=== PATIENT | female | born 1960 | race Caucasian/White ===

== ENCOUNTER 2019-01-23 07:21 | Emergency (ER) | payer OTHER, SELFPAY ==
[2019-01-23 07:45] VITALS: BP 199/89; PULSE 117; RESP 20; TEMP 36.8; O2SAT 98; BMI 33.3
--- NOTE | 2019-01-23 07:51 | ED.GENADULT ---
HPI - General Adult General Chief complaint: Extremity Injury, Lower Stated complaint: R leg pain Time Seen by Provider: 01/23/19 07:34 Source: patient Mode of arrival: ambulatory Limitations: no limitations History of Present Illness HPI narrative: Patient is a 58-year-old female here for evaluation pain in her right leg. She states that has been going on for the past month. She has been doing occasional Tylenol and Motrin which seems to not be improving any of her symptoms. She states that she felt like it started in her knee and then very shortly afterwards started in her right buttock. No specific lower back pain. No trauma. She states she has occasional pain that radiates down to her foot. No urinary incontinence. No fevers. Other than the Tylenol and Motrin has not tried anything for this prior to arrival. Related Data Previous Rx's Medication Instructions Recorded cyclobenzaprine 10 mg PO TID PRN #15 tab 01/23/19 meloxicam [Mobic] 15 mg PO DAILY #30 tab 01/23/19 Allergies Allergy/AdvReac Type Severity Reaction Status Date / Time No Known Drug Allergies Allergy Verified 01/23/19 07:53 Review of Systems Constitutional Denies fever(s) and Denies headache(s) ENT Ears, Nose, Mouth, and Throat: Denies headache(s) Cardiovascular Denies chest pain and Denies dyspnea Respiratory Denies dyspnea Gastrointestinal Gastrointestinal: Denies abdominal pain Genitourinary Denies urinary incontinence and Denies urinary hesitancy Musculoskeletal Comments: Right leg pain Integumentary/Breasts Denies rash Neurologic Denies headache(s) Comments: Tingling down the right leg PFSH Medical History Healthy adult (Acute) Social History lives independently: Yes Social History lives independently: Yes Exam Initial Vital Signs Initial Vital Signs: Vital Signs Temperature 98.2 F 01/23/19 07:45 Pulse Rate 117 H 01/23/19 07:45 Respiratory Rate 20 01/23/19 07:45 Blood Pressure 199/89 H 01/23/19 07:45 Pulse Oximetry 98 01/23/19 07:45 Const General: cooperative, comfortable, well developed, well groomed and No acute distress Orientation: alert, awake and oriented x3 HENMT Head: normal to inspection and normocephalic Resp Effort & Inspection: normal respiratory effort Cardio Rate: tachycardic Rhythm: regular rhythm Pulses: radial pulses present GI Inspection: non-distended Back/Spine/Pelvis Cervical Spine: No cervical spinal tenderness Thoracic/Lumbar Spine: No thoraco-lumbar spasm, No thoracic spinal tenderness, No lumbar spinal tenderness and straight leg raise positive Skin Lesions: no lesions Rashes: no rashes Neuro General: alert, awake and oriented x3 Cognition: normal cognition Speech: speech normal Motor: muscle tone normal throughout Sensory Exam: no sensory deficits noted Extrem General: normal to inspection and capillary refill normal Psych Appearance: grossly normal and well kempt Course Vital Signs - 8 hr 01/23/19 07:45 Temperature 98.2 F Pulse Rate 117 H Respiratory Rate 20 Blood Pressure 199/89 H Pulse Oximetry 98 Medical Decision Making Lab Data Point of Care Testing Glucose POC 108 Point of care testing: Point of Care Testing Glucose POC 108 MDM Narrative Medical decision making narrative: Patient with a history of physical exam that is concerning for sciatica with radiculopathy in the right lower extremity. Her symptoms been going on for a month. She did have a positive straight leg raise on the right. Patient is tachycardic however feels that is secondary to pain. Patient is very concerned because her sister just recently secondary to metastatic cancer. The patient does not know what type of cancer. Patient does not have a primary care doctor in the area. Will switch to Mobic and also Flexeril. The patient was given a card with the phone number to call to help with the stab showing primary care in the area. She was given return precautions. She expressed understanding and agreement with plan. Discharge Plan Departure Patient Disposition: Home Clinical Impression: Radiculopathy of leg Hypertension Qualifiers: Hypertension type: unspecified Qualified Code(s): I10 - Essential (primary) hypertension Instructions: Back Pain (Alternative Therapy), Essential Hypertension, DI for Back Pain With Sciatica, Activity May Be Better then Rest for Low Back Pain Recovery, DI for Lumbar Radiculopathy Activity Restrictions/Additional Instructions: I recommend you start taking the Mobic instead of other anti-inflammatories such as Motrin/ibuprofen/Naprosyn. Call the number on the card you were given to establish primary care doctor in the area. If the muscle relaxer does not help stop taking it. Return to the emergency department for any new or worsening symptoms. Your blood pressure was elevated today as well. I recommend you talk with your primary doctor. I also recommend you take your blood pressure at home and record the values so that when you go into see your primary doctor you can discuss potential medications. Prescriptions: New cyclobenzaprine 10 mg tablet 10 mg PO TID PRN (Reason: muscle spasm) Qty: 15 RF: 0 meloxicam [Mobic] 15 mg tablet 15 mg PO DAILY Qty: 30 RF: 0
[2019-01-23 08:48] VITALS: BP 187/76; PULSE 95; RESP 18; O2SAT 99
== END 2019-01-23 08:49 | disposition home or self-care (01) ==
PROVIDERS: Emergency Provider Emergency Medicine
DX: M54.10 Radiculopathy, site unspecified (principal)
CPT/HCPCS: 82962; 99282; 99283

== ENCOUNTER 2021-08-11 03:35 | Inpatient (IN) | payer OTHER, MEDICAID, SELFPAY ==
[2021-08-11] VITALS (17 sets, daily range): BP systolic 142–240; BP diastolic 76–115; PULSE 88–117; RESP 20–42; TEMP 36.2–37.3; O2SAT 91–98; BMI 32.9; BMI 32.1
--- NOTE | 2021-08-11 03:27 | DI.CT.S_ITS ---
PROCEDURE: CT STROKE INDICATIONS: acute Left side weakness TECHNIQUE: Noncontrast 4.5 mm thick angled axial sections acquired from the foramen magnum to the vertex, with coronal reformats. For radiation dose reduction, the following was used: automated exposure control, adjustment of mA and/or kV according to patient size. COMPARISON: [facility], CT, CT ANGIO HEAD AND NECK, 08/11/2021, 3:37. FINDINGS: Image quality: Excellent. CSF spaces: Basal cisterns are patent. No extra-axial fluid collections. The ventricles are symmetric in size and shape. Brain: No intracranial bleeds or masses. There is cerebral volume loss for age, with resultant ventricular and sulcal prominence. There are periventricular and deep white matter chronic small vessel ischemic changes. There is intracranial internal carotid artery atherosclerosis. Skull and face: Calvarium and visualized facial bones appear intact, without suspicious lesions. Partially calcified soft tissue density within the left frontal scalp soft tissues measuring approximately 7 mm. No priors are available for comparison. Sinuses: Visualized sinuses and mastoids are clear. IMPRESSION: 1. No acute intracranial process. 2. Mild to moderate atrophy and chronic microvascular ischemic changes. 3. Partially calcified left frontal scalp soft tissue density. This could represent a partially calcified sebaceous cyst. However, it is indeterminate on the basis of this exam. The above findings are concordant with preliminary report. This study fulfills neurological imaging criteria for inclusion or exclusion of acute stroke therapies based on available published neurological guidelines. Dictated by: Zulema Sabillon M.D. on 08/11/2021 at 9:21 Approved by: Zulema Sabillon M.D. on 08/11/2021 at 9:27
--- NOTE | 2021-08-11 03:28 | DI.CT.S_ITS ---
PROCEDURE: CT ANGIO HEAD AND NECK INDICATIONS: acute Left side weakness TECHNIQUE: After the administration of intravenous contrast, 1 mm thick sections acquired from the aortic arch through the [place] of [place]. Post-contrast 4.5 mm thick sections then re-acquired from the foramen magnum to the vertex. 3-dimensional mwszkld-shkpsrzan-futhbuzuvr (MIP) and/or volume rendering reformats were acquired of the central intracranial vasculature and neck separately. COMPARISON: [facility], CT, CT STROKE, 08/11/2021, 3:37. FINDINGS: Image quality: Excellent. BRAIN: The ventricular system and cortical sulci demonstrate atrophy, consistent for the patient's stated age. There are areas of hypodensity within the periventricular and subcortical white matter. There is no acute intra-or extra axial fluid collection. No acute hemorrhage, mass lesion or midline shift. Brainstem is unremarkable. Globes are symmetrical. Sinuses are aerated. Osseous structures are intact. HEAD CT ANGIOGRAPHY: Anterior circulation: Intracranial internal carotid arteries are normal in size and flow. The flow within the paired anterior cerebral arteries is normal and symmetric. The flow within the middle cerebral arteries is normal and symmetric. The anterior communicating artery is seen. No aneurysms are seen. Posterior circulation: Visualized portions of the vertebral arteries demonstrate normal caliber, and join to form a normal appearing basilar artery. Flow within the posterior cerebral arteries is normal and symmetric. No aneurysms are seen. Vertebral arteries are codominant. NECK CT ANGIOGRAPHY: The origins of the left and right common, internal and external carotid arteries demonstrate no areas of hemodynamically significant stenosis, vascular occlusion or aneurysmal dilation. Origins of the left and right vertebral arteries demonstrate no areas of hemodynamically significant stenosis, vascular occlusion or aneurysmal dilation. Aortic arch demonstrates conventional anatomy. Limited, visualized portions of the subclavian vasculature are unremarkable. 3 mm nodule is noted in the posterior right upper lobe series 8, image 174. No priors are available for comparison. Thyroid demonstrates low-attenuation foci within the left lobe. IMPRESSION: 1. No acute intracranial process. 2. Moderate atrophy and chronic microvascular ischemic changes. 3. No areas of hemodynamically significant stenosis, vascular occlusion or aneurysmal dilation within the anterior or posterior circulation. 4. No areas of hemodynamically significant stenosis, vascular occlusion or aneurysmal dilation within the neck vasculature. 5. 3 mm right upper lobe nodule. It is nonspecific and no priors are available for comparison. Recommend interval follow-up as below. 6. Heterogeneous appearance to the left thyroid lobe. These could represent cysts or adenomas. No priors are available for comparison. Thyroid ultrasound is recommended for further evaluation. The above findings are concordant with preliminary report. Any quantitative measurements of stenosis were performed using NASCET criteria. Fleischner Society criteria for SOLID lung nodule followup. Nodule size (mm)Low-risk patientHigh-risk patient<6 (single or multiple)No routine followup.Optional CT at 12 months. 6-8 (single or multiple)CT at 6-12 months, then optional CT at 18-24 mo.CT at 6-12 months, then CT at 18-24 months. >8 (single)CT, PET-CT, or biopsy at 3 months. Same as for low-risk pts. >8 (multiple)CT at 3-6 months, then optional CT at 18-24 mo.CT at 3-6 months, then CT at 18-24 months. Recommendations do not apply to lung cancer screening, patients with immunosuppression, or patients with known primary cancer. Dictated by: Zulema Sabillon M.D. on 08/11/2021 at 9:35 Approved by: Zulema Sabillon M.D. on 08/11/2021 at 9:48
--- NOTE | 2021-08-11 03:34 | ED_ITS ---
HPI - General Adult General Chief complaint: Neuro Symptoms/Deficit Stated complaint: Stroke Time Seen by Provider: 08/11/21 03:39 History of Present Illness HPI narrative: 70-year-old woman with a history of diabetes, hypertension and hyperlipidemia currently untreated as she is unable to afford medications was in her usual state of health when she went to bed at 9:00 a.m.. No recent fever, cough, chills, palpitations, abdominal pain, vomiting, diarrhea, headache or neurologic complaints. She woke up to void at 2:30 a.m. in the morning and found that her entire left side was not working. She arrives in the emergency department at 3:30 a.m. and is immediately taken to CT scanner. Related Data Home Medications Medication Instructions Recorded Confirmed No Known Home Medications 08/11/21 08/11/21 Allergies Allergy/AdvReac Type Severity Reaction Status Date / Time No Known Drug Allergies Allergy Verified 08/11/21 03:45 Review of Systems Review of Systems Narrative: Remainder of complete review of systems is otherwise unremarkable except for that included in the HPI. Patient History Medical History (Updated 08/11/21 @ 05:53 by Esme Jerry [facility] Diabetes Healthy adult Hyperlipidemia Hypertension Obesity (BMI 30.0-34.9) Stroke Surgical History (Updated 08/11/21 @ 05:53 by DEMARCO Lee-) History of History of cholecystectomy History of tonsillectomy Family History (Updated 08/11/21 @ 05:53 by DEMARCO Lee-) Mother Heart attack Diabetes mellitus Father Heart disease Social History household members: significant other lives independently: Yes Smoking Status: Current every day smoker alcohol intake: current Exam Narrative Exam Narrative: General: Healthy appearing, dramatic left-sided deficit, able to participate in history taking. Well-nourished well-developed HEENT: Moist mucous membranes, normal sclera with reactive pupils, Neck: No JVD, supple Respiratory: Lungs are clear to auscultation, no wheezing no rales no rhonchi. Full and symmetrical air movement Cardiac: Regular rate and rhythm no murmurs no bruits Abdomen: Soft, nontender, good bowel tones, no flank pain Skin: Warm and dry, no rashes Neurologic: Left facial droop, numbness and weakness in left arm and left leg, mild dysarthria Extremities: No trauma, well perfused Psych: Cooperative, Initial Vital Signs Initial Vital Signs: Vital Signs Pulse Rate 92 H 08/11/21 03:49 Pulse Oximetry 92 08/11/21 03:49 Scores NIH Stroke Scale Level of Conciousness: Alert, keenly responsive Ask month/age: Answers both questions correctly. Open/close eyes, close hand: Performs both tasks correctly Best gaze horizontal: Normal Visual dove: No visual loss Facial palsy: Minor paralysis, flattened nasolabial fold, asymmetry on smiling Left arm drift: Some effort against gravity, cannot maintain, drifts down to bed Right arm drift: No drift for full 10 sec Left leg drift: Some effort against gravity, cannot maintain, drifts down to bed Right leg drift: No drift for full 5 sec Limb ataxia: Present in two limbs Sensory on face/arms/legs: Mild to moderate sensory loss, can tell touch Best language: Mild to moderate, slurs some words Dysarthria: Mild to mod,some slurring Extinction or inattention: No abnormality Total NIH Stroke scale score: 10 Course Orders Ordered: ED Orders 08/11/21 03:20 Complete Blood Count AUTO DIFF Stat Comprehensive Metabolic Panel Stat Hemoglobin A1C% w Est Avg Glu Urgent Lipid Panel Urgent Magnesium Urgent NT-proBNP (BNP-Adult 18+) Urgent Thyroid Stimulating Hormone Urgent Troponin I Urgent 08/11/21 03:27 CT Stroke Stat EKG-12 Lead Stat 08/11/21 03:28 CT angio head and neck Stat 08/11/21 04:05 COVID19 -Nasal swab/Pre-Proc Stat 08/11/21 04:30 Urinalysis and Microscopic Stat Urine Drug Screen, Rapid Stat 08/11/21 04:32 Consult to Discharge Planning Routine Consult to Occupational Therapy Evaluate & Treat Consult to Physical Therapy Evaluate & Treat Consult to Speech Therapy Evaluate & Treat MR stroke Stat Education, smoking cessation ONGOING 08/11/21 04:39 Education, smoking cessation ONGOING 08/11/21 04:40 COVID19 - 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 (LINE WORKER swab/PCR) Stat 08/12/21 05:00 Basic Metabolic Panel Routine Complete Blood Count AUTO DIFF DAILY Partial Thromboplastin Time Routine Prothrombin Time INR Routine Acetaminophen (Acetaminophen 325 Mg Tablet) 650 mg PO Q6HR PRN PRN Reason: Fever Aspirin (Aspirin Ec 81 Mg Tablet) 81 mg PO DAILY LEXX Atorvastatin Calcium (Atorvastatin 20 Mg Tablet) 80 mg PO BEDTIME LEXX Clopidogrel Bisulfate (Clopidogrel 75 Mg Tablet) 75 mg PO DAILY LEXX Dextrose (Dextrose 50 % In Water 25 Gm/50 Ml Syringe) 25 gm IV PRN PRN PRN Reason: Hypoglycemia Sodium Chloride (Normal Saline 0.9%) 1,000 mls @ 150 mls/hr IV CONT LEXX Last Infusion: 08/11/21 05:33 Dose: 150 mls/hr Documented by: Admin: 08/11/21 04:07 Dose: 150 mls/hr Documented by: JADE Nicardipine HCl 25 mg/ Sodium (Chloride) 250 mls @ 50 mls/hr IV TITRATE LEXX; Protocol Last Titration: 08/11/21 06:22 Dose: 4 mg/hr, 40 mls/hr Documented by: Titration: 08/11/21 05:33 Dose: 5 mg/hr, 50 mls/hr Documented by: Titration: 08/11/21 05:05 Dose: 5 mg/hr, 50 mls/hr Documented by: Titration: 08/11/21 04:55 Dose: 6 mg/hr, 60 mls/hr Documented by: Admin: 08/11/21 04:10 Dose: 5 mg/hr, 50 mls/hr Documented by: JADE Insulin Human Lispro (Insulin Lispro 100 Unit/Ml 3ml Vial) 0 unit SUBCUT ACHS LEXX; Protocol Naloxone HCl (Naloxone 0.4 Mg/Ml Vial) 0.2 mg IV Q2MIN PRN PRN Reason: Opiate Reversal Ondansetron HCl (Ondansetron 4 Mg Odt) 4 mg PO Q8HR PRN PRN Reason: Nausea And Vomiting Vital Signs Vital signs: Vital Signs - 8 hr 08/11/21 03:49 08/11/21 03:52 08/11/21 04:00 Temperature Pulse Rate 92 H 92 H 90 Respiratory Rate 22 22 Blood Pressure 232/115 H 217/101 H Pulse Oximetry 92 93 92 08/11/21 04:20 08/11/21 04:30 08/11/21 04:37 Temperature 98.7 F Pulse Rate 93 H 104 H 112 H Respiratory Rate 26 H 26 H 20 Blood Pressure 240/107 H 229/93 H 211/93 H Pulse Oximetry 94 92 94 08/11/21 04:45 Temperature Pulse Rate 100 H Respiratory Rate 28 H Blood Pressure 195/84 H Pulse Oximetry 92 Medical Decision Making Lab Data Result diagrams: 08/11/21 03:20 08/11/21 03:20 Labs: Lab Results 08/11/21 08/11/21 08/11/21 Range/Units 03:20 03:20 03:20 WBC 12.7 H (4.5-11.0) X10^3/uL RBC 5.51 H (4.0-5.2) X10^6/uL Hgb 17.7 H (12.0-16.0) g/dL Hct 53.3 H (36-46) % MCV 96.6 (80-100) fL MCH 32.0 (26-34) PG MCHC 33.2 (30-36) % RDW 13.3 (11.6-14.8) % Plt Count 321 (150-400) X10^3/uL Neut % (Auto) 43.6 L (50-75) % Lymph % (Auto) 45.2 H (25-40) % [place] % (Auto) 8.3 (3-14) % Eos % (Auto) 2.6 (2-4) % Baso % (Auto) 0.3 (0-2) % Neut # (Auto) 5500 (0904-6655) /uL Lymph # (Auto) 5700 H (2030-9255) /uL [place] # (Auto) 1100 H (0-900) /uL Eos # (Auto) 300 (0-450) /uL Baso # (Auto) 0 (0-100) /uL Sodium 137 (137-145) mmol/L Potassium 3.9 (3.4-5.1) mmol/L Chloride 104 (98-107) mmol/L Carbon Dioxide 24 (22-32) mmol/L BUN 15 (7-17) mg/dL Creatinine 0.74 (0.52-1.04) mg/dL Estimated GFR > 60.0 (>60) mL/min BUN/Creatinine Ratio 20.3 (6-22) Glucose 282 H (80-110) mg/dL Calcium 9.1 (8.4-10.2) mg/dL Magnesium (1.6-2.3) mg/dL Total Bilirubin 0.5 (0.2-1.3) mg/dL AST 26 (14-36) IU/L ALT 25 (<35) IU/L Alkaline Phosphatase 69 (38-126) U/L Troponin I < 0.012 (0.01-0.034) ng/mL NT-Pro-B Natriuret Pep (<125) pg/mL Total Protein 7.3 (6.3-8.2) g/dL Albumin 4.2 (3.5-5.0) g/dL Globulin 3.1 (1.7-4.1) g/dL Albumin/Globulin Ratio 1.4 (1.0-2.8) Triglycerides (35-150) mg/dL Cholesterol (140-199) mg/dL LDL Cholesterol, Calc HDL Cholesterol (40-60) mg/dL Urine Color Urine Appearance Urine pH (4.5-8.0) Ur Specific [place] (1.000-1.035) Urine Protein (Negative) Urine Glucose (UA) (Negative) g/dL Urine Ketones (NEGATIVE) Urine Occult Blood (Negative) Urine Nitrate (Negative) Urine Bilirubin (NEGATIVE) Urine Urobilinogen (0.2) E.U./dL Ur Leukocyte Esterase (NEGATIVE) U Opiates 300ng/mL cut (Negative) Ur Oxycodone Screen (Negative) Urine Methadone Screen (Negative) Ur Barbiturates Screen (Negative) U Tricyclic Antidepress (Negative) Ur Phencyclidine Scrn (Negative) Ur Amphetamines Screen (Negative) U Methamphetamines Scrn (Negative) Ur MDMA Scrn (Ecstasy) (Negative) U Benzodiazepines Scrn (Negative) Urine Cocaine Screen (Negative) U Marijuana (THC) Screen (Negative) SARS-CoV-2 (PCR) (Negative) 08/11/21 08/11/21 08/11/21 Range/Units 03:20 03:20 03:20 WBC (4.5-11.0) X10^3/uL RBC (4.0-5.2) X10^6/uL Hgb (12.0-16.0) g/dL Hct (36-46) % MCV (80-100) fL MCH (26-34) PG MCHC (30-36) % RDW (11.6-14.8) % Plt Count (150-400) X10^3/uL Neut % (Auto) (50-75) % Lymph % (Auto) (25-40) % [place] % (Auto) (3-14) % Eos % (Auto) (2-4) % Baso % (Auto) (0-2) % Neut # (Auto) (5128-0128) /uL Lymph # (Auto) (0582-0866) /uL [place] # (Auto) (0-900) /uL Eos # (Auto) (0-450) /uL Baso # (Auto) (0-100) /uL Sodium (137-145) mmol/L Potassium (3.4-5.1) mmol/L Chloride (98-107) mmol/L Carbon Dioxide (22-32) mmol/L BUN (7-17) mg/dL Creatinine (0.52-1.04) mg/dL Estimated GFR (>60) mL/min BUN/Creatinine Ratio (6-22) Glucose (80-110) mg/dL Calcium (8.4-10.2) mg/dL Magnesium 1.9 (1.6-2.3) mg/dL Total Bilirubin (0.2-1.3) mg/dL AST (14-36) IU/L ALT (<35) IU/L Alkaline Phosphatase (38-126) U/L Troponin I (0.01-0.034) ng/mL NT-Pro-B Natriuret Pep 36 (<125) pg/mL Total Protein (6.3-8.2) g/dL Albumin (3.5-5.0) g/dL Globulin (1.7-4.1) g/dL Albumin/Globulin Ratio (1.0-2.8) Triglycerides 650 H (35-150) mg/dL Cholesterol 253 H (140-199) mg/dL LDL Cholesterol, Calc TNP HDL Cholesterol 30 L (40-60) mg/dL Urine Color Urine Appearance Urine pH (4.5-8.0) Ur Specific [place] (1.000-1.035) Urine Protein (Negative) Urine Glucose (UA) (Negative) g/dL Urine Ketones (NEGATIVE) Urine Occult Blood (Negative) Urine Nitrate (Negative) Urine Bilirubin (NEGATIVE) Urine Urobilinogen (0.2) E.U./dL Ur Leukocyte Esterase (NEGATIVE) U Opiates 300ng/mL cut (Negative) Ur Oxycodone Screen (Negative) Urine Methadone Screen (Negative) Ur Barbiturates Screen (Negative) U Tricyclic Antidepress (Negative) Ur Phencyclidine Scrn (Negative) Ur Amphetamines Screen (Negative) U Methamphetamines Scrn (Negative) Ur MDMA Scrn (Ecstasy) (Negative) U Benzodiazepines Scrn (Negative) Urine Cocaine Screen (Negative) U Marijuana (THC) Screen (Negative) SARS-CoV-2 (PCR) (Negative) 08/11/21 08/11/21 08/11/21 Range/Units 04:05 04:30 04:30 WBC (4.5-11.0) X10^3/uL RBC (4.0-5.2) X10^6/uL Hgb (12.0-16.0) g/dL Hct (36-46) % MCV (80-100) fL MCH (26-34) PG MCHC (30-36) % RDW (11.6-14.8) % Plt Count (150-400) X10^3/uL Neut % (Auto) (50-75) % Lymph % (Auto) (25-40) % [place] % (Auto) (3-14) % Eos % (Auto) (2-4) % Baso % (Auto) (0-2) % Neut # (Auto) (2997-6874) /uL Lymph # (Auto) (5668-8079) /uL [place] # (Auto) (0-900) /uL Eos # (Auto) (0-450) /uL Baso # (Auto) (0-100) /uL Sodium (137-145) mmol/L Potassium (3.4-5.1) mmol/L Chloride (98-107) mmol/L Carbon Dioxide (22-32) mmol/L BUN (7-17) mg/dL Creatinine (0.52-1.04) mg/dL Estimated GFR (>60) mL/min BUN/Creatinine Ratio (6-22) Glucose (80-110) mg/dL Calcium (8.4-10.2) mg/dL Magnesium (1.6-2.3) mg/dL Total Bilirubin (0.2-1.3) mg/dL AST (14-36) IU/L ALT (<35) IU/L Alkaline Phosphatase (38-126) U/L Troponin I (0.01-0.034) ng/mL NT-Pro-B Natriuret Pep (<125) pg/mL Total Protein (6.3-8.2) g/dL Albumin (3.5-5.0) g/dL Globulin (1.7-4.1) g/dL Albumin/Globulin Ratio (1.0-2.8) Triglycerides (35-150) mg/dL Cholesterol (140-199) mg/dL LDL Cholesterol, Calc HDL Cholesterol (40-60) mg/dL Urine Color Yellow Urine Appearance Clear Urine pH 5.5 (4.5-8.0) Ur Specific [place] 1.010 (1.000-1.035) Urine Protein 1+ H (Negative) Urine Glucose (UA) 2+ H (Negative) g/dL Urine Ketones Negative (NEGATIVE) Urine Occult Blood 1+ H (Negative) Urine Nitrate Negative (Negative) Urine Bilirubin Negative (NEGATIVE) Urine Urobilinogen 0.2 (0.2) E.U./dL Ur Leukocyte Esterase Trace H (NEGATIVE) U Opiates 300ng/mL cut Negative (Negative) Ur Oxycodone Screen Negative (Negative) Urine Methadone Screen Negative (Negative) Ur Barbiturates Screen Negative (Negative) U Tricyclic Antidepress Negative (Negative) Ur Phencyclidine Scrn Negative (Negative) Ur Amphetamines Screen Negative (Negative) U Methamphetamines Scrn Negative (Negative) Ur MDMA Scrn (Ecstasy) Negative (Negative) U Benzodiazepines Scrn Negative (Negative) Urine Cocaine Screen Negative (Negative) U Marijuana (THC) Screen Negative (Negative) SARS-CoV-2 (PCR) Negative (Negative) 08/11/21 Range/Units 04:40 WBC (4.5-11.0) X10^3/uL RBC (4.0-5.2) X10^6/uL Hgb (12.0-16.0) g/dL Hct (36-46) % MCV (80-100) fL MCH (26-34) PG MCHC (30-36) % RDW (11.6-14.8) % Plt Count (150-400) X10^3/uL Neut % (Auto) (50-75) % Lymph % (Auto) (25-40) % [place] % (Auto) (3-14) % Eos % (Auto) (2-4) % Baso % (Auto) (0-2) % Neut # (Auto) (7305-1877) /uL Lymph # (Auto) (7182-8903) /uL [place] # (Auto) (0-900) /uL Eos # (Auto) (0-450) /uL Baso # (Auto) (0-100) /uL Sodium (137-145) mmol/L Potassium (3.4-5.1) mmol/L Chloride (98-107) mmol/L Carbon Dioxide (22-32) mmol/L BUN (7-17) mg/dL Creatinine (0.52-1.04) mg/dL Estimated GFR (>60) mL/min BUN/Creatinine Ratio (6-22) Glucose (80-110) mg/dL Calcium (8.4-10.2) mg/dL Magnesium (1.6-2.3) mg/dL Total Bilirubin (0.2-1.3) mg/dL AST (14-36) IU/L ALT (<35) IU/L Alkaline Phosphatase (38-126) U/L Troponin I (0.01-0.034) ng/mL NT-Pro-B Natriuret Pep (<125) pg/mL Total Protein (6.3-8.2) g/dL Albumin (3.5-5.0) g/dL Globulin (1.7-4.1) g/dL Albumin/Globulin Ratio (1.0-2.8) Triglycerides (35-150) mg/dL Cholesterol (140-199) mg/dL LDL Cholesterol, Calc HDL Cholesterol (40-60) mg/dL Urine Color Urine Appearance Urine pH (4.5-8.0) Ur Specific [place] (1.000-1.035) Urine Protein (Negative) Urine Glucose (UA) (Negative) g/dL Urine Ketones (NEGATIVE) Urine Occult Blood (Negative) Urine Nitrate (Negative) Urine Bilirubin (NEGATIVE) Urine Urobilinogen (0.2) E.U./dL Ur Leukocyte Esterase (NEGATIVE) U Opiates 300ng/mL cut (Negative) Ur Oxycodone Screen (Negative) Urine Methadone Screen (Negative) Ur Barbiturates Screen (Negative) U Tricyclic Antidepress (Negative) Ur Phencyclidine Scrn (Negative) Ur Amphetamines Screen (Negative) U Methamphetamines Scrn (Negative) Ur MDMA Scrn (Ecstasy) (Negative) U Benzodiazepines Scrn (Negative) Urine Cocaine Screen (Negative) U Marijuana (THC) Screen (Negative) SARS-CoV-2 (PCR) Negative (Negative) Point of Care Testing Glucose POC 266 Point of care testing: Point of Care Testing Glucose POC [address] scan - head: Radiologist's Impression: No acute intracranial hemorrhage CTA head and neck: Radiologist's Impression: No acute occlusion. No rate limiting stenosis Ginette Florence DO MDM Narrative Medical decision making narrative: 70-year-old woman with last known well at 9:00 p.m.. Awoke 2 through tree to void and noticed significant left-sided weakness. NIH score of 13. Upon arrival in the emergency department at 3:30 a.m. she has taken directly to the CT scanner. Due to time of presentation she is outside the window for tPA however if she does have a large vessel occlusion she clearly is within interventional radiology time frames. 3:59 Radiology call - no head bleed Will wait for CTA formatting to be done and contact stroke Neurology team to see if this patient might have a large vessel occlusion and be a code IR candidate. 4:08 Call from Tele Stroke, Dr Ga. Will call back after he has a chance to review the CTA 4:14 Dr Ga has reviewed CTA and reports no LVO. Unfortunately at this time no interventional options are going to be appropriate. Will continue nicardipine with a systolic blood pressure goal 185 and admit to our hospital service for medical management of her acute right-sided stroke with significant left-sided weakness and dysarthria. 422 Reviewed with Ms Jerry, hospitalist ЕКАТЕРИНА. Will admit for contiued care and stroke work up consult from Dr Ga is available and consistent with events and plan as outlined above Critical Care Time Critical Care Time Critical Care Time: Yes Total Critical Care Time: 33 Attestation: Critical care time is separate from other billable procedures. There is a high probability of a significant, sudden or life-threatening deterioration that requ ires my full and direct attention, intervention and personal management. This critical care time includes consultation with family and other consulting doctors, review of records, and interpretation of data from labs, EKGs and imaging as well as managements of acute stroke and hypertension significant enough to require IV medication management Discharge Plan Departure Patient Disposition: Admitted As Inpatient Clinical Impression: Stroke Qualifiers: CVA mechanism: embolism Precerebral and cerebral artery: middle cerebral artery Laterality of affected vessel: right Qualified Code(s): I63.411 - Cerebral infarction due to embolism of right middle cerebral artery Admit Date/Time: 08/11/21 04:56 Admit Provider: Esme Jerry
[2021-08-11] MEDS: SODIUM CHLORIDE 0.9% 1,000 ML 150 ML IV (04:07)
[2021-08-11 04:09] LABS: Add Manual Diff / Slide Review NO; Basophils Absolute Auto 0 /uL (0-100); Basophils Percent Auto 0.3 % (0-2); Eosinophils Absolute Auto 300 /uL (0-450); Eosinophils Percent Auto 2.6 % (2-4); Hematocrit 53.3 % (36-46); Hemoglobin 17.7 g/dL (12.0-16.0); Lymphocytes Absolute Auto 5700 /uL (1100-4500); Lymphocytes Percent Auto 45.2 % (25-40); Mean Corpuscular HGB Conc 33.2 % (30-36); Mean Corpuscular Volume 96.6 fL (80-100); Monocytes Absolute Auto 1100 /uL (0-900); Monocytes Percent Auto 8.3 % (3-14); Neutrophils Absolute Auto 5500 /uL (1500-7000); Neutrophils Percent Auto 43.6 % (50-75); Platelet Count 321 X10^3/uL (150-400); Red Blood Cell Count 5.51 X10^6/uL (4.0-5.2); Red Cell Distribution Width 13.3 % (11.6-14.8); White Blood Cell Count 12.7 X10^3/uL (4.5-11.0)
[2021-08-11] MEDS: NICARDIPINE 25 MG in SODIUM CHLORIDE 0.9% 240 ML 50 ML IV (04:10)
[2021-08-11 04:13] LABS: Alanine Aminotransferase 25 IU/L (<35); Albumin 4.2 g/dL (3.5-5.0); Albumin Globulin Ratio 1.4 (1.0-2.8); Alkaline Phosphatase 69 U/L (38-126); Aspartate Aminotransferase 26 IU/L (14-36); BUN Creatinine Ratio 20.3 (6-22); Bilirubin Total 0.5 mg/dL (0.2-1.3); Blood Urea Nitrogen 15 mg/dL (7-17); Calcium 9.1 mg/dL (8.4-10.2); Carbon Dioxide 24 mmol/L (22-32); Chloride 104 mmol/L (98-107); Estimated Glomerular Filt Rate > 60.0 mL/min (>60); Globulin 3.1 g/dL (1.7-4.1); Glucose 282 mg/dL (80-110); HEMOLYSIS 24 (0-50); Potassium 3.9 mmol/L (3.4-5.1); Sodium 137 mmol/L (137-145); Total Protein 7.3 g/dL (6.3-8.2)
[2021-08-11 04:23] LABS: COVID19 -Nasal RAPID Negative (Negative)
--- NOTE | 2021-08-11 04:32 | DI.MRI.S_ITS ---
PROCEDURE: MR STROKE Pre- and post-contrast brain MRI, non-contrast brain MR angiogram, pre- and postcontrast neck MR angiogram INDICATIONS: stroke TECHNIQUE: Brain: Noncontrast axial T1 spin echo, axial T2 fast spin echo, sagittal and axial FLAIR, coronal T2 fast spin echo, axial gradient echo, axial diffusion and ADC through the brain. After the administration of contrast, axial 3D VIBE of the cranial vasculature and brain. Brain MRA: Non-contrast 3-D time of flight MR angiogram, with multiple hqtbxbj-eplzdtewd-[id number] (MIP) reformats performed. Neck MRA: Axial and sagittal TruFISP through the neck. Coronal dynamic MR angiogram during administration of contrast in the arterial and venous phases, with 3-dimenstional uyxrmfm-vcqayrvax-pbrfbmjalw (MIP) reformats constructed from subtraction images. COMPARISON: None. FINDINGS: Image quality: Excellent. BRAIN: CSF spaces: Ventricles are normal in size and shape. Basal cisterns are patent. No extra-axial fluid collections. Brain: There is a focus of restricted diffusion in the right thalamus and adjacent internal capsule measuring approximately 1.4 by 0.5 centimeters maximum axial dimension (series 19, image 63). No additional restricted diffusion. The major intracranial vascular flow-related signal voids are maintained. No findings of mass effect or midline shift. Mild global cerebral volume loss and chronic microvascular ischemic changes. No abnormal a focus of increased T2 signal in the omayra just left of midline measuring 0.7 x 0.3 centimeters is nonspecific but presumably represents a capillary hemangioma or perhaps another small vascular anomaly. A tiny subacute infarct could have a similar appearance, although there is no associated restricted diffusion. Skull and face: Calvarial marrow signal is normal. Orbits appear normal. Sinuses: Sinuses and mastoids are clear. BRAIN MR ANGIOGRAM: Anterior circulation: Intracranial internal carotid arteries are normal in size and enhancement. The flow within the paired anterior cerebral arteries is normal and symmetric. The flow within the middle cerebral arteries is normal and symmetric. The anterior communicating artery is seen. No stenoses, occlusions, or aneurysms. Posterior circulation: The visualized portions of the vertebral arteries demonstrate normal caliber, and join to form a normal appearing basilar artery. The flow within the posterior cerebral arteries is normal and symmetric. No stenoses, occlusions, or aneurysms. NECK MR ANGIOGRAM: Carotids: Great vessels demonstrate a conventional anatomy as they arise from the aortic arch. The origins of the common carotid arteries appear patent. The calibers and courses of both common carotid arteries are normal. The bifurcation regions appear normal bilaterally. The internal carotid arteries demonstrate normal course and caliber. Posterior circulation: The origins of the vertebral arteries appear patent. More superior portions of both vertebral arteries demonstrate normal course and caliber, and join to form a normal appearing basilar artery. Miscellaneous: Subclavian arteries appear patent. Pre-contrast images through the neck show no soft tissue abnormalities. IMPRESSION: BRAIN MRI: Acute right thalamic infarct. Possible subacute pontine infarct (versus small vascular anomaly). Follow-up recommended to document stability. BRAIN MR ANGIOGRAM: No flow-limiting stenosis of the major intracranial circulation identified. NECK MR ANGIOGRAM: No flow-limiting stenosis of the major extracranial arterial circulation identified. Dictated by: Jarrett Alcantara M.D. on 08/11/2021 at 11:28 Approved by: Jarrett Alcantara M.D. on 08/11/2021 at 11:39
--- NOTE | 2021-08-11 04:46 | PM.HP.1 ---
History of Present Illness History of Present Illness Date Patient Seen: 08/11/21 Time Patient Seen: 04:46 Chief complaint: Stroke Narrative: Patient is a 60-year-old female Barb Kasper with a history of diabetes, obesity, hypertension and hyperlipidemia currently untreated x 1 year as she is unable to afford medications due to loss of health insurance, she was in her usual state of health when she went to bed at 9:00 pm last night. No recent Chest pain, fever, cough, chills, palpitations, abdominal pain, vomiting, diarrhea, headache, neurologic complaints, bowel or bladder incontinence, recent illness, injury or trauma.? She woke up to void at 2:30 a.m. in the morning and found that her entire left side was not working.? She arrived in the emergency department at 3:30 a.m. and was immediately taken to CT. Patient unable to move her left arm or leg, dysarthria also noted, patient has no left side neglect nor difficulty in word finding. Patient's initial blood pressure 220/110, with a heart rate 117 in the ED she was started on a nicardipine drip. Patient reports that she has no history of stroke are heart attack but approximately 1 year ago she experienced right leg and right foot numbness weakness that resolved on its own. She also states that for the past month she has been having balance coordination issues and difficulty walking she denies falling or hitting her head. Though she has dysarthria as patient is able to communicate well is alert and orientated, and resting comfortably in bed at this time. Dr. Marino ED: Tele Neurology Consult -Dr Ga has reviewed CTA and reports no LVO.? Unfortunately at this time no interventional options are going to be appropriate.? Will continue nicardipine with a systolic blood pressure goal 185 and admit to our hospital service for medical management of her acute right-sided stroke with significant left-sided weakness and dysarthria. Patient had a elevated WBC 12.7, HGB 17.7, HCT 53.3, the rest of the patient's chemistries were WNL with the exception of glucose of 282, liver panel WNL. Patient admitted with acute right-sided stroke with significant left-sided weakness NIH score of 10, with hypertensive emergency to ICU. Head neck CTA imaging no limiting occlusion or stenosis noted per Dr. Laursen. Patient History Medical History (Updated 08/11/21 @ 05:53 [facility] Diabetes Healthy adult Hyperlipidemia Hypertension Obesity (BMI 30.0-34.9) Stroke Surgical History (Updated 08/11/21 @ 05:53 [facility] History of History of cholecystectomy History of tonsillectomy Family & Social History Family History (Updated 08/11/21 @ 05:53 by MACRINA Lee) Mother Heart attack Diabetes mellitus Father Heart disease Social History: lives independently Yes Tobacco & Substance use: Smoking Status Current every day smoker Substance Use Type does not use Meds Home Medications and Allergies Home Medications Medication Instructions Recorded Confirmed Type No Known Home Medications 08/11/21 08/11/21 History Allergies Allergy/AdvReac Type Severity Reaction Status Date / Time No Known Drug Allergies Allergy Verified 08/11/21 03:45 Review of Systems Review of Systems Narrative: All 12 point systems reviewed with the patient and are negative except otherwise documented. Exam Narrative Exam Narrative: General: Patient is a well-developed, obese female, with left extremity weakness and dysarthria, in no distress at this time. Patient to fully participate in HPI and ROS. HEENT: Normocephalic, atraumatic, extraocular muscles intact, oral pharynx is clear and mucous membranes are moist. Neck is supple and symmetric, trachea is midline, no adenopathy, no thyroid enlargement, nontender, no masses palpated. Negative for JVD, dentures in place. Chest: Normal AP diameter and contour without kyphoscoliosis, no nasal flaring, retractions, or tachypneic labored Lungs: Auscultation of all lung dove are clear without adventitious sounds, wheezes, rhonchi, or rales. Cardio: Tachycardia regular rate and rhythm without murmur, rubs, or gallops, no carotid bruit, no cardiac pulsations present. Abdomen: Soft nontender, negative for organomegaly, or masses. Bowel sounds are hypoactive present in all 4 quadrants without guarding or rebound, no CVA tenderness. Musculoskeletal: Significant left arm and left leg weakness, radial and pedal pulses are normal. Skin: Warm dry and intact without rashes, ulcerations or petechiae. Neuro: noted left sided facial droop, dysarthria, sensation to forehead & arms are equal, though left side of neck is dimnished, left arm & leg weakness, but is able to lift arm up slightly off the bed. Psych: Patient has a well-kept appearance, appropriate affect, mental status attitude thought context and judgment are appropriate for age. Objective Labs Result Diagrams: 08/11/21 03:20 08/11/21 03:20 Labs: Laboratory Results - last 24 hr 08/11/21 08/11/21 08/11/21 03:20 03:20 04:05 WBC 12.7 H RBC 5.51 H Hgb 17.7 H Hct 53.3 H MCV 96.6 MCH 32.0 MCHC 33.2 RDW 13.3 Plt Count 321 Neut % (Auto) 43.6 L Lymph % (Auto) 45.2 H [place] % (Auto) 8.3 Eos % (Auto) 2.6 Baso % (Auto) 0.3 Neut # (Auto) 5500 Lymph # (Auto) 5700 H [place] # (Auto) 1100 H Eos # (Auto) 300 Baso # (Auto) 0 Sodium 137 Potassium 3.9 Chloride 104 Carbon Dioxide 24 BUN 15 Creatinine 0.74 Estimated GFR > 60.0 BUN/Creatinine Ratio 20.3 Glucose 282 H Calcium 9.1 Total Bilirubin 0.5 AST 26 ALT 25 Alkaline Phosphatase 69 Total Protein 7.3 Albumin 4.2 Globulin 3.1 Albumin/Globulin Ratio 1.4 SARS-CoV-2 (PCR) Negative Assessment & Plan Assessment & Plan narrative: Patient is a 60-year-old female Barb Kasper with a history of diabetes, obesity, hypertension and hyperlipidemia currently untreated x 1 year as she is unable to afford medications due to loss of health insurance, she was in her usual state of health when she went to bed at 9:00 pm last night. She woke up to void at 2:30 a.m. in the morning and found that her entire left side was not working.? Patient admitted for right-sided acute stroke with left-sided weakness/neuro deficit, and hypertensive emergency. 1. Acute right-sided stroke, with left neurological deficit, in the setting of hypertensive emergency (uncontrolled HTN), acute, present on admission-patient is stable -Patient unable to move her left arm or leg, dysarthria also noted, patient has no left side neglect nor difficulty in word finding. -WBC 12.7, HGB 17.7, HCT 53.3, a initial NIH score: 11, ABCD 2 score:7, Heart score:4 -initial blood pressure 220/110, with a heart rate 117 Dr. Marino ED: Tele Neurology Consult -Dr Ga has reviewed CTA and reports no LVO.? Unfortunately at this time no interventional options are going to be appropriate.? Will continue nicardipine with a systolic blood pressure goal 185 and admit to our hospital service for medical management of her acute right-sided stroke with significant left-sided weakness and dysarthria. -tele test case developer consult -nicardipine drip, initiated in the ED goal systolic blood pressure above 180-goal to reduce blood pressure 10 to 20% over the 1st hour, then 515 present over the next 23 hours. To transition to oral start oral nicardipine 1 hour prior to IV discontinuation-determine dosage based on IV equivalent mg per hour -differential diagnosis: stroke embolic, ischemic stroke, intracranial hemorrhage, subdural hematoma, epidural hematoma, seizure, brain tumor, migraine, vertigo, hypoglycemia, Chanelle [place] syndrome, multiple sclerosis, aortic dissection -notify provider for temp greater than 38 C, , heart rate >100 -treat systolic blood pressure>220 or diastolic blood pressure> 120 -activity as tolerated, encorage bed rest until initial physical therapy assessment is performed, then mobilize ZEYNEP as recommendedby Physical therapy, strict fall precautions, aspiration precaution. -supplemental O2 to maintain> 94% -Diet: Bedside swallow, NPO until swallow evaluation is done, then if negative- Carb Controlled if cleared -fluids:None -Medications: Aspirin 81 mg, Plavix 75 mg, Lipitor 80mg -labs CBC, BMP, PT/PTT/INR, BNP,TSH, troponin, hemoglobin A1c,Lipid panel, U/A -consult, PT/OT/ST evaluations -MR ordered for tomorrow -discharge planning establish patient for patient's safety and rehabilitation 2. Hyperlipidemia secondary type 2 diabetes as a result of obesity, acute on chronic, present of admission -Lipitor 80 mg -lipid panel ordered 3. Type 2 diabetes, uncontrolled, present on admission -initial glucose 282, A1c ordered -patient admitted under diabetes protocol, low-dose sliding scale -will determine if metformin or Lantus are appropriate to initiate based on A1c 4. Obesity as evidence by BMI of 32.9, acute on chronic, present on admission -consideration will be given for dietary counseling Code status: Full code Surrogate decision maker: Ghulam Donohue Partner COVID PCR: Negative COVID vaccination: Unknown DVT/VTE prophylaxis: Patient to be started on Plavix 75 mg following MR and SCDs Disposition: Estimated length of stay greater than 2 midnights admitted to the ICU for evaluation of stroke and hypertensive emergency. I have utilized all available immediate resources to obtain, update, or review the patient's current medications. I confirmed that the patient's advanced care plan is present, Code status is documented and/or surrogate decision maker is listed in the patient's medical record. Time Spent With Patient Critical Care time: I spent a total of [] minutes of critical care time on this patient's care today; this time is exclusive of procedural time. Scores GCS Azam coma scale eye opening: Spontaneous Azam coma scale verbal response: Orientated Azam coma scale motor response: Obey commands Azam coma scale total score: 15 ABCD2 Age >= 60 years: yes Initial BP. Either SBP >= 140 or DBP >= 90.: yes Clinical features of the TIA: unilateral weakness Duration of symptoms: >= 60 minutes History of diabetes: yes ABCD2 Score: 7 NIHSS Level of Conciousness: Alert, keenly responsive Ask month/age: Answers both questions correctly. Open/close eyes, close hand: Performs both tasks correctly Best gaze horizontal: Normal Visual dove: No visual loss Facial palsy: Partial paralysis, total or near total paralysis of lower face Left arm drift: Some effort against gravity, cannot maintain, drifts down to bed Right arm drift: No drift for full 10 sec Left leg drift: No effort against gravity Right leg drift: No drift for full 5 sec Limb ataxia: Present in two limbs Sensory on face/arms/legs: Normal, no sensory loss Best language: Mild to moderate, slurs some words Dysarthria: Mild to mod,some slurring Extinction or inattention: No abnormality Total NIH Stroke scale score: 11 CHADS-VASc Congestive heart failure: no Hypertension: yes Age 75 years or older: no Diabetes mellitus: yes Stroke, TIA, or TE: yes Vascular disease: no Age 65 to 74 years: no Sex category (female): Female CHADS-VASc Score: 5 Wells' Criteria for PE Clinical signs and symptoms of DVT: No PE is #1 Dx or equally likely: No Heart rate > 100: Yes Immobilization at least 3 days or surg in previous 4 weeks: No History of PE or DVT: No Hemoptysis: No Malignancy w/Treatment within 6 months or palliative: No Wells' PE Score total: 1.5
[2021-08-11 05:00] LABS: Appearance Urine UA CLEAR; Bilirubin Urine UA NEGATIVE (NEGATIVE); Color Urine UA YELLOW; Glucose Urine UA 2+ g/dL (Negative); Ketones Urine UA NEGATIVE (NEGATIVE); Leukocyte Esterase Urine UA TRACE (NEGATIVE); Nitrite Urine UA NEGATIVE (Negative); Occult Blood Urine UA 1+ (Negative); Protein Urine UA 1+ (Negative); Urobilinogen Urine UA 0.2 E.U./dL (0.2)
[2021-08-11 05:04] LABS: pH Urine UA 5.5 (4.5-8.0)
[2021-08-11 05:12] LABS: Ur Creatinine 50 (Normal)
[2021-08-11 05:13] LABS: UR Morphine/Opiate cutoff 300 Negative (Negative); Urine Amphetamines Negative (Negative); Urine Barbiturates Negative (Negative); Urine Benzodiazepines Negative (Negative); Urine Cocaine Negative (Negative); Urine MDMA Negative (Negative); Urine Methadone Negative (Negative); Urine Methamphetamines Negative (Negative); Urine Oxycodone Negative (Negative); Urine Phencyclidine Negative (Negative); Urine Tetrahydrocannabinol Negative (Negative); Urine Tricyclic Antidepressant Negative (Negative); Urine pH 5.5 (Normal)
[2021-08-11 05:47] LABS: COVID19 - ADMIT (NP swab/PCR) Negative (Negative)
[2021-08-11 05:51] LABS: Troponin I < 0.012 ng/mL (0.01-0.034)
[2021-08-11 05:56] LABS: Magnesium 1.9 mg/dL (1.6-2.3)
[2021-08-11 05:57] LABS: Cholesterol 253 mg/dL (140-199); HDL Cholesterol 30 mg/dL (40-60)
[2021-08-11 06:05] LABS: NT-proBNP (BNP-Adult 18+) 36 pg/mL (<125); Triglycerides 650 mg/dL (35-150)
[2021-08-11 06:21] LABS: Thyroid Stimulating Hormone 1.97 uIU/mL (0.47-4.68)
[2021-08-11 06:44] LABS: Bacteria Urine Many (>30); Culture Indicated Urine Specimen Cultured; RBC Urine 1-5/HPF (0-5/HPF); Squamous Epithelial Cell Urine 1-5 /HPF (0-5/HPF); WBC Urine 10-30/HPF (0-5/HPF)
--- NOTE | 2021-08-11 06:57 | DI.ECHO.S_ITS ---
[facility] +---------+ : : [id number] [place] : : : : [id number] : : : : Phone: [phone]+ Echocardiogram Report + + :Name: JACQUES HARTMAN Study Date: 08/12/2021 Height: 65 in : :[facility] ReadingLocation: Weight: 192 lb : : Gender: Female BSA: 1.9 m2 : :: 1960 Age: 60 yrs BP: 186/76 mmHg: :Reason For Study: STROKE : :Ordering Physician: DINA, : :CRUZ Performed By: Gregoria Ramos : :Referring: CRUZ ARROYO : + + Interpretation Summary There is mild concentric left ventricular hypertrophy. The ejection fraction is estimated to be 55-60%. Unable to grade diastolic function. Normal right ventricular systolic function. No significant valvular abnormalities. Injection of contrast documented an interatrial shunt. Procedure: A two-dimensional transthoracic echocardiogram with color flow and Doppler was performed. The study quality was technically adequate. There is no prior echocardiogram noted for this patient. A saline contrast injection was performed to assess for cardiac shunting. The injection was performed through an intravenous line in the right arm. The patient was in sinus rhythm with heart rates between 85-98 bpm during the exam. Left Ventricle: The left ventricular cavity is small. There is mild concentric left ventricular hypertrophy. The ejection fraction is estimated to be 55-60%. Diastolic function could not be accurately assessed due to unobtainable data. Right Ventricle: The right ventricle is normal in size and function. Atria: The left atrial size is normal. Right atrial size is normal. Injection of contrast documented an interatrial shunt. Doppler evidence suggests a right to left interatrial shunt. Bubble study was captured on image frame(s) # [id number]. Mitral Valve: The mitral valve is normal in structure and function. There is trace mitral regurgitation. Aortic Valve: The aortic valve is trileaflet. The aortic valve opens well. There is no aortic valve stenosis. No aortic regurgitation is present. Tricuspid Valve: The tricuspid valve is normal in structure and function. There is trace tricuspid regurgitation. Pulmonary artery pressures cannot be estimated because of the lack of a measurable TR jet velocity. Pulmonic Valve: The pulmonic valve leaflets are thin and pliable; valve motion is normal. There is trace pulmonic regurgitation. Great Vessels: The aortic root is normal size. The dimensions of the ascending aorta are normal. The inferior vena cava was not well visualized. Pericardium/ Pleura There is a trivial pericardial effusion noted. There is no pleural effusion. MMode/2D Measurements & Calculations LVIDd: 3.9 cm LVOT diam: 2.0 cm LVIDs: 2.8 cm Ao root diam: 3.3 cm FS: 29.5 % asc Aorta Diam: 3.1 cm IVSd: 1.2 cm Ao Arch Diam (Prox Trans): 3.2 cm LVPWd: 1.1 cm LV levine. diameter/BSA (cm/m^2): 2.0 LV sys. diameter/BSA (cm/m^2): 1.4 LA A2 area: 18.1 cm2 RA long axis: 4.5 cm LA A4 area: 14.9 cm2 RA area: 11.4 cm2 LA length (vol): 4.7 cm RA vol: 24.6 ml LA vol: 48.2 ml RA : 12.7 ml/m2 LA vol index: 24.8 ml/m2 IVC diam: 1.1 cm RVD1 (basal): 3.2 cm TAPSE: 1.8 cm Doppler Measurements & Calculations Ao V2 max: 125.3 cm/sec LVOT Max Geovanni: 90.4 cm/sec Ao V2 mean: 86.2 cm/sec LV V1 max P.3 mmHg Ao max P.3 mmHg LV V1 VTI: 19.5 cm Ao mean P.4 mmHg BETSY(I,D): 2.5 cm2 Ao V2 VTI: 23.9 cm BETSY(V,D): 2.3 cm2 sev ratio: 0.81 BETSY indexed to BSA (cm^2/m^2): 1.3 MV E max geovanni: 60.1 cm/sec PA V2 max: 144.5 cm/sec MV A max geovanni: 117.7 cm/sec PA V2 mean: 95.7 cm/sec MV E/A: 0.51 PA mean P.2 mmHg Med Peak E' Geovanni: 3.6 cm/sec PA pr(Accel): 44.3 mmHg E/E' med: 16.6 Lat Peak E' Geovanni: 6.1 cm/sec E/E' lat: 9.9 E/e' average: 13.3 MV dec time: 0.19 sec SVLVOT): 60.7 ml Reading Physician:10:44 AM
--- NOTE | 2021-08-11 07:03 | P.TELICUCN_ITS ---
History of Present Illness Consult details Chief complaint: Stroke :: This patient was seen via real time interactive two-way audiovisual telecommunication. Narrative: 60 yo female w h/o HTN (no meds as unable to afford/no insurance) who went to sleep ~9:30 pm last night, but awoke around 1-2AM being unable to move her L side. Came to ED for eval -> head CT negative for ICH and CTA negative for LVO. She was noted to be hypertensive. Tele-neuro was consuted from ED and reccomended BP management w cardene w goal SBP 180s. They also reccomended ASA and Plavix. She was then admitted to ICU. On camera, she has some noticeable dysarthria but is easily understood. She is unable to move her L arm or leg against gravity. She tells me she is using her R arm to try to lift her L arm off the bed. She noticeable coughs while I talk to her. She tells me when she is not talking, her swallowing feels fine, but when she talks she feels that she needs to cough more to clear her throat. [facility] Medical History (Updated 08/11/21 @ 07:10 by Dariela Branch MD) Diabetes Healthy adult Hyperlipidemia Hypertension Obesity (BMI 30.0-34.9) Stroke Surgical History (Updated 08/11/21 @ 05:53 by MACRINA Lee) History of History of cholecystectomy History of tonsillectomy Family History (Updated 08/11/21 @ 05:53 by MACRINA Lee) Mother Heart attack Diabetes mellitus Father Heart disease Social History household members: significant other lives independently: Yes Smoking Status: Current every day smoker alcohol intake: current Current Medications Current Medications Medications: Home Medications No Known Home Medications 08/11/21 [History Confirmed 08/11/21] Visit Medications (administered) Generic Name Dose Route Start Last Admin Trade Name Freq PRN Reason Stop Dose Admin Sodium Chloride 1,000 mls @ 150 mls/hr 08/11/21 03:30 08/11/21 05:33 Normal Saline 0.9% IV 150 mls/hr CONT LEXX Infusion Nicardipine HCl 25 mg/ Sodium 250 mls @ 50 mls/hr 08/11/21 04:00 08/11/21 06:42 Chloride IV 3 mg/hr TITRATE LEXX 30 mls/hr Titration Protocol 5 MG/HR Exam Vital Signs (past 8 hours): - 08/11/21 03:49 08/11/21 03:52 08/11/21 04:00 Temperature Pulse Rate 92 H 92 H 90 Respiratory Rate 22 22 Blood Pressure 232/115 H 217/101 H Pulse Oximetry 92 93 92 08/11/21 04:20 08/11/21 04:30 08/11/21 04:37 Temperature 98.7 F Pulse Rate 93 H 104 H 112 H Respiratory Rate 26 H 26 H 20 Blood Pressure 240/107 H 229/93 H 211/93 H Pulse Oximetry 94 92 94 08/11/21 04:45 08/11/21 05:00 08/11/21 05:34 Temperature 97.1 F L Pulse Rate 100 H 103 H 117 H Respiratory Rate 28 H 28 H 26 H Blood Pressure 195/84 H 180/81 H 211/93 H Pulse Oximetry 92 92 98 08/11/21 06:21 08/11/21 06:30 08/11/21 06:45 Temperature Pulse Rate 102 H 97 H 101 H Respiratory Rate 26 H 24 42 H Blood Pressure 156/80 H 156/76 H 161/86 H Pulse Oximetry 95 93 92 Oxygen Flow Rate 0 Objective Labs Result Diagrams: 08/11/21 03:20 08/11/21 03:20 Labs: Laboratory Results - last 24 hr 08/11/21 08/11/21 08/11/21 03:20 03:20 03:20 WBC 12.7 H RBC 5.51 H Hgb 17.7 H Hct 53.3 H MCV 96.6 MCH 32.0 MCHC 33.2 RDW 13.3 Plt Count 321 Neut % (Auto) 43.6 L Lymph % (Auto) 45.2 H [place] % (Auto) 8.3 Eos % (Auto) 2.6 Baso % (Auto) 0.3 Neut # (Auto) 5500 Lymph # (Auto) 5700 H [place] # (Auto) 1100 H Eos # (Auto) 300 Baso # (Auto) 0 Sodium 137 Potassium 3.9 Chloride 104 Carbon Dioxide 24 BUN 15 Creatinine 0.74 Estimated GFR > 60.0 BUN/Creatinine Ratio 20.3 Glucose 282 H Calcium 9.1 Magnesium Total Bilirubin 0.5 AST 26 ALT 25 Alkaline Phosphatase 69 Troponin I < 0.012 NT-Pro-B Natriuret Pep Total Protein 7.3 Albumin 4.2 Globulin 3.1 Albumin/Globulin Ratio 1.4 Triglycerides Cholesterol LDL Cholesterol, Calc HDL Cholesterol TSH Urine Color Urine Appearance Urine pH Ur Specific [place] Urine Protein Urine Glucose (UA) Urine Ketones Urine Occult Blood Urine Nitrate Urine Bilirubin Urine Urobilinogen Ur Leukocyte Esterase Urine RBC Urine WBC Ur Squamous Epith Cells Urine Bacteria Ur Culture Indicated? U Opiates 300ng/mL cut Ur Oxycodone Screen Urine Methadone Screen Ur Barbiturates Screen U Tricyclic Antidepress Ur Phencyclidine Scrn Ur Amphetamines Screen U Methamphetamines Scrn Ur MDMA Scrn (Ecstasy) U Benzodiazepines Scrn Urine Cocaine Screen U Marijuana (THC) Screen SARS-CoV-2 (PCR) 08/11/21 08/11/21 08/11/21 03:20 03:20 03:20 WBC RBC Hgb Hct MCV MCH MCHC RDW Plt Count Neut % (Auto) Lymph % (Auto) [place] % (Auto) Eos % (Auto) Baso % (Auto) Neut # (Auto) Lymph # (Auto) [place] # (Auto) Eos # (Auto) Baso # (Auto) Sodium Potassium Chloride Carbon Dioxide BUN Creatinine Estimated GFR BUN/Creatinine Ratio Glucose Calcium Magnesium 1.9 Total Bilirubin AST ALT Alkaline Phosphatase Troponin I NT-Pro-B Natriuret Pep 36 Total Protein Albumin Globulin Albumin/Globulin Ratio Triglycerides Cholesterol LDL Cholesterol, Calc HDL Cholesterol TSH 1.97 Urine Color Urine Appearance Urine pH Ur Specific [place] Urine Protein Urine Glucose (UA) Urine Ketones Urine Occult Blood Urine Nitrate Urine Bilirubin Urine Urobilinogen Ur Leukocyte Esterase Urine RBC Urine WBC Ur Squamous Epith Cells Urine Bacteria Ur Culture Indicated? U Opiates 300ng/mL cut Ur Oxycodone Screen Urine Methadone Screen Ur Barbiturates Screen U Tricyclic Antidepress Ur Phencyclidine Scrn Ur Amphetamines Screen U Methamphetamines Scrn Ur MDMA Scrn (Ecstasy) U Benzodiazepines Scrn Urine Cocaine Screen U Marijuana (THC) Screen SARS-CoV-2 (PCR) 08/11/21 08/11/21 08/11/21 03:20 04:05 04:30 WBC RBC Hgb Hct MCV MCH MCHC RDW Plt Count Neut % (Auto) Lymph % (Auto) [place] % (Auto) Eos % (Auto) Baso % (Auto) Neut # (Auto) Lymph # (Auto) [place] # (Auto) Eos # (Auto) Baso # (Auto) Sodium Potassium Chloride Carbon Dioxide BUN Creatinine Estimated GFR BUN/Creatinine Ratio Glucose Calcium Magnesium Total Bilirubin AST ALT Alkaline Phosphatase Troponin I NT-Pro-B Natriuret Pep Total Protein Albumin Globulin Albumin/Globulin Ratio Triglycerides 650 H Cholesterol 253 H LDL Cholesterol, Calc TNP HDL Cholesterol 30 L TSH Urine Color Urine Appearance Urine pH Ur Specific [place] Urine Protein Urine Glucose (UA) Urine Ketones Urine Occult Blood Urine Nitrate Urine Bilirubin Urine Urobilinogen Ur Leukocyte Esterase Urine RBC Urine WBC Ur Squamous Epith Cells Urine Bacteria Ur Culture Indicated? U Opiates 300ng/mL cut Negative Ur Oxycodone Screen Negative Urine Methadone Screen Negative Ur Barbiturates Screen Negative U Tricyclic Antidepress Negative Ur Phencyclidine Scrn Negative Ur Amphetamines Screen Negative U Methamphetamines Scrn Negative Ur MDMA Scrn (Ecstasy) Negative U Benzodiazepines Scrn Negative Urine Cocaine Screen Negative U Marijuana (THC) Screen Negative SARS-CoV-2 (PCR) Negative 08/11/21 08/11/21 04:30 04:40 WBC RBC Hgb Hct MCV MCH MCHC RDW Plt Count Neut % (Auto) Lymph % (Auto) [place] % (Auto) Eos % (Auto) Baso % (Auto) Neut # (Auto) Lymph # (Auto) [place] # (Auto) Eos # (Auto) Baso # (Auto) Sodium Potassium Chloride Carbon Dioxide BUN Creatinine Estimated GFR BUN/Creatinine Ratio Glucose Calcium Magnesium Total Bilirubin AST ALT Alkaline Phosphatase Troponin I NT-Pro-B Natriuret Pep Total Protein Albumin Globulin Albumin/Globulin Ratio Triglycerides Cholesterol LDL Cholesterol, Calc HDL Cholesterol TSH Urine Color Yellow Urine Appearance Clear Urine pH 5.5 Ur Specific [place] 1.010 Urine Protein 1+ H Urine Glucose (UA) 2+ H Urine Ketones Negative Urine Occult Blood 1+ H Urine Nitrate Negative Urine Bilirubin Negative Urine Urobilinogen 0.2 Ur Leukocyte Esterase Trace H Urine RBC 1-5/hpf Urine WBC 10-30/hpf H Ur Squamous Epith Cells 1-5 /hpf Urine Bacteria Many (>30) H Ur Culture Indicated? Specimen cultured U Opiates 300ng/mL cut Ur Oxycodone Screen Urine Methadone Screen Ur Barbiturates Screen U Tricyclic Antidepress Ur Phencyclidine Scrn Ur Amphetamines Screen U Methamphetamines Scrn Ur MDMA Scrn (Ecstasy) U Benzodiazepines Scrn Urine Cocaine Screen U Marijuana (THC) Screen SARS-CoV-2 (PCR) Negative Assessment & Plan Assessment and plan (1) Acute ischemic multifocal anterior circulation stroke involving right-sided vessel: Status: Acute Plan: -SBP goal of 180-200 on cardene seems reasonable -Agree with ASA -Would hold on plavix due to her high NIH score (I get ~10-12) -DVT prophylaxis w SCDs. Reasonable to wait until MRI this morning before starting lovenox. If e/o bleeding on MRI, can hold lovenox initiation. -Monitor on tele -ECHO -Carotid dopplers -Statin (lipitor 80) -Formal swallow evaluation -SSI -Rx fevers with tylenol. Avoid hyperthermia -Avoid hypotonic fluids. Would keep Na >140, if Na drops to 135 or less, consider 3% NaCl infusion -STAT head CT with neuologic change -MRI ordered for today (2) Diabetes: Status: Acute Plan: -SSI for now. Tight BG management not necessary in the acute phase of stroke but would keep BG 140-180 (3) Hypertension: Status: Acute Plan: On Cardene. SBP 180-200 seems reasonable. Would avoid going < 180, eb with cardene. If BP labile w cardene, can stop. (4) Hyperlipidemia: Status: Acute Plan: Lipitor 80 COVID-19 COVID-19 status: Negative Result date/Date tested (Pos, Neg/Pending): 08/11/21 Time Spent With Patient Critical Care time: I spent a total of 60 minutes of critical care time on this patient's care today; this time is exclusive of procedural time.
[2021-08-11 07:55] LABS: Hemoglobin A1C% w Est Avg Glu 10.2 % (4.0-6.0)
[2021-08-11] MEDS: SODIUM CHLORIDE 0.9% FLUSH 10 ML IV ×2 (08:59→20:49)
[2021-08-11] MEDS: INSULIN LISPRO 100 UNIT/ML 3ML VIAL SUBCUT ×4 (08:59→21:03)
--- NOTE | 2021-08-11 10:46 | OT.IP.EVAL ---
Current Diagnoses Type 2 diabetes mellitus without complications (08/11/21) Hyperlipidemia, unspecified (08/11/21) Essential (primary) hypertension (08/11/21) Cerebral infarction due to unspecified occlusion or stenosis of right anterior cerebral artery (08/11/21) Past Medical History (Last Updated 08/11/21 @ 05:53 by Esme Jerry [facility]) Diabetes Healthy adult History of History of cholecystectomy History of tonsillectomy Hyperlipidemia Hypertension Obesity (BMI 30.0-34.9) Stroke Surgical History (Last Updated 08/11/21 @ 05:53 by Esme Jerry [facility]) History of History of cholecystectomy History of tonsillectomy Occupational Therapy Inpatient Evaluation/Re-Eval M1 PT/OT-IP Prior Functional Status Start: 08/11/21 10:47 Freq: NEEDED Status: Active Protocol: Document 08/11/21 10:47 [facility] (Rec: 08/11/21 11:13 [facility] [id number]) Medical Review Prior Functional Status Communication independent Mobility and Gait Pt was independent prior and did not use any devices. 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 Social History Household Members significant other Living Arrangements Mobile home Number of Floors (Floors) One Floor Number of Stairs To Enter/Railing? 7-8 steps with left railing going up. Home Environment Standard Height Toilet,Tub/ Shower M2 OT-IP Current Condition Start: 08/11/21 10:47 Freq: Status: Active Protocol: Document 08/11/21 10:47 [facility] (Rec: 08/11/21 11:13 [facility] [id number]) Occupational Therapy Current Condition Current Condition Evaluation Date 08/11/21 Treatment Diagnosis CVA, decreased mobility Diagnosis Onset Date 08/11/21 M3 OT- IP Subjective and Pain Start: 08/11/21 10:47 Freq: Status: Active Protocol: Document 08/11/21 10:47 [facility] (Rec: 08/11/21 11:13 [facility] [id number]) OT- Subjective Occupational Therapy Visit Type Type Initial Evaluation Visit Start Time 10:05 Visit Stop Time 10:46 Total Visit Minutes 41 Occupational Therapy Visit Comments Patient Comments Pt willing to get up for OT eval. Patient/Caregiver Goals Pt willing to do rehab prior to going home. 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 OT ADL-Grooming Comments OT Grooming Comments NOt performed. OT ADL-Oral Care Comments Oral Care Comments Not performed. OT ADL-Dressing General Eval Lower Body Dressing Ability Maximum Assistance Areas Needing Assistance Underpants/Brief,Socks Comments OT Dressing Comments Pt able to assist to help roll side to side for brief change while in bed. OT ADL-Toileting General Evaluation Toileting Ability Total Assistance Areas Needing Assistance Manage Clothing,Perform Perineal Hygiene Comments OT Toileting Comments Due to decreased balance, best to use bed mallory at this time. OT ADL-Bathing Comments OT Bathing Comments Sponge bath more appropriate at this time. 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 M6 OT- IP Functional Cognition Start: 08/11/21 10:47 Freq: Status: Active Protocol: Document 08/11/21 10:47 [facility] (Rec: 08/11/21 11:13 [facility] [id number]) Cognitive Factors Limiting Selfcare Function Cognitive Ability Level of Alertness Alert Patient Orientation Name,Age,Birthday,Month,Date, Year,Day of Week,Place, Situation Attention Span Ability Capable of Focused Attention, Capable of Sustained Attention Ability to Follow Commands Able to Follow Multi-Step Commands Memory Description No Deficits Noted Safety Awareness Underestimates Need for Assistance Problem Solving Ability No deficits Noted Cognitive Tests SLUMS Pt scored 29/20 on SLUMS which implies normal for her cognition. Pt only missed remembering 1 object out of 5 after time passed. Cognitive Comments Cognitive Assessment Comments Pt slightly impulsive and needing cues to slow down and try to tone down her movement on the right side. Pt try to move her left side by overcompensation of moving her right side. OT- Vision and Hearing OT- Hearing Assessment OT- Hearing Assessment WFL OT- Vision Assessment Visual Acuity Glasses All The Time Visual Attentiveness WFL Occular Pursuits WFL Visual Convergence WFL Visual Jeffrey WFL Diplopia Absent M7 OT- IP Mobility and Balance Start: 08/11/21 10:47 Freq: Status: Active Protocol: Document 08/11/21 10:47 [facility] (Rec: 08/11/21 11:13 [facility] [id number]) OT- Bed Mobility Assessment Rolling Level of Assistance Minimal Assistance Supine to Sit Supine to Sit Assist Moderate Assistance,2 Person Assistance,Head of Bed Elevated Sit to Supine Sit to Supine Assist 2 Person Assistance,Bedrails Scooting Scooting to Edge of Bed Minimal Assistance,Moderate Assistance OT-Transfer Assessment Comments Mobility Comments Pt needing PAUL to help roll to the right and SBA for the left. MAX A to help move the LLE and LUE and assist to help get her trunk upright to the edge of the bed. MAX AX x2 from sit to supine. OT- Gait Assessment Comments Gait Ability Comments NOt at this time. OT- Balance Assessment Sitting Balance and Reactions Static Sitting Balance Ability Poor Dynamic Sitting Balance Ability Poor Comments Other Balance Tests/Deviations/Treatment MODA to sit to midline, pt : tends to lean and fall to the left. M8 OT- IP Objective Assessments Start: 08/11/21 10:47 Freq: Status: Active Protocol: Document 08/11/21 10:47 [facility] (Rec: 08/11/21 11:13 [facility] [id number]) OT Gross Range of Motion Upper Extremity Range of Motion Assessment Left Impaired OT Strength Upper Extremity Strength Assessment Left Impaired Shoulder 1/5 Elbow 1/5 for elbow extensors Forearm 0 Wrist 0 Hand 0 Hand Biomass Technician Strength Hand Dominance Right OT- Coordination Assessment Upper Extremity Finger to Nose Test Left UE Impaired OT-Muscle Tone Assessment Muscle Tone WNL No Comments Muscle Tone Comments Hypotonicity in LUE. OT Sensation Assessment Comments Summary Comments Intact for light touch for both UE, but states feels more numb on the left side. Pt having more difficulty to tell proprioception at left wrist and hand. Edema Edema Absent Edema Comments Mild swelling in left hand. M9 OT- IP Assessment and Plan Start: 08/11/21 10:47 Freq: Status: Active Protocol: Document 08/11/21 10:47 [facility] (Rec: 08/11/21 11:13 [facility] [id number]) OT Summary Assessment and Plan Potential Rehabilitation Potential Excellent Analytic Complexity at Evaluation Moderate Summary OT Impairments Range of Motion,Strength, Balance,Coordination,Sensation ,Tone,Functional Mobility,Self -Feeding,Grooming,Dressing, Toileting,Bathing,Toilet Transfers,Shower Transfers, Activity Tolerance Progress Towards Goals Slow Progress due to Medical Issues,Slow Progress due to Activity Tolerance Assessment Summary Pt MOD complexity due to recent CVA and main barriers are steps, balance, and minimal movements for LUE at this time. Pt needing extensive two person assist for bed mobility needs at this time and able to sit at the edge of the bed with MODA X1. Pending medical progress, pt would greatly benefit from acute rehab versus skilled rehab as pt is cognitively intact, motivated, and cooperative. Goals Self-Feeding Goal Independent Grooming Goal Independent Dressing Goal Independent Toileting Goal Independent Bathing Goal Independent Toilet Transfer Goal Independent Shower Transfer Goal Independent OT-Other Goals OT goals based on incorporation of LUE for ADl needs. Days to Meet Goals 60 Frequency of Treatment Frequency Of Treatment Once a Day Treatment Plan OT Treatment Plan ADL Training,Functional Mobility,Neuromuscular Re- education,Patient/Family Education,Discharge Planning Other Treatment Recommendations and Next Pt to sit at edge of the bed Treatment Focus with PAUL for LUE support and able to do grooming needs. Also with MAX A by therapist to assist LUE and PAUL for sitting balance to begin to incorporate LUE for ADl needs. Discharge Recommendations OT Discharge Recommendations Acute Rehab Other Discharge Recommendations Pending medical progress acute rehab versus skilled rehab Transportation Needs at Discharge Wheelchair/Cabulance
--- NOTE | 2021-08-11 11:26 | PT.IIE ---
Current Diagnoses Type 2 diabetes mellitus without complications (08/11/21) Hyperlipidemia, unspecified (08/11/21) Essential (primary) hypertension (08/11/21) Cerebral infarction due to unspecified occlusion or stenosis of right anterior cerebral artery (08/11/21) Medical History (Last Updated 08/11/21 @ 05:53 by Esme Jerry [facility]) Diabetes Healthy adult Hyperlipidemia Hypertension Obesity (BMI 30.0-34.9) Stroke Physical Therapy Inpatient Evaluation/Re-Eval M1 PT/OT-IP Prior Functional Status Start: 08/11/21 10:47 Freq: NEEDED Status: Active Protocol: Document 08/11/21 11:26 AB (Rec: 08/11/21 13:36 AB [id number]) Medical Review Prior Functional Status Medical History Reviewed Yes Communication able to make needs known. Mobility and Gait pt stated that she is independent with all mobilities and ambulation without AD Social History Household Members significant other Living Arrangements Mobile home Number of Floors (Floors) One Floor Number of Stairs To Enter/Railing? 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 Additional Social History Comment pt stated that she works for [employer] M2 PT-IP Current Condition Start: 08/11/21 13:21 Freq: NEEDED Status: Active Protocol: Document 08/11/21 11:26 AB (Rec: 08/11/21 13:36 AB [id number]) Physical Therapy Current Condition Current Condition Evaluation Date 08/11/21 Treatment Diagnosis R CVA L sided weakness; difficulty in walking Onset Date 08/11/21 Precautions Other Precautions falls M3 PT-IP Subjective Start: 08/11/21 13:21 Freq: NEEDED Status: Active Protocol: Document 08/11/21 11:26 AB (Rec: 08/11/21 13:36 AB [id number]) Subjective Physical Therapy Visit Type Type Initial Evaluation Visit Start Time 11:26 Visit Stop Time 11:56 Total Visit Minutes 30 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 of 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 Visits 0 Physical Therapy Visit Comments Patient Comments agreeable to do PT M4 PT-IP Mobility and Gait Start: 08/11/21 13:21 Freq: NEEDED Status: Active Protocol: Document 08/11/21 11:26 AB (Rec: 08/11/21 13:36 AB [id number]) PT-Bed Mobility Assessment Supine to Sit Supine to Sit Maximum Assistance,1 Person Assistance,2 Person Assistance ,Head of Bed Elevated Scooting Scooting to Edge of Bed Maximum Assistance PT-Transfer Assessment Sit to and From Stand Sit to and from Stand Maximum Assistance,2 Person Assistance,Use of Upper Extremities Equipment Transfer Assistive Device Gait Belt Orthotic/Prosthetic Devices or Brace: No Transfers Transfer Destination Chair Transfer Technique Squat Pivot Transfer Ability Level of Assist 2 Person Assistance,Use of Upper Extremities Comments Mobility Comments pt supine in bed. agreed to do PT. BP: 195/95. increase head R sided rotation requiring cues for midline orientation and to turn head to the L. completed supine to sit max A x 1-2 with HOB elevated and max cues. Max A for sitting balance on EOB. increase posterior trunk lean and LOB to the L. pt is impulsive and required cues for safety. pt completed sit to stand from EOB max A x 2 and max cues with increase L sided trunk LOB requiring total A for balance. instructed pt to sit down. pt agreed to sit on the chair. completed squat pivot transfer 2 person max A with PT in front of pt and NAC behind pt to assit. pt agreed to stand again from the chair. completed sit to stand max A x 2 and max cues. used hemiwalker for support. able to stand max A x 2, increase LE support again the chair for steadiness but tolerated ~ 10 sec. cued for upright posture and safety. pt sat back on chair. positioned on chair. call light and table placed within reach. Gait Assessment Comments Gait Comments unable at this time PT-Balance Assessment Sitting Balance and Reactions Static Sitting Balance Ability Poor Dynamic Sitting Balance Ability Poor Standing Balance and Reactions Static Standing Balance Ability Poor Dynamic Standing Balance Ability Poor Device Used hemiwalker M5 PT-IP Objective Assessments Start: 08/11/21 13:21 Freq: NEEDED Status: Active Protocol: Document 08/11/21 11:26 AB (Rec: 08/11/21 13:36 AB [id number]) Orientation Orientation/Cognition Orientation Name Safety Awareness Understands Safety Issues Gross Range of Motion Lower Extremity ROM Assessment Within Functional Limits Strength Lower Extremity Strength Assessment Left Impaired Comments Strength Comments L hip flexion: 2-/5 L knee extension: 2+/5 ankle DF: 1/5 Muscle Tone Muscle Tone WNL No Muscle Tone Location Left Upper Extremity Type of Tone Hypotonicity Severity of Tone Severe M6 PT-IP Treatment Start: 08/11/21 13:21 Freq: NEEDED Status: Active Protocol: Document 08/11/21 11:26 AB (Rec: 08/11/21 13:36 AB [id number]) Physical Therapy Treatment Education Education Provided Safety M7 PT-IP Assessment and Plan Start: 08/11/21 13:21 Freq: NEEDED Status: Active Protocol: Document 08/11/21 11:26 AB (Rec: 08/11/21 13:36 AB [id number]) PT Summary Assessment and Plan Potential Rehabilitation Potential Fair Status of Condition at Evaluation Evolving Summary Impairments Pain,ROM,Strength,Balance, Coordination,Sensation,Tone, Cognition,Bed Mobility, Transfers,Gait,Activity Tolerance Assessment Summary pt requiring 2 person squat pivot transfer and will require a mechanical lift transfer with nursing. pt with L sided neglect and is impulsive. pt also has poor trunk control affecting balance and mobility. pt will need SNF vs acute rehab to improve mobility independence. Goals Bed Mobility Goal Minimal Assistance Transfer Goal Minimal Assistance Gait Goal Minimal Assistance,Erick Walker Gait Distance 50 Days to Meet Goals 10 Frequency of Treatment Frequency Of Treatment Once a Day Treatment Plan Physical Therapy Treatment Plan Bed Mobility Training,Transfer Training,Gait Training, Therapeutic Exercise,Balance Retraining,Post Op Education, Discharge Planning,Hot or Cold Pack,Neuromuscular Re-ed, Coordination Retraining,Manual Therapy Precautions Other Precautions falls Recommendations To Nursing Amount of Assist Needed Mechanical Lift Discharge Recommendations PT Discharge Recommendations SNF Rehab,Acute Rehab,SNF vs Acute Rehab Transportation Needs at Discharge Wheelchair/Cabulance
[2021-08-11] MEDS: INSULIN GLARGINE 100 UNIT/ML 3ML PEN 20 UNIT SUBCUT (12:00)
[2021-08-11] MEDS: CLOPIDOGREL 75 MG TABLET PO (12:02)
[2021-08-11] MEDS: ASPIRIN EC 81 MG TABLET PO (12:02)
--- NOTE | 2021-08-11 13:13 | ST.OPIE ---
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 Evaluation Start: 08/11/21 11:21 Freq: Status: Active Protocol: Document 08/11/21 11:22 LNK (Rec: 08/11/21 11:36 LNK [id number]) Clinical Swallow Evaluation Session Time Visit Start Time 08:45 Visit Stop Time 09:15 Total Visit Minutes 30 Referral Reason for Referral CVA Setting Assessment Location Acute Care Visit Type Note Type Initial evaluation Patient Information Identification Type Name,Wristband History PER H&P: chris is a 60-year- old female Barb Kasper with a history of diabetes, obesity, hypertension and hyperlipidemia currently untreated x 1 year as she is unable to afford medications due to loss of health insurance, she was in her usual state of health when she went to bed at 9:00 pm last night. She woke up to void at 2:30 a.m. in the morning and found that her entire left side was not working.? Patient admitted for right-sided acute stroke with left-sided weakness/neuro deficit, and hypertensive emergency. Subjective Observations pt was in bed watching TV. Her was in the room with her. Reported by Patient Current Diet Nothing by mouth Baseline Feeding Method Needs some assistance Objective Assessment Mental Status Alert,Responsive,Cooperative Oral Integrity WFL Dentition Upper dentures/partials,Lower dentures/partials,Adequate denture or partial fitting Lip Function Moderate impairment Observation of Lips at Rest Left sided weakness/Drooping Pucker Reduced range of motion, Reduced strength,Left sided weakness/drooping Lip Retraction Reduced range of motion,Left sided weakness/Drooping Alternating Pucker/Lip Retraction Reduced range of motion Tongue Function Mild impairment Observations of Tongue at Rest Deviates to the left Tongue Protrusion Deviates to the left Tongue Retraction Within normal limits Tongue Lateralization Within normal limits Jaw Function Within normal limits Observations of Jaw at Rest Within normal limits Jaw Opening Within normal limits Jaw Closing Within normal limits Hard/Soft Palate Function Mild impairment Observations of Hard/Soft Palate Lower on the left side Comment OME indicated left facial droop with reduced ROM and strength for for lips and velum. Pt unable to puff cheeks without nasal leakage. Lingually, there was mild reduced strength and ROM. Pt's speech is dysarthric and hypernasal. She can be understood if she speaks slowly. Food and Liquid Trials Position During Assessment Upright (90 degrees) Liquids Trialed Ice chips,Thin Solids Trialed Puree,Mechanical Soft,Regular Administration Type Tea spoon,Cup single sip, Controlled cup sip,Straw,Self- feeding,Needs some assistance Oral Phase Comments Spoon clearance was WFL. Good mastication without oral residue. Pt demonstrated left OM weakness with decreased ROM . Pt reports some numbness in the left side of her mouth. Pharyngeal Impairment Within functional limits Pharyngeal Phase Comments Good hyolaryngeal elevation. No cough/choke observed. No wet voicing post-swallows. Fatigue/Endurance Moderate fatigue Comment pt was tired from getting here around 2:30 a.m. She had some short naps, she reported. Response/Comments Reminded pt to keep her chin/ jaw parallel to the floor and not to tilt head backwards when swallowing. Findings Swallowing Function Oral phase dysphagia Severity of Swallow Impairment Mildly-moderately impaired Contributing Factors to Swallow Reduced oral strength/ Impairment coordination/sensation Prognosis Good Based on Cognitive status,Family support,Age,Duration of symptoms/severity Impact on Safety and Functioning Risk for aspiration Comments Nsg monitor for overt s/sx aspiration Recommendations Instrumental Assessment No Swallowing Treatment Yes Frequency 1-2x/day Duration while inpatient Recommended Solids Mechanical Soft Recommended Liquids Thin Other Recommendations Pt is a great candidate for acute rehab. When performing the OME, the pt was determined to keep trying to puff her cheeks and produce rapid diadochokineses patterns. She is very motivated. Recommend ST for dysarthria and to advance diet to regular/thin via linguapharyngeal and velar exercises. Safety Precautions/Swallowing Reduce distractions,Remain Recommendations upright (90 degrees) during all oral intake,Upright position at least 30 minutes after meals,Small bites and sips when eating,Slow rate; swallow between bites,Multiple swallows,Set-up assistance, Family assistance/supervision Medication Recommendations As Tolerated,Whole in Carrier Discharge Recommendations Inpatient rehab facility Education Patient/Caregiver Education Described results of evaluation,Patient expressed understanding of evaluation, Patient expressed agreement with goals & treatment plans, Family/caregivers expressed understanding of evaluation, Family/caregivers expressed agreement with goals & treatment plans,Patient expressed understanding of safety precautions,Family/ caregivers expressed understanding of safety precautions Goals Short-term Goals Pt will perform OM exercises to improve ROM, strength and speed of lips, tongue and velum. Written instructions will be provided to pt. Pt's speech rate and intelligibility will improve to WFL in order to effectively communicate in the community. Long-term Goals Pt's speech and OM skills will improve to WFL.
[2021-08-11] MEDS: LOSARTAN 50 MG TABLET PO (13:41)
--- NOTE | 2021-08-11 14:35 | PC.NURSE ---
Day Shift Note Alert and oriented x3. Weak to LUE with minimal movement, not able to lift LLE off bed or move side to side. Slurred but intelligible speech noted, left sided facial droop. NIH 10. RA with SpO2 93-94%. SBP in the 160s on nicardipine gtt, stopped this morning per MD order. BP climbing throughout shift up to 190s systolic, MD notified and order for PO losartan received and administered. Pt Carlos jefferson at this time. Worked with PT/OT/ST today, MRI completed. Bed alarm on for safety, call light within reach.
--- NOTE | 2021-08-11 16:01 | P.PN_ITS ---
Subjective Subjective Date Patient Seen: 08/11/21 Interval history: Patient is 60-year-old female with history of type 2 diabetes, hypertension admitted due to acute stroke, presented with dysarthria and left hemiparesis. Patient was on nicardipine drip overnight which was discontinued due to blood pressures well below 180 systolic. Patient did well with ST swallow evaluation. She has been neurologically stable since admission. Exam Vital Signs (past 8 hours): - 08/11/21 12:00 Temperature 98 F Pulse Rate 100 H Respiratory Rate 20 Blood Pressure 197/91 H Pulse Oximetry 95 Oxygen Delivery Method Room Air Oxygen Flow Rate 0 Narrative Exam Narrative: General: Alert, pleasant and cooperative Neurological: Moderate dysarthria but easily understandable, mild left facial droop, dense left upper and lower hemiparesis Objective Labs Result Diagrams: 08/11/21 03:20 08/11/21 03:20 Labs: Laboratory Results - last 24 hr 08/11/21 08/11/21 08/11/21 03:20 03:20 03:20 WBC 12.7 H RBC 5.51 H Hgb 17.7 H Hct 53.3 H MCV 96.6 MCH 32.0 MCHC 33.2 RDW 13.3 Plt Count 321 Neut % (Auto) 43.6 L Lymph % (Auto) 45.2 H [place] % (Auto) 8.3 Eos % (Auto) 2.6 Baso % (Auto) 0.3 Neut # (Auto) 5500 Lymph # (Auto) 5700 H [place] # (Auto) 1100 H Eos # (Auto) 300 Baso # (Auto) 0 Sodium 137 Potassium 3.9 Chloride 104 Carbon Dioxide 24 BUN 15 Creatinine 0.74 Estimated GFR > 60.0 BUN/Creatinine Ratio 20.3 Glucose 282 H Hemoglobin A1c Calcium 9.1 Magnesium Total Bilirubin 0.5 AST 26 ALT 25 Alkaline Phosphatase 69 Troponin I < 0.012 NT-Pro-B Natriuret Pep Total Protein 7.3 Albumin 4.2 Globulin 3.1 Albumin/Globulin Ratio 1.4 Triglycerides Cholesterol LDL Cholesterol, Calc HDL Cholesterol TSH Urine Color Urine Appearance Urine pH Ur Specific [place] Urine Protein Urine Glucose (UA) Urine Ketones Urine Occult Blood Urine Nitrate Urine Bilirubin Urine Urobilinogen Ur Leukocyte Esterase Urine RBC Urine WBC Ur Squamous Epith Cells Urine Bacteria Ur Culture Indicated? Nasal Screen MRSA (PCR) U Opiates 300ng/mL cut Ur Oxycodone Screen Urine Methadone Screen Ur Barbiturates Screen U Tricyclic Antidepress Ur Phencyclidine Scrn Ur Amphetamines Screen U Methamphetamines Scrn Ur MDMA Scrn (Ecstasy) U Benzodiazepines Scrn Urine Cocaine Screen U Marijuana (THC) Screen SARS-CoV-2 (PCR) 08/11/21 08/11/21 08/11/21 03:20 03:20 03:20 WBC RBC Hgb Hct MCV MCH MCHC RDW Plt Count Neut % (Auto) Lymph % (Auto) [place] % (Auto) Eos % (Auto) Baso % (Auto) Neut # (Auto) Lymph # (Auto) [place] # (Auto) Eos # (Auto) Baso # (Auto) Sodium Potassium Chloride Carbon Dioxide BUN Creatinine Estimated GFR BUN/Creatinine Ratio Glucose Hemoglobin A1c 10.2 H Calcium Magnesium 1.9 Total Bilirubin AST ALT Alkaline Phosphatase Troponin I NT-Pro-B Natriuret Pep Total Protein Albumin Globulin Albumin/Globulin Ratio Triglycerides Cholesterol LDL Cholesterol, Calc HDL Cholesterol TSH 1.97 Urine Color Urine Appearance Urine pH Ur Specific [place] Urine Protein Urine Glucose (UA) Urine Ketones Urine Occult Blood Urine Nitrate Urine Bilirubin Urine Urobilinogen Ur Leukocyte Esterase Urine RBC Urine WBC Ur Squamous Epith Cells Urine Bacteria Ur Culture Indicated? Nasal Screen MRSA (PCR) U Opiates 300ng/mL cut Ur Oxycodone Screen Urine Methadone Screen Ur Barbiturates Screen U Tricyclic Antidepress Ur Phencyclidine Scrn Ur Amphetamines Screen U Methamphetamines Scrn Ur MDMA Scrn (Ecstasy) U Benzodiazepines Scrn Urine Cocaine Screen U Marijuana (THC) Screen SARS-CoV-2 (PCR) 08/11/21 08/11/21 08/11/21 03:20 03:20 04:05 WBC RBC Hgb Hct MCV MCH MCHC RDW Plt Count Neut % (Auto) Lymph % (Auto) [place] % (Auto) Eos % (Auto) Baso % (Auto) Neut # (Auto) Lymph # (Auto) [place] # (Auto) Eos # (Auto) Baso # (Auto) Sodium Potassium Chloride Carbon Dioxide BUN Creatinine Estimated GFR BUN/Creatinine Ratio Glucose Hemoglobin A1c Calcium Magnesium Total Bilirubin AST ALT Alkaline Phosphatase Troponin I NT-Pro-B Natriuret Pep 36 Total Protein Albumin Globulin Albumin/Globulin Ratio Triglycerides 650 H Cholesterol 253 H LDL Cholesterol, Calc TNP HDL Cholesterol 30 L TSH Urine Color Urine Appearance Urine pH Ur Specific [place] Urine Protein Urine Glucose (UA) Urine Ketones Urine Occult Blood Urine Nitrate Urine Bilirubin Urine Urobilinogen Ur Leukocyte Esterase Urine RBC Urine WBC Ur Squamous Epith Cells Urine Bacteria Ur Culture Indicated? Nasal Screen MRSA (PCR) U Opiates 300ng/mL cut Ur Oxycodone Screen Urine Methadone Screen Ur Barbiturates Screen U Tricyclic Antidepress Ur Phencyclidine Scrn Ur Amphetamines Screen U Methamphetamines Scrn Ur MDMA Scrn (Ecstasy) U Benzodiazepines Scrn Urine Cocaine Screen U Marijuana (THC) Screen SARS-CoV-2 (PCR) Negative 08/11/21 08/11/21 08/11/21 04:30 04:30 04:40 WBC RBC Hgb Hct MCV MCH MCHC RDW Plt Count Neut % (Auto) Lymph % (Auto) [place] % (Auto) Eos % (Auto) Baso % (Auto) Neut # (Auto) Lymph # (Auto) [place] # (Auto) Eos # (Auto) Baso # (Auto) Sodium Potassium Chloride Carbon Dioxide BUN Creatinine Estimated GFR BUN/Creatinine Ratio Glucose Hemoglobin A1c Calcium Magnesium Total Bilirubin AST ALT Alkaline Phosphatase Troponin I NT-Pro-B Natriuret Pep Total Protein Albumin Globulin Albumin/Globulin Ratio Triglycerides Cholesterol LDL Cholesterol, Calc HDL Cholesterol TSH Urine Color Yellow Urine Appearance Clear Urine pH 5.5 Ur Specific [place] 1.010 Urine Protein 1+ H Urine Glucose (UA) 2+ H Urine Ketones Negative Urine Occult Blood 1+ H Urine Nitrate Negative Urine Bilirubin Negative Urine Urobilinogen 0.2 Ur Leukocyte Esterase Trace H Urine RBC 1-5/hpf Urine WBC 10-30/hpf H Ur Squamous Epith Cells 1-5 /hpf Urine Bacteria Many (>30) H Ur Culture Indicated? Specimen cultured Nasal Screen MRSA (PCR) U Opiates 300ng/mL cut Negative Ur Oxycodone Screen Negative Urine Methadone Screen Negative Ur Barbiturates Screen Negative U Tricyclic Antidepress Negative Ur Phencyclidine Scrn Negative Ur Amphetamines Screen Negative U Methamphetamines Scrn Negative Ur MDMA Scrn (Ecstasy) Negative U Benzodiazepines Scrn Negative Urine Cocaine Screen Negative U Marijuana (THC) Screen Negative SARS-CoV-2 (PCR) Negative 08/11/21 05:30 WBC RBC Hgb Hct MCV MCH MCHC RDW Plt Count Neut % (Auto) Lymph % (Auto) [place] % (Auto) Eos % (Auto) Baso % (Auto) Neut # (Auto) Lymph # (Auto) [place] # (Auto) Eos # (Auto) Baso # (Auto) Sodium Potassium Chloride Carbon Dioxide BUN Creatinine Estimated GFR BUN/Creatinine Ratio Glucose Hemoglobin A1c Calcium Magnesium Total Bilirubin AST ALT Alkaline Phosphatase Troponin I NT-Pro-B Natriuret Pep Total Protein Albumin Globulin Albumin/Globulin Ratio Triglycerides Cholesterol LDL Cholesterol, Calc HDL Cholesterol TSH Urine Color Urine Appearance Urine pH Ur Specific [place] Urine Protein Urine Glucose (UA) Urine Ketones Urine Occult Blood Urine Nitrate Urine Bilirubin Urine Urobilinogen Ur Leukocyte Esterase Urine RBC Urine WBC Ur Squamous Epith Cells Urine Bacteria Ur Culture Indicated? Nasal Screen MRSA (PCR) Negative for mrsa U Opiates 300ng/mL cut Ur Oxycodone Screen Urine Methadone Screen Ur Barbiturates Screen U Tricyclic Antidepress Ur Phencyclidine Scrn Ur Amphetamines Screen U Methamphetamines Scrn Ur MDMA Scrn (Ecstasy) U Benzodiazepines Scrn Urine Cocaine Screen U Marijuana (THC) Screen SARS-CoV-2 (PCR) PFSH Medical History (Updated 08/11/21 @ 07:10 by Dariela Branch MD) Diabetes Healthy adult Hyperlipidemia Hypertension Obesity (BMI 30.0-34.9) Stroke Surgical History (Updated 08/11/21 @ 05:53 by Esme Jerry [facility]) History of History of cholecystectomy History of tonsillectomy Family History (Updated 08/11/21 @ 05:53 by Esme Jerry [facility]) Mother Heart attack Diabetes mellitus Father Heart disease Social History household members: significant other lives independently: Yes Smoking Status: Current every day smoker alcohol intake: current Assessment & Plan Assessment & Plan narrative: 1. Acute CVA with left hemiparesis -not tPA candidate, acutely hypertensive likely secondary to CVA, with history of chronic untreated hypertension -CT no bleed, CTA normal -brain MR acute right thalamic infarct, possible subacute pontine infarct, brain and neck MRA normal -echo -BP trended back up to 180s - 190s systolic off nicardipine drip -started losartan 50 mg daily -anti-platelet agents aspirin 81 mg q.d., clopidogrel 75 mg q.d. -statin atorvastatin 80 mg HS -PT/OT/ST -telemetry monitoring -likely will need inpatient or snf rehab -has good social support from long-term partner 2. Hypertension -patient used to take lisinopril but stopped after insurance ran out -started losartan 50 mg q.d. 3. Type 2 diabetes -A1c 10.2, patient use to take metformin -started Lantus 20 units q.a.m. -start metformin 500 mg b.i.d. on 08/13 (48 hours post IV contrast) 4. Polycythemia -likely secondary due to smoking -monitor as outpatient and consider oncology referral if worsening 5. Cigarette dependency -provided smoking cessation counseling DVT prophylaxis: Yoni Time Spent With Patient Critical Care time: I spent a total of [] minutes of critical care time on this patient's care today; this time is exclusive of procedural time.
--- NOTE | 2021-08-11 17:41 | CM.DANOTE ---
DCP/Assessment: Reviewed chart. Patient is a 60yr old female admitted to [facility] with CVA. No PCP listed. Primary payor is 1)[employer] (need confirmation) and 2)Commercial Insurance? Met with patient and significant other/Ghulam at bedside explained role. Patient reports that prior to admit she was completely I with all ADL's. Patient reports that she worked and did everything independently. Patient indicates that prior to event she had commercial insurance that barely paid for anything. Patient now has [employer] through Medicaid. Patient reports effective date of 07-29-21 however, that has not been confirmed or shown on demographic sheet. This will need to be confirmed for d/c planning needs. Patient reports that it is anticipated that she will need therapy upon d/c. Patient requiring all 3 therapies and most likely would be good acute care rehabilitation candidate. 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 Insurance will need to be confirmed prior to sending referral. Patient reports that she has no interest in SNF. P: Pending. CM team to follow up in AM. 1)Insurance will need to be confirmed 2)Referral will need to be sent acute rehab vs. SNF or both? 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 No History Provided By Patient,Significant Other Prior Living Arrangements Mobile home Household Members significant other Type of transporation used prior to Drives own vehicle admit Independent with ADL's Yes: Prior to admit completely I Is patient alert and oriented? Yes Caregiver for Another No Comment Acute rehabiliation if patient qualifies and insurance will authorize Barriers to Discharge No Comment Pending Discharge Plan Inpatient Rehab Unit Transportation Arrangement Significant Other to provide transport or Cabulance? Whiteboard Updated in Patient Room with Yes name and ext. # of Salad Counter Attendant Review Status In Process Next Review Type Continued Stay Review
[2021-08-11] MEDS: ATORVASTATIN 20 MG TABLET 80 MG PO (20:49)
[2021-08-12] VITALS (7 sets, daily range): BP systolic 168–206; BP diastolic 76–90; PULSE 90–104; RESP 15–22; TEMP 36.1–36.9; O2SAT 92–96
[2021-08-12 05:07] LABS: Add Manual Diff / Slide Review NO; Basophils Absolute Auto 200 /uL (0-100); Basophils Percent Auto 1.1 % (0-2); Eosinophils Absolute Auto 300 /uL (0-450); Eosinophils Percent Auto 1.9 % (2-4); Hematocrit 50.6 % (36-46); Lymphocytes Absolute Auto 5600 /uL (1100-4500); Lymphocytes Percent Auto 36.4 % (25-40); Mean Corpuscular HGB Conc 33.6 % (30-36); Mean Corpuscular Hemoglobin 32.1 PG (26-34); Mean Corpuscular Volume 95.5 fL (80-100); Monocytes Absolute Auto 1100 /uL (0-900); Monocytes Percent Auto 7.3 % (3-14); Neutrophils Absolute Auto 8200 /uL (1500-7000); Neutrophils Percent Auto 53.3 % (50-75); Platelet Count 310 X10^3/uL (150-400); Red Cell Distribution Width 12.7 % (11.6-14.8); White Blood Cell Count 15.3 X10^3/uL (4.5-11.0)
[2021-08-12 05:08] LABS: Prothrombin Time 10.8 SECONDS (10.1-12.7)
[2021-08-12 05:11] LABS: PTT Partial Thromboplastin Tim 34 SECONDS (26.4-36.2)
[2021-08-12 05:14] LABS: BUN Creatinine Ratio 22.6 (6-22); Blood Urea Nitrogen 14 mg/dL (7-17); Calcium 9.3 mg/dL (8.4-10.2); Carbon Dioxide 28 mmol/L (22-32); Chloride 106 mmol/L (98-107); Estimated Glomerular Filt Rate > 60.0 mL/min (>60); Glucose 234 mg/dL (80-110); HEMOLYSIS < 15 (0-50); Potassium 4.3 mmol/L (3.4-5.1); Sodium 139 mmol/L (137-145)
[2021-08-12] MEDS: LOSARTAN 50 MG TABLET PO (08:23)
[2021-08-12] MEDS: ENOXAPARIN 40 MG/0.4 ML SYRINGE SUBCUT (08:23)
[2021-08-12] MEDS: INSULIN LISPRO 100 UNIT/ML 3ML VIAL SUBCUT ×4 (08:23→20:28)
[2021-08-12] MEDS: CLOPIDOGREL 75 MG TABLET PO (08:23)
[2021-08-12] MEDS: ASPIRIN EC 81 MG TABLET PO (08:23)
[2021-08-12] MEDS: INSULIN GLARGINE 100 UNIT/ML 3ML PEN 20 UNIT SUBCUT (08:24)
[2021-08-12] MEDS: SODIUM CHLORIDE 0.9% FLUSH 10 ML IV ×2 (08:35→20:25)
[2021-08-12] MEDS: ACETAMINOPHEN 325 MG TABLET 650 MG PO (08:35)
--- NOTE | 2021-08-12 10:43 | OT.IP.TRT ---
Current Diagnoses Type 2 diabetes mellitus without complications (08/11/21) Hyperlipidemia, unspecified (08/11/21) Essential (primary) hypertension (08/11/21) Cerebral infarction due to unspecified occlusion or stenosis of right anterior cerebral artery (08/11/21) Occupational Therapy Treatment Note M2 OT-IP Current Condition Start: 08/11/21 10:47 Freq: Status: Active Protocol: Document 08/11/21 10:47 [facility] (Rec: 08/11/21 11:13 [facility] [id number]) Occupational Therapy Current Condition Current Condition Evaluation Date 08/11/21 Treatment Diagnosis CVA, decreased mobility Diagnosis Onset Date 08/11/21 M3 OT- IP Subjective and Pain Start: 08/11/21 10:47 Freq: Status: Active Protocol: Document 08/12/21 10:48 [facility] (Rec: 08/12/21 11:03 [facility] [id number]) OT- Subjective Occupational Therapy Visit Type Type Treatment Note Visit Start Time 09:50 Visit Stop Time 10:43 Total Visit Minutes 43 Notes Pt seen for split session as pt was using the commode. Occupational Therapy Visit Comments Patient Comments Pt agreeable to do OT. Patient/Caregiver Goals To go to acute rehab. OT Pain Assessment Pain When Pain Assessed At Rest Pain Present Pain Present Denied Pain M4 OT- IP ADL's Start: 08/11/21 10:47 Freq: Status: Active Protocol: Document 08/12/21 10:48 [facility] (Rec: 08/12/21 11:03 [facility] [id number]) OT [id number] Comments OT Self-Feeding Comments Pt needing assist for set-up. OT ADL-Grooming Comments OT Grooming Comments NOt performed. OT ADL-Oral Care Comments Oral Care Comments Not performed. OT ADL-Dressing General Eval Lower Body Dressing Ability Maximum Assistance Areas Needing Assistance Underpants/Brief,Socks OT ADL-Toileting General Evaluation Toileting Ability Total Assistance Areas Needing Assistance Manage Clothing,Perform Perineal Hygiene Comments OT Toileting Comments Pt hoyered to the BSC and hygiene performed while in the lift and brief put on while in bed. OT ADL-Bathing Comments OT Bathing Comments Sponge bath more appropriate at this time. M5 OT- IP IADL's Start: 08/11/21 10:47 Freq: Status: Active Protocol: Document 08/11/21 10:47 [facility] (Rec: 08/11/21 11:13 [facility] [id number]) OT-Instrumental Activities of Daily Living Home Safety Awareness Awareness of Need for Assistance at Home Good Awareness Ability to Problem Solve Emergency Able to Problem Solve Situations Medication Management Medication Management No Deficits Identified Money Management Money Management No Deficits Identified Crap Game Box Person Crap Game Box Person Comments At this time due to decreased balance and functional movement of left side pt would need assist for all IADL needs. OT- Vision and Hearing OT- Hearing Assessment OT- Hearing Assessment WFL OT- Vision Assessment Visual Acuity Glasses All The Time Visual Attentiveness WFL Occular Pursuits WFL Visual Convergence WFL Visual Jeffrey WFL Diplopia Absent M7 OT- IP Mobility and Balance Start: 08/11/21 10:47 Freq: Status: Active Protocol: Document 08/12/21 10:48 [facility] (Rec: 08/12/21 11:03 [facility] [id number]) OT- Bed Mobility Assessment Sit to Supine Sit to Supine Assist Moderate Assistance,2 Person Assistance OT-Transfer Assessment Sit to and From Stand Sit to and from Stand Moderate Assistance,2 Person Assistance Transfers Transfer Ability Moderate Assistance,2 Person Assistance Technique Transfer Destination Bed,Chair Transfer Technique Stand Step Pivot Devices Transfer Assistive Devices Gait Belt Comments Mobility Comments Able to block pt's left knee and pt able to come to stand with MODA X2. Therapist in the front and TAX PREPARER in the back to assist for balance at her hips. Pt able to stand and then take a step to the bed with her right foot and able to bring in her left foot in as able to bear weight on her LLE. MODA X2 to help get back back to bed. At this time still recommend juan antonio lift until pt's transfer is more consistent.PT also to continue to assess daily for mobility needs. OT- Gait Assessment Comments Gait Ability Comments NOt at this time. OT- Balance Assessment Sitting Balance and Reactions Static Sitting Balance Ability Good Dynamic Sitting Balance Ability Fair Standing Balance and Reactions Static Standing Balance Ability Poor Dynamic Standing Balance Ability Poor Comments Other Balance Tests/Deviations/Treatment Pt better awareness and : ability to sit to midline today. SBA while sitting on the edge of the bed. M8 OT- IP Objective Assessments Start: 08/11/21 10:47 Freq: Status: Active Protocol: Document 08/12/21 10:48 [facility] (Rec: 08/12/21 11:03 [facility] [id number]) OT Strength Upper Extremity Strength Assessment Left Impaired Shoulder 3-/5 Elbow 2+/5 Forearm 1/5 Wrist 0/5 Hand 0/5 Comments Strength Comments Able to work on AAROM with pt for LUE. Pt having a better understanding of muscle control for her LUE. Pt now trying to fine tune muscle recruiting so able to use her arm more to be able to assist for ADl and functional mobility needs. Able to use PVC frame to assist pt to have her RUE assist her LUE for movements of elbow ex/flex, shoulder ex/flex, and shoulder retraction/protraction. OT-Muscle Tone Assessment Comments Muscle Tone Comments Hypotonicity in LUE. M9 OT- IP Assessment and Plan Start: 08/11/21 10:47 Freq: Status: Active Protocol: Document 08/12/21 10:48 [facility] (Rec: 08/12/21 11:03 [facility] [id number]) OT Summary Assessment and Plan Potential Rehabilitation Potential Excellent Analytic Complexity at Evaluation Moderate Summary OT Impairments Range of Motion,Strength, Balance,Coordination,Sensation ,Tone,Functional Mobility,Self -Feeding,Grooming,Dressing, Toileting,Bathing,Toilet Transfers,Shower Transfers, Activity Tolerance Progress Towards Goals Progressing Toward Goals Assessment Summary Noted increased movement for pt for LUE and LLE. Pt able to bear weight during stand pivot transfer with MODA X 2 and therapist blocking her left knee. Pt active trying to use her LUE for mobility and ADL needs. Pt is very cooperative , motivated, and making gains for her needs. 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 Goals Self-Feeding Goal Independent Grooming Goal Independent Dressing Goal Independent Toileting Goal Independent Bathing Goal Independent Toilet Transfer Goal Independent Shower Transfer Goal Independent OT-Other Goals OT goals based on incorporation if LUE for ADl needs. Days to Meet Goals 50 Frequency of Treatment Frequency Of Treatment Once a Day Treatment Plan OT Treatment Plan ADL Training,Functional Mobility,Neuromuscular Re- education,Patient/Family Education,Discharge Planning Other Treatment Recommendations and Next Transfer with quad cane and Treatment Focus MODA X 2 to BSC. MAX to help incorporate pt's LUE for mobility needs and ADl's. Discharge Recommendations OT Discharge Recommendations Acute Rehab Transportation Needs at Discharge Wheelchair/Cabulance
--- NOTE | 2021-08-12 10:53 | DI.RAD.S_ITS ---
PROCEDURE: XR CHEST 1V INDICATIONS: r/o pneumonia TECHNIQUE: One view of the chest was acquired. COMPARISON: None. FINDINGS: Surgical changes and devices: None. Lungs and pleura: Lungs are clear. No pleural effusions or pneumothorax. Mediastinum: Mediastinal contours appear normal. Heart size is normal. Bones and chest wall: No suspicious bony lesions. Overlying soft tissues appear unremarkable. IMPRESSION: No evidence acute pulmonary process. Dictated by: Eliazar Sneed M.D. on 08/12/2021 at 12:04 Approved by: Eliazar Sneed M.D. on 08/12/2021 at 12:05
--- NOTE | 2021-08-12 11:20 | OT.IP.TRT ---
Current Diagnoses Type 2 diabetes mellitus without complications (08/11/21) Hyperlipidemia, unspecified (08/11/21) Essential (primary) hypertension (08/11/21) Cerebral infarction due to unspecified occlusion or stenosis of right anterior cerebral artery (08/11/21) Occupational Therapy Treatment Note M2 OT-IP Current Condition Start: 08/11/21 10:47 Freq: Status: Active Protocol: Document 08/11/21 10:47 [facility] (Rec: 08/11/21 11:13 [facility] [id number]) Occupational Therapy Current Condition Current Condition Evaluation Date 08/11/21 Treatment Diagnosis CVA, decreased mobility Diagnosis Onset Date 08/11/21 M3 OT- IP Subjective and Pain Start: 08/11/21 10:47 Freq: Status: Active Protocol: Document 08/12/21 11:26 [facility] (Rec: 08/12/21 11:34 [facility] [id number]) OT- Subjective Occupational Therapy Visit Type Type Treatment Note Visit Start Time 11:15 Visit Stop Time 11:27 Total Visit Minutes 12 Occupational Therapy Visit Comments Patient Comments Pt seen a second time to assist MUSHROOM PRESS OPERATOR and to help determine with mobility and standing with hemiwalker. Patient/Caregiver Goals To go to acute rehab. OT Pain Assessment Pain When Pain Assessed At Rest Pain Present Pain Present Denied Pain M7 OT- IP Mobility and Balance Start: 08/11/21 10:47 Freq: Status: Active Protocol: Document 08/12/21 11:26 [facility] (Rec: 08/12/21 11:34 [facility] [id number]) OT- Bed Mobility Assessment Sit to Supine Sit to Supine Assist Maximum Assistance,1 Person Assistance OT-Transfer Assessment Sit to and From Stand Sit to and from Stand Moderate Assistance,2 Person Assistance Devices Transfer Assistive Devices Gait Belt,Erick Walker Comments Mobility Comments MODA x2 to stand with hemiwalker, cue to breath, keeping her hips square and to try to put weight on LLE as MUSHROOM PRESS OPERATOR blocking her left knee. Pt mostly placing her weight on her RLE. Able to work on scooting to the head of the bed and able to do with assist for LLE placement and some balance. OT- Gait Assessment Comments Gait Ability Comments NOt at this time. OT- Balance Assessment Sitting Balance and Reactions Static Sitting Balance Ability Good Dynamic Sitting Balance Ability Fair Standing Balance and Reactions Static Standing Balance Ability Poor M8 OT- IP Objective Assessments Start: 08/11/21 10:47 Freq: Status: Active Protocol: Document 08/12/21 10:48 [facility] (Rec: 08/12/21 11:03 [facility] [id number]) OT Strength Upper Extremity Strength Assessment Left Impaired Shoulder 3-/5 Elbow 2+/5 Forearm 1/5 Wrist 0/5 Hand 0/5 Comments Strength Comments Able to work on AAROM with pt for LUE. Pt having a better understanding of muscle control for her LUE. Pt now trying to fine tune muscle recruiting so able to more her arm to be able to assist for ADl and functional mobility needs. OT-Muscle Tone Assessment Comments Muscle Tone Comments Hypotonicity in LUE. M9 OT- IP Assessment and Plan Start: 08/11/21 10:47 Freq: Status: Active Protocol: Document 08/12/21 11:26 [facility] (Rec: 08/12/21 11:34 [facility] [id number]) OT Summary Assessment and Plan Potential Rehabilitation Potential Excellent Analytic Complexity at Evaluation Moderate Summary OT Impairments Range of Motion,Strength, Balance,Coordination,Sensation ,Tone,Functional Mobility,Self -Feeding,Grooming,Dressing, Toileting,Bathing,Toilet Transfers,Shower Transfers, Activity Tolerance Progress Towards Goals Progressing Toward Goals Assessment Summary Pt able to work on standing with hemiwalker with MODA X 2 for over 2 minutes. Pt very motivated to get better and go to rehab. Goals Self-Feeding Goal Independent Grooming Goal Independent Dressing Goal Independent Toileting Goal Independent Bathing Goal Independent Toilet Transfer Goal Independent Shower Transfer Goal Independent OT-Other Goals OT goals based on ioncorporation if LUE for ADl needs. Days to Meet Goals 50 Frequency of Treatment Frequency Of Treatment Once a Day Treatment Plan OT Treatment Plan ADL Training,Functional Mobility,Neuromuscular Re- education,Patient/Family Education,Discharge Planning Other Treatment Recommendations and Next Transfer with quad cane and Treatment Focus MODA X 2 to BSC. MAX to help incorporate pt's LUE for mobility needs and ADl's. Discharge Recommendations OT Discharge Recommendations Acute Rehab Transportation Needs at Discharge Wheelchair/Cabulance
--- NOTE | 2021-08-12 11:20 | PT.IPTN ---
Current Diagnoses Type 2 diabetes mellitus without complications (08/11/21) Hyperlipidemia, unspecified (08/11/21) Essential (primary) hypertension (08/11/21) Cerebral infarction due to unspecified occlusion or stenosis of right anterior cerebral artery (08/11/21) Physical Therapy Treatment Note M2 PT-IP Current Condition Start: 08/11/21 13:21 Freq: NEEDED Status: Active Protocol: Document 08/11/21 11:26 [facility] (Rec: 08/11/21 13:36 AB [id number]) Physical Therapy Current Condition Current Condition Evaluation Date 08/11/21 Treatment Diagnosis R CVA L sided weakness; difficulty in walking Onset Date 08/11/21 Precautions Other Precautions falls M3 PT-IP Subjective Start: 08/11/21 13:21 Freq: NEEDED Status: Active Protocol: Document 08/12/21 10:54 [facility] (Rec: 08/12/21 12:19 SP [id number]) Subjective Physical Therapy Visit Type Type Treatment Note Visit Start Time 10:54 Visit Stop Time 11:20 Total Visit Minutes 26 Notes Co tx with OT as 2nd person. Vital taken during tx. supine post LE ex: BP 194/84 HR 92 SaO2 95% on RA supine after standing activities: BP 168/85 HR 95. Number of PAPER BOX CUTTER Visits 1 Physical Therapy Visit Comments Patient Comments Pt self motivated throughout tx, agreeable to working with therapy even though just got back to bed with nursing. Patient Goals Go to acute rehab to get stronger. Therapy Pain Assessment Pain Present Pain Present Denied Pain M4 PT-IP Mobility and Gait Start: 08/11/21 13:21 Freq: NEEDED Status: Active Protocol: Document 08/12/21 10:54 [facility] (Rec: 08/12/21 12:19 SP [id number]) PT-Bed Mobility Assessment Supine to Sit Supine to Sit Maximum Assistance,1 Person Assistance,Head of Bed Elevated,Bedrails Sit to Supine Sit to Supine Maximum Assistance,1 Person Assistance Scooting Scooting to Edge of Bed Minimal Assistance,Moderate Assistance PT-Transfer Assessment Sit to and From Stand Sit to and from Stand Moderate Assistance,2 Person Assistance,Use of Upper Extremities Equipment Transfer Assistive Device Gait Belt,Erick Walker Orthotic/Prosthetic Devices or Brace: No Comments Mobility Comments Pt elevated supine in bed when arrived, COMMUNITY DEVELOPMENT AIDE came in room after PAPER BOX CUTTER arrived stated just got her back to bed. PAPER BOX CUTTER instructed pt on LE exercises: quad set, glut set, heel slide, hip abd w/ gait belt initially then leg classified ad taker end of tx with ability to perform hip abd self using RUE. Elevated supine>sit Max A x1 for trunk righting, pt able to get BLE and scoot pelvis toward EOB. She attempted to sit up self using R bed rail but unable to complete, pulled from therapist hand to complete to sitting then scoot Min-Mod A x1, tends to lean L at times cues for spacial awareness posture into midline . Pt sat at EOB CG- Min A x1, BLE contact on floor. Donned gait belt in sitting. Sit<> stand x2 assessments using HW in RUE Mod A x2 persons intermittent cuing for upright posture midline, L quad facilitation and even BLE WB though pt tends to WB predominently through RLE and support of RUE on HW. Support provided at anterior L knee with therapist's leg for safety due to buckling during wt acceptance practicing into LLE. Pt was able to stand 20 sec with feet positioned 3 apart, 2.5 min with feet WBOS 4'' apart, Mod A x2 using HW in RUE stationary stance. Pt is impulsive during movements, cues for verbally coordinating with therapist for safety sitting and standing balance. Pt was able to scoot laterally to L up EOB , max cues for sequencing LEs/ UEs, demonstrated WB through R>LLE, RUE on bed, therapist provided support front anterior L knee during WB and for repositioning support to L , LYTTON LUE on bed flat hand with cuing for allow WB into bed, Mod A x2. Completed sit> supine Max A x1 with support for trunk eccentric righting and LLE into bed. Pt able to self bridge and scoot to center self using R bed rail. Pt had call light and all needs in reach with bed alarmed before left. COMMUNITY DEVELOPMENT AIDE in room when left. Gait Assessment Comments Gait Comments Unable at this time. PT-Balance Assessment Sitting Balance and Reactions Static Sitting Balance Ability Fair Dynamic Sitting Balance Ability Poor Standing Balance and Reactions Static Standing Balance Ability Poor Dynamic Standing Balance Ability Poor Device Used [employer] [place] M5 PT-IP Objective Assessments Start: 08/11/21 13:21 Freq: NEEDED Status: Active Protocol: Document 08/11/21 11:26 AB (Rec: 08/11/21 13:36 AB [id number]) Orientation Orientation/Cognition Orientation Name Safety Awareness Understands Safety Issues Gross Range of Motion Lower Extremity ROM Assessment Within Functional Limits Strength Lower Extremity Strength Assessment Left Impaired Comments Strength Comments L hip flexion: 2-/5 L knee extension: 2+/5 ankle DF: 1/5 Muscle Tone Muscle Tone WNL No Muscle Tone Location Left Upper Extremity Type of Tone Hypotonicity Severity of Tone Severe M6 PT-IP Treatment Start: 08/11/21 13:21 Freq: NEEDED Status: Active Protocol: Document 08/12/21 10:54 SP (Rec: 08/12/21 12:19 SP [id number]) Physical Therapy Treatment Exercises Exercises Ankle Pumps,Gluteal Sets,Quad Sets,Heel Slides,Supine Hip Abduction Education Education Provided Safety Other Treatments Other Treatment Performed Provided pt with leg classified ad taker to allow increased independence with LLE hip abd ex while supine in bed. Pt able to completed approx 45 deg L knee flexion AROM, AAROM rest range by therapist Min A. Pt unable to perform toe extension or DF at this time, no muscle activationed at this time. PAPER BOX CUTTER provided PROM with tapping tibialis anterior. M7 PT-IP Assessment and Plan Start: 08/11/21 13:21 Freq: NEEDED Status: Active Protocol: Document 08/12/21 10:54 SP (Rec: 08/12/21 12:19 SP [id number]) PT Summary Assessment and Plan Potential Rehabilitation Potential Fair Status of Condition at Evaluation Evolving Summary Impairments Pain,ROM,Strength,Balance, Coordination,Sensation,Tone, Cognition,Bed Mobility, Transfers,Gait,Activity Tolerance Progress Towards Goals Progressing Toward Goals,Slow Progress due to Activity Tolerance Assessment Summary Pt completed supine<> sit Max A x1, sit<> stand Mod A x2 using HW support anterior L knee due to buckling during wt acceptance, stood 2.5 min longest. Pt improved in sitting balance this tx, she is impulsive, continues L side neglect during mobility with required CG- Mod A for safety. Recommending continued Carlos for transfers with nursing. Pt is self motived and good candidate for acute rehab to progress in strength and functional mobility. Will continue to assess progress. Goals Bed Mobility Goal Minimal Assistance Transfer Goal Minimal Assistance Gait Goal Minimal Assistance,Erick Walker Gait Distance 50 Days to Meet Goals 10 Frequency of Treatment Frequency Of Treatment Once a Day Treatment Plan Physical Therapy Treatment Plan Bed Mobility Training,Transfer Training,Gait Training, Therapeutic Exercise,Balance Retraining,Post Op Education, Discharge Planning,Hot or Cold Pack,Neuromuscular Re-ed, Coordination Retraining,Manual Therapy Other Recommendations and Next Treatment bed mob, Sit<>stands, Focus transfers. Precautions Other Precautions falls Recommendations To Nursing Amount of Assist Needed Mechanical Lift Discharge Recommendations PT Discharge Recommendations SNF Rehab,Acute Rehab,SNF vs Acute Rehab Transportation Needs at Discharge Wheelchair/Cabulance
--- NOTE | 2021-08-12 11:20 | PT.IPTN ---
Current Diagnoses Type 2 diabetes mellitus without complications (08/11/21) Hyperlipidemia, unspecified (08/11/21) Essential (primary) hypertension (08/11/21) Cerebral infarction due to unspecified occlusion or stenosis of right anterior cerebral artery (08/11/21) Physical Therapy Treatment Note M2 PT-IP Current Condition Start: 08/11/21 13:21 Freq: NEEDED Status: Active Protocol: Document 08/11/21 11:26 AB (Rec: 08/11/21 13:36 AB [id number]) Physical Therapy Current Condition Current Condition Evaluation Date 08/11/21 Treatment Diagnosis R CVA L sided weakness; difficulty in walking Onset Date 08/11/21 Precautions Other Precautions falls M3 PT-IP Subjective Start: 08/11/21 13:21 Freq: NEEDED Status: Active Protocol: Document 08/12/21 10:54 SP (Rec: 08/12/21 12:19 SP [id number]) Subjective Physical Therapy Visit Type Type Treatment Note Visit Start Time 10:54 Visit Stop Time 11:20 Total Visit Minutes 26 Notes Co tx with OT as 2nd person. Vital taken during tx. supine post LE ex: BP 194/84 HR 92 SaO2 95% on RA supine after standing activities: BP 168/85 HR 95. Number of PLANT GENERAL MANAGER Visits 1 Physical Therapy Visit Comments Patient Comments Pt self motivated throughout tx, agreeable to working with therapy even though just got back to bed with nursing. Patient Goals Go to acute rehab to get stronger. Therapy Pain Assessment Pain Present Pain Present Denied Pain M4 PT-IP Mobility and Gait Start: 08/11/21 13:21 Freq: NEEDED Status: Active Protocol: Document 08/12/21 10:54 SP (Rec: 08/12/21 12:19 SP [id number]) PT-Bed Mobility Assessment Supine to Sit Supine to Sit Maximum Assistance,1 Person Assistance,Head of Bed Elevated,Bedrails Sit to Supine Sit to Supine Maximum Assistance,1 Person Assistance Scooting Scooting to Edge of Bed Minimal Assistance,Moderate Assistance PT-Transfer Assessment Sit to and From Stand Sit to and from Stand Moderate Assistance,2 Person Assistance,Use of Upper Extremities Equipment Transfer Assistive Device Gait Belt,Erick Walker Orthotic/Prosthetic Devices or Brace: No Comments Mobility Comments Pt elevated supine in bed when arrived, DOPE HOUSE OPERATOR HELPER came in room after PLANT GENERAL MANAGER arrived stated just got her back to bed. PLANT GENERAL MANAGER instructed pt on LE exercises: quad set, glut set, heel slide, hip abd w/ gait belt initially then leg plumber cub end of tx with ability to perform hip abd self using RUE. Elevated supine>sit Max A x1 for trunk righting, pt able to get BLE and scoot pelvis toward EOB. She attempted to sit up self using R bed rail but unable to complete, pulled from therapist hand to complete to sitting then scoot Min-Mod A x1, tends to lean L at times cues for spacial awareness posture into midline . Pt sat at EOB CG- Min A x1, BLE contact on floor. Donned gait belt in sitting. Sit<> stand x2 assessments using HW in RUE Mod A x2 persons intermittent cuing for upright posture midline, L quad facilitation and even BLE WB though pt tends to WB predominently through RLE and support of RUE on HW. Support provided at anterior L knee with therapist's leg for safety due to buckling during wt acceptance practicing into LLE. Pt was able to stand 20 sec with feet positioned 3 apart, 2.5 min with feet WBOS 4'' apart, Mod A x2 using HW in RUE stationary stance. Pt is impulsive during movements, cues for verbally coordinating with therapist for safety sitting and standing balance. Pt was able to scoot laterally to L up EOB , max cues for sequencing LEs/ UEs, demonstrated WB through R>LLE, RUE on bed, therapist provided support front anterior L knee during WB and for repositioning support to L , [facility] LUE on bed flat hand with cuing for allow WB into bed, Mod A x2. Completed sit> supine Max A x1 with support for trunk eccentric righting and LLE into bed. Pt able to self bridge and scoot to center self using R bed rail. Pt had call light and all needs in reach with bed alarmed before left. DOPE HOUSE OPERATOR HELPER in room when left. Gait Assessment Comments Gait Comments Unable at this time. PT-Balance Assessment Sitting Balance and Reactions Static Sitting Balance Ability Fair Dynamic Sitting Balance Ability Fair Standing Balance and Reactions Static Standing Balance Ability Poor Dynamic Standing Balance Ability Poor Device Used [employer] M5 PT-IP Objective Assessments Start: 08/11/21 13:21 Freq: NEEDED Status: Active Protocol: Document 08/11/21 11:26 AB (Rec: 08/11/21 13:36 AB [id number]) Orientation Orientation/Cognition Orientation Name Safety Awareness Understands Safety Issues Gross Range of Motion Lower Extremity ROM Assessment Within Functional Limits Strength Lower Extremity Strength Assessment Left Impaired Comments Strength Comments L hip flexion: 2-/5 L knee extension: 2+/5 ankle DF: 1/5 Muscle Tone Muscle Tone WNL No Muscle Tone Location Left Upper Extremity Type of Tone Hypotonicity Severity of Tone Severe M6 PT-IP Treatment Start: 08/11/21 13:21 Freq: NEEDED Status: Active Protocol: Document 08/12/21 10:54 SP (Rec: 08/12/21 12:19 SP [id number]) Physical Therapy Treatment Exercises Exercises Ankle Pumps,Gluteal Sets,Quad Sets,Heel Slides,Supine Hip Abduction Education Education Provided Safety Other Treatments Other Treatment Performed Provided pt with leg plumber cub to allow increased independence with LLE hip abd ex while supine in bed. Pt able to completed approx 45 deg L knee flexion AROM, AAROM rest range by therapist Min A. Pt unable to perform toe extension or DF at this time, no muscle activationed at this time. PLANT GENERAL MANAGER provided PROM with tapping tibialis anterior. M7 PT-IP Assessment and Plan Start: 08/11/21 13:21 Freq: NEEDED Status: Active Protocol: Document 08/12/21 10:54 SP (Rec: 08/12/21 12:19 SP [id number]) PT Summary Assessment and Plan Potential Rehabilitation Potential Fair Status of Condition at Evaluation Evolving Summary Impairments Pain,ROM,Strength,Balance, Coordination,Sensation,Tone, Cognition,Bed Mobility, Transfers,Gait,Activity Tolerance Progress Towards Goals Progressing Toward Goals,Slow Progress due to Activity Tolerance Assessment Summary Pt completed supine<> sit Max A x1, sit<> stand Mod A x2 using HW support anterior L knee due to buckling during wt acceptance, stood 2.5 min longest. Pt improved in sitting balance this tx, she is impulsive, continues L side neglect during mobility with required CG- Mod A for safety. Recommending continued Carlos for transfers with nursing. Pt is self motived and good candidate for acute rehab to progress in strength and functional mobility. Will continue to assess progress. Goals Bed Mobility Goal Minimal Assistance Transfer Goal Minimal Assistance Gait Goal Minimal Assistance,Erick Walker Gait Distance 50 Days to Meet Goals 10 Frequency of Treatment Frequency Of Treatment Once a Day Treatment Plan Physical Therapy Treatment Plan Bed Mobility Training,Transfer Training,Gait Training, Therapeutic Exercise,Balance Retraining,Post Op Education, Discharge Planning,Hot or Cold Pack,Neuromuscular Re-ed, Coordination Retraining,Manual Therapy Other Recommendations and Next Treatment bed mob, Sit<>stands, Focus transfers. Precautions Other Precautions falls Recommendations To Nursing Amount of Assist Needed Mechanical Lift Discharge Recommendations PT Discharge Recommendations SNF Rehab,Acute Rehab,SNF vs Acute Rehab Transportation Needs at Discharge Wheelchair/Cabulance
[2021-08-12] MEDS: CIPROFLOXACIN 250 MG TABLET PO ×2 (12:04→20:24)
[2021-08-12] MEDS: AMLODIPINE 5 MG TABLET PO (12:04)
--- NOTE | 2021-08-12 14:30 | ST.IPTN ---
Visit Care Team Role Provider Type Shazia Bonilla MD Emergency Provider Physician Referring Provider Address: [address] [place] [address], [id number] Esme Jerry [facility] Admit Provider Physician Attending Provider Address: [address] [place] [address], [id number] SQL SERVER ARCHITECT Treatment Note SQL SERVER ARCHITECT Treatment Note Start: 08/11/21 11:21 Freq: Status: Active Protocol: Document 08/12/21 12:20 MICHELLE (Rec: 08/12/21 12:29 MICHELLE [id number]) Speech Pathology Treatment Note Session Time Visit Start Time 09:10 Visit Stop Time 09:25 Total Visit Minutes 15 Setting Treatment Setting Acute Care Visit Type Note Type Treatment Note Next Note Type Next Note Type Treatment Note General Information General Information H&P: Patient is a 60-year-old female Barb Kasper with a history of diabetes, obesity, hypertension and hyperlipidemia currently untreated x 1 year as she is unable to afford medications due to loss of health insurance, she was in her usual state of health when she went to bed at 9:00 pm last night. She woke up to void at 2:30 a.m. in the morning and found that her entire left side was not working.? Patient admitted for right-sided acute stroke with left-sided weakness/neuro deficit, and hypertensive emergency. Subjective Identification Type Name,ID Card Others Present Family Observations/Patient Presentation The pt was awake and reclined in chair with present upon SQL SERVER ARCHITECT arrival. She reported mildly improved speech and ability to express her wants and needs adequately with medical staff. She expressed determination to work hard to regain strength and coordination Chief Complaint(s) Speech Parent/Caretake Knowledge/Awareness of Good SQL SERVER ARCHITECT Role in Treatment Patient/Caregiver Compliance with Home Good Exercise Program Objective Short Term Goals Pt will perform OM exercises to improve ROM, strength and speed of lips, tongue and velum. Written instructioms will be provided to pt. Pt's speech rate and intelligibility will improve to WFL in orderto effectively communicate in the community. Hairspring Staker Goals Pt's speech and OM skills will improve to WFL. Treatment Activities Pt presented with ongoing left side facial droop. She completed OM exercises independently, achieving good ROM and coordination; right side greater than left. Education was provided orally and in writing RE communication strategies for dysarthric speech. Pt verbalized understanding. Trained pt in production of multisyllabic words, targeting clear articulation of every phoneme. Pt read list of multisyllabic words with 100% intelligible speech. Speech was slurred sounding, although every phoneme was perceivable . Pt's rate of speech was slower than normal, but appropriate for intelligibility. The pt had questions related to right hemisphere stroke and potential symptoms related to speech pathology. These were answered and pt was instructed to inform MD, NSG or SQL SERVER ARCHITECT if she observed any changes in cognitive and other communication skills. Pt verbalized understanding and agreement. Assessment Patient Response to Treatment Good Rehab Potential Good Impairments Identified Dysarthria Progress Towards Goals Good Progress Assessment of Overall Progress Improving Assessment of Improvement The pt continues with mild- moderate dysarthria with slurred sounding speech that is nevertheless 100% intelligible when pt speaks at mildly reduced rate, which she does independently. She is independent with OM exercises and exhibits and verbalized excellent motivation and determination to improve. She is an excellent candidate for acute rehab, which is recommended. Reviewed with Patient Goals,Progress Being Made,Home Exercise Program Patient/Caregiver Understanding Excellent Plan Therapeutic Contents Client Education,Home Exercise Program,Intelligibility Provided Patient/Caregiver Instruction Home Exercise Program,Plan of Care,Questions/Concerns Therapy Recommendations Continue with Current Program
--- NOTE | 2021-08-12 15:14 | CM.DPC ---
DCP Cont: Per MD, pt making improvements and chance pt could be stable for d/c to Acute Rehab in a day or two but maybe longer if going to SNF. Per PT/OT/ST, recommending Acute Rehab at d/c and pt made good progress today from yesterday. SAMARA called [facility] admissions Sweetie and provided new referral and confirmed they are willing to review and Sweetie states that they work really well with [facility] and are able to get auth quickly. SW faxed clinicals to review and then in the afternoon faxed updated PT/OT/ST notes from today. They do not allow visitors at this time due to COVID but have floor to ceiling window for window visits and then in-person CG training prior to d/c. SW called [facility] Andi and he confirms they have openings but he didn't want to step on any toes and wants to wait until decision from [facility] made before reviewing pt. But Andi confirms that they also work well with [facility]. Also do not allow visitors but provide each pt with an Ipad for Zoom/Skype/FaceTime. SW met bedside with pt and spouse and explained role and updated on above and provided brochure for [facility] to review and discussed above and pt confirms that her preference is still [facility] and agreeable with no visitor policy. Pt also aware that they will likely have to private pay for cabulance for transport if spouse unable to provide still due to [facility] policy. SAMARA called [facility] and she appologized stating today was very hectic and she is just now starting review of pt this afternoon. Plan: SW to follow closely for [facility] re[facility] review to determine if they can accept and if not then referral to [facility]. SW to follow closely for confirming if pt has to private pay for cabulance and getting a quote for pt/spouse. MONE Jacobsen
--- NOTE | 2021-08-12 16:18 | P.PN_ITS ---
Subjective Subjective Date Patient Seen: 08/12/21 Interval history: 60-year-old female with history of type 2 diabetes, hypertension admitted due to acute stroke, presented with dysarthria and left hemiparesis. MR showed right thalamic stroke. Patient is extremely motivated towards recovery. She has some neurologic improvement in the past 24 hours where able to move her left side to some degree. Her blood pressures have remained elevated in the 180-190 range with losartan started yesterday. Exam Vital Signs (past 8 hours): - 08/12/21 12:00 08/12/21 15:57 Temperature 98.3 F 97.3 F L Pulse Rate 90 95 H Respiratory Rate 19 21 Blood Pressure 168/85 H 206/90 H Pulse Oximetry 96 94 Oxygen Delivery Method Room Air Oxygen Flow Rate 0 Narrative Exam Narrative: General: Alert and very cooperative female Neurological: Has mild to moderate dysarthria but easily understandable, no comprehension deficits, regaining some movement in left arm and left leg Objective Labs Result Diagrams: 08/12/21 04:50 08/12/21 04:50 Labs: Laboratory Results - last 24 hr 08/12/21 08/12/21 08/12/21 04:50 04:50 04:50 WBC 15.3 H RBC 5.30 H Hgb 17.0 H Hct 50.6 H MCV 95.5 MCH 32.1 MCHC 33.6 RDW 12.7 Plt Count 310 Neut % (Auto) 53.3 Lymph % (Auto) 36.4 [place] % (Auto) 7.3 Eos % (Auto) 1.9 L Baso % (Auto) 1.1 Neut # (Auto) 8200 H Lymph # (Auto) 5600 H [place] # (Auto) 1100 H Eos # (Auto) 300 Baso # (Auto) 200 H PT 10.8 INR 1.0 APTT 34 Sodium 139 Potassium 4.3 Chloride 106 Carbon Dioxide 28 BUN 14 Creatinine 0.62 Estimated GFR > 60.0 BUN/Creatinine Ratio 22.6 H Glucose 234 H Calcium 9.3 PFSH Medical History (Updated 08/11/21 @ 07:10 by Dariela Branch MD) Diabetes Healthy adult Hyperlipidemia Hypertension Obesity (BMI 30.0-34.9) Stroke Surgical History (Updated 08/11/21 @ 05:53 by MACRINA Lee) History of History of cholecystectomy History of tonsillectomy Family History (Updated 08/11/21 @ 05:53 by Esme Jerry [facility]) Mother Heart attack Diabetes mellitus Father Heart disease Social History household members: significant other lives independently: Yes Smoking Status: Current every day smoker alcohol intake: current Assessment & Plan Assessment & Plan narrative: 1.? Acute CVA with left hemiparesis -not tPA candidate, acutely hypertensive likely secondary to CVA, but not true hypertensive emergency, however was on nicardipine drip on night of admission -CT no bleed, CTA normal -brain MR acute right thalamic infarct, possible subacute pontine infarct, brain and neck MRA normal -echo normal LV, normal RV, normal LVEF, no significant valvular abnormality -BP trending back up to 180s - 190s systolic, avoid rapid BP lowering -08/11 started losartan 50 mg daily -08/12 added amlodipine 5 mg daily -anti-platelet agents aspirin 81 mg q.d., clopidogrel 75 mg q.d. -statin atorvastatin 80 mg HS -continue PT/OT/ST -telemetry monitoring -has good social support from long-term partner -anticipate she will be medically stable for discharge on 08/13 to acute inpatient rehab versus SNF 2. Hypertension -patient used to take lisinopril but stopped after insurance ran out -started losartan 50 mg q.d. and added amlodipine 5 mg q.d. 3. Type 2 diabetes -A1c 10.2, patient used to take metformin -started Lantus 20 units q.a.m. -start metformin 500 mg b.i.d. on 08/13 (48 hours post IV contrast) 4. Polycythemia -likely secondary due to smoking -monitor as outpatient and consider oncology referral if worsening 5. Cigarette dependency -provided smoking cessation counseling 6. Leukocytosis, possible acute cystitis -patient afebrile, chest x-ray without infiltrate, urine growing Gram-negative bacilli however patient has no urinary symptoms other than sometimes sensation of incomplete bladder emptying -started Cipro 250 mg p.o. b.i.d. x5 days -consider oncology referral for persistent leukocytosis and polycythemia without source of infection DVT prophylaxis: Lovenox Time Spent With Patient Critical Care time: I spent a total of [] minutes of critical care time on this patient's care today; this time is exclusive of procedural time.
[2021-08-12] MEDS: ATORVASTATIN 20 MG TABLET 80 MG PO (20:24)
[2021-08-13] VITALS (10 sets, daily range): BP systolic 144–185; BP diastolic 79–96; PULSE 87–112; RESP 17–18; TEMP 36.1–36.8; O2SAT 94–96
--- NOTE | 2021-08-13 00:38 | PM.EVENT ---
Event Note Event Note: Patient admitted 2 days ago for an acute stroke. She has been hypertensive and required nicardipine the first night of admission. She was started on amlodipine and losartan yesterday. Blood pressure still elevated, currently 185/91. Will give one dose hydralazine. consider increasing amlodipine tomorrow.
[2021-08-13] MEDS: HYDRALAZINE 20 MG/ML VIAL 10 MG IV (01:25)
[2021-08-13] MEDS: CIPROFLOXACIN 250 MG TABLET PO ×2 (06:39→20:22)
--- NOTE | 2021-08-13 08:15 | PT.IPTN ---
Current Diagnoses Type 2 diabetes mellitus without complications (08/11/21) Hyperlipidemia, unspecified (08/11/21) Essential (primary) hypertension (08/11/21) Cerebral infarction due to unspecified occlusion or stenosis of right anterior cerebral artery (08/11/21) Physical Therapy Treatment Note M2 PT-IP Current Condition Start: 08/11/21 13:21 Freq: NEEDED Status: Active Protocol: Document 08/11/21 11:26 AB (Rec: 08/11/21 13:36 AB [id number]) Physical Therapy Current Condition Current Condition Evaluation Date 08/11/21 Treatment Diagnosis R CVA L sided weakness; difficulty in walking Onset Date 08/11/21 Precautions Other Precautions falls M3 PT-IP Subjective Start: 08/11/21 13:21 Freq: NEEDED Status: Active Protocol: Document 08/13/21 07:44 SP (Rec: 08/13/21 09:12 SP [id number]) Subjective Physical Therapy Visit Type Type Treatment Note Visit Start Time 07:44 Visit Stop Time 08:15 Total Visit Minutes 31 Notes in room, reports unable to provided physical assistance due own LB previous surgeries. [employer] provided 2nd person assist throughout tx. Vitals taken: Supine at rest: BP 184/96 HR 107 Seated EOB: 162/92 HR 117 Seated in chair post transfers : 157/114 HR 122 Denied dizziness/ lightheadedness throughout activity. Number of HARD CANDY SPINNER Visits 2 Physical Therapy Visit Comments Patient Comments Pt agreeable to working with therapy. Patient Goals Go to acute rehab to get stronger. Therapy Pain Assessment Pain Present Pain Present Denied Pain M4 PT-IP Mobility and Gait Start: 08/11/21 13:21 Freq: NEEDED Status: Active Protocol: Document 08/13/21 07:44 SP (Rec: 08/13/21 09:12 SP [id number]) PT-Bed Mobility Assessment Supine to Sit Supine to Sit Maximum Assistance,1 Person Assistance,Head of Bed Elevated Scooting Scooting to Edge of Bed Contact Guard Assistance, Minimal Assistance PT-Transfer Assessment Sit to and From Stand Sit to and from Stand Minimal Assistance,Moderate Assistance,2 Person Assistance ,Use of Upper Extremities Equipment Transfer Assistive Device Gait Belt,Erick Walker Orthotic/Prosthetic Devices or Brace: No Transfers Transfer Destination Bed,Chair Transfer Technique Stand Step Pivot Transfer Ability Level of Assist Minimal Assistance,Maximum Assistance,2 Person Assistance ,Use of Upper Extremities Comments Mobility Comments HARD CANDY SPINNER instructed review LE exercises prep muscle facilitation pre mobility. Elevated supine>sit self BLE to EOB and pivot pelvis while scooting toward left EOB using bed rail on R, pull from therapist hand to complete trunk righting Max A x1. Scoot to EOB using RUE on bed CGA- Min A. Seated at EOB CGA BLE contact floor during reassess vitals. Sit>stand Mod x1, CG- Kenny x1. SPT bed>chair>bed> chair using HW cues for sequencing BLE and HW Max A x1 CG- Min A x1, see gait details. Pt sat down on chair/ bed between transfers brief rest 1 min each Mod A x1 for slow descent and cues for reaching back. Pt able to scoot self using RUE and RLE. Pt had call light and all needs in reach w/ chair alarm donned for safety fall risk. Pt's BP decreased during mobility, nonsymptomatic. Gait Assessment Gait Gait Assistance Required: Minimum Assistance,Maximum Assistance,2 Person Assist Distance (Feet) 2 Assistive Devices Assistive Device Gait Belt,Erick Walker Orthotic/Prosthetic Devices or Brace: No Gait Deviations General Gait Pattern Antalgic,Decreased Stride Length,Decreased Feet Clearance,Flexed Trunk,Lateral Trunk Lean,Narrow Based Gait, Step-to Gait Factors Limiting Gait Function Factors Limiting Gait Function Decreased Activity Tolerance, Decreased Sensation,Decreased Strength,Incoordination, Limited Range of Motion,Poor Balance,Poor Safety Awareness, Respiratory Distress Comments Gait Comments Step pivot transfer bed>chair (R) >bed (L) > chair (R) Max A x1, Kenny x1 approx 2 ft x3. Pt able to wt shift with assist over RLE with trunk support, unsteady but able to maintain L knee extension during WB and RLE repositioning while using HW on R, Max cues for sequencing HW and each LE. Support anterior L knee for safety awareness of buckling, support at L side trunk assist to wt shift to R to allow LLE advancement/ repositioning while LUE supported on therapist's arm, no WB pressure noted step to patterning forward, side, pivot back. PT-Balance Assessment Sitting Balance and Reactions Static Sitting Balance Ability Fair Dynamic Sitting Balance Ability Poor Standing Balance and Reactions Static Standing Balance Ability Poor Dynamic Standing Balance Ability Poor Device Used Next 2 Greatness M5 PT-IP Objective Assessments Start: 08/11/21 13:21 Freq: NEEDED Status: Active Protocol: Document 08/11/21 11:26 AB (Rec: 08/11/21 13:36 AB [id number]) Orientation Orientation/Cognition Orientation Name Safety Awareness Understands Safety Issues Gross Range of Motion Lower Extremity ROM Assessment Within Functional Limits Strength Lower Extremity Strength Assessment Left Impaired Comments Strength Comments L hip flexion: 2-/5 L knee extension: 2+/5 ankle DF: 1/5 Muscle Tone Muscle Tone WNL No Muscle Tone Location Left Upper Extremity Type of Tone Hypotonicity Severity of Tone Severe M6 PT-IP Treatment Start: 08/11/21 13:21 Freq: NEEDED Status: Active Protocol: Document 08/13/21 07:44 SP (Rec: 08/13/21 09:12 SP [id number]) Physical Therapy Treatment Exercises Exercises Ankle Pumps,Gluteal Sets,Quad Sets,Heel Slides,Supine Hip Abduction Other Treatments Other Treatment Performed HARD CANDY SPINNER provided PROM to L ankle DF and EV to decrease PF and IV tone, AAROM using leg utility appraiser hip abd, self quad sets and heel slides. M7 PT-IP Assessment and Plan Start: 08/11/21 13:21 Freq: NEEDED Status: Active Protocol: Document 08/13/21 07:44 SP (Rec: 08/13/21 09:12 SP [id number]) PT Summary Assessment and Plan Potential Rehabilitation Potential Fair Status of Condition at Evaluation Evolving Summary Impairments Pain,ROM,Strength,Balance, Coordination,Sensation,Tone, Cognition,Bed Mobility, Transfers,Gait,Activity Tolerance Progress Towards Goals Progressing Toward Goals,Slow Progress due to Activity Tolerance Assessment Summary Pt improved with mobility today with decreased assist required, LLE unsteady but able to maintain L knee extension during WB during SPT x3 using HW Max A x1, Min A x1 with cues for safety sequencing. Recommending ok for transfers only 2 person with nursing using HW. Pt has improved seated trunk support to allow transfers and transportation when medically stable to acute rehab. Goals Bed Mobility Goal Minimal Assistance Transfer Goal Minimal Assistance Gait Goal Minimal Assistance,Erick Walker Gait Distance 50 Days to Meet Goals 10 Frequency of Treatment Frequency Of Treatment Once a Day Treatment Plan Physical Therapy Treatment Plan Bed Mobility Training,Transfer Training,Gait Training, Therapeutic Exercise,Balance Retraining,Post Op Education, Discharge Planning,Hot or Cold Pack,Neuromuscular Re-ed, Coordination Retraining,Manual Therapy Other Recommendations and Next Treatment bed mob, sit<>stands and Focus transfers using HW Precautions Other Precautions falls Recommendations To Nursing Amount of Assist Needed 2 Person Assist Discharge Recommendations PT Discharge Recommendations Acute Rehab Transportation Needs at Discharge Private Vehicle,Wheelchair/ Cabulance
[2021-08-13] MEDS: ENOXAPARIN 40 MG/0.4 ML SYRINGE SUBCUT (08:21)
[2021-08-13] MEDS: AMLODIPINE 5 MG TABLET PO (08:22)
[2021-08-13] MEDS: METFORMIN HCL 500 MG TABLET PO ×2 (08:22→17:04)
[2021-08-13] MEDS: ASPIRIN EC 81 MG TABLET PO (08:22)
[2021-08-13] MEDS: CLOPIDOGREL 75 MG TABLET PO (08:22)
[2021-08-13] MEDS: LOSARTAN 50 MG TABLET PO (08:22)
[2021-08-13] MEDS: SODIUM CHLORIDE 0.9% FLUSH 10 ML IV ×2 (08:23→20:26)
[2021-08-13] MEDS: INSULIN LISPRO 100 UNIT/ML 3ML VIAL SUBCUT ×4 (09:00→21:17)
[2021-08-13] MEDS: INSULIN GLARGINE 100 UNIT/ML 3ML PEN 20 UNIT SUBCUT (09:01)
--- NOTE | 2021-08-13 10:58 | ST.IPTN ---
Visit Care Team Role Provider Type Shazia Bonilla MD Emergency Provider Physician Referring Provider Address: [address] [place] [address], [id number] Esme Jerry [facility] Admit Provider Physician Attending Provider Address: [address] [place] [address], [id number] MANAGER RESPIRATORY Treatment Note MANAGER RESPIRATORY Treatment Note Start: 08/11/21 11:21 Freq: Status: Active Protocol: Document 08/13/21 10:49 LNK (Rec: 08/13/21 10:57 LNK [id number]) Speech Pathology Treatment Note Session Time Visit Start Time 09:15 Visit Stop Time 09:40 Total Visit Minutes 25 Setting Treatment Setting Acute Care Visit Type Note Type Treatment Note Next Note Type Next Note Type Treatment Note General Information General Information H&P: Patient is a 60-year-old female Barb Kasper with a history of diabetes, obesity, hypertension and hyperlipidemia currently untreated x 1 year as she is unable to afford medications due to loss of health insurance, she was in her usual state of health when she went to bed at 9:00 pm last night. She woke up to void at 2:30 a.m. in the morning and found that her entire left side was not working.? Patient admitted for right-sided acute stroke with left-sided weakness/neuro deficit, and hypertensive emergency. Subjective Identification Type Name,ID Card Others Present Family Observations/Patient Presentation Pt agreeable to working with therapy. Chief Complaint(s) Speech Parent/Caretake Knowledge/Awareness of Good MANAGER RESPIRATORY Role in Treatment Patient/Caregiver Compliance with Home Good Exercise Program Objective Short Term Goals Pt will perform OM exercises to improve ROM, strength and speed of lips, tongue and velum. Written instructions will be provided to pt. Pt's speech rate and intelligibility will improve to WFL in order to effectively communicate in the community. Intermediate Goals Pt's speech and OM skills will improve to WFL. Treatment Activities Pt presented with ongoing left side facial droop. She completed OM exercises independently, with good ROM and coordination; right side greater than left. Labial strength noted to be improved with increase resistance when puffed cheeks were pushed againt by MANAGER RESPIRATORY. Pt reported that her tongue does not feel numb. She also noted she frequently bites the inside of her mouth on the right due to continued numbness. Reinforced using strategies for dysarthric speech. Written descriptions of OM exercises was provided to the pt. Pt verbalized understanding. Reinforced production of multisyllabic words, targeting clear articulation of every phoneme. Pt read list of multisyllabic words with 100% intelligible speech. Speech was slurred sounding, although every phoneme was perceivable . Pt's rate of speech was slower than normal, but appropriate for intelligibility. Assessment Patient Response to Treatment Good Rehab Potential Good Impairments Identified Dysarthria Progress Towards Goals Good Progress Assessment of Overall Progress Improving Assessment of Improvement The pt continues with mild- moderate dysarthria with slurred sounding speech that is nevertheless 100% intelligible when pt speaks at mildly reduced rate, which she does independently. She is independent with OM exercises and exhibits and verbalized excellent motivation and determination to improve. She is an excellent candidate for acute rehab, which is recommended. Reviewed with Patient Goals,Progress Being Made,Home Exercise Program Patient/Caregiver Understanding Excellent Plan Therapeutic Contents Client Education,Home Exercise Program,Intelligibility Provided Patient/Caregiver Instruction Home Exercise Program,Plan of Care,Questions/Concerns Therapy Recommendations Continue with Current Program
--- NOTE | 2021-08-13 12:58 | CM.DPNOTE ---
DCP Note Faxed patient's brain MRI and today's PT note to [facility]. Spoke w/Katie, she has identified a note from PT that states spouse will not be able to assist at home. [facility] staff concerned and so Katie will place call to spouse to discuss. JOSUE for Andi/Jose Antonio Pires. Spoke also w/[facility], d/t critically low staffing, they will only consider referrals w/in the [facility] system at this time According to therapy team, acute rehab options should be exhausted before considering SNF, as acute rehab is likely to produce best outcome for patient. Following closely for coordination of safest DCP available to patient. JOSIAS
--- NOTE | 2021-08-13 13:17 | PM.PN.1 ---
Subjective Subjective Date Patient Seen: 08/13/21 Time Patient Seen: 08:00 Interval history: Today she has no complaints. She feels her strength in her proximal left arm and proximal left leg are improving slowly. She has no movement in her distal extremities. Exam Vital Signs (past 8 hours): - 08/13/21 06:00 08/13/21 07:52 08/13/21 08:22 Temperature 97.0 F L 97.5 F L Pulse Rate 87 107 H 107 H Respiratory Rate 18 17 Blood Pressure 159/79 H 184/86 H 162/92 H Pulse Oximetry 94 96 08/13/21 11:30 Temperature 98.3 F Pulse Rate 106 H Respiratory Rate 17 Blood Pressure 144/87 H Pulse Oximetry 96 Oxygen Delivery Method Room Air Oxygen Flow Rate 0 Narrative Exam Narrative: General:? Alert and very cooperative female Neurological:?mild dysarthria, left facial droop, 3/5 strength in left upper and lower extrmities in proximal muscle (hip shoulder), 0/5 strength in distal left upper and lower extremity muscles (fingers/toes, wrist/ankle) Objective Labs Result Diagrams: 08/12/21 04:50 08/12/21 04:50 [facility] Medical History (Updated 08/11/21 @ 07:10 by Dariela Branch MD) Diabetes Healthy adult Hyperlipidemia Hypertension Obesity (BMI 30.0-34.9) Stroke Surgical History (Updated 08/11[facility]21 @ 05:53 [facility] History of History of cholecystectomy History of tonsillectomy Family History (Updated 08/11/21 @ 05:53 by DEBBIE Lee) Mother Heart attack Diabetes mellitus Father Heart disease Social History household members: significant other lives independently: Yes Smoking Status: Current every day smoker alcohol intake: current Assessment & Plan Assessment & Plan narrative: 1.? Acute CVA with left hemiparesis -not tPA candidate, acutely hypertensive likely secondary to CVA, but not true hypertensive emergency, however was on nicardipine drip on night of admission -CT no bleed, CTA normal -brain MR acute right thalamic infarct, possible subacute pontine infarct, brain and neck MRA normal -echo normal LV, normal RV, normal LVEF, no significant valvular abnormality -BP trending back up to 180s - 190s systolic, avoid rapid BP lowering -08/11 started losartan 50 mg daily -08/12 added amlodipine 5 mg daily -anti-platelet agents aspirin 81 mg q.d., clopidogrel 75 mg q.d. -statin atorvastatin 80 mg HS -continue PT/OT/ST -telemetry monitoring -has good social support from long-term partner -dispo: awaiting accepting facility for rehab 2. Hypertension -patient used to take lisinopril but stopped after insurance ran out -started losartan 50 mg q.d. and added amlodipine 5 mg q.d. 3. Type 2 diabetes -A1c 10.2, patient used to take metformin -started Lantus 20 units q.a.m. -start metformin 500 mg b.i.d. on 08/13 (48 hours post IV contrast) 4. Polycythemia -likely secondary due to smoking -monitor as outpatient and consider oncology referral if worsening 5. Cigarette dependency -provided smoking cessation counseling 6.? Leukocytosis, possible acute cystitis -patient afebrile, chest x-ray without infiltrate, urine growing Gram-negative bacilli however patient has no urinary symptoms other than sometimes sensation of incomplete bladder emptying -started Cipro 250 mg p.o. b.i.d. x5 days -consider oncology referral for leukocytosis and polycythemia Time Spent With Patient Critical Care time: I spent a total of [] minutes of critical care time on this patient's care today; this time is exclusive of procedural time.
--- NOTE | 2021-08-13 14:07 | OT.IP.TRT ---
Current Diagnoses Type 2 diabetes mellitus without complications (08/11/21) Hyperlipidemia, unspecified (08/11/21) Essential (primary) hypertension (08/11/21) Cerebral infarction due to unspecified occlusion or stenosis of right anterior cerebral artery (08/11/21) Occupational Therapy Treatment Note M2 OT-IP Current Condition Start: 08/11/21 10:47 Freq: Status: Active Protocol: Document 08/11/21 10:47 [facility] (Rec: 08/11/21 11:13 [facility] [id number]) Occupational Therapy Current Condition Current Condition Evaluation Date 08/11/21 Treatment Diagnosis CVA, decreased mobility Diagnosis Onset Date 08/11/21 M3 OT- IP Subjective and Pain Start: 08/11/21 10:47 Freq: Status: Active Protocol: Document 08/13/21 14:05 [facility] (Rec: 08/13/21 14:20 [facility] [id number]) OT- Subjective Occupational Therapy Visit Type Type Treatment Note Visit Start Time 13:30 Visit Stop Time 14:05 Total Visit Minutes 35 Occupational Therapy Visit Comments Patient Comments Pt wanting to use the bathroom . Patient/Caregiver Goals To go to acute rehab. OT Pain Assessment Pain When Pain Assessed At Rest Pain Present Pain Present Denied Pain M4 OT- IP ADL's Start: 08/11/21 10:47 Freq: Status: Active Protocol: Document 08/12/21 10:48 [facility] (Rec: 08/12/21 11:03 [facility] [id number]) OT [id number] Comments OT Self-Feeding Comments Pt needing assist for set-up. OT ADL-Grooming Comments OT Grooming Comments NOt performed. OT ADL-Oral Care Comments Oral Care Comments Not performed. OT ADL-Dressing General Eval Lower Body Dressing Ability Maximum Assistance Areas Needing Assistance Underpants/Brief,Socks, assist to mary clothing over her feet and up over her hips. OT ADL-Toileting General Evaluation Toileting Ability Total Assistance Areas Needing Assistance Manage Clothing,Perform Perineal Hygiene Comments OT Toileting Comments OT Bathing Comments Spone bath more appropriate at this time. But closer to trying to take a shower. M5 OT- IP IADL's Start: 08/11/21 10:47 Freq: Status: Active Protocol: Document 08/11/21 10:47 [facility] (Rec: 08/11/21 11:13 [facility] [id number]) OT-Instrumental Activities of Daily Living Home Safety Awareness Awareness of Need for Assistance at Home Good Awareness Ability to Problem Solve Emergency Able to Problem Solve Situations Medication Management Medication Management No Deficits Identified Money Management Money Management No Deficits Identified Outreach Director Outreach Director Comments At this time due to decreased balance and functional movement of left side pt would need assist for all IADL needs. M6 OT- IP Functional Cognition Start: 08/11/21 10:47 Freq: Status: Active Protocol: Document 08/13/21 14:05 [facility] (Rec: 08/13/21 14:20 [facility] [id number]) Cognitive Factors Limiting Selfcare Function Cognitive Comments Cognitive Assessment Comments VC to slow down. M7 OT- IP Mobility and Balance Start: 08/11/21 10:47 Freq: Status: Active Protocol: Document 08/13/21 14:05 [facility] (Rec: 08/13/21 14:20 [facility] [id number]) OT- Bed Mobility Assessment Rolling Type of Rolling Roll to Left Supine to Sit Supine to Sit Assist Moderate Assistance,1 Person Assistance OT-Transfer Assessment Sit to and From Stand Sit to and from Stand Moderate Assistance,1 Person Assistance Transfers Transfer Ability Minimal Assistance,Moderate Assistance Technique Transfer Destination Bed,Bedside Commode,Chair Transfer Technique Stand Step Pivot Devices Transfer Assistive Devices Gait Belt,Erick Walker Comments Mobility Comments MODA to help get her trunk upright when coming up from the left side. Sit to stand MODA x1 and assist to keep the LLE blocked while use of hemiwalker and another person PAUL for balance. Pt able to take a few steps over to the BSc and then recliner. Pt LLE tends to buckle and needs cues to straighten her LLE and assist to block it from buckling. Much improved from yesterday. OT- Balance Assessment Sitting Balance and Reactions Static Sitting Balance Ability Good Dynamic Sitting Balance Ability Fair Standing Balance and Reactions Static Standing Balance Ability Poor Dynamic Standing Balance Ability Poor Comments Other Balance Tests/Deviations/Treatment Continued increased awareness : of midline. M8 OT- IP Objective Assessments Start: 08/11/21 10:47 Freq: Status: Active Protocol: Document 08/12/21 10:48 [facility] (Rec: 08/12/21 11:03 [facility] [id number]) OT Strength Upper Extremity Strength Assessment Left Impaired Shoulder 3-/5 Elbow 3-/5 Forearm 1/5 Wrist 0/5 Hand 1/5 Comments Strength Comments Trace movement at left 2nd and 3rd digit. OT-Muscle Tone Assessment Comments Muscle Tone Comments Hypotonicity in LUE. M9 OT- IP Assessment and Plan Start: 08/11/21 10:47 Freq: Status: Active Protocol: Document 08/13/21 14:05 [facility] (Rec: 08/13/21 14:20 [facility] [id number]) OT Summary Assessment and Plan Potential Rehabilitation Potential Excellent Analytic Complexity at Evaluation Moderate Summary OT Impairments Range of Motion,Strength, Balance,Coordination,Sensation ,Tone,Functional Mobility,Self -Feeding,Grooming,Dressing, Toileting,Bathing,Toilet Transfers,Shower Transfers, Activity Tolerance Progress Towards Goals Progressing Toward Goals Assessment Summary Today pt now able to wiggle her 3rd and 2nd left hand digits minimally. Pt still needing assist from therapist to help incorporate her LUE for transfer needs. Pt's clarified that once rehab completed that he is able to provide her assist but only not able to pick her up from the floor if needed. Pt continues to progress, is very motivated, determined, and hard working and is an excellent candidate for rehab. Pt eventually would like to be able to travel to see her family in [place] and [place] as she had to cencel her recent trip due to her CVA . Goals Self-Feeding Goal Independent Grooming Goal Independent Dressing Goal Independent Toileting Goal Independent Bathing Goal Independent Toilet Transfer Goal Independent Shower Transfer Goal Independent OT-Other Goals OT goals based on ioncorporation if LUE for ADl needs. Days to Meet Goals 49 Frequency of Treatment Frequency Of Treatment Once a Day Treatment Plan OT Treatment Plan ADL Training,Functional Mobility,Neuromuscular Re- education,Patient/Family Education,Discharge Planning Other Treatment Recommendations and Next Stand for grooming needs with Treatment Focus MODA X1 and MAXA to help incorporate her LUE. Discharge Recommendations OT Discharge Recommendations Acute Rehab Transportation Needs at Discharge Wheelchair/Cabulance
--- NOTE | 2021-08-13 14:19 | CM.DPC ---
Addendum entered by Betty Johnson R.N. 08/13/21 15:47: Spoke to Andi at [facility]. He stated that he had spoken to Katie at [facility], and she is working on the discharge disposition, which he stated, they would do the same when reviewing. He stated that if Katie is unable to accept patient, she will contact Andi, and care management as well. At this time, [facility] is reviewing, and is hopeful that they can accept, once review is completed and insurance auth is completed as well. As stated in previous note, Medicaid transport can be set up for patient. Addendum entered by Betty Johnson R.N. 08/13/21 15:13: Called Katie at [facility] and left her a message letting her know that all therapy disciplines were faxed to her. Gave her this shoe lay out planner's number for today, if she has questions. Andi from [facility] called and wanted to know if there's a reason that [facility] would not accept, because they go by the same guidelines. Let him know that Curtis was back up in case [facility] provider has a reason for not accepting. He stated that he will follow up with Katie at [facility] as well to ensure that they will accept her and call back if he has any more information. Addendum entered by Betty Johnson R.N. 08/13/21 14:35: O.T. notes are complete. Faxed over all of today's therapy notes, confirmed receipt of fax. Will follow up today with phone call to [facility]. Original Note: MEP Cont: This shoe lay out planner is assisting MONE Arriaga geriatric case manager on case. Called Medicaid to inquire if she has transport benefit. Verified today with Medicaid, that she does have transportation benefit, she has not used this before. Gave some information to Medicaid transport her weight information, and that they will need to provider her with wheel-chair during transport. Medicaid stated to fax over form in the am if it is sure that she will be discharged. Completed Medicaid transport form, will just need to be faxed. P:Speech and physical therapy notes are now completed. Awaiting Mary occupational therapist to complete her note, and will fax them over to [facility]. Will follow up with a phone call to Katie in admissions. Betty Johnson RN/Coverstitch Machine Operator
[2021-08-13] MEDS: ATORVASTATIN 20 MG TABLET 80 MG PO (20:22)
[2021-08-14 00:50] VITALS: BP 173/84; PULSE 104; RESP 20; TEMP 36.4; O2SAT 92
[2021-08-14 05:39] LABS: BUN Creatinine Ratio 23.5 (6-22); Blood Urea Nitrogen 16 mg/dL (7-17); Calcium 9.8 mg/dL (8.4-10.2); Carbon Dioxide 27 mmol/L (22-32); Chloride 103 mmol/L (98-107); Estimated Glomerular Filt Rate > 60.0 mL/min (>60); Glucose 278 mg/dL (80-110); HEMOLYSIS 16 (0-50); Potassium 4.3 mmol/L (3.4-5.1); Sodium 138 mmol/L (137-145)
[2021-08-14 05:50] LABS: Hematocrit 52.1 % (36-46); Hemoglobin 17.4 g/dL (12.0-16.0); Mean Corpuscular HGB Conc 33.4 % (30-36); Mean Corpuscular Hemoglobin 32.1 PG (26-34); Mean Corpuscular Volume 96.2 fL (80-100); Platelet Count 348 X10^3/uL (150-400); Red Blood Cell Count 5.41 X10^6/uL (4.0-5.2); Red Cell Distribution Width 12.7 % (11.6-14.8); White Blood Cell Count 14.4 X10^3/uL (4.5-11.0)
[2021-08-14] MEDS: CIPROFLOXACIN 250 MG TABLET PO (06:53)
--- NOTE | 2021-08-14 07:54 | OT.IP.TRT ---
Current Diagnoses Type 2 diabetes mellitus without complications (08/11/21) Hyperlipidemia, unspecified (08/11/21) Essential (primary) hypertension (08/11/21) Cerebral infarction due to unspecified occlusion or stenosis of right anterior cerebral artery (08/11/21) Occupational Therapy Treatment Note M2 OT-IP Current Condition Start: 08/11/21 10:47 Freq: Status: Active Protocol: Document 08/11/21 10:47 CCC (Rec: 08/11/21 11:13 CCC [id number]) Occupational Therapy Current Condition Current Condition Evaluation Date 08/11/21 Treatment Diagnosis CVA, decreased mobility Diagnosis Onset Date 08/11/21 M3 OT- IP Subjective and Pain Start: 08/11/21 10:47 Freq: Status: Active Protocol: Document 08/14/21 07:59 CGR (Rec: 08/14/21 08:12 CGR [id number]) OT- Subjective Occupational Therapy Visit Type Type Progress Note Visit Start Time 07:16 Visit Stop Time 07:54 Total Visit Minutes 38 Occupational Therapy Visit Comments Patient Comments I just want to get better. OT Pain Assessment Pain When Pain Assessed At Rest Pain Present Pain Present Denied Pain M4 OT- IP ADL's Start: 08/11/21 10:47 Freq: Status: Active Protocol: Document 08/14/21 07:59 CGR (Rec: 08/14/21 08:12 CGR [id number]) OT [id number] Comments OT Self-Feeding Comments Not meal time OT ADL-Grooming General Evaluation Grooming Ability Standby Assistance Areas Needing Assistance Combing/Brushing Hair,Face Washing Comments OT Grooming Comments Assist for washing and drying glasses, but otherwise pt is able to perform basic ADLs with SBA and set up seated in chair at sink. Noted independent problem solving of difficulties given LUE weakness. Needs VC to keep LUE in typical positions during ADLS. OT ADL-Oral Care General Eval Oral Care Ability Standby Assistance Areas of Assistance Brushing Teeth,Managing Dentures,Retrieving/Set-Up of Items Devices Oral Care Devices Toothbrush Comments Oral Care Comments Pt performed seated in chair at sink. Pt washed dentures at sink then applied adhearing cream and placed in mouth before brushing dentures while in her mouth. Noted min a for verbal cues for problem solving of difficulties given LUE weakness and VC to keep LUE in typical resting position during activities. Started education on functional assist of LUE. OT ADL-Dressing Comments OT Dressing Comments Not performed OT ADL-Toileting General Evaluation Toileting Ability Standby Assistance Devices Toileting Assistive Devices Commode Comments OT Toileting Comments Pt was able to urinate seated on BSC and perform pericare without assist but with set up . OT ADL-Bathing Comments OT Bathing Comments Not performed on this date. M5 OT- IP IADL's Start: 08/11/21 10:47 Freq: Status: Active Protocol: Document 08/11/21 10:47 CCC (Rec: 08/11/21 11:13 CCC [id number]) OT-Instrumental Activities of Daily Living Home Safety Awareness Awareness of Need for Assistance at Home Good Awareness Ability to Problem Solve Emergency Able to Problem Solve Situations Medication Management Medication Management No Deficits Identified Money Management Money Management No Deficits Identified Bowling Ball Grader And Marker Bowling Ball Grader And Marker Comments At this time due to decreased balance and functional movement of left side pt would need assist for all IADL needs. M6 OT- IP Functional Cognition Start: 08/11/21 10:47 Freq: Status: Active Protocol: Document 08/13/21 14:05 CCC (Rec: 08/13/21 14:20 CCC [id number]) Cognitive Factors Limiting Selfcare Function Cognitive Comments Cognitive Assessment Comments VC to slow down. M7 OT- IP Mobility and Balance Start: 08/11/21 10:47 Freq: Status: Active Protocol: Document 08/14/21 07:59 CGR (Rec: 08/14/21 08:12 CGR [id number]) OT- Bed Mobility Assessment Supine to Sit Supine to Sit Assist Moderate Assistance Scooting Scooting to Edge of Bed Minimal Assistance OT-Transfer Assessment Sit to and From Stand Sit to and from Stand Moderate Assistance Transfers Transfer Ability Moderate Assistance Technique Transfer Destination Bed,Bedside Commode,Chair Transfer Technique Stand Step Pivot Devices Transfer Assistive Devices Gait Belt,Erick Walker Comments Mobility Comments Pt stands and is able to take steps with poor control of the LLE for movement and maintaining quad contraction concerning for knee buckling. OT- Gait Assessment Comments Gait Ability Comments Not performed OT- Balance Assessment Sitting Balance and Reactions Static Sitting Balance Ability Good Dynamic Sitting Balance Ability Fair M8 OT- IP Objective Assessments Start: 08/11/21 10:47 Freq: Status: Active Protocol: Document 08/12/21 10:48 CCC (Rec: 08/12/21 11:03 [facility] [id number]) OT Strength Upper Extremity Strength Assessment Left Impaired Shoulder 3-/5 Elbow 2+/5 Forearm 1/5 Wrist 0/5 Hand 0/5 Comments Strength Comments Able to work on AAROM with pt for LUE. Pt having a better understanding of muscle control for her LUE. Pt now trying to fine tune muscle recruiting so able to more her arm to be able to assist for ADl and functional mobility needs. OT-Muscle Tone Assessment Comments Muscle Tone Comments Hypotonicity in LUE. M9 OT- IP Assessment and Plan Start: 08/11/21 10:47 Freq: Status: Active Protocol: Document 08/14/21 07:59 CGR (Rec: 08/14/21 08:12 CGR [id number]) OT Summary Assessment and Plan Potential Rehabilitation Potential Excellent Analytic Complexity at Evaluation Moderate Summary OT Impairments Range of Motion,Strength, Balance,Coordination,Sensation ,Tone,Functional Mobility,Self -Feeding,Grooming,Dressing, Toileting,Bathing,Toilet Transfers,Shower Transfers, Activity Tolerance Progress Towards Goals Progressing Toward Goals Assessment Summary Pt is highly motivated to participate in all activities and states that she slept better last night. Pt demonstrates ability to initiate problem solving of activities given her new deficits. 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 Pt transferred today with mod a and poor control to the E. She is able to follow commands quickly and understand problem solving suggestions with sink activities today. Pt states a desire to be IND and is eager to go to rehab. Pt will continue to benefit from therapy services. Recommendation is acute rehab for this highly motivated patient upon discharge. Goals Self-Feeding Goal Independent Grooming Goal Independent Dressing Goal Independent Toileting Goal Independent Bathing Goal Independent Toilet Transfer Goal Independent Shower Transfer Goal Independent OT-Other Goals OT goals based on ioncorporation if LUE for ADl needs. Days to Meet Goals 49 Frequency of Treatment Frequency Of Treatment Once a Day Treatment Plan OT Treatment Plan ADL Training,Functional Mobility,Neuromuscular Re- education,Patient/Family Education,Discharge Planning Other Treatment Recommendations and Next Stand for grooming needs with Treatment Focus MODA X1 and MAXA to help incorporate her LUE. Discharge Recommendations OT Discharge Recommendations Acute Rehab Transportation Needs at Discharge Wheelchair/Cabulance
[2021-08-14 08:10] VITALS: BP 158/74; PULSE 102; RESP 16; TEMP 36.2; O2SAT 94
[2021-08-14] MEDS: INSULIN LISPRO 100 UNIT/ML 3ML VIAL SUBCUT ×4 (08:22→20:27)
[2021-08-14] MEDS: METFORMIN HCL 500 MG TABLET PO ×2 (08:24→16:44)
[2021-08-14] MEDS: CLOPIDOGREL 75 MG TABLET PO (08:24)
[2021-08-14] MEDS: AMLODIPINE 5 MG TABLET 10 MG PO (08:24)
[2021-08-14] MEDS: INSULIN GLARGINE 100 UNIT/ML 3ML PEN 20 UNIT SUBCUT (08:24)
[2021-08-14] MEDS: LOSARTAN 50 MG TABLET PO (08:25)
[2021-08-14] MEDS: SODIUM CHLORIDE 0.9% FLUSH 10 ML IV ×2 (08:25→20:27)
[2021-08-14] MEDS: ASPIRIN EC 81 MG TABLET PO (08:25)
[2021-08-14] MEDS: ENOXAPARIN 40 MG/0.4 ML SYRINGE SUBCUT (08:25)
--- NOTE | 2021-08-14 09:14 | PT.IPTN ---
Current Diagnoses Type 2 diabetes mellitus without complications (08/11/21) Hyperlipidemia, unspecified (08/11/21) Essential (primary) hypertension (08/11/21) Cerebral infarction due to unspecified occlusion or stenosis of right anterior cerebral artery (08/11/21) Physical Therapy Treatment Note M2 PT-IP Current Condition Start: 08/11/21 13:21 Freq: NEEDED Status: Active Protocol: Document 08/11/21 11:26 AB (Rec: 08/11/21 13:36 AB [id number]) Physical Therapy Current Condition Current Condition Evaluation Date 08/11/21 Treatment Diagnosis R CVA L sided weakness; difficulty in walking Onset Date 08/11/21 Precautions Other Precautions falls M3 PT-IP Subjective Start: 08/11/21 13:21 Freq: NEEDED Status: Active Protocol: Document 08/14/21 09:14 AB (Rec: 08/14/21 12:10 AB [id number]) Subjective Physical Therapy Visit Type Type Treatment Note Visit Start Time 09:14 Visit Stop Time 09:53 Total Visit Minutes 39 Number of PAYROLL CONSULTANT Visits 0 Physical Therapy Visit Comments Patient Comments pt is agreeable to do PT M4 PT-IP Mobility and Gait Start: 08/11/21 13:21 Freq: NEEDED Status: Active Protocol: Document 08/14/21 09:14 AB (Rec: 08/14/21 12:10 AB [id number]) PT-Transfer Assessment Sit to and From Stand Sit to and from Stand Moderate Assistance,Maximum Assistance,1 Person Assistance ,Use of Upper Extremities Equipment Transfer Assistive Device Gait Belt,Erick Walker Orthotic/Prosthetic Devices or Brace: No Transfers Transfer Destination Chair,Bedside Commode Transfer Technique Stand Step Pivot Transfer Ability Level of Assist 1 Person Assistance,2 Person Assistance,Use of Upper Extremities Comments Mobility Comments pt requesting to use the toilet. NAC in room to assist. pt completed sit to stand from chair max A and cues and step transfer using hemiwalker to bedside commode max A x 1 and NAC CGA. pt with increase lateral trunk leaning to the L with LOB posteriorly requiring max A for recovery. pt completed sit to stand from bedside commode mod to max A and max cues. required max A for standing balance using hemiwalker while NAC assist pt with hygiene care. pt completed step transfer to chair using hemiwalker max A and max cues. Sitting balance and trunk control activities conducted. educated on posture, midline positioning and awareness. Pt continues to have increase lateral head lean to the R and slight rotation to the R. instructed pt to reposition head to midline and to rotate to the L to increase L sided awareness and was able to name items on L side. trunk control activities with ant/ post/side/rotation movement, pt reaching for PT's hand in different directions using her R hand and then L hand and to recenter body after each reach. LAQ's conducted with tapping facilitation techniques to activate quads in sitting on LLE with 5 sec hold , hip/knee flexion and extension with PT providing manual resistance, seated L knee flexion while pulling towel backwards, L ankle PROM with attempts to DF but pt unable to activate. sit<>stand and static standing balance activities conducted: educated pt on trunk control with sit to stand and standing balance, midline control of trunk, LE stability and use of LLE for sit to stand and standing balance: pt completed sit to stand mod A and cues and requiring mod A for static standing balance, cued for increase COG awareness, posture/ alignment and LE stability. pt was able to stand with only CGA for ~ 3 sec and then with trunk sway forward needing cues and assistance to recenter min A. pt sat back on chair requiring mod A to max A for controlled descent. pt rested and agreed to stand again. completed sit to stand mod A. able to stand up and find COG more quickly this 2nd attempt with less cues. able to maintain static standing balance CGA for ~ 5 sec. pt sat back and was able to descent in a more controlled manner requiring mod A and cues. positioned pt on chair. call light and table placed within reach. M5 PT-IP Objective Assessments Start: 08/11/21 13:21 Freq: NEEDED Status: Active Protocol: Document 08/11/21 11:26 AB (Rec: 08/11/21 13:36 AB [id number]) Orientation Orientation/Cognition Orientation Name Safety Awareness Understands Safety Issues Gross Range of Motion Lower Extremity ROM Assessment Within Functional Limits Strength Lower Extremity Strength Assessment Left Impaired Comments Strength Comments L hip flexion: 2-/5 L knee extension: 2+/5 ankle DF: 1/5 Muscle Tone Muscle Tone WNL No Muscle Tone Location Left Upper Extremity Type of Tone Hypotonicity Severity of Tone Severe M6 PT-IP Treatment Start: 08/11/21 13:21 Freq: NEEDED Status: Active Protocol: Document 08/14/21 09:14 AB (Rec: 08/14/21 12:10 AB [id number]) Physical Therapy Treatment Exercises Exercises Heel Slides,Seated Knee Flexion/Extension Other Treatments Other Treatment Performed pls refer to mobility section for details M7 PT-IP Assessment and Plan Start: 08/11/21 13:21 Freq: NEEDED Status: Active Protocol: Document 08/14/21 09:14 AB (Rec: 08/14/21 12:10 AB [id number]) PT Summary Assessment and Plan Potential Rehabilitation Potential Good Summary Impairments Pain,ROM,Strength,Balance, Coordination,Sensation,Tone, Cognition,Bed Mobility, Transfers,Gait,Activity Tolerance Progress Towards Goals Slow Progress due to Medical Issues Assessment Summary pt is progressing with mobility and is motivated. pt requiring max A x 1-2 with transfers using hemiwalker. pt will benefit from acute rehab to improve strength and mobility independence. Goals Bed Mobility Goal Minimal Assistance Transfer Goal Minimal Assistance Gait Goal Minimal Assistance,Erick Walker Gait Distance 50 Days to Meet Goals 10 Frequency of Treatment Frequency Of Treatment Once a Day Treatment Plan Physical Therapy Treatment Plan Bed Mobility Training,Transfer Training,Gait Training, Therapeutic Exercise,Balance Retraining,Post Op Education, Discharge Planning,Hot or Cold Pack,Neuromuscular Re-ed, Coordination Retraining,Manual Therapy Precautions Other Precautions falls Recommendations To Nursing Amount of Assist Needed 2 Person Assist Discharge Recommendations PT Discharge Recommendations Acute Rehab Transportation Needs at Discharge Wheelchair/Cabulance
--- NOTE | 2021-08-14 09:18 | ST.IPTN ---
Visit Care Team Role Provider Type Shazia Bonilla MD Emergency Provider Physician Referring Provider Address: [address] [place] [address], [id number] Esme Jerry [facility] Admit Provider Physician Attending Provider Address: [address] [place] [address], [id number] UTILITY WORKER Treatment Note UTILITY WORKER Treatment Note Start: 08/11/21 11:21 Freq: Status: Active Protocol: Document 08/14/21 09:13 ZS (Rec: 08/14/21 09:18 ZS [id number]) Speech Pathology Treatment Note Session Time Visit Start Time 08:50 Visit Stop Time 09:05 Total Visit Minutes 15 Setting Treatment Setting Acute Care Visit Type Note Type Treatment Note Next Note Type Next Note Type Treatment Note General Information General Information H&P: Patient is a 60-year-old female Barb Ksaper with a history of diabetes, obesity, hypertension and hyperlipidemia currently untreated x 1 year as she is unable to afford medications due to loss of health insurance, she was in her usual state of health when she went to bed at 9:00 pm last night. She woke up to void at 2:30 a.m. in the morning and found that her entire left side was not working.? Patient admitted for right-sided acute stroke with left-sided weakness/neuro deficit, and hypertensive emergency. Subjective Identification Type Name,ID Card Others Present Family Observations/Patient Presentation Pt was awake and sitting in chair with present upon UTILITY WORKER arrival. She was cooperative and agreeable to working with therapy. Chief Complaint(s) Speech Parent/Caretake Knowledge/Awareness of Good UTILITY WORKER Role in Treatment Patient/Caregiver Compliance with Home Good Exercise Program Objective Short Term Goals Pt will perform OM exercises to improve ROM, strength and speed of lips, tongue and velum. Written instructions will be provided to pt. Pt's speech rate and intelligibility will improve to WFL in order to effectively communicate in the community. Fiberglass Finisher Goals Pt's speech and OM skills will improve to WFL. Treatment Activities Pt presented with ongoing left side facial droop. She completed OM exercises independently, with good ROM and coordination; right side slightly greater than left. Labial and lingual strength and ROM is WNL and she maintained a labial seal with pressure applied to cheeks. She noted she frequently bites the inside of her lip on the left due to continued numbness . Reinforced using strategies for dysarthric speech. Reviewed written descriptions of OM exercises that were provided to the pt. Pt verbalized understanding. Reinforced production of multisyllabic words, targeting clear articulation of every phoneme. Pt read list of multisyllabic words with 100% intelligible speech. Speech was slightly slurred sounding, although every phoneme was perceivable. Pt's rate of speech was slower than normal, but appropriate for intelligibility. Assessment Patient Response to Treatment Good Rehab Potential Good Impairments Identified Dysarthria Progress Towards Goals Good Progress Assessment of Overall Progress Improving Assessment of Improvement The pt continues with mild- moderate dysarthria with slurred sounding speech that is nevertheless 100% intelligible when pt speaks at mildly reduced rate, which she does independently. She is independent with OM exercises and exhibits and verbalized excellent motivation and determination to improve. She is an excellent candidate for acute rehab, which is recommended. Reviewed with Patient Goals,Progress Being Made,Home Exercise Program Patient/Caregiver Understanding Excellent Plan Therapeutic Contents Client Education,Home Exercise Program,Intelligibility Provided Patient/Caregiver Instruction Home Exercise Program,Plan of Care,Questions/Concerns Therapy Recommendations Continue with Current Program
[2021-08-14 12:00] VITALS: BP 148/72; PULSE 93; RESP 15; TEMP 36.4; O2SAT 95
--- NOTE | 2021-08-14 12:35 | CM.DPNOTE ---
Addendum entered by Patti Mcdermottniewski, INFLATED PAD BUFFER 08/14/21 15:55: [facility] transport has been confirmed through [facility] P# [phone] for cabulance p/u at 1000 tomorrow AM [place] [facility] [place] Katie updated. Katie requests nurse to nurse report be called to P# [phone] Addendum entered by Patti Tao, MONE 08/14/21 14:55: [facility] auth now in place according to Katie [facility] [place]# [phone]. This INFLATED PAD BUFFER attempted to secure cabulance via [facility] transport and neither [facility] or [facility] had availability for transport today. According to Katie, even if patient were safe to transport via pov, which she is not, this is not allowed during COVID times. Faxed new [facility] transport request for [place] [facility] [place], requested 1000. Katie at [facility] made aware. TREVON Richards has been updated, as well as patient/family. Awaiting to hear from [facility] transport for confirmation. COVID PCR has been updated today in preparation for DC tomorrow. Plan: [place] to [facility] [place] 08.15.21 via [facility] transport/cabulance (time still needs to be confirmed) JOSIAS Original Note: DCP Note Speaking w/Katie at [facility] [place], patient has been accepted and Katie now awaiting the auth from [facility]. Discussed w/ [facility] transport; they will attempt to secure transport from to [facility] [place] [place] this [place], if cabulance can be secured. Katie anticipates she will secure auth through patient's [facility] coverage today, however timeline remains unknown. Katie anticipates today vs tomorrow for admission once auth secured. Updated COVID PCR required. LM for TREVON Richards Following closely. JOSIAS
[2021-08-14 13:12] LABS: COVID19 -Nasal RAPID Negative (Negative)
--- NOTE | 2021-08-14 14:19 | P.PN_ITS ---
Subjective Subjective Date Patient Seen: 08/14/21 Time Patient Seen: 14:19 Interval history: ?Today she has no complaints. She feels her strength in her proximal left arm and proximal left leg are improving slowly. She has some LLE movement at her L hip today. no chest pain or shortness of breath Exam Vital Signs (past 8 hours): - 08/14/21 08:10 08/14/21 12:00 Temperature 97.2 F L 97.6 F Pulse Rate 102 H 93 H Respiratory Rate 16 15 Blood Pressure 158/74 H 148/72 H Pulse Oximetry 94 95 Oxygen Delivery Method Room Air Oxygen Flow Rate 0 Narrative Exam Narrative: General:? Alert and very cooperative female Neurological:?mild dysarthria, left facial droop, 3/5 strength in left upper and lower extrmities in proximal muscle (hip shoulder), 0/5 strength in distal left upper and lower extremity muscles (fingers/toes, wrist/ankle) Objective Labs Result Diagrams: 08/14/21 05:10 08/14/21 05:10 Labs: Laboratory Results - last 24 hr 08/14/21 08/14/21 08/14/21 05:10 05:10 12:19 WBC 14.4 H RBC 5.41 H Hgb 17.4 H Hct 52.1 H MCV 96.2 MCH 32.1 MCHC 33.4 RDW 12.7 Plt Count 348 Sodium 138 Potassium 4.3 Chloride 103 Carbon Dioxide 27 BUN 16 Creatinine 0.68 Estimated GFR > 60.0 BUN/Creatinine Ratio 23.5 H Glucose 278 H Calcium 9.8 SARS-CoV-2 (PCR) Negative [facility] Medical History (Updated 08/11/21 @ 07:10 by Dariela Branch MD) Diabetes Healthy adult Hyperlipidemia Hypertension Obesity (BMI 30.0-34.9) Stroke Surgical History (Updated 08/11/21 @ 05:53 by DEBBIE eLe) History of History of cholecystectomy History of tonsillectomy Family History (Updated 08/11/21 @ 05:53 by DEBBIE Lee) Mother Heart attack Diabetes mellitus Father Heart disease Social History household members: significant other lives independently: Yes Smoking Status: Current every day smoker alcohol intake: current Assessment & Plan Assessment & Plan narrative: ?1.? Acute CVA with left hemiparesis -not tPA candidate, acutely hypertensive likely secondary to CVA, but not true hypertensive emergency, however was on nicardipine drip on night of admission. has since been taken off. -CT no bleed, CTA normal -brain MR acute right thalamic infarct, possible subacute pontine infarct, brain and neck MRA normal -echo normal LV, normal RV, normal LVEF, no significant valvular abnormality -08/11 started losartan 50 mg daily -08/12 added amlodipine 5 mg daily -anti-platelet agents aspirin 81 mg q.d., clopidogrel 75 mg q.d. given. Will stop plavix as NIHSS >5. -statin atorvastatin 80 mg HS -continue PT/OT/ST -telemetry monitoring -has good social support from long-term partner -dispo: awaiting transport to [facility] for acute rehab, planned for kar jones. 2. Hypertension -patient used to take lisinopril but stopped after insurance ran out -started losartan 50 mg q.d. and added amlodipine 5 mg q.d. as noted above and now with improved control 3. Type 2 diabetes -A1c 10.2, patient used to take metformin -started Lantus 20 units q.a.m., increase to 26 units given continued sugars in the 200s today. -started metformin 500 mg b.i.d. on 08/13 (48 hours post IV contrast) 4. Polycythemia -likely secondary due to smoking -monitor as outpatient and consider oncology referral if worsening 5. Cigarette dependency -provided smoking cessation counseling 6.? Leukocytosis,? asymptomatic bacteuria -patient afebrile, chest x-ray without infiltrate, UA positive but culture showing mixed soy. -started Cipro 250 mg p.o. b.i.d. x5 days initially, but will stop today. -consider oncology referral for? leukocytosis and polycythemia Code:Industrial Hygenist Spent With Patient Critical Care time: I spent a total of [] minutes of critical care time on this patient's care today; this time is exclusive of procedural time. Quality MIPS - Admit I confirm the patient?s Advance Care Plan is present, Code status is documented, Surrogate decision maker is in patient?s record [If Yes, STOP here]: Yes
[2021-08-14 15:11] VITALS: BP 136/57; PULSE 92; RESP 18; TEMP 35.9; O2SAT 93
[2021-08-14 19:30] VITALS: BP 154/75; PULSE 102; RESP 20; TEMP 36.7; O2SAT 95
[2021-08-14] MEDS: ATORVASTATIN 20 MG TABLET 80 MG PO (20:27)
[2021-08-14 23:54] VITALS: BP 144/69; PULSE 99; RESP 16; TEMP 36.1; O2SAT 93
[2021-08-15 03:45] VITALS: BP 153/69; PULSE 99; RESP 18; TEMP 36.1; O2SAT 92
--- NOTE | 2021-08-15 08:21 | PM.DS.1 ---
History of Present Illness History of Present Illness Date Patient Seen: 08/15/21 Time Patient Seen: 08:22 Chief complaint: Stroke Narrative: Per Esme Jerry, SALES DONOR RECRUITMENT REPRESENTATIVE-BC: Patient is a 60-year-old female Barb Kasper with a history of diabetes, obesity, hypertension and hyperlipidemia currently untreated x 1 year as she is unable to afford medications due to loss of health insurance, she was in her usual state of health when she went to bed at 9:00 pm last night.? No recent Chest pain, fever, cough, chills, palpitations, abdominal pain, vomiting, diarrhea, headache, neurologic complaints, bowel or bladder incontinence, recent illness, injury or trauma.? She woke up to void at 2:30 a.m. in the morning and found that her entire left side was not working.? She arrived in the emergency department at 3:30 a.m. and was immediately taken to CT.? Patient unable to move her left arm or leg, dysarthria also noted, patient has no left side neglect nor difficulty in word finding.? Patient's initial blood pressure 220/110, with a heart rate 117 in the ED she was started on a nicardipine drip.? Patient reports that she has no history of stroke are heart attack but approximately 1 year ago she experienced right leg and right foot numbness weakness that resolved on its own.? She also states that for the past month she has been having balance coordination issues and difficulty walking she denies falling or hitting her head.? Though she has dysarthria as patient is able to communicate well is alert and orientated, and resting comfortably in bed at this time. Dr. Marino ED: Tele Neurology Consult -Dr Ga has reviewed CTA and reports no LVO.? Unfortunately at this time no interventional options are going to be appropriate.? Will continue nicardipine with a systolic blood pressure goal 185 and admit to our hospital service for medical management of her acute right-sided stroke with significant left-sided weakness and dysarthria. Patient had a elevated WBC 12.7, HGB 17.7, HCT 53.3, the rest of the patient's chemistries were WNL with the exception of glucose of 282, liver panel WNL. Patient admitted with acute right-sided stroke with significant left-sided weakness NIH score of 10, with hypertensive emergency to ICU.? Head neck CTA imaging no limiting occlusion or stenosis noted per Dr. Bonilla. Discharge Providers Provider Date of admission: 08/11/21 04:56 Discharge Date: 08/15/21 Consults: 08/11/21 04:32 Consult to Discharge Planning Routine Comment: Consult to Occupational Therapy Evaluate & Treat Comment: stroke lt side weakness Physician Instructions: Evaluate and treat Consult to Physical Therapy Evaluate & Treat Comment: stroke lt side weakness Physician Instructions: Evaluate and Treat Consult to Speech Therapy Evaluate & Treat Comment: stroke lt side weakness Physician Instructions: Evaluate and treat Discharge provider: Sin Burgess DO Summary Hospital Course Discharge Diagnosis: Please see hospital course by problem list noted below Hospital Course: 1.? Acute CVA with left hemiparesis -patient deemed not tPA candidate, acutely hypertensive likely secondary to CVA, but not true hypertensive emergency, however was on nicardipine drip on night of admission. was quickly tapered off. -brain MR acute right thalamic infarct, possible subacute pontine infarct, brain and neck MRA normal -echo normal LV, normal RV, normal LVEF, no significant valvular abnormality -started on losartan and amlodipine for HTN. -anti-platelet agents aspirin 81 mg q.d., clopidogrel 75 mg q.d. given initially, stopped plavix 08/14 as NIHSS >5 on admission. -statin atorvastatin 80 mg HS -continue PT/OT/ST, discharged to acute rehab 08/15. -telemetry monitoring without acute events 2. Hypertension -patient used to take lisinopril but stopped after insurance ran out -started losartan 50 mg q.d. and added amlodipine 5 mg q.d. as noted above and now with improved control 3. Type 2 diabetes -A1c 10.2, patient used to take metformin -started Lantus 20 units q.a.m., increase to 26 units given continued sugars in the 200s today. -started metformin 500 mg b.i.d. on 08/13 (48 hours post IV contrast). -continue metformin, can continue to increase as an outpatient. Continue 26 U lantus daily. 4. Polycythemia -likely secondary due to smoking --consider oncology referral for? leukocytosis and polycythemia - no evidence for infection. 5. Cigarette dependency -provided smoking cessation counseling 6.? asymptomatic bacteuria -patient afebrile, chest x-ray without infiltrate, UA positive but culture showing mixed soy. -started Cipro 250 mg p.o. b.i.d. x5 days initially, but stopped 08/14 given no symptoms. Code:Curriculum Assistant Spent with Patient Time spent: Greater than 30 minutes Exam Vital Signs (past 8 hours): - 08/15/21 03:45 Temperature 97.0 F L Pulse Rate 99 H Respiratory Rate 18 Blood Pressure 153/69 H Pulse Oximetry 92 Oxygen Delivery Method Room Air Oxygen Flow Rate 0 Narrative Exam Narrative: General:? Alert and very cooperative female Neurological:?mild dysarthria, left facial droop, 3/5 strength in left upper and lower extrmities in proximal muscle (hip shoulder), 0/5 strength in distal left upper and lower extremity muscles (fingers/toes, wrist/ankle) CV: RRR no m/r/g pulm: CTA B/l Ext: no edema or joint effusions Objective Labs Result Diagrams: 08/14/21 05:10 08/14/21 05:10 Labs: Laboratory Results - last 24 hr 08/14/21 12:19 SARS-CoV-2 (PCR) Negative [facility] Medical History (Updated 08/11/21 @ 07:10 by Dariela Branch MD) Diabetes Healthy adult Hyperlipidemia Hypertension Obesity (BMI 30.0-34.9) Stroke Surgical History (Updated 08/11/21 @ 05:53 by MACRINA Lee) History of History of cholecystectomy History of tonsillectomy Family History (Updated 08/11/21 @ 05:53 by DEBBIE Lee) Mother Heart attack Diabetes mellitus Father Heart disease Social History household members: significant other lives independently: Yes Smoking Status: Current every day smoker alcohol intake: current Discharge Plan Discharge Plan Patient Disposition: Xfer Inpatient Rehab Other facility: [facility] Acute Rehab Provider Discharge Comment: 1.? Acute CVA with left hemiparesis -patient deemed not tPA candidate, acutely hypertensive likely secondary to CVA, but not true hypertensive emergency, however was on nicardipine drip on night of admission. was quickly tapered off. -brain MR acute right thalamic infarct, possible subacute pontine infarct, brain and neck MRA normal -echo normal LV, normal RV, normal LVEF, no significant valvular abnormality -started on losartan and amlodipine for HTN. -anti-platelet agents aspirin 81 mg q.d., clopidogrel 75 mg q.d. given initially, stopped plavix 08/14 as NIHSS >5 on admission. -statin atorvastatin 80 mg HS -continue PT/OT/ST, discharged to acute rehab 08/15. -telemetry monitoring without acute events 2. Hypertension -patient used to take lisinopril but stopped after insurance ran out -started losartan 50 mg q.d. and added amlodipine 5 mg q.d. as noted above and now with improved control 3. Type 2 diabetes -A1c 10.2, patient used to take metformin -started Lantus 20 units q.a.m., increase to 26 units given continued sugars in the 200s today. -started metformin 500 mg b.i.d. on 08/13 (48 hours post IV contrast). -continue metformin, can continue to increase as an outpatient. Continue 26 U lantus daily. 4. Polycythemia -likely secondary due to smoking --consider oncology referral for? leukocytosis and polycythemia - no evidence for infection. 5. Cigarette dependency -provided smoking cessation counseling 6.? asymptomatic bacteuria -patient afebrile, chest x-ray without infiltrate, UA positive but culture showing mixed soy. -started Cipro 250 mg p.o. b.i.d. x5 days initially, but stopped 08/14 given no symptoms. Discharge orders & Medications Discharge Orders: Discharge (Order); Ordered 08/15/21 Ordered By: Sin Burgess Prescriptions: New acetaminophen 325 mg Tablet 650 mg PO Q6HR PRN (Reason: Fever) 30 Days Qty: 30 RF: 0 amlodipine 10 mg tablet 10 mg PO DAILY 30 Days Qty: 30 RF: 0 aspirin 81 mg Tablet,Delayed Release (Dr/Ec) 81 mg PO DAILY 30 Days Qty: 30 RF: 0 atorvastatin 80 mg tablet 80 mg PO BEDTIME 30 Days Qty: 30 RF: 0 Lantus Solostar U-100 Insulin 100 unit/mL (3 mL) Insulin Pen 26 unit SUBCUT DAILY 30 Days Qty: 15 RF: 0 losartan 50 mg Tablet 50 mg PO DAILY 30 Days Qty: 30 RF: 0 metformin 500 mg Tablet 500 mg PO 0800,1700 30 Days Qty: 60 RF: 0 Discharge Health Status Multidrug resistant organism: No MDRO Diet/Activity/Treatments Diet: Diet as Tolerated and Carb-consistent/Diabetic Diet comment: Diet per speech therapy Activity: As tolerated Special Rehabilitation Services Reason for rehabilitation: Therapy following stroke Rehab type: Physical therapy, Occupational therapy and Speech therapy Quality Stroke Contraindication Not Initiating IV-Tpa: Contraindicated Rehab Services Assessed: Stroke rehabilitation MIPS - Admit I confirm the patient?s Advance Care Plan is present, Code status is documented, Surrogate decision maker is in patient?s record [If Yes, STOP here]: Yes MIPS - DC The patient has current or prior documentation of left ventricular ejection fraction (LVEF) less than 40%, or moderate or severely depressed left ventricular systolic function.: No
[2021-08-15] MEDS: AMLODIPINE 5 MG TABLET 10 MG PO (08:30)
[2021-08-15] MEDS: LOSARTAN 50 MG TABLET PO (08:30)
[2021-08-15] MEDS: ASPIRIN EC 81 MG TABLET PO (08:30)
[2021-08-15] MEDS: INSULIN GLARGINE 100 UNIT/ML 3ML PEN 26 UNIT SUBCUT (08:31)
[2021-08-15] MEDS: INSULIN LISPRO 100 UNIT/ML 3ML VIAL SUBCUT (08:32)
[2021-08-15] MEDS: ENOXAPARIN 40 MG/0.4 ML SYRINGE SUBCUT (08:32)
[2021-08-15] MEDS: METFORMIN HCL 500 MG TABLET PO (08:33)
[2021-08-15] MEDS: SODIUM CHLORIDE 0.9% FLUSH 10 ML IV (08:34)
--- NOTE | 2021-08-15 09:05 | OT.IPNOTE ---
Pt planned for d/c to acute rehab today at 10:00. Will hold today to prevent fatigue for travel and eval at acute rehab likely scheduled for this afternoon. Discussed with patient who agrees. Pt requested to speak with correctional case records supervisor. CM notified of request.
--- NOTE | 2021-08-15 09:28 | CM.DPC ---
DCP Discharge Acute Rehab Per MD, pt medically stable to d/c to Acute Rehab today and wrote d/c summ and signed med rec. SAMARA called Sweetie at [facility] and confirmed that they can still accept today and SW faxed the d/c summ, orders, juvenal LEWIS, signed med rec to Sweetie to review. SW met bedside with pt and spouse and confirmed the d/c plan of Acute Rehab this morning via [facility] at 1000 and spouse will bring more of pt's belongings to Acute Rehab later today. SW updated business transformation consultant, SUPERVISOR PLATE PASTING, and RN and provided nurse report number to call. Plan: Patient to d/c to [facility] today via [facility] transport at 1000 before safe return home. MONE Jacobsen
--- NOTE | 2021-08-15 09:35 | PC.NURSE ---
Addendum entered by Courtney De La Rosa R.N. 08/15/21 10:16: Report called to TREVON Ramires and [facility] Acute [facility]. Original Note: Patient is going to discharge to rehab in [place] at 1000am, She is alert and oriented x3, denies pain. She has slight l.sided facial droop and slurred speech. She is not able to grasp with her l.hand but can raise it up, she does have some drift to her arm and l.leg. Speech is clear and no problems with word finding. Her NIH stroke scale is a 5. in room and attentive to patients needs.
== END 2021-08-15 10:20 | DRG 45 ==
LOC: ED 04:47 → ICU 04:57 → AC 08-12 21:20
PROVIDERS: Internal Medicine; Admitting Provider Nurse Practitioner Family; Emergency Provider Emergency Medicine; Referring Provider Emergency Medicine; Visit Provider Nurse Practitioner Family
DX: I63.9 Cerebral infarction, unspecified (principal); G81.94 Hemiplegia, unspecified affecting left nondominant side; R47.1 Dysarthria and anarthria; D75.1 Secondary polycythemia; R29.710 NIHSS score 10; F17.200 Nicotine dependence, unspecified, uncomplicated; E78.5 Hyperlipidemia, unspecified; E11.65 Type 2 diabetes mellitus with hyperglycemia; I10 Essential (primary) hypertension; Z20.822 Contact with and (suspected) exposure to COVID-19
CPT/HCPCS: 36415; 70450; 70496; 70498; 70548; 70553; 71045; 80048; 80053; 80061; 80305; 81001; 82962; 83036; 83735; 83880; 84443; 84484; 85025; 85027; 85610; 85730; 87077; 87086; 87635; 87797; 92507; 92610; 93005; 93010; 93306; 96360; 97110; 97162; 97166; 97530; 97535; 99285; 99291; 99292; C9803; J0360; J1650; J1815; Q9967

== ENCOUNTER → 2021-12-14 14:12 | Outpatient (CLI) | payer OTHER, MEDICAID, SELFPAY ==
[2021-08-11 04:59] VITALS: BMI 32.1
[2021-12-14 16:37] LABS: Hemoglobin A1C% w Est Avg Glu 7.2 % (4.0-6.0)
[2021-12-14 16:44] LABS: Alanine Aminotransferase 18 IU/L (<35); Albumin 4.4 g/dL (3.5-5.0); Albumin Globulin Ratio 1.5 (1.0-2.8); Alkaline Phosphatase 41 U/L (38-126); Aspartate Aminotransferase 21 IU/L (14-36); BUN Creatinine Ratio 14.9 (6-22); Bilirubin Total 0.8 mg/dL (0.2-1.3); Blood Urea Nitrogen 13 mg/dL (7-17); Calcium 9.7 mg/dL (8.4-10.2); Carbon Dioxide 30 mmol/L (22-32); Chloride 104 mmol/L (98-107); Estimated Glomerular Filt Rate > 60.0 mL/min (>60); Glucose 139 mg/dL (80-110); HEMOLYSIS < 15 (0-50); Potassium 3.7 mmol/L (3.4-5.1); Sodium 141 mmol/L (137-145); Total Protein 7.4 g/dL (6.3-8.2)
== END ==
PROVIDERS: PCP Internal Medicine; Referring Provider Internal Medicine; Visit Provider Internal Medicine
DX: E11.65 Type 2 diabetes mellitus with hyperglycemia (principal); E78.2 Mixed hyperlipidemia; I10 Essential (primary) hypertension
CPT/HCPCS: 36415; 80053; 83036

== ENCOUNTER → 2022-03-12 16:46 | Outpatient (CLI) | payer OTHER, MEDICAID, SELFPAY ==
[2021-08-11 04:59] VITALS: BMI 32.1
[2022-03-12 17:47] LABS: Hematocrit 42.6 % (36-46); Hemoglobin 14.3 g/dL (12.0-16.0); Mean Corpuscular HGB Conc 33.5 % (30-36); Mean Corpuscular Hemoglobin 31.2 PG (26-34); Mean Corpuscular Volume 93.1 fL (80-100); Red Blood Cell Count 4.58 X10^6/uL (4.0-5.2); Red Cell Distribution Width 13.2 % (11.6-14.8); White Blood Cell Count 16.7 X10^3/uL (4.5-11.0)
[2022-03-12 17:51] LABS: BUN Creatinine Ratio 17.9 (6-22); Blood Urea Nitrogen 14 mg/dL (7-17); Calcium 9.8 mg/dL (8.4-10.2); Carbon Dioxide 25 mmol/L (22-32); Chloride 105 mmol/L (98-107); Estimated Glomerular Filt Rate > 60 mL/min (>60); Glucose 71 mg/dL (80-110); HEMOLYSIS < 15 (0-50); Potassium 4.3 mmol/L (3.4-5.1); Sodium 144 mmol/L (137-145)
[2022-03-12 17:52] LABS: Hemoglobin A1C% w Est Avg Glu 7.1 % (4.0-6.0)
[2022-03-12 18:03] LABS: Appearance Urine UA SL CLOUDY; Bilirubin Urine UA NEGATIVE (NEGATIVE); Color Urine UA YELLOW; Glucose Urine UA NEGATIVE (Negative); Ketones Urine UA NEGATIVE (NEGATIVE); Leukocyte Esterase Urine UA 2+ (NEGATIVE); Nitrite Urine UA NEGATIVE (Negative); Occult Blood Urine UA TRACE-LYSED (Negative); Platelet Count 757 X10^3/uL (150-400); Protein Urine UA 1+ (Negative); RBC Morphology Normal Morphology; Specific Gravity Urine UA <=1.005 (1.000-1.035); Urobilinogen Urine UA 0.2 E.U./dL (0.2)
[2022-03-12 18:04] LABS: Add Manual Diff / Slide Review YES
[2022-03-12 18:17] LABS: Neutrophils Absolute Manual 7682 /uL (3000-5900); Total Cells Counted 100
[2022-03-12 19:18] LABS: pH Urine UA 5.5 (4.5-8.0)
[2022-03-12 19:19] LABS: Bacteria Urine Many (>30); Culture Indicated Urine Specimen Cultured; RBC Urine None Seen (0-5/HPF); Squamous Epithelial Cell Urine 1-5 /HPF (0-5/HPF); Transitional Epi Cells Urine 1-5/HPF (0-5/HPF); WBC Urine >100/HPF (0-5/HPF)
== END ==
PROVIDERS: Family Provider Internal Medicine; PCP Internal Medicine; Referring Provider Internal Medicine; Visit Provider Internal Medicine
DX: E11.65 Type 2 diabetes mellitus with hyperglycemia (principal); E78.2 Mixed hyperlipidemia; I10 Essential (primary) hypertension; R30.0 Dysuria; R50.9 Fever, unspecified
CPT/HCPCS: 36415; 80048; 81003; 81015; 83036; 85007; 85025; 87077; 87086; 87186

== ENCOUNTER 2022-06-10 13:00 | Outpatient (RCR) | payer OTHER, MEDICAID, SELFPAY ==
[2021-08-11 04:59] VITALS: BMI 32.1
--- NOTE | 2022-02-04 17:08 | PT.OPPOC ---
Physical, Occupational & Speech Therapy At [facility] Current Diagnoses Unspecified sequelae of cerebral infarction (02/09/22) Pain in right shoulder (02/09/22) Pain in left shoulder (02/09/22) Visit Care Team Role Provider Type Arvind Pires MD Attending Provider Physician Family Provider Primary Care Provider Referring Provider Specialty: Internal Medicine Address: [address] [place] [address], [address], [facility] Email: [email or web address] Plan Of Care PT-OP-T Assessment and Plan Start: 02/04/22 12:09 Freq: Status: Active Protocol: Document 02/04/22 13:45 [facility] (Rec: 02/09/22 15:53 [facility] [id number]) Physical Therapy Assessment Rehab Potential Rehabilitation Potential Good Evaluation Complexity Number of Personal Factors/Comorbidities 1-2 Number of Body Systems Impaired 3 Clinical Presentation at Evaluation Evolving Impairments Impairments Activity Tolerance,Balance, Coordination,Functional Activities,Functional Mobility ,Gait,Posture,Soft Tissue Mobility,Strength,Tone, Transfers Goals 4 Impairment pt lacks home exercise program for progressing her exercises Mcfp Goal (LTG) Barb is independent with a HEP for LE strengthening, gait and balance. 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 Short Term Goal (STG) pt is able to balance with feet together x 30 seconds without hand hold Machine Fixer Goal (LTG) pt is able to balance with feet together x 2 minutes without hand hold LTG Duration 8 weeks 2 Impairment pt is limited with her mobility on stairs and is currently side stepping up and down her stair case outside to her home Machine Fixer Goal (LTG) Barb is able to ambulate up and down 9 stairs with one hand hold on the left railing LTG Duration 8 weeks 1 Impairment Impaired gait s/p CVA with limited walking duration and stride length, pt is not able to engage in community ambulation at this time due to weakness and fatigue Machine Fixer Goal (LTG) Barb is able to ambulate greater than 500 feet without stopping for rest breaks with improved stride length LTG Duration 8 weeks Assessment Summary Assessment Heidy is a 61 year old female who suffered a CVA due to a embolism of the right middle cerebral artery on 08/11/21. Heidy was seen in acute rehab and then has had home health PT. She wishes to continue her PT as her goals are to become functional with community ambulation as well as to be able to cook. Her left sided weakness includes decreased strength to the left hand, wrist, and shoulder. She is able to place her hand on her walker to ambulate but it doesn't always stay there due to decreased continuous crusher operator strength . She is wearing a left sided AFO and with gait does need verbal cues to clear her left foot by using her hip muscles. Heidy was able to transfer out of her chair to her walker with CGA, Gait x 250 feet is SBA, transfer from sitting to supine was min A for her left leg. She also c/o right sided upper trapezius, neck and shoulder discomfort which she feels is because she has had to lay on her right side. Treatment for Heidy will include gait and balance training, LE and UE strengthening, cardio exercise for endurance. Physical Therapy Plan Frequency and Duration Frequency of Treatment 2x/Week Duration of Treatment 8 Plan of Care Start Date 02/04/22 Plan of Care End Date 04/01/22 Therapeutic Interventions Therapeutic Interventions Balance Training,Neuromuscular Re-education,Patient/ Caregiver Education,Self-Care/ Home Management,Therapeutic Activities,Therapeutic Exercises Next Visit Focus/Plan Next Note Type Treatment Note Next Visit Plan warm up on the biodex next visit, work on gait training with fww and hand placement, ther ex for strengthening Plan of Care Dates Plan of Care Start Date 02/04/22 Plan of Care End Date 04/01/22 Electronically Signed by: Davida Sylvseter, PT 02/09/22 [id number] Please Sign and Return: I have reviewed this Plan of Care and certify that the skilled therapy services above are required to meet the patient?s needs. Physician Signature Date Printed Name and Credentials Clinical Instructor Signature Printed Name and Credentials
--- NOTE | 2022-02-04 17:08 | PT.OIE ---
Current Diagnoses Unspecified sequelae of cerebral infarction (02/09/22) Pain in right shoulder (02/09/22) Pain in left shoulder (02/09/22) Past Medical History (This Medical Record has been edited. Action required.) Acne Chicken pox Depression Diabetes type 2, uncontrolled Essential hypertension Fractures (~1981) Healthy adult History of (~1998) History of cholecystectomy (~1988) History of tonsillectomy Mixed hyperlipidemia Obesity (BMI 30.0-34.9) Personal history of stroke with current residual effects (~07/2021) Polio Vision disorder Past Surgical History (This Medical Record has been edited. Action required.) Anesthesia History of (~1998) History of cholecystectomy (~1988) History of tonsillectomy Visit Care Team Role Provider Type Arvind Pires MD Attending Provider Physician Family Provider Primary Care Provider Referring Provider Specialty: Internal Medicine Address: [address] [place] [address], [address], [facility] Email: [email or web address] Physical Therapy Initial Evaluation PT-OP-A Visit Information Start: 02/04/22 12:09 Freq: Status: Active Protocol: Document 02/04/22 13:52 [facility] (Rec: 02/04/22 14:13 [facility] [id number]) Out-Patient Physical Therapy Visit Information Visit Information Visit Type Initial Evaluation Visit Start Time 13:50 Visit Stop Time 14:30 Total Visit Minutes 40 Visit Number 1 Evaluation Information Evaluation Date 02/04/22 PT-OP-B Current Condition Start: 02/04/22 12:09 Freq: Status: Active Protocol: Document 02/04/22 13:52 [facility] (Rec: 02/04/22 14:13 [facility] [id number]) Current Condition History of Current Condition Onset Date 08/11/21 History of Current Condition 08/11/21 CVA, on the 10 of August she woke up in the middle of the night and realized she couldn't sit up to get out of bed. She noticed a change in her voice when she asked her to help her up. 911 was called and she was brought to the ER she was here 6 days and then was transferedd to [facility] in [facility] to the rehab from August 15- August 31 . At that time she went home and had in home care OT, PT, and speech. It was the left side that had the stroke so now she is sleeping on her right side which has gotten sore. She started getting pain in her neck and shoulder on the right. She is weak on her left side upper and lower body because of the stroke. 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 She would like to increase her walking ability. She reports no falls. wearing left ankle FO Treatment Goals Patient/Caregiver Goals pt would like to be able to cook in her kitchen and be able to tolerate community ambulation Prior Functional Status Baseline Function- ADL's Independent Baseline Function- Mobility Independent Current Functional Impairments (Reported) Functional Limitations- ADL's unable to over a tight or new jar, severe difficulty doing ADL's and carrying a shopping bag or brief case. Severe difficulty using a knife to cut food. Functional Limitations- Mobility/Gait pt is ambulating with a FWW with limited distance and has not been able to do community ambulation PT-OP-C Subjective Start: 02/04/22 12:09 Freq: Status: Active Protocol: Document 02/04/22 13:45 [facility] (Rec: 02/09/22 15:53 [facility] [id number]) Patient Questionnaires Quick Dash- Upper Extremity Quick Dash UE Impairment 40 to 59% Impaired (Score 40- 59) OP-PT Pain Assessment Location right upper trapezius Intensity 6 Scale Used Numeric (0 - 10) Description Aching,Pulling,Spasm,Tightness Description- Other pt has had to sleep on the right shoulder and this has created more pain PT-OP-D Balance Start: 02/09/22 17:07 Freq: Status: Active Protocol: Document 02/04/22 13:45 [facility] (Rec: 02/09/22 17:08 [facility] [id number]) Balance Tests Single Limb Standing Single Limb- Right 30 sec Single Limb- Left unable Tandem Tandem Standing it is difficult for Barb to spinning mule tender tandem stance PT-OP-F Manual Assessment Start: 02/04/22 12:09 Freq: Status: Active Protocol: Document 02/04/22 13:45 [facility] (Rec: 02/09/22 15:53 [facility] [id number]) Manual Assessments Soft Tissue Assessment Soft Tissue Mobility Assessment Right upper trapezius tightness PT-OP-G Mobility & Gait Start: 02/04/22 12:09 Freq: Status: Active Protocol: Document 02/04/22 13:45 [facility] (Rec: 02/09/22 15:53 [facility] [id number]) OP Mobility Evaluation Bed Mobility Supine to and from Sit min A for help with the L LE Transfers Sit to Stand SBA Bed to Chair Transfers SBA Floor Transfers not attempted OP Gait Assessment Gait Gait Assistance Required: Contact Guard Assist Distance (Feet) 250 Factors Limiting Gait Function Factors Limiting Gait Function Decreased Strength Stair Climbing Evaluation Evaluation Level of Assist On Stairs Contact Guard Assistance Devices Stair Climbing Assistive Devices Left Railing,Right Railing Technique/Endurance Stair Climbing Direction Ascend and Descend Stair Climbing Technique Step to Step Number of Steps Climbed 3 Stair Climbing Set # Repetitions (reps) 2 PT-OP-M Strength Start: 02/04/22 12:09 Freq: Status: Active Protocol: Document 02/04/22 13:45 [facility] (Rec: 02/09/22 15:53 [facility] [id number]) Hip Strength Hip Manual Muscle Testing L Flexion (L2) 3+ Fair+ Abduction 3+ Fair+ Knee Strength Knee Manual Muscle Testing Left Flexion (S2) 4 Good Extension (L3) 4 Good Ankle/Foot Strength Ankle and Foot Manual Muscle Testing Left Dorsiflexion (L4) 0 Zero Plantarflexion (S1) 1 Trace Inversion 1 Trace Eversion (S1) 1 Trace PT-OP-Q Treatments Start: 02/04/22 12:09 Freq: Status: Active Protocol: Document 02/04/22 13:45 [facility] (Rec: 02/04/22 17:26 [facility] [id number]) Therapeutic Exercises Standing Exercises sidesteps with theraband Reps/Minutes down the length of the hallway bar and back Comments cues to keep left foot forward standing marching at the single bar in hallway Reps/Minutes x 20 reps Gait Training Gait Activity stair training Description stair training Device Used B hand rails Level of Assistance CGA PT-OP-T Assessment and Plan Start: 02/04/22 12:09 Freq: Status: Active Protocol: Document 02/04/22 13:45 [facility] (Rec: 02/09/22 15:53 [facility] [id number]) Physical Therapy Assessment Rehab Potential Rehabilitation Potential Good Evaluation Complexity Number of Personal Factors/Comorbidities 1-2 Number of Body Systems Impaired 3 Clinical Presentation at Evaluation Evolving Impairments Impairments Activity Tolerance,Balance, Coordination,Functional Activities,Functional Mobility ,Gait,Posture,Soft Tissue Mobility,Strength,Tone, Transfers Goals 4 Impairment pt lacks home exercise program for progressing her exercises Fdc Goal (LTG) Barb is independent with a HEP for LE strengthening, gait and balance. LTG Duration 8 weeks 3 Impairment decreased balance and stamina to be able to spinning mule tender her kitchen to cook. Short Term Goal (STG) pt is able to balance with feet together x 30 seconds without hand hold Network Pricing Consultant Goal (LTG) pt is able to balance with feet together x 2 minutes without hand hold LTG Duration 8 weeks 2 Impairment pt is limited with her mobility on stairs and is currently side stepping up and down her stair case outside to her home Network Pricing Consultant Goal (LTG) Barb is able to ambulate up and down 9 stairs with one hand hold on the left railing LTG Duration 8 weeks 1 Impairment Impaired gait s/p CVA with limited walking duration and stride length, pt is not able to engage in community ambulation at this time due to weakness and fatigue Fdc Goal (LTG) Barb is able to ambulate greater than 500 feet without stopping for rest breaks with improved stride length LTG Duration 8 weeks Assessment Summary Assessment Heidy is a 61 year old female who suffered a CVA due to a embolism of the right middle cerebral artery on 08/11/21. Heidy was seen in acute rehab and then has had home health PT. She wishes to continue her PT as her goals are to become functional with community ambulation as well as to be able to cook. Her left sided weakness includes decreased strength to the left hand, wrist, and shoulder. She is able to place her hand on her walker to ambulate but it doesn't always stay there due to decreased head of commission department strength . She is wearing a left sided AFO and with gait does need verbal cues to clear her left foot by using her hip muscles. Heidy was able to transfer out of her chair to her walker with CGA, Gait x 250 feet is SBA, transfer from sitting to supine was min A for her left leg. She also c/o right sided upper trapezius, neck and shoulder discomfort which she feels is because she has had to lay on her right side. Treatment for Heidy will include gait and balance training, LE and UE strengthening, cardio exercise for endurance. Physical Therapy Plan Frequency and Duration Frequency of Treatment 2x/Week Duration of Treatment 8 Plan of Care Start Date 02/04/22 Plan of Care End Date 04/01/22 Therapeutic Interventions Therapeutic Interventions Balance Training,Neuromuscular Re-education,Patient/ Caregiver Education,Self-Care/ Home Management,Therapeutic Activities,Therapeutic Exercises Next Visit Focus/Plan Next Note Type Treatment Note Next Visit Plan warm up on the biodex next visit, work on gait training with fww and hand placement, ther ex for strengthening
--- NOTE | 2022-02-09 17:19 | PT.OTN ---
Current Diagnoses Unspecified sequelae of cerebral infarction (02/09/22) Pain in right shoulder (02/09/22) Pain in left shoulder (02/09/22) Physical Therapy Treatment Note PT-OP-A Visit Information Start: 02/04/22 12:09 Freq: Status: Active Protocol: Document 02/09/22 14:30 [facility] (Rec: 02/09/22 17:17 [facility] [id number]) Out-Patient Physical Therapy Visit Information Visit Information Visit Type Treatment Note Visit Start Time 14:30 Visit Stop Time 15:15 Total Visit Minutes 45 Visit Number 2 PT-OP-B Current Condition Start: 02/04/22 12:09 Freq: Status: Active Protocol: Document 02/04/22 13:52 [facility] (Rec: 02/04/22 14:13 [facility] [id number]) Current Condition History of Current Condition Onset Date 08/11/21 History of Current Condition 08/11/21 CVA, on the 10 of August she woke up in the middle of the night and realized she couldn't sit up to get out of bed. She noticed a change in her voice when she asked her to help her up. 911 was called and she was brought to the ER she was here 6 days and then was transferedd to [facility] in [facility] to the rehab from August 15- August 31 . At that time she went home and had in home care OT, PT, and speech. It was the left side that had the stroke so now she is sleeping on her right side which has gotten sore. She started getting pain in her neck and shoulder on the right. She is weak on her left side upper and lower body because of the stroke. She is right handed She reports sweilling in her left hand, she has gloves she wears and she keeps it elevated, she doesn't have learning facilitator and is unable to make a fist any more, she would like to be able to cook again. She would like to increase her walking ability. She reports no falls. wearing left ankle FO Treatment Goals Patient/Caregiver Goals pt would like to be able to cook in her kitchen and be able to tolerate community ambulation Prior Functional Status Baseline Function- ADL's Independent Baseline Function- Mobility Independent Current Functional Impairments (Reported) Functional Limitations- ADL's unable to over a tight or new jar, severe difficulty doing ADL's and carrying a shopping bag or brief case. Severe difficulty using a knife to cut food. Functional Limitations- Mobility/Gait pt is ambulating with a FWW with limited distance and has not been able to do community ambulation PT-OP-C Subjective Start: 02/04/22 12:09 Freq: Status: Active Protocol: Document 02/09/22 14:30 [facility] (Rec: 02/09/22 17:17 [facility] [id number]) OP-PT Subjective Patient Comments Patient Comments Heidy reports she is excited to start working on her exercises and become stronger. She wants to be able to cook in her kitchen and be able to have the ability for community ambulation PT-OP-D Balance Start: 02/09/22 17:07 Freq: Status: Active Protocol: Document 02/04/22 13:45 [facility] (Rec: 02/09/22 17:08 [facility] [id number]) Balance Tests Single Limb Standing Single Limb- Right 30 sec Single Limb- Left unable Tandem Tandem Standing it is difficult for Barb to marinator tandem stance PT-OP-F Manual Assessment Start: 02/04/22 12:09 Freq: Status: Active Protocol: Document 02/04/22 13:45 [facility] (Rec: 02/09/22 15:53 [facility] [id number]) Manual Assessments Soft Tissue Assessment Soft Tissue Mobility Assessment Right upper trapezius tightness PT-OP-G Mobility & Gait Start: 02/04/22 12:09 Freq: Status: Active Protocol: Document 02/04/22 13:45 [facility] (Rec: 02/09/22 15:53 [facility] [id number]) OP Mobility Evaluation Bed Mobility Supine to and from Sit min A for help with the L LE Transfers Sit to Stand SBA Bed to Chair Transfers SBA Floor Transfers not attempted OP Gait Assessment Gait Gait Assistance Required: Contact Guard Assist Distance (Feet) 250 Factors Limiting Gait Function Factors Limiting Gait Function Decreased Strength Stair Climbing Evaluation Evaluation Level of Assist On Stairs Contact Guard Assistance Devices Stair Climbing Assistive Devices Left Railing,Right Railing Technique/Endurance Stair Climbing Direction Ascend and Descend Stair Climbing Technique Step to Step Number of Steps Climbed 3 Stair Climbing Set # Repetitions (reps) 2 PT-OP-M Strength Start: 02/04/22 12:09 Freq: Status: Active Protocol: Document 02/04/22 13:45 [facility] (Rec: 02/09/22 15:53 [facility] [id number]) Hip Strength Hip Manual Muscle Testing L Flexion (L2) 3+ Fair+ Abduction 3+ Fair+ Knee Strength Knee Manual Muscle Testing Left Flexion (S2) 4 Good Extension (L3) 4 Good Ankle/Foot Strength Ankle and Foot Manual Muscle Testing Left Dorsiflexion (L4) 0 Zero Plantarflexion (S1) 1 Trace Inversion 1 Trace Eversion (S1) 1 Trace PT-OP-Q Treatments Start: 02/04/22 12:09 Freq: Status: Active Protocol: Document 02/09/22 14:30 [facility] (Rec: 02/09/22 17:17 [facility] [id number]) Cardio Equipment Recumbent Elliptical (Biodex) Duration (Minutes) 4 Resistance 1 [address] Position all the way forward Recumbent Bicycle Duration (Minutes) 5 Resistance 4 Gym Equipment Shuttle Recovery Bilateral Squats Resistance 37# Reps/Time 3 x 10 reps Therapeutic Exercises Standing Exercises step ups at 4 step Reps/Minutes x 10 each leg alternating toe taps on the 4 steps Reps/Minutes 2 x 10 reps Comments cues to lift from the left hip as pt tends to catch her toe on L sidesteps with theraband Standing Exercise Name side steps at parallel bar Reps/Minutes 2 xms the length of the parallel bar Comments no resistance used standing marching at the single bar in hallway Reps/Minutes x 20 reps Gait Training Gait Activity ambulation with fww Device Used fww Distance/Duration ambulation of 300 feet today with fww Comments cues to use hips to help clear the left foot, worked on increasing stride length PT-OP-T Assessment and Plan Start: 02/04/22 12:09 Freq: Status: Active Protocol: Document 02/09/22 14:30 [facility] (Rec: 02/09/22 17:17 [facility] [id number]) Physical Therapy Assessment Assessment Summary Assessment I started Heidy on the recumbant bike as the biodex and sci fit were full. She did tolerate this but needed assistance to keep her left foot in the pedal. After 5 minutes I had her try the biodex which is a little easier for her to do. She was excited to start the machines so I did the shuttle squats with her as well. She tolerated her exercises but was pretty fatigued following treatment todayl Physical Therapy Plan Frequency and Duration Frequency of Treatment 2x/Week Duration of Treatment 8 Plan of Care Start Date 02/04/22 Plan of Care End Date 04/01/22 Therapeutic Interventions Therapeutic Interventions Balance Training,Neuromuscular Re-education,Patient/ Caregiver Education,Self-Care/ Home Management,Therapeutic Activities,Therapeutic Exercises Next Visit Focus/Plan Next Note Type Treatment Note Next Visit Plan access how pt did this last visit with new exercises, biodex to warm up, gait and balance training, ther ex
--- NOTE | 2022-02-11 14:32 | PT.OTN ---
Current Diagnoses Unspecified sequelae of cerebral infarction (02/11/22) Pain in right shoulder (02/11/22) Pain in left shoulder (02/11/22) Physical Therapy Treatment Note PT-OP-A Visit Information Start: 02/04/22 12:09 Freq: Status: Active Protocol: Document 02/11/22 13:42 [facility] (Rec: 02/11/22 14:32 [facility] [id number]) Out-Patient Physical Therapy Visit Information Visit Information Visit Type Treatment Note Visit Start Time 13:45 Visit Stop Time 14:30 Total Visit Minutes 45 Visit Number 3 PT-OP-B Current Condition Start: 02/04/22 12:09 Freq: Status: Active Protocol: Document 02/04/22 13:52 [facility] (Rec: 02/04/22 14:13 [facility] [id number]) Current Condition History of Current Condition Onset Date 08/11/21 History of Current Condition 08/11/21 CVA, on the 10 of August she woke up in the middle of the night and realized she couldn't sit up to get out of bed. She noticed a change in her voice when she asked her to help her up. 911 was called and she was brought to the ER she was here 6 days and then was transferedd to [facility] in [facility] to the rehab from August 15- August 31 . At that time she went home and had in home care OT, PT, and speech. It was the left side that had the stroke so now she is sleeping on her right side which has gotten sore. She started getting pain in her neck and shoulder on the right. She is weak on her left side upper and lower body because of the stroke. She is right handed She reports sweilling in her left hand, she has gloves she wears and she keeps it elevated, she doesn't have explosive expert and is unable to make a fist any more, she would like to be able to cook again. She would like to increase her walking ability. She reports no falls. wearing left ankle FO Treatment Goals Patient/Caregiver Goals pt would like to be able to cook in her kitchen and be able to tolerate community ambulation Prior Functional Status Baseline Function- ADL's Independent Baseline Function- Mobility Independent Current Functional Impairments (Reported) Functional Limitations- ADL's unable to over a tight or new jar, severe difficulty doing ADL's and carrying a shopping bag or brief case. Severe difficulty using a knife to cut food. Functional Limitations- Mobility/Gait pt is ambulating with a FWW with limited distance and has not been able to do community ambulation PT-OP-C Subjective Start: 02/04/22 12:09 Freq: Status: Active Protocol: Document 02/11/22 13:42 [facility] (Rec: 02/11/22 14:32 [facility] [id number]) OP-PT Subjective Patient Comments Patient Comments pt reports she was a little muscular sore after last visit but overall tolerated treatment well PT-OP-D Balance Start: 02/09/22 17:07 Freq: Status: Active Protocol: Document 02/04/22 13:45 [facility] (Rec: 02/09/22 17:08 [facility] [id number]) Balance Tests Single Limb Standing Single Limb- Right 30 sec Single Limb- Left unable Tandem Tandem Standing it is difficult for Barb to instrument maker and repairer tandem stance PT-OP-F Manual Assessment Start: 02/04/22 12:09 Freq: Status: Active Protocol: Document 02/04/22 13:45 [facility] (Rec: 02/09/22 15:53 [facility] [id number]) Manual Assessments Soft Tissue Assessment Soft Tissue Mobility Assessment Right upper trapezius tightness PT-OP-G Mobility & Gait Start: 02/04/22 12:09 Freq: Status: Active Protocol: Document 02/04/22 13:45 [facility] (Rec: 02/09/22 15:53 [facility] [id number]) OP Mobility Evaluation Bed Mobility Supine to and from Sit min A for help with the L LE Transfers Sit to Stand SBA Bed to Chair Transfers SBA Floor Transfers not attempted OP Gait Assessment Gait Gait Assistance Required: Contact Guard Assist Distance (Feet) 250 Factors Limiting Gait Function Factors Limiting Gait Function Decreased Strength Stair Climbing Evaluation Evaluation Level of Assist On Stairs Contact Guard Assistance Devices Stair Climbing Assistive Devices Left Railing,Right Railing Technique/Endurance Stair Climbing Direction Ascend and Descend Stair Climbing Technique Step to Step Number of Steps Climbed 3 Stair Climbing Set # Repetitions (reps) 2 PT-OP-M Strength Start: 02/04/22 12:09 Freq: Status: Active Protocol: Document 02/04/22 13:45 [facility] (Rec: 02/09/22 15:53 [facility] [id number]) Hip Strength Hip Manual Muscle Testing L Flexion (L2) 3+ Fair+ Abduction 3+ Fair+ Knee Strength Knee Manual Muscle Testing Left Flexion (S2) 4 Good Extension (L3) 4 Good Ankle/Foot Strength Ankle and Foot Manual Muscle Testing Left Dorsiflexion (L4) 0 Zero Plantarflexion (S1) 1 Trace Inversion 1 Trace Eversion (S1) 1 Trace PT-OP-Q Treatments Start: 02/04/22 12:09 Freq: Status: Active Protocol: Document 02/11/22 13:42 [facility] (Rec: 02/11/22 14:32 [facility] [id number]) Cardio Equipment Recumbent Elliptical (Biodex) Duration (Minutes) 5 Resistance 4 Seat Position all the way forward Gym Equipment Cable Column (Body Solid) Hip Abduction Resistance 20# Reps/Time 3 x 10 reps Shuttle Recovery single leg squats Details 25# Reps/Time 3 x 10 reps Bilateral Squats Resistance 50# Reps/Time 3 x 10 reps Therapeutic Exercises Standing Exercises step ups at 4 step Reps/Minutes x 10 each leg alternating toe taps on the 4 steps Reps/Minutes 2 x 10 reps Comments cues to lift from the left hip as pt tends to catch her toe on L sidesteps with theraband Standing Exercise Name side steps at parallel bar Reps/Minutes 2 xms the length of the parallel bar Comments no resistance used standing marching at the single bar in hallway Reps/Minutes x 20 reps Gait Training Gait Activity stair training Description stair training Device Used B hand rails Level of Assistance CGA Distance/Duration up and down 2 sets of stairs, 4 steps PT-OP-T Assessment and Plan Start: 02/04/22 12:09 Freq: Status: Active Protocol: Document 02/11/22 13:42 [facility] (Rec: 02/11/22 14:32 [facility] [id number]) Physical Therapy Assessment Assessment Summary Assessment Fredi is tolerating exercises well and was not as fatigued today as tuesday. She does need rest breaks. Physical Therapy Plan Frequency and Duration Frequency of Treatment 2x/Week Duration of Treatment 8 Plan of Care Start Date 02/04/22 Plan of Care End Date 04/01/22 Therapeutic Interventions Therapeutic Interventions Balance Training,Neuromuscular Re-education,Patient/ Caregiver Education,Self-Care/ Home Management,Therapeutic Activities,Therapeutic Exercises Next Visit Focus/Plan Next Note Type Treatment Note Next Visit Plan biodex warm up, ther ex, gait training, work on ankle strength next visit
--- NOTE | 2022-02-16 11:20 | PT-OP ANOTE ---
Pt called schedulers, reported not feeling well, cancelled appt <24 hrs.
--- NOTE | 2022-02-18 14:30 | PT.OTN ---
Current Diagnoses Unspecified sequelae of cerebral infarction (02/18/22) Pain in right shoulder (02/18/22) Pain in left shoulder (02/18/22) Physical Therapy Treatment Note PT-OP-A Visit Information Start: 02/04/22 12:09 Freq: Status: Active Protocol: Document 02/18/22 13:50 SP (Rec: 02/18/22 14:31 SP [id number]) Out-Patient Physical Therapy Visit Information Visit Information Visit Type Treatment Note Visit Note Pt reported doing HHPT exercises at home and wanted to see if can progress with new or added resistance for home, doesn't have equipment uses in PT at home and thinks ready for more. Visit Start Time 13:50 Visit Stop Time 14:30 Total Visit Minutes 40 Visit Number 4 Number of CERTIFIED INCOME TAX PREPARER Visits 1 Evaluation Information Evaluation Date 02/04/22 PT-OP-B Current Condition Start: 02/04/22 12:09 Freq: Status: Active Protocol: Document 02/04/22 13:52 [facility] (Rec: 02/04/22 14:13 [facility] [id number]) Current Condition History of Current Condition Onset Date 08/11/21 History of Current Condition 08/11/21 CVA, on the 10 of August she woke up in the middle of the night and realized she couldn't sit up to get out of bed. She noticed a change in her voice when she asked her to help her up. 911 was called and she was brought to the ER she was here 6 days and then was transferedd [facility] to the rehab from August 15- August 31 . At that time she went home and had in home care OT, PT, and speech. It was the left side that had the stroke so now she is sleeping on her right side which has gotten sore. She started getting pain in her neck and shoulder on the right. She is weak on her left side upper and lower body because of the stroke. She is right handed She reports sweilling in her left hand, she has gloves she wears and she keeps it elevated, she doesn't have bleach mixer and is unable to make a fist any more, she would like to be able to cook again. She would like to increase her walking ability. She reports no falls. wearing left ankle FO Treatment Goals Patient/Caregiver Goals pt would like to be able to cook in her kitchen and be able to tolerate community ambulation Prior Functional Status Baseline Function- ADL's Independent Baseline Function- Mobility Independent Current Functional Impairments (Reported) Functional Limitations- ADL's unable to over a tight or new jar, severe difficulty doing ADL's and carrying a shopping bag or brief case. Severe difficulty using a knife to cut food. Functional Limitations- Mobility/Gait pt is ambulating with a FWW with limited distance and has not been able to do community ambulation PT-OP-C Subjective Start: 02/04/22 12:09 Freq: Status: Active Protocol: Document 02/11/22 13:42 [facility] (Rec: 02/11/22 14:32 [facility] [id number]) OP-PT Subjective Patient Comments Patient Comments pt reports she was a little muscular sore after last visit but overall tolerated treatment well PT-OP-D Balance Start: 02/09/22 17:07 Freq: Status: Active Protocol: Document 02/04/22 13:45 [facility] (Rec: 02/09/22 17:08 [facility] [id number]) Balance Tests Single Limb Standing Single Limb- Right 30 sec Single Limb- Left unable Tandem Tandem Standing it is difficult for Barb to automotive product engineer tandem stance PT-OP-F Manual Assessment Start: 02/04/22 12:09 Freq: Status: Active Protocol: Document 02/04/22 13:45 [facility] (Rec: 02/09/22 15:53 [facility] [id number]) Manual Assessments Soft Tissue Assessment Soft Tissue Mobility Assessment Right upper trapezius tightness PT-OP-G Mobility & Gait Start: 02/04/22 12:09 Freq: Status: Active Protocol: Document 02/04/22 13:45 [facility] (Rec: 02/09/22 15:53 [facility] [id number]) OP Mobility Evaluation Bed Mobility Supine to and from Sit min A for help with the L LE Transfers Sit to Stand SBA Bed to Chair Transfers SBA Floor Transfers not attempted OP Gait Assessment Gait Gait Assistance Required: Contact Guard Assist Distance (Feet) 250 Factors Limiting Gait Function Factors Limiting Gait Function Decreased Strength Stair Climbing Evaluation Evaluation Level of Assist On Stairs Contact Guard Assistance Devices Stair Climbing Assistive Devices Left Railing,Right Railing Technique/Endurance Stair Climbing Direction Ascend and Descend Stair Climbing Technique Step to Step Number of Steps Climbed 3 Stair Climbing Set # Repetitions (reps) 2 PT-OP-M Strength Start: 02/04/22 12:09 Freq: Status: Active Protocol: Document 02/04/22 13:45 [facility] (Rec: 02/09/22 15:53 [facility] [id number]) Hip Strength Hip Manual Muscle Testing L Flexion (L2) 3+ Fair+ Abduction 3+ Fair+ Knee Strength Knee Manual Muscle Testing Left Flexion (S2) 4 Good Extension (L3) 4 Good Ankle/Foot Strength Ankle and Foot Manual Muscle Testing Left Dorsiflexion (L4) 0 Zero Plantarflexion (S1) 1 Trace Inversion 1 Trace Eversion (S1) 1 Trace PT-OP-Q Treatments Start: 02/04/22 12:09 Freq: Status: Active Protocol: Document 02/18/22 13:50 SP (Rec: 02/18/22 14:31 SP [id number]) Cardio Equipment Recumbent Elliptical ([employer]) Duration (Minutes) 6 Resistance 4 Seat Position see 5 Other RUE, BLE- 40 RPM, 487 total step Gym Equipment Cable Column (Body Solid) Hip Abduction Resistance 20# Reps/Time 3 x 12 reps Therapeutic Exercises Sitting Exercises seated clamshell Sitting Exercise Name added to HEP Side bilateral Resistance TB #2 loop hand held Equipment Used seated front chair. Reps/Minutes x10 Comments cued how set up self and perform hs curl Sitting Exercise Name added to HEP Side bilateral Resistance Tb #1 anchored on post/ door Reps/Minutes 2x10 Comments cued opp foot contact floor, seated back posture and hands on seat, HS fac Standing Exercises HEP HHPT Review Standing Exercise Name stand: hip ext, minisquat, supine: LTR, heel slides, bridge Reps/Minutes x10 each approx Comments verbal review- compliant Gait Training Gait Activity ambulation with fww Device Used fww Level of Assistance S Surface firm Distance/Duration 100 x2 feet Treatment Focus L foot clearance and stride, stability, Comments cues to use hips to help clear the left foot, worked on increasing stride length PT-OP-T Assessment and Plan Start: 02/04/22 12:09 Freq: Status: Active Protocol: Document 02/18/22 13:50 SP (Rec: 02/18/22 14:31 SP [id number]) Physical Therapy Assessment Goals 4 Impairment pt lacks home exercise program for progressing her exercises Adjunct Physics Instructor Goal (LTG) Barb is independent with a HEP for LE strengthening, gait and balance. 02/18/22: verbal review hHPT HEP: stand: hip ext, minisquat , supine: LTR, heel slides, bridge, added hs curl and hip abd clam TB. LTG Duration 8 weeks 3 Impairment decreased balance and stamina to be able to automotive product engineer her kitchen to cook. Short Term Goal (STG) pt is able to balance with feet together x 30 seconds without hand hold Adjunct Physics Instructor Goal (LTG) pt is able to balance with feet together x 2 minutes without hand hold LTG Duration 8 weeks 2 Impairment pt is limited with her mobility on stairs and is currently side stepping up and down her stair case outside to her home Adjunct Physics Instructor Goal (LTG) Barb is able to ambulate up and down 9 stairs with one hand hold on the left railing LTG Duration 8 weeks 1 Impairment Impaired gait s/p CVA with limited walking duration and stride length, pt is not able to engage in community ambulation at this time due to weakness and fatigue Adjunct Physics Instructor Goal (LTG) Barb is able to ambulate greater than 500 feet without stopping for rest breaks with improved stride length LTG Duration 8 weeks Assessment Summary Assessment Pt tx focused on strengthening gym equipment and instruction on self application: added resisted HS curl and seated clamshell with good feedback with eduction on set up with good feedback, good effort exercises can/will do at home, takes time between exercise transition but not stated tired today. CUed for TA/ pelvic neutral pelvis and not using shlds to stabilize with good understanding. Physical Therapy Plan Frequency and Duration Frequency of Treatment 2x/Week Duration of Treatment 8 Plan of Care Start Date 02/04/22 Plan of Care End Date 04/01/22 Therapeutic Interventions Therapeutic Interventions Balance Training,Neuromuscular Re-education,Patient/ Caregiver Education,Self-Care/ Home Management,Therapeutic Activities,Therapeutic Exercises Next Visit Focus/Plan Next Note Type Treatment Note Next Visit Plan Next tx: ankle strengthening next tx. POC: biodex warm up, ther ex, gait training
--- NOTE | 2022-02-23 13:00 | PT.OTN ---
Current Diagnoses Unspecified sequelae of cerebral infarction (02/23/22) Pain in right shoulder (02/23/22) Pain in left shoulder (02/23/22) Physical Therapy Treatment Note PT-OP-A Visit Information Start: 02/04/22 12:09 Freq: Status: Active Protocol: Document 02/23/22 12:17 SP (Rec: 02/23/22 13:02 SP [id number]) Out-Patient Physical Therapy Visit Information Visit Information Visit Type Treatment Note Visit Start Time 12:17 Visit Stop Time 13:00 Total Visit Minutes 43 Visit Number 5 Number of PHD INTERN Visits 2 Evaluation Information Evaluation Date 02/04/22 PT-OP-B Current Condition Start: 02/04/22 12:09 Freq: Status: Active Protocol: Document 02/04/22 13:52 [facility] (Rec: 02/04/22 14:13 [facility] [id number]) Current Condition History of Current Condition Onset Date 08/11/21 History of Current Condition 08/11/21 CVA, on the 10 of August she woke up in the middle of the night and realized she couldn't sit up to get out of bed. She noticed a change in her voice when she asked her to help her up. 911 was called and she was brought to the ER she was here 6 days and then [facility] to the rehab from August 15- August 31 . At that time she went home and had in home care OT, PT, and speech. It was the left side that had the stroke so now she is sleeping on her right side which has gotten sore. She started getting pain in her neck and shoulder on the right. She is weak on her left side upper and lower body because of the stroke. She is right handed She reports sweilling in her left hand, she has gloves she wears and she keeps it elevated, she doesn't have shell reprint operator and is unable to make a fist any more, she would like to be able to cook again. She would like to increase her walking ability. She reports no falls. wearing left ankle FO Treatment Goals Patient/Caregiver Goals pt would like to be able to cook in her kitchen and be able to tolerate community ambulation Prior Functional Status Baseline Function- ADL's Independent Baseline Function- Mobility Independent Current Functional Impairments (Reported) Functional Limitations- ADL's unable to over a tight or new jar, severe difficulty doing ADL's and carrying a shopping bag or brief case. Severe difficulty using a knife to cut food. Functional Limitations- Mobility/Gait pt is ambulating with a FWW with limited distance and has not been able to do community ambulation PT-OP-C Subjective Start: 02/04/22 12:09 Freq: Status: Active Protocol: Document 02/23/22 12:17 SP (Rec: 02/23/22 13:02 SP [id number]) OP-PT Subjective Patient Comments Patient Comments Pt reported was little sore but proud able to prepare/ cooking pork and mash potato dinner over the weekend. Did stand and sit preparing then wash the dishes after. assisted getting dishes, putting food in/out oven and cutting up pork. She also stated has hard time pushing trunk up from sidelying and wondered if can come up with exercise to help make it easier. PT-OP-D Balance Start: 02/09/22 17:07 Freq: Status: Active Protocol: Document 02/04/22 13:45 [facility] (Rec: 02/09/22 17:08 [facility] [id number]) Balance Tests Single Limb Standing Single Limb- Right 30 sec Single Limb- Left unable Tandem Tandem Standing it is difficult for Barb to miniature set builder tandem stance PT-OP-F Manual Assessment Start: 02/04/22 12:09 Freq: Status: Active Protocol: Document 02/04/22 13:45 [facility] (Rec: 02/09/22 15:53 [facility] [id number]) Manual Assessments Soft Tissue Assessment Soft Tissue Mobility Assessment Right upper trapezius tightness PT-OP-G Mobility & Gait Start: 02/04/22 12:09 Freq: Status: Active Protocol: Document 02/04/22 13:45 [facility] (Rec: 02/09/22 15:53 [facility] [id number]) OP Mobility Evaluation Bed Mobility Supine to and from Sit min A for help with the L LE Transfers Sit to Stand SBA Bed to Chair Transfers SBA Floor Transfers not attempted OP Gait Assessment Gait Gait Assistance Required: Contact Guard Assist Distance (Feet) 250 Factors Limiting Gait Function Factors Limiting Gait Function Decreased Strength Stair Climbing Evaluation Evaluation Level of Assist On Stairs Contact Guard Assistance Devices Stair Climbing Assistive Devices Left Railing,Right Railing Technique/Endurance Stair Climbing Direction Ascend and Descend Stair Climbing Technique Step to Step Number of Steps Climbed 3 Stair Climbing Set # Repetitions (reps) 2 PT-OP-M Strength Start: 02/04/22 12:09 Freq: Status: Active Protocol: Document 02/04/22 13:45 [facility] (Rec: 02/09/22 15:53 [facility] [id number]) Hip Strength Hip Manual Muscle Testing L Flexion (L2) 3+ Fair+ Abduction 3+ Fair+ Knee Strength Knee Manual Muscle Testing Left Flexion (S2) 4 Good Extension (L3) 4 Good Ankle/Foot Strength Ankle and Foot Manual Muscle Testing Left Dorsiflexion (L4) 0 Zero Plantarflexion (S1) 1 Trace Inversion 1 Trace Eversion (S1) 1 Trace PT-OP-Q Treatments Start: 02/04/22 12:09 Freq: Status: Active Protocol: Document 02/23/22 12:17 SP (Rec: 02/23/22 13:02 SP [id number]) Gym Equipment Shuttle Recovery single leg squats Details 25# x10> 37# 2x10, B cued knee with toes (supported L foot alignment) Reps/Time 2 x 10 reps alternating sets Bilateral Squats Resistance 50# x10, 75# 2x10 Therapeutic Exercises Sitting Exercises L UE shld ER Sitting Exercise Name added to HEP [facility] washer Side bilateral Resistance Tb #1 Reps/Minutes x5 Comments cued posture, elbow tucked at side LUE D1 extension punch Sitting Exercise Name added to HEP- assist sidelying to sit rquested with RUE Side right Resistance Tb #1 Reps/Minutes 2x10 Comments Cue for postural alignment, LUE isometric hold TB achor Standing Exercises sidesteps with theraband Standing Exercise Name side steps at rail Resistance TB 1 Reps/Minutes 20 ft x2 lengths of rail facing Comments cued tall posture, feet facing wall //, trailing LE clearance. PT-OP-T Assessment and Plan Start: 02/04/22 12:09 Freq: Status: Active Protocol: Document 02/23/22 12:17 SP (Rec: 02/23/22 13:02 SP [id number]) Physical Therapy Assessment Goals 4 Impairment pt lacks home exercise program for progressing her exercises Residential Goal (LTG) Barb is independent with a HEP for LE strengthening, gait and balance. 02/18/22: verbal review hHPT HEP: stand: hip ext, minisquat , supine: LTR, heel slides, bridge, added hs curl and hip abd clam TB. 02/23/22: added R UE D1 ext w/ LUE anchor, B shld ER assist supine<> sit. LTG Duration 8 weeks 3 Impairment decreased balance and stamina to be able to miniature set builder her kitchen to cook. Short Term Goal (STG) pt is able to balance with feet together x 30 seconds without hand hold [employer] Tractor Operator Goal (LTG) pt is able to balance with feet together x 2 minutes without hand hold LTG Duration 8 weeks 2 Impairment pt is limited with her mobility on stairs and is currently side stepping up and down her stair case outside to her home [employer] Tractor Operator Goal (LTG) Barb is able to ambulate up and down 9 stairs with one hand hold on the left railing LTG Duration 8 weeks 1 Impairment Impaired gait s/p CVA with limited walking duration and stride length, pt is not able to engage in community ambulation at this time due to weakness and fatigue Residential Goal (LTG) Barb is able to ambulate greater than 500 feet without stopping for rest breaks with improved stride length LTG Duration 8 weeks Assessment Summary Assessment Pt improved in R>L UE resisted exercises to assist strength and success during mobilty for increased independence carryover supine> sit and sit<>stand. Cued pt LUE involvement during transfers and anchoring resisted D1 ext for RUE, decreased L sided neglect carryover. Pt improved gait L foot clearance with cues for L knee flexion duirng tx. Physical Therapy Plan Frequency and Duration Frequency of Treatment 2x/Week Duration of Treatment 8 Plan of Care Start Date 02/04/22 Plan of Care End Date 04/01/22 Therapeutic Interventions Therapeutic Interventions Balance Training,Neuromuscular Re-education,Patient/ Caregiver Education,Self-Care/ Home Management,Therapeutic Activities,Therapeutic Exercises Next Visit Focus/Plan Next Note Type Treatment Note Next Visit Plan Next tx: warm up biodex without AFO, check UE HEP, add L ankle strengthening. PT to add gait in POC interventions to support progress toward goals. POC: ther ex, gait training
--- NOTE | 2022-03-04 11:20 | PT.OTN ---
Current Diagnoses Unspecified sequelae of cerebral infarction (03/04/22) Pain in right shoulder (03/04/22) Pain in left shoulder (03/04/22) Physical Therapy Treatment Note PT-OP-A Visit Information Start: 02/04/22 12:09 Freq: Status: Active Protocol: Document 03/04/22 10:33 SP (Rec: 03/04/22 11:41 SP [id number]) Out-Patient Physical Therapy Visit Information Visit Information Visit Type Treatment Note Visit Start Time 10:33 Visit Stop Time 11:20 Total Visit Minutes 47 Visit Number 6 Number of RN CLINICIAN Visits 3 Evaluation Information Evaluation Date 02/04/22 PT-OP-B Current Condition Start: 02/04/22 12:09 Freq: Status: Active Protocol: Document 02/04/22 13:52 [facility] (Rec: 02/04/22 14:13 [facility] [id number]) Current Condition History of Current Condition Onset Date 08/11/21 History of Current Condition 08/11/21 CVA, on the 10 of August she woke up in the middle of the night and realized she couldn't sit up to get out of bed. She noticed a change in her voice when she asked her to help her up. 911 was called and she was brought to the ER she was here 6 days and then was transferedd to [facility] in [facility] to the rehab from August 15- August 31 . At that time she went home and had in home care OT, PT, and speech. It was the left side that had the stroke so now she is sleeping on her right side which has gotten sore. She started getting pain in her neck and shoulder on the right. She is weak on her left side upper and lower body because of the stroke. She is right handed She reports sweilling in her left hand, she has gloves she wears and she keeps it elevated, she doesn't have assistance coordinator and is unable to make a fist any more, she would like to be able to cook again. She would like to increase her walking ability. She reports no falls. wearing left ankle FO Treatment Goals Patient/Caregiver Goals pt would like to be able to cook in her kitchen and be able to tolerate community ambulation Prior Functional Status Baseline Function- ADL's Independent Baseline Function- Mobility Independent Current Functional Impairments (Reported) Functional Limitations- ADL's unable to over a tight or new jar, severe difficulty doing ADL's and carrying a shopping bag or brief case. Severe difficulty using a knife to cut food. Functional Limitations- Mobility/Gait pt is ambulating with a FWW with limited distance and has not been able to do community ambulation PT-OP-C Subjective Start: 02/04/22 12:09 Freq: Status: Active Protocol: Document 03/04/22 10:33 SP (Rec: 03/04/22 11:41 SP [id number]) OP-PT Subjective Patient Comments Patient Comments Pt states has been sick lately and not able to do exercises as wants but tried to be sure walking back/ forth bathrrom for continued mobiltiy so not loose strength. Pt states turning over in bed is better and able lay on L side about 30 min. The TB UE exercise on R helpful to push up to sitting. Stated might buy a [employer] (portable cycler bike) for home PT-OP-D Balance Start: 02/09/22 17:07 Freq: Status: Active Protocol: Document 02/04/22 13:45 [facility] (Rec: 02/09/22 17:08 [facility] [id number]) Balance Tests Single Limb Standing Single Limb- Right 30 sec Single Limb- Left unable Tandem Tandem Standing it is difficult for Barb to publishing systems analyst tandem stance PT-OP-F Manual Assessment Start: 02/04/22 12:09 Freq: Status: Active Protocol: Document 02/04/22 13:45 AM[facility] (Rec: 02/09/22 15:53 [facility] [id number]) Manual Assessments Soft Tissue Assessment Soft Tissue Mobility Assessment Right upper trapezius tightness PT-OP-G Mobility & Gait Start: 02/04/22 12:09 Freq: Status: Active Protocol: Document 02/04/22 13:45 AM[facility] (Rec: 02/09/22 15:53 [facility] [id number]) OP Mobility Evaluation Bed Mobility Supine to and from Sit min A for help with the L LE Transfers Sit to Stand SBA Bed to Chair Transfers SBA Floor Transfers not attempted OP Gait Assessment Gait Gait Assistance Required: Contact Guard Assist Distance (Feet) 250 Factors Limiting Gait Function Factors Limiting Gait Function Decreased Strength Stair Climbing Evaluation Evaluation Level of Assist On Stairs Contact Guard Assistance Devices Stair Climbing Assistive Devices Left Railing,Right Railing Technique/Endurance Stair Climbing Direction Ascend and Descend Stair Climbing Technique Step to Step Number of Steps Climbed 3 Stair Climbing Set # Repetitions (reps) 2 PT-OP-M Strength Start: 02/04/22 12:09 Freq: Status: Active Protocol: Document 02/04/22 13:45 AMH (Rec: 02/09/22 15:53 [facility] [id number]) Hip Strength Hip Manual Muscle Testing L Flexion (L2) 3+ Fair+ Abduction 3+ Fair+ Knee Strength Knee Manual Muscle Testing Left Flexion (S2) 4 Good Extension (L3) 4 Good Ankle/Foot Strength Ankle and Foot Manual Muscle Testing Left Dorsiflexion (L4) 0 Zero Plantarflexion (S1) 1 Trace Inversion 1 Trace Eversion (S1) 1 Trace PT-OP-Q Treatments Start: 02/04/22 12:09 Freq: Status: Active Protocol: Document 03/04/22 10:33 SP (Rec: 03/04/22 11:41 SP [id number]) Cardio Equipment Recumbent Elliptical ([employer]) Duration (Minutes) 6 Resistance 4 Seat Position see 7 Other RUE, BLE- 30 RPM, 564 total step Therapeutic Exercises Sitting Exercises STS Sitting Exercise Name HEP reviewed Resistance - pt uses grabber to don/doff at home Equipment Used mesh chair, uses R UEs initially chair arm, able use seat Reps/Minutes 2x5 reps Comments cued hip hinge asce/descend- improved eccentric to seat, back leg awaychair LUE D1 extension punch Sitting Exercise Name HEP reviewed- assists sidelying to sit rquested with RUE Side bilateral Resistance Tb #1 Equipment Used * able to perform moderate range w/ LUE now Reps/Minutes x20 Comments Cue for postural alignment, LUE isometric hold TB achor seated clamshell Sitting Exercise Name verbal review doing at homeHEP Side bilateral Resistance TB #! Equipment Used seated front chair. Reps/Minutes x10 Comments cued how set up self and perform hs curl Sitting Exercise Name HEP reviewed Side bilateral Resistance Tb #1 anchored on post/ door Reps/Minutes 2x10 Comments cued opp foot contact floor, seated back posture and hands on seat, HS fac Standing Exercises sidesteps with theraband Standing Exercise Name side steps at rail- HEP review Resistance TB 1 just below knees Reps/Minutes 20 ft x2 lengths of rail facing Comments cued tall posture, feet facing wall //, trailing LE clearance. Neuro Re-Education Treatment Balance Activities stationary balance Details goal assessment Equipment FWW in front of her, facing rail Comments *NBOS EO 60s no UE support *Stagger NBOS EO 60s each foot position NO deviations or LOB PT-OP-T Assessment and Plan Start: 02/04/22 12:09 Freq: Status: Active Protocol: Document 03/04/22 10:33 SP (Rec: 03/04/22 11:41 SP [id number]) Physical Therapy Assessment Goals 4 Impairment pt lacks home exercise program for progressing her exercises Outbound Supervisor Goal (LTG) Barb is independent with a HEP for LE strengthening, gait and balance. 02/18/22: verbal review hHPT HEP: stand: hip ext, minisquat , supine: LTR, heel slides, bridge, added hs curl and hip abd clam TB. 02/23/22: added R UE D1 ext w/ LUE anchor, B shld ER assist supine<> sit. 03/04/22: reviewed stame 02/23/22 : also band walk, clamshell, STS added today, resisted HS curl. LTG Duration 8 weeks (03/04/22: progressing) 3 Impairment decreased balance and stamina to be able to publishing systems analyst her kitchen to cook. Short Term Goal (STG) pt is able to balance with feet together x 30 seconds without hand hold 03/04/22: GOAL MET: able stand NBOS and narrow stagger stance no UE support 60s. STG Duration GOAL MET Nursing Home Goal (LTG) pt is able to balance with feet together x 2 minutes without hand hold LTG Duration 8 weeks 2 Impairment pt is limited with her mobility on stairs and is currently side stepping up and down her stair case outside to her home Nursing Home Goal (LTG) Barb is able to ambulate up and down 9 stairs with one hand hold on the left railing LTG Duration 8 weeks 1 Impairment Impaired gait s/p CVA with limited walking duration and stride length, pt is not able to engage in community ambulation at this time due to weakness and fatigue Outbound Supervisor Goal (LTG) Barb is able to ambulate greater than 500 feet without stopping for rest breaks with improved stride length LTG Duration 8 weeks Progress Towards Goals Progress Towards Goals Progressing Toward Goals Progress Comments Pt MET STG #3: able balance unsupported 30 s. Assessment Summary Assessment Pt compliant with HEP and shows in improved strength and mobiltiy. She demonstrates improved UE strengthen able to complete D1 ext with LUE now while opposite UE isometric hold anchor and ableto supine> sit with less effort states at home that able to sleep on L side up to 30 min and roll over. Pt improved stationary balance without UE support. Cued during entering/exiting tx increase stride RLE and continuous FWW advancement to normalize gait. Physical Therapy Plan Frequency and Duration Frequency of Treatment 2x/Week Duration of Treatment 8 Plan of Care Start Date 02/04/22 Plan of Care End Date 04/01/22 Therapeutic Interventions Therapeutic Interventions Balance Training,Neuromuscular Re-education,Patient/ Caregiver Education,Self-Care/ Home Management,Therapeutic Activities,Therapeutic Exercises Next Visit Focus/Plan Next Note Type Treatment Note Next Visit Plan Next tx: continue warm up biodex without AFO, check if signed approval from Dr Pires to add GT to POC to progress gait goals. add L ankle strengthening. POC: ther ex, gait training
--- NOTE | 2022-03-04 11:20 | PT.OTN ---
Addendum entered and electronically signed by Jahaira Philip, DEREK 03/05/22 09:06: Update: Request to Dr Pires to approve add Gait Training to Treatment Interventions in POC to allow progression in gait and stair mgt for improvement in functional mobility written in goals at al. Original Note: Current Diagnoses Unspecified sequelae of cerebral infarction (03/04/22) Pain in right shoulder (03/04/22) Pain in left shoulder (03/04/22) Physical Therapy Treatment Note PT-OP-A Visit Information Start: 02/04/22 12:09 Freq: Status: Active Protocol: Document 03/04/22 10:33 SP (Rec: 03/04/22 11:41 SP [id number]) Out-Patient Physical Therapy Visit Information Visit Information Visit Type Treatment Note Visit Start Time 10:33 Visit Stop Time 11:20 Total Visit Minutes 47 Visit Number 6 Number of MANHOLE STRIPPER Visits 3 Evaluation Information Evaluation Date 02/04/22 PT-OP-B Current Condition Start: 02/04/22 12:09 Freq: Status: Active Protocol: Document 02/04/22 13:52 AMH (Rec: 02/04/22 14:13 AMH [id number]) Current Condition History of Current Condition Onset Date 08/11/21 History of Current Condition 08/11/21 CVA, on the 10 of August she woke up in the middle of the night and realized she couldn't sit up to get out of bed. She noticed a change in her voice when she asked her to help her up. 911 was called and she was brought to the ER she was here 6 days and then was transferedd to [facility] in [facility] to the rehab from August 15- August 31 . At that time she went home and had in home care OT, PT, and speech. It was the left side that had the stroke so now she is sleeping on her right side which has gotten sore. She started getting pain in her neck and shoulder on the right. She is weak on her left side upper and lower body because of the stroke. She is right handed She reports sweilling in her left hand, she has gloves she wears and she keeps it elevated, she doesn't have electronics technology department chair and is unable to make a fist any more, she would like to be able to cook again. She would like to increase her walking ability. She reports no falls. wearing left ankle FO Treatment Goals Patient/Caregiver Goals pt would like to be able to cook in her kitchen and be able to tolerate community ambulation Prior Functional Status Baseline Function- ADL's Independent Baseline Function- Mobility Independent Current Functional Impairments (Reported) Functional Limitations- ADL's unable to over a tight or new jar, severe difficulty doing ADL's and carrying a shopping bag or brief case. Severe difficulty using a knife to cut food. Functional Limitations- Mobility/Gait pt is ambulating with a FWW with limited distance and has not been able to do community ambulation PT-OP-C Subjective Start: 02/04/22 12:09 Freq: Status: Active Protocol: Document 03/04/22 10:33 SP (Rec: 03/04/22 11:41 SP [id number]) OP-PT Subjective Patient Comments Patient Comments Pt states has been sick lately and not able to do exercises as wants but tried to be sure walking back/ forth bathrrom for continued mobiltiy so not loose strength. Pt states turning over in bed is better and able lay on L side about 30 min. The TB UE exercise on R helpful to push up to sitting. Stated might buy a [employer] (portable cycler bike) for home PT-OP-D Balance Start: 02/09/22 17:07 Freq: Status: Active Protocol: Document 02/04/22 13:45 AMH (Rec: 02/09/22 17:08 AMH [id number]) Balance Tests Single Limb Standing Single Limb- Right 30 sec Single Limb- Left unable Tandem Tandem Standing it is difficult for Barb to spring coverer tandem stance PT-OP-F Manual Assessment Start: 02/04/22 12:09 Freq: Status: Active Protocol: Document 02/04/22 13:45 AMH (Rec: 02/09/22 15:53 AMH [id number]) Manual Assessments Soft Tissue Assessment Soft Tissue Mobility Assessment Right upper trapezius tightness PT-OP-G Mobility & Gait Start: 02/04/22 12:09 Freq: Status: Active Protocol: Document 02/04/22 13:45 AMH (Rec: 02/09/22 15:53 AMH [id number]) OP Mobility Evaluation Bed Mobility Supine to and from Sit min A for help with the L LE Transfers Sit to Stand SBA Bed to Chair Transfers SBA Floor Transfers not attempted OP Gait Assessment Gait Gait Assistance Required: Contact Guard Assist Distance (Feet) 250 Factors Limiting Gait Function Factors Limiting Gait Function Decreased Strength Stair Climbing Evaluation Evaluation Level of Assist On Stairs Contact Guard Assistance Devices Stair Climbing Assistive Devices Left Railing,Right Railing Technique/Endurance Stair Climbing Direction Ascend and Descend Stair Climbing Technique Step to Step Number of Steps Climbed 3 Stair Climbing Set # Repetitions (reps) 2 PT-OP-M Strength Start: 02/04/22 12:09 Freq: Status: Active Protocol: Document 02/04/22 13:45 AMH (Rec: 02/09/22 15:53 AM[facility] [id number]) Hip Strength Hip Manual Muscle Testing L Flexion (L2) 3+ Fair+ Abduction 3+ Fair+ Knee Strength Knee Manual Muscle Testing Left Flexion (S2) 4 Good Extension (L3) 4 Good Ankle/Foot Strength Ankle and Foot Manual Muscle Testing Left Dorsiflexion (L4) 0 Zero Plantarflexion (S1) 1 Trace Inversion 1 Trace Eversion (S1) 1 Trace PT-OP-Q Treatments Start: 02/04/22 12:09 Freq: Status: Active Protocol: Document 03/04/22 10:33 SP (Rec: 03/04/22 11:41 SP [id number]) Cardio Equipment Recumbent Elliptical ([employer]) Duration (Minutes) 6 Resistance 4 Seat Position see 7 Other RUE, BLE- 30 RPM, 564 total step Therapeutic Exercises Sitting Exercises STS Sitting Exercise Name HEP reviewed Resistance - pt uses grabber to don/doff at home Equipment Used mesh chair, uses R UEs initially chair arm, able use seat Reps/Minutes 2x5 reps Comments cued hip hinge asce/descend- improved eccentric to seat, back leg awaychair LUE D1 extension punch Sitting Exercise Name HEP reviewed- assists sidelying to sit rquested with RUE Side bilateral Resistance Tb #1 Equipment Used * able to perform moderate range w/ LUE now Reps/Minutes x20 Comments Cue for postural alignment, LUE isometric hold TB achor seated clamshell Sitting Exercise Name verbal review doing at homeHEP Side bilateral Resistance TB #! Equipment Used seated front chair. Reps/Minutes x10 Comments cued how set up self and perform hs curl Sitting Exercise Name HEP reviewed Side bilateral Resistance Tb #1 anchored on post/ door Reps/Minutes 2x10 Comments cued opp foot contact floor, seated back posture and hands on seat, HS fac Standing Exercises sidesteps with theraband Standing Exercise Name side steps at rail- HEP review Resistance TB 1 just below knees Reps/Minutes 20 ft x2 lengths of rail facing Comments cued tall posture, feet facing wall //, trailing LE clearance. Neuro Re-Education Treatment Balance Activities stationary balance Details goal assessment Equipment FWW in front of her, facing rail Comments *NBOS EO 60s no UE support *Stagger NBOS EO 60s each foot position NO deviations or LOB PT-OP-T Assessment and Plan Start: 02/04/22 12:09 Freq: Status: Active Protocol: Document 03/04/22 10:33 SP (Rec: 03/04/22 11:41 SP [id number]) Physical Therapy Assessment Goals 4 Impairment pt lacks home exercise program for progressing her exercises Program Engagement Director Goal (LTG) Barb is independent with a HEP for LE strengthening, gait and balance. 02/18/22: verbal review hHPT HEP: stand: hip ext, minisquat , supine: LTR, heel slides, bridge, added hs curl and hip abd clam TB. 02/23/22: added R UE D1 ext w/ LUE anchor, B shld ER assist supine<> sit. 03/04/22: reviewed stame 02/23/22 : also band walk, clamshell, STS added today, resisted HS curl. LTG Duration 8 weeks (03/04/22: progressing) 3 Impairment decreased balance and stamina to be able to spring coverer her kitchen to cook. Short Term Goal (STG) pt is able to balance with feet together x 30 seconds without hand hold 03/04/22: GOAL MET: able stand NBOS and narrow stagger stance no UE support 60s. STG Duration GOAL MET [facility] Goal (LTG) pt is able to balance with feet together x 2 minutes without hand hold LTG Duration 8 weeks 2 Impairment pt is limited with her mobility on stairs and is currently side stepping up and down her stair case outside to her home Program Engagement Director Goal (LTG) Barb is able to ambulate up and down 9 stairs with one hand hold on the left railing LTG Duration 8 weeks 1 Impairment Impaired gait s/p CVA with limited walking duration and stride length, pt is not able to engage in community ambulation at this time due to weakness and fatigue [facility] Goal (LTG) Barb is able to ambulate greater than 500 feet without stopping for rest breaks with improved stride length LTG Duration 8 weeks Progress Towards Goals Progress Towards Goals Progressing Toward Goals Progress Comments Pt MET STG #3: able balance unsupported 30 s. Assessment Summary Assessment Pt compliant with HEP and shows in improved strength and mobiltiy. She demonstrates improved UE strengthen able to complete D1 ext with LUE now while opposite UE isometric hold anchor and ableto supine> sit with less effort states at home that able to sleep on L side up to 30 min and roll over. Pt improved stationary balance without UE support. Cued during entering/exiting tx increase stride RLE and continuous FWW advancement to normalize gait. Physical Therapy Plan Frequency and Duration Frequency of Treatment 2x/Week Duration of Treatment 8 Plan of Care Start Date 02/04/22 Plan of Care End Date 04/01/22 Therapeutic Interventions Therapeutic Interventions Balance Training,Neuromuscular Re-education,Patient/ Caregiver Education,Self-Care/ Home Management,Therapeutic Activities,Therapeutic Exercises Next Visit Focus/Plan Next Note Type Treatment Note Next Visit Plan Next tx: continue warm up biodex without AFO, add L ankle strengthening., director of physical security instructed MANHOLE STRIPPER to incorporated gait training in treatment toward set goals and PT will add gait training to POC Treatment Interventions at next PT tx to progress gait goals set forth in POC. POC: ther ex, gait training
--- NOTE | 2022-03-08 11:53 | PT-OP ANOTE ---
Pt cancelled late am to cancel appt, having intestinal issues and unable to attend appt.
--- NOTE | 2022-03-18 13:55 | PT.OTN ---
Current Diagnoses Unspecified sequelae of cerebral infarction (03/18/22) Pain in right shoulder (03/18/22) Pain in left shoulder (03/18/22) Physical Therapy Treatment Note PT-OP-A Visit Information Start: 02/04/22 12:09 Freq: Status: Active Protocol: Document 03/18/22 11:19 [facility] (Rec: 03/18/22 12:01 [facility] [id number]) Out-Patient Physical Therapy Visit Information Visit Information Visit Type Treatment Note Visit Start Time 11:15 Visit Stop Time 12:00 Total Visit Minutes 45 Visit Number 7 Number of JUNIOR LEGAL SECRETARY Visits 0 Evaluation Information Evaluation Date 02/04/22 PT-OP-B Current Condition Start: 02/04/22 12:09 Freq: Status: Active Protocol: Document 02/04/22 13:52 [facility] (Rec: 02/04/22 14:13 [facility] [id number]) Current Condition History of Current Condition Onset Date 08/11/21 History of Current Condition 08/11/21 CVA, on the 10 of August she woke up in the middle of the night and realized she couldn't sit up to get out of bed. She noticed a change in her voice when she asked her to help her up. 911 was called and she was brought to the ER she was here 6 days and then was transferedd to [facility] in [facility] to the rehab from August 15- August 31 . At that time she went home and had in home care OT, PT, and speech. It was the left side that had the stroke so now she is sleeping on her right side which has gotten sore. She started getting pain in her neck and shoulder on the right. She is weak on her left side upper and lower body because of the stroke. She is right handed She reports sweilling in her left hand, she has gloves she wears and she keeps it elevated, she doesn't have front end developer designer and is unable to make a fist any more, she would like to be able to cook again. She would like to increase her walking ability. She reports no falls. wearing left ankle FO Treatment Goals Patient/Caregiver Goals pt would like to be able to cook in her kitchen and be able to tolerate community ambulation Prior Functional Status Baseline Function- ADL's Independent Baseline Function- Mobility Independent Current Functional Impairments (Reported) Functional Limitations- ADL's unable to over a tight or new jar, severe difficulty doing ADL's and carrying a shopping bag or brief case. Severe difficulty using a knife to cut food. Functional Limitations- Mobility/Gait pt is ambulating with a FWW with limited distance and has not been able to do community ambulation PT-OP-C Subjective Start: 02/04/22 12:09 Freq: Status: Active Protocol: Document 03/18/22 11:19 [facility] (Rec: 03/18/22 12:01 [facility] [id number]) OP-PT Subjective Patient Comments Patient Comments Barb reports she was diagnosed with a UTI that has been chronic in nature and this is why she has been sick. She is on day 2 of antibiotics. PT-OP-D Balance Start: 02/09/22 17:07 Freq: Status: Active Protocol: Document 02/04/22 13:45 [facility] (Rec: 02/09/22 17:08 [facility] [id number]) Balance Tests Single Limb Standing Single Limb- Right 30 sec Single Limb- Left unable Tandem Tandem Standing it is difficult for Barb to marketing and outreach coordinator tandem stance PT-OP-F Manual Assessment Start: 02/04/22 12:09 Freq: Status: Active Protocol: Document 02/04/22 13:45 [facility] (Rec: 02/09/22 15:53 [facility] [id number]) Manual Assessments Soft Tissue Assessment Soft Tissue Mobility Assessment Right upper trapezius tightness PT-OP-G Mobility & Gait Start: 02/04/22 12:09 Freq: Status: Active Protocol: Document 02/04/22 13:45 [facility] (Rec: 02/09/22 15:53 [facility] [id number]) OP Mobility Evaluation Bed Mobility Supine to and from Sit min A for help with the L LE Transfers Sit to Stand SBA Bed to Chair Transfers SBA Floor Transfers not attempted OP Gait Assessment Gait Gait Assistance Required: Contact Guard Assist Distance (Feet) 250 Factors Limiting Gait Function Factors Limiting Gait Function Decreased Strength Stair Climbing Evaluation Evaluation Level of Assist On Stairs Contact Guard Assistance Devices Stair Climbing Assistive Devices Left Railing,Right Railing Technique/Endurance Stair Climbing Direction Ascend and Descend Stair Climbing Technique Step to Step Number of Steps Climbed 3 Stair Climbing Set # Repetitions (reps) 2 PT-OP-M Strength Start: 02/04/22 12:09 Freq: Status: Active Protocol: Document 02/04/22 13:45 [facility] (Rec: 02/09/22 15:53 [facility] [id number]) Hip Strength Hip Manual Muscle Testing L Flexion (L2) 3+ Fair+ Abduction 3+ Fair+ Knee Strength Knee Manual Muscle Testing Left Flexion (S2) 4 Good Extension (L3) 4 Good Ankle/Foot Strength Ankle and Foot Manual Muscle Testing Left Dorsiflexion (L4) 0 Zero Plantarflexion (S1) 1 Trace Inversion 1 Trace Eversion (S1) 1 Trace PT-OP-Q Treatments Start: 02/04/22 12:09 Freq: Status: Active Protocol: Document 03/18/22 11:19 [facility] (Rec: 03/18/22 12:01 [facility] [id number]) Cardio Equipment Other Cardio Equipment Other Cardio Equipment sci fit 3.7 x 8 min Gym Equipment Shuttle Recovery single leg squats Details 25# x10> 37# 2x10, B cued knee with toes (supported L foot alignment) Reps/Time 2 x 10 reps alternating sets Bilateral Squats Resistance 50# x10, 75# 2x10 Therapeutic Exercises Sitting Exercises STS Equipment Used chair placed close to parallel bars Reps/Minutes 2 x 10 reps Comments improved ability to go from sit-stand with decreased use of hands. Standing Exercises standing single leg balance Reps/Minutes x3 each leg Comments pt at 5 sec hold on left leg with hand support side steps onto 4 box Reps/Minutes x 10 reps Comments in parallel bars stepping over hurdles Comments in parallel bars, pt stepped over hurdles the length of parallel bars x 2 step ups at 4 step Reps/Minutes x8 Comments in parallel bars alternating toe taps on the 4 steps Reps/Minutes x 20 sidesteps with theraband Standing Exercise Name side steps at rail- HEP review Resistance TB 1 just below knees Reps/Minutes 20 ft x2 lengths of rail facing Comments cued tall posture, feet facing wall //, trailing LE clearance. standing marching at the single bar in hallway Reps/Minutes x 20 Comments parallel bars PT-OP-T Assessment and Plan Start: 02/04/22 12:09 Freq: Status: Active Protocol: Document 03/18/22 11:19 [facility] (Rec: 03/18/22 12:01 [facility] [id number]) Physical Therapy Assessment Goals 4 Impairment pt lacks home exercise program for progressing her exercises Alf Goal (LTG) Kimalea is independent with a HEP for LE strengthening, gait and balance. 02/18/22: verbal review hHPT HEP: stand: hip ext, minisquat , supine: LTR, heel slides, bridge, added hs curl and hip abd clam TB. 02/23/22: added R UE D1 ext w/ LUE anchor, B shld ER assist supine<> sit. 03/04/22: reviewed stame 02/23/22 : also band walk, clamshell, STS added today, resisted HS curl. LTG Duration 8 weeks (03/04/22: progressing) 3 Impairment decreased balance and stamina to be able to marketing and outreach coordinator her kitchen to cook. Short Term Goal (STG) pt is able to balance with feet together x 30 seconds without hand hold 03/04/22: GOAL MET: able stand NBOS and narrow stagger stance no UE support 60s. STG Duration GOAL MET Alf Goal (LTG) pt is able to balance with feet together x 2 minutes without hand hold LTG Duration 8 weeks 2 Impairment pt is limited with her mobility on stairs and is currently side stepping up and down her stair case outside to her home Sales Agent Goal (LTG) Barb is able to ambulate up and down 9 stairs with one hand hold on the left railing LTG Duration 8 weeks 1 Impairment Impaired gait s/p CVA with limited walking duration and stride length, pt is not able to engage in community ambulation at this time due to weakness and fatigue Alf Goal (LTG) Barb is able to ambulate greater than 500 feet without stopping for rest breaks with improved stride length LTG Duration 8 weeks Assessment Summary Assessment Heidy is recovering from what sounds like a chronic UTI. She is feeling a bit better from her antibiotic. I feel she would benefit from continued PT as she only has 2 visits scheduled left. FL next visit and measu Physical Therapy Plan Frequency and Duration Frequency of Treatment 2x/Week Duration of Treatment 8 Plan of Care Start Date 02/04/22 Plan of Care End Date 04/01/22 Therapeutic Interventions Therapeutic Interventions Balance Training,Gait Training ,Home Exercise Program, Neuromuscular Re-education, Patient/Caregiver Education, Self-Care/Home Management, Therapeutic Activities, Therapeutic Exercises Next Visit Focus/Plan Next Note Type Progress Note Next Visit Plan continue to progress gait and balance as well as strength for functional mobility.
--- NOTE | 2022-03-25 15:40 | PT.OTN ---
Current Diagnoses Unspecified sequelae of cerebral infarction (03/25/22) Pain in right shoulder (03/25/22) Pain in left shoulder (03/25/22) Physical Therapy Treatment Note PT-OP-A Visit Information Start: 02/04/22 12:09 Freq: Status: Active Protocol: Document 03/25/22 13:53 [facility] (Rec: 03/25/22 15:40 [facility] [id number]) Out-Patient Physical Therapy Visit Information Visit Information Visit Type Treatment Note Visit Start Time 13:50 Visit Stop Time 14:30 Total Visit Minutes 40 Visit Number 8 PT-OP-B Current Condition Start: 02/04/22 12:09 Freq: Status: Active Protocol: Document 02/04/22 13:52 [facility] (Rec: 02/04/22 14:13 [facility] [id number]) Current Condition History of Current Condition Onset Date 08/11/21 History of Current Condition 08/11/21 CVA, on the 10 of August she woke up in the middle of the night and realized she couldn't sit up to get out of bed. She noticed a change in her voice when she asked her to help her up. 911 was called and she was brought to the ER she was here 6 days and then was transferedd to [facility] in [facility] to the rehab from August 15- August 31 . At that time she went home and had in home care OT, PT, and speech. It was the left side that had the stroke so now she is sleeping on her right side which has gotten sore. She started getting pain in her neck and shoulder on the right. She is weak on her left side upper and lower body because of the stroke. She is right handed She reports sweilling in her left hand, she has gloves she wears and she keeps it elevated, she doesn't have cryogenic transport driver and is unable to make a fist any more, she would like to be able to cook again. She would like to increase her walking ability. She reports no falls. wearing left ankle FO Treatment Goals Patient/Caregiver Goals pt would like to be able to cook in her kitchen and be able to tolerate community ambulation Prior Functional Status Baseline Function- ADL's Independent Baseline Function- Mobility Independent Current Functional Impairments (Reported) Functional Limitations- ADL's unable to over a tight or new jar, severe difficulty doing ADL's and carrying a shopping bag or brief case. Severe difficulty using a knife to cut food. Functional Limitations- Mobility/Gait pt is ambulating with a FWW with limited distance and has not been able to do community ambulation PT-OP-C Subjective Start: 02/04/22 12:09 Freq: Status: Active Protocol: Document 03/25/22 13:53 [facility] (Rec: 03/25/22 15:40 [facility] [id number]) OP-PT Subjective Patient Comments Patient Comments PT notes she is feeling better , no UTI symptoms. She hasn' t had to take a nap and isn't feeling as tired. PT-OP-D Balance Start: 02/09/22 17:07 Freq: Status: Active Protocol: Document 02/04/22 13:45 [facility] (Rec: 02/09/22 17:08 [facility] [id number]) Balance Tests Single Limb Standing Single Limb- Right 30 sec Single Limb- Left unable Tandem Tandem Standing it is difficult for Barb to sorting machine operator tandem stance PT-OP-F Manual Assessment Start: 02/04/22 12:09 Freq: Status: Active Protocol: Document 02/04/22 13:45 [facility] (Rec: 02/09/22 15:53 [facility] [id number]) Manual Assessments Soft Tissue Assessment Soft Tissue Mobility Assessment Right upper trapezius tightness PT-OP-G Mobility & Gait Start: 02/04/22 12:09 Freq: Status: Active Protocol: Document 02/04/22 13:45 [facility] (Rec: 02/09/22 15:53 [facility] [id number]) OP Mobility Evaluation Bed Mobility Supine to and from Sit min A for help with the L LE Transfers Sit to Stand SBA Bed to Chair Transfers SBA Floor Transfers not attempted OP Gait Assessment Gait Gait Assistance Required: Contact Guard Assist Distance (Feet) 250 Factors Limiting Gait Function Factors Limiting Gait Function Decreased Strength Stair Climbing Evaluation Evaluation Level of Assist On Stairs Contact Guard Assistance Devices Stair Climbing Assistive Devices Left Railing,Right Railing Technique/Endurance Stair Climbing Direction Ascend and Descend Stair Climbing Technique Step to Step Number of Steps Climbed 3 Stair Climbing Set # Repetitions (reps) 2 PT-OP-M Strength Start: 02/04/22 12:09 Freq: Status: Active Protocol: Document 02/04/22 13:45 [facility] (Rec: 02/09/22 15:53 [facility] [id number]) Hip Strength Hip Manual Muscle Testing L Flexion (L2) 3+ Fair+ Abduction 3+ Fair+ Knee Strength Knee Manual Muscle Testing Left Flexion (S2) 4 Good Extension (L3) 4 Good Ankle/Foot Strength Ankle and Foot Manual Muscle Testing Left Dorsiflexion (L4) 0 Zero Plantarflexion (S1) 1 Trace Inversion 1 Trace Eversion (S1) 1 Trace PT-OP-Q Treatments Start: 02/04/22 12:09 Freq: Status: Active Protocol: Document 03/25/22 13:53 [facility] (Rec: 03/25/22 15:40 [facility] [id number]) Cardio Equipment Recumbent Bicycle Seat Position x 8 Gym Equipment Cable Column (Body Solid) Leg Extension Resistance 20# Reps/Time 3 x 10 reps Shuttle Recovery single leg squats Details 25# x10> 37# 2x10, B cued knee with toes (supported L foot alignment) Reps/Time 2 x 10 reps alternating sets Bilateral Squats Resistance 50# x10, 75# 2x10 Therapeutic Exercises Standing Exercises sit-stands Reps/Minutes x 10 standing on foam pad balance Reps/Minutes x 3 min sidesteps with theraband Standing Exercise Name side steps at rail- HEP review Resistance TB 1 just below knees Reps/Minutes 20 ft x2 lengths of rail facing Comments cued tall posture, feet facing wall //, trailing LE clearance. standing marching at the single bar in hallway Reps/Minutes x 20 Comments parallel bars PT-OP-T Assessment and Plan Start: 02/04/22 12:09 Freq: Status: Active Protocol: Document 03/25/22 13:53 [facility] (Rec: 03/25/22 15:40 [facility] [id number]) Physical Therapy Assessment Goals 4 Impairment pt lacks home exercise program for progressing her exercises Assisted Goal (LTG) Barb is independent with a HEP for LE strengthening, gait and balance. 02/18/22: verbal review hHPT HEP: stand: hip ext, minisquat , supine: LTR, heel slides, bridge, added hs curl and hip abd clam TB. 02/23/22: added R UE D1 ext w/ LUE anchor, B shld ER assist supine<> sit. 03/04/22: reviewed stame 02/23/22 : also band walk, clamshell, STS added today, resisted HS curl. LTG Duration 8 weeks (03/04/22: progressing) 3 Impairment decreased balance and stamina to be able to sorting machine operator her kitchen to cook. Short Term Goal (STG) pt is able to balance with feet together x 30 seconds without hand hold 03/04/22: GOAL MET: able stand NBOS and narrow stagger stance no UE support 60s. STG Duration GOAL MET Assisted Goal (LTG) pt is able to balance with feet together x 2 minutes without hand hold good progress LTG Duration 8 weeks 2 Impairment pt is limited with her mobility on stairs and is currently side stepping up and down her stair case outside to her home Assisted Goal (LTG) Barb is able to ambulate up and down 9 stairs with one hand hold on the left railing GOOD PROGRESS LTG Duration 8 weeks 1 Impairment Impaired gait s/p CVA with limited walking duration and stride length, pt is not able to engage in community ambulation at this time due to weakness and fatigue Government Guard Goal (LTG) Barb is able to ambulate greater than 500 feet without stopping for rest breaks with improved stride length. excellent progress, pt would like to progress from the walker to her cane and we will start working on that next visit LTG Duration 8 weeks Progress Towards Goals Progress Towards Goals Progressing Toward Goals Progress Comments Pt MET STG #3: able balance unsupported 30 s. Assessment Summary Assessment Heidy is doing better with the antibiotics and feeling that she is not as tired. She would like at some point to go to the gym near her house. Her goal is also to progress to a cane. She plans on bringing in her cane next visit for gait training. Physical Therapy Plan Frequency and Duration Frequency of Treatment 2x/Week Duration of Treatment 12 Plan of Care Start Date 03/25/22 Plan of Care End Date 06/24/22 Therapeutic Interventions Therapeutic Interventions Balance Training,Gait Training ,Home Exercise Program, Neuromuscular Re-education, Patient/Caregiver Education, Self-Care/Home Management, Therapeutic Activities, Therapeutic Exercises Next Visit Focus/Plan Next Note Type Treatment Note Next Visit Plan work with gait training with SPC next visit, continue to progress stairs and balance
--- NOTE | 2022-03-25 15:41 | PT.OPPOC ---
Physical, Occupational & Speech Therapy At [facility] Current Diagnoses Unspecified sequelae of cerebral infarction (03/25/22) Pain in right shoulder (03/25/22) Pain in left shoulder (03/25/22) Visit Care Team Role Provider Type Arvind Pires MD Attending Provider Physician Family Provider Primary Care Provider Referring Provider Specialty: Internal Medicine Address: [address] [place] [address], [address], [facility] Email: [email or web address] Plan Of Care PT-OP-T Assessment and Plan Start: 02/04/22 12:09 Freq: Status: Active Protocol: Document 03/25/22 13:53 [facility] (Rec: 03/25/22 15:40 [facility] [id number]) Physical Therapy Assessment Goals 4 Impairment pt lacks home exercise program for progressing her exercises Assessment Clinician Goal (LTG) Barb is independent with a HEP for LE strengthening, gait and balance. 02/18/22: verbal review hHPT HEP: stand: hip ext, minisquat , supine: LTR, heel slides, bridge, added hs curl and hip abd clam TB. 02/23/22: added R UE D1 ext w/ LUE anchor, B shld ER assist supine<> sit. 03/04/22: reviewed added : band walk, clamshell, STS added today, resisted HS curl. LTG Duration 8 weeks (03/25/22: progressing towards goal) 3 Impairment decreased balance and stamina to be able to senior front end engineer her kitchen to cook. Short Term Goal (STG) pt is able to balance with feet together x 30 seconds without hand hold 03/04/22: GOAL MET: able stand NBOS and narrow stagger stance no UE support 60s. STG Duration GOAL MET Skilled Nursing Goal (LTG) pt is able to balance with feet together x 2 minutes without hand hold good progress LTG Duration 8 weeks 2 Impairment pt is limited with her mobility on stairs and is currently side stepping up and down her stair case outside to her home Assessment Clinician Goal (LTG) Barb is able to ambulate up and down 9 stairs with one hand hold on the left railing GOOD PROGRESS LTG Duration 8 weeks 1 Impairment Impaired gait s/p CVA with limited walking duration and stride length, pt is not able to engage in community ambulation at this time due to weakness and fatigue Assessment Clinician Goal (LTG) Barb is able to ambulate greater than 500 feet without stopping for rest breaks with improved stride length. excellent progress, pt would like to progress from the walker to her cane and we will start working on that next visit LTG Duration 8 weeks Progress Towards Goals Progress Towards Goals Progressing Toward Goals Progress Comments Pt MET STG #3: able balance unsupported 30 s. Assessment Summary Assessment Heidy is doing better with the antibiotics and feeling that she is not as tired. She would like at some point to go to the gym near her house. Her goal is also to progress to a cane. She plans on bringing in her cane next visit for gait training. She would benefit from continued PT Physical Therapy Plan Frequency and Duration Frequency of Treatment 2x/Week Duration of Treatment 12 Plan of Care Start Date 03/25/22 Plan of Care End Date 06/24/22 Therapeutic Interventions Therapeutic Interventions Balance Training,Gait Training ,Home Exercise Program, Neuromuscular Re-education, Patient/Caregiver Education, Self-Care/Home Management, Therapeutic Activities, Therapeutic Exercises Next Visit Focus/Plan Next Note Type Treatment Note Next Visit Plan work with gait training with SPC next visit, continue to progress stairs and balance Plan of Care Dates Plan of Care Start Date 03/25/22 Plan of Care End Date 06/24/22 Electronically Signed by: Davida Sylvester, PT 03/25/22 9534 If you are in agreement with this Plan of Care, please return a signed and dated copy. I have reviewed this Plan of Care and certify that the skilled therapy services above are required to meet the patient?s needs. Physician Signature Date Printed Name and Credentials Clinical Instructor Signature Printed Name and Credentials
--- NOTE | 2022-03-30 19:28 | PT.OTN ---
Current Diagnoses Unspecified sequelae of cerebral infarction (03/30/22) Pain in right shoulder (03/30/22) Pain in left shoulder (03/30/22) Physical Therapy Treatment Note PT-OP-A Visit Information Start: 02/04/22 12:09 Freq: Status: Active Protocol: Document 03/30/22 10:36 [facility] (Rec: 03/30/22 11:15 [facility] [id number]) Out-Patient Physical Therapy Visit Information Visit Information Visit Type Treatment Note Visit Start Time 10:30 Visit Stop Time 11:15 Total Visit Minutes 45 Visit Number 9 Evaluation Information Evaluation Date 02/04/22 PT-OP-B Current Condition Start: 02/04/22 12:09 Freq: Status: Active Protocol: Document 02/04/22 13:52 [facility] (Rec: 02/04/22 14:13 [facility] [id number]) Current Condition History of Current Condition Onset Date 08/11/21 History of Current Condition 08/11/21 CVA, on the 10 of August she woke up in the middle of the night and realized she couldn't sit up to get out of bed. She noticed a change in her voice when she asked her to help her up. 911 was called and she was brought to the ER she was here 6 days and then was transferedd to [facility] in [facility] to the rehab from August 15- August 31 . At that time she went home and had in home care OT, PT, and speech. It was the left side that had the stroke so now she is sleeping on her right side which has gotten sore. She started getting pain in her neck and shoulder on the right. She is weak on her left side upper and lower body because of the stroke. She is right handed She reports sweilling in her left hand, she has gloves she wears and she keeps it elevated, she doesn't have housekeeper and is unable to make a fist any more, she would like to be able to cook again. She would like to increase her walking ability. She reports no falls. wearing left ankle FO Treatment Goals Patient/Caregiver Goals pt would like to be able to cook in her kitchen and be able to tolerate community ambulation Prior Functional Status Baseline Function- ADL's Independent Baseline Function- Mobility Independent Current Functional Impairments (Reported) Functional Limitations- ADL's unable to over a tight or new jar, severe difficulty doing ADL's and carrying a shopping bag or brief case. Severe difficulty using a knife to cut food. Functional Limitations- Mobility/Gait pt is ambulating with a FWW with limited distance and has not been able to do community ambulation PT-OP-C Subjective Start: 02/04/22 12:09 Freq: Status: Active Protocol: Document 03/30/22 10:36 [facility] (Rec: 03/30/22 11:15 [facility] [id number]) OP-PT Subjective Patient Comments Patient Comments pt notes she has been trying to stand at the bathroom sink more now to brush her teeth and comb her hair. pt brings in her quad cane today to start PT-OP-D Balance Start: 02/09/22 17:07 Freq: Status: Active Protocol: Document 02/04/22 13:45 [facility] (Rec: 02/09/22 17:08 [facility] [id number]) Balance Tests Single Limb Standing Single Limb- Right 30 sec Single Limb- Left unable Tandem Tandem Standing it is difficult for Barb to corking machine operator tandem stance PT-OP-F Manual Assessment Start: 02/04/22 12:09 Freq: Status: Active Protocol: Document 02/04/22 13:45 [facility] (Rec: 02/09/22 15:53 [facility] [id number]) Manual Assessments Soft Tissue Assessment Soft Tissue Mobility Assessment Right upper trapezius tightness PT-OP-G Mobility & Gait Start: 02/04/22 12:09 Freq: Status: Active Protocol: Document 02/04/22 13:45 [facility] (Rec: 02/09/22 15:53 [facility] [id number]) OP Mobility Evaluation Bed Mobility Supine to and from Sit min A for help with the L LE Transfers Sit to Stand SBA Bed to Chair Transfers SBA Floor Transfers not attempted OP Gait Assessment Gait Gait Assistance Required: Contact Guard Assist Distance (Feet) 250 Factors Limiting Gait Function Factors Limiting Gait Function Decreased Strength Stair Climbing Evaluation Evaluation Level of Assist On Stairs Contact Guard Assistance Devices Stair Climbing Assistive Devices Left Railing,Right Railing Technique/Endurance Stair Climbing Direction Ascend and Descend Stair Climbing Technique Step to Step Number of Steps Climbed 3 Stair Climbing Set # Repetitions (reps) 2 PT-OP-M Strength Start: 02/04/22 12:09 Freq: Status: Active Protocol: Document 02/04/22 13:45 [facility] (Rec: 02/09/22 15:53 [facility] [id number]) Hip Strength Hip Manual Muscle Testing L Flexion (L2) 3+ Fair+ Abduction 3+ Fair+ Knee Strength Knee Manual Muscle Testing Left Flexion (S2) 4 Good Extension (L3) 4 Good Ankle/Foot Strength Ankle and Foot Manual Muscle Testing Left Dorsiflexion (L4) 0 Zero Plantarflexion (S1) 1 Trace Inversion 1 Trace Eversion (S1) 1 Trace PT-OP-Q Treatments Start: 02/04/22 12:09 Freq: Status: Active Protocol: Document 03/30/22 10:36 [facility] (Rec: 03/30/22 11:15 [facility] [id number]) Cardio Equipment Recumbent Stepper (Sci-Fit) Duration (Minutes) 8 Resistance 2.5 Gym Equipment Shuttle Recovery single leg squats Details 25# x10> 37# 2x10, B cued knee with toes (supported L foot alignment) Reps/Time 2 x 10 reps alternating sets Bilateral Squats Resistance 50# x10, 75# 2x10 Gait Training Gait Activity ambulation with quad cane Device Used quad cane Level of Assistance SBA Distance/Duration 450 feet SBA Comments worked on foot and hand placement with quad cane. SBA with no loss of balance PT-OP-T Assessment and Plan Start: 02/04/22 12:09 Freq: Status: Active Protocol: Document 03/30/22 10:30 [facility] (Rec: 03/30/22 19:28 [facility] [id number]) Physical Therapy Assessment Assessment Summary Assessment Began gait training with quad cane today and Heidy was able to ambulate 450 feet with CGA. I encouraged her to bring in her quad cane next visit for continued gait training progression Physical Therapy Plan Frequency and Duration Frequency of Treatment 2x/Week Duration of Treatment 12 Plan of Care Start Date 03/25/22 Plan of Care End Date 06/24/22 Therapeutic Interventions Therapeutic Interventions Balance Training,Gait Training ,Home Exercise Program, Neuromuscular Re-education, Patient/Caregiver Education, Self-Care/Home Management, Therapeutic Activities, Therapeutic Exercises Next Visit Focus/Plan Next Note Type Treatment Note Next Visit Plan continue with gait training with quad cane, balance and strength training
--- NOTE | 2022-04-01 16:59 | PT.OTN ---
Current Diagnoses Unspecified sequelae of cerebral infarction (04/01/22) Pain in right shoulder (04/01/22) Pain in left shoulder (04/01/22) Physical Therapy Treatment Note PT-OP-A Visit Information Start: 02/04/22 12:09 Freq: Status: Active Protocol: Document 03/30/22 10:36 [facility] (Rec: 03/30/22 11:15 [facility] [id number]) Out-Patient Physical Therapy Visit Information Visit Information Visit Type Treatment Note Visit Start Time 10:30 Visit Stop Time 11:15 Total Visit Minutes 45 Visit Number 9 Evaluation Information Evaluation Date 02/04/22 PT-OP-B Current Condition Start: 02/04/22 12:09 Freq: Status: Active Protocol: Document 02/04/22 13:52 [facility] (Rec: 02/04/22 14:13 [facility] [id number]) Current Condition History of Current Condition Onset Date 08/11/21 History of Current Condition 08/11/21 CVA, on the 10 of August she woke up in the middle of the night and realized she couldn't sit up to get out of bed. She noticed a change in her voice when she asked her to help her up. 911 was called and she was brought to the ER she was here 6 days and then was transferedd to [facility] in [facility] to the rehab from August 15- August 31 . At that time she went home and had in home care OT, PT, and speech. It was the left side that had the stroke so now she is sleeping on her right side which has gotten sore. She started getting pain in her neck and shoulder on the right. She is weak on her left side upper and lower body because of the stroke. She is right handed She reports sweilling in her left hand, she has gloves she wears and she keeps it elevated, she doesn't have machine repairer and is unable to make a fist any more, she would like to be able to cook again. She would like to increase her walking ability. She reports no falls. wearing left ankle FO Treatment Goals Patient/Caregiver Goals pt would like to be able to cook in her kitchen and be able to tolerate community ambulation Prior Functional Status Baseline Function- ADL's Independent Baseline Function- Mobility Independent Current Functional Impairments (Reported) Functional Limitations- ADL's unable to over a tight or new jar, severe difficulty doing ADL's and carrying a shopping bag or brief case. Severe difficulty using a knife to cut food. Functional Limitations- Mobility/Gait pt is ambulating with a FWW with limited distance and has not been able to do community ambulation PT-OP-C Subjective Start: 02/04/22 12:09 Freq: Status: Active Protocol: Document 03/30/22 10:36 [facility] (Rec: 03/30/22 11:15 [facility] [id number]) OP-PT Subjective Patient Comments Patient Comments pt notes she has been trying to stand at the bathroom sink more now to brush her teeth and comb her hair. pt brings in her quad cane today to start PT-OP-D Balance Start: 02/09/22 17:07 Freq: Status: Active Protocol: Document 02/04/22 13:45 [facility] (Rec: 02/09/22 17:08 [facility] [id number]) Balance Tests Single Limb Standing Single Limb- Right 30 sec Single Limb- Left unable Tandem Tandem Standing it is difficult for Barb to combining machine operator tandem stance PT-OP-F Manual Assessment Start: 02/04/22 12:09 Freq: Status: Active Protocol: Document 02/04/22 13:45 [facility] (Rec: 02/09/22 15:53 [facility] [id number]) Manual Assessments Soft Tissue Assessment Soft Tissue Mobility Assessment Right upper trapezius tightness PT-OP-G Mobility & Gait Start: 02/04/22 12:09 Freq: Status: Active Protocol: Document 02/04/22 13:45 [facility] (Rec: 02/09/22 15:53 [facility] [id number]) OP Mobility Evaluation Bed Mobility Supine to and from Sit min A for help with the L LE Transfers Sit to Stand SBA Bed to Chair Transfers SBA Floor Transfers not attempted OP Gait Assessment Gait Gait Assistance Required: Contact Guard Assist Distance (Feet) 250 Factors Limiting Gait Function Factors Limiting Gait Function Decreased Strength Stair Climbing Evaluation Evaluation Level of Assist On Stairs Contact Guard Assistance Devices Stair Climbing Assistive Devices Left Railing,Right Railing Technique/Endurance Stair Climbing Direction Ascend and Descend Stair Climbing Technique Step to Step Number of Steps Climbed 3 Stair Climbing Set # Repetitions (reps) 2 PT-OP-M Strength Start: 02/04/22 12:09 Freq: Status: Active Protocol: Document 02/04/22 13:45 [facility] (Rec: 02/09/22 15:53 [facility] [id number]) Hip Strength Hip Manual Muscle Testing L Flexion (L2) 3+ Fair+ Abduction 3+ Fair+ Knee Strength Knee Manual Muscle Testing Left Flexion (S2) 4 Good Extension (L3) 4 Good Ankle/Foot Strength Ankle and Foot Manual Muscle Testing Left Dorsiflexion (L4) 0 Zero Plantarflexion (S1) 1 Trace Inversion 1 Trace Eversion (S1) 1 Trace PT-OP-Q Treatments Start: 02/04/22 12:09 Freq: Status: Active Protocol: Document 03/30/22 10:36 [facility] (Rec: 03/30/22 11:15 [facility] [id number]) Cardio Equipment Recumbent Stepper (Sci-Fit) Duration (Minutes) 8 Resistance 2.5 Gym Equipment Shuttle Recovery single leg squats Details 25# x10> 37# 2x10, B cued knee with toes (supported L foot alignment) Reps/Time 2 x 10 reps alternating sets Bilateral Squats Resistance 50# x10, 75# 2x10 Gait Training Gait Activity ambulation with quad cane Device Used quad cane Level of Assistance SBA Distance/Duration 450 feet SBA Comments worked on foot and hand placement with quad cane. SBA with no loss of balance PT-OP-T Assessment and Plan Start: 02/04/22 12:09 Freq: Status: Active Protocol: Document 03/30/22 10:30 [facility] (Rec: 03/30/22 19:28 [facility] [id number]) Physical Therapy Assessment Assessment Summary Assessment Began gait training with quad cane today and Heidy was able to ambulate 450 feet with CGA. I encouraged her to bring in her quad cane next visit for continued gait training progression Physical Therapy Plan Frequency and Duration Frequency of Treatment 2x/Week Duration of Treatment 12 Plan of Care Start Date 03/25/22 Plan of Care End Date 06/24/22 Therapeutic Interventions Therapeutic Interventions Balance Training,Gait Training ,Home Exercise Program, Neuromuscular Re-education, Patient/Caregiver Education, Self-Care/Home Management, Therapeutic Activities, Therapeutic Exercises Next Visit Focus/Plan Next Note Type Treatment Note Next Visit Plan continue with gait training with quad cane, balance and strength training
--- NOTE | 2022-04-07 12:56 | PT.OTN ---
Current Diagnoses Unspecified sequelae of cerebral infarction (04/07/22) Pain in right shoulder (04/07/22) Pain in left shoulder (04/07/22) Physical Therapy Treatment Note PT-OP-A Visit Information Start: 02/04/22 12:09 Freq: Status: Active Protocol: Document 04/07/22 12:11 [facility] (Rec: 04/07/22 13:13 [facility] [id number]) Out-Patient Physical Therapy Visit Information Visit Information Visit Type Treatment Note Visit Note 10/17 visits allowed. Visit Start Time 12:11 Visit Stop Time 12:56 Total Visit Minutes 45 Visit Number 11 Number of VIDEO NETWORK ENGINEER Visits 1 Evaluation Information Evaluation Date 02/04/22 PT-OP-B Current Condition Start: 02/04/22 12:09 Freq: Status: Active Protocol: Document 02/04/22 13:52 [facility] (Rec: 02/04/22 14:13 [facility] [id number]) Current Condition History of Current Condition Onset Date 08/11/21 History of Current Condition 08/11/21 CVA, on the 10 of August she woke up in the middle of the night and realized she couldn't sit up to get out of bed. She noticed a change in her voice when she asked her to help her up. 911 was called and she was brought to the ER she was here 6 days and then was transferedd to [facility] in [facility] to the rehab from August 15- August 31 . At that time she went home and had in home care OT, PT, and speech. It was the left side that had the stroke so now she is sleeping on her right side which has gotten sore. She started getting pain in her neck and shoulder on the right. She is weak on her left side upper and lower body because of the stroke. She is right handed She reports sweilling in her left hand, she has gloves she wears and she keeps it elevated, she doesn't have rolling down machine operator and is unable to make a fist any more, she would like to be able to cook again. She would like to increase her walking ability. She reports no falls. wearing left ankle FO Treatment Goals Patient/Caregiver Goals pt would like to be able to cook in her kitchen and be able to tolerate community ambulation Prior Functional Status Baseline Function- ADL's Independent Baseline Function- Mobility Independent Current Functional Impairments (Reported) Functional Limitations- ADL's unable to over a tight or new jar, severe difficulty doing ADL's and carrying a shopping bag or brief case. Severe difficulty using a knife to cut food. Functional Limitations- Mobility/Gait pt is ambulating with a FWW with limited distance and has not been able to do community ambulation PT-OP-C Subjective Start: 02/04/22 12:09 Freq: Status: Active Protocol: Document 04/07/22 12:11 SP (Rec: 04/07/22 13:13 SP [id number]) OP-PT Subjective Patient Comments Patient Comments Pt reports was able to cook cinnamon rolls for Mother's Day herself, she was seated in transfer chair. She tends to use her LEs to get self around . Has been using QC short distances around house w/ SBA, CGA if needed. She always has gait belt donned for help if needed. PT-OP-D Balance Start: 02/09/22 17:07 Freq: Status: Active Protocol: Document 02/04/22 13:45 [facility] (Rec: 02/09/22 17:08 [facility] [id number]) Balance Tests Single Limb Standing Single Limb- Right 30 sec Single Limb- Left unable Tandem Tandem Standing it is difficult for Barb to partner marketing manager tandem stance PT-OP-F Manual Assessment Start: 02/04/22 12:09 Freq: Status: Active Protocol: Document 02/04/22 13:45 [facility] (Rec: 02/09/22 15:53 [facility] [id number]) Manual Assessments Soft Tissue Assessment Soft Tissue Mobility Assessment Right upper trapezius tightness PT-OP-G Mobility & Gait Start: 02/04/22 12:09 Freq: Status: Active Protocol: Document 02/04/22 13:45 [facility] (Rec: 02/09/22 15:53 [facility] [id number]) OP Mobility Evaluation Bed Mobility Supine to and from Sit min A for help with the L LE Transfers Sit to Stand SBA Bed to Chair Transfers SBA Floor Transfers not attempted OP Gait Assessment Gait Gait Assistance Required: Contact Guard Assist Distance (Feet) 250 Factors Limiting Gait Function Factors Limiting Gait Function Decreased Strength Stair Climbing Evaluation Evaluation Level of Assist On Stairs Contact Guard Assistance Devices Stair Climbing Assistive Devices Left Railing,Right Railing Technique/Endurance Stair Climbing Direction Ascend and Descend Stair Climbing Technique Step to Step Number of Steps Climbed 3 Stair Climbing Set # Repetitions (reps) 2 PT-OP-M Strength Start: 02/04/22 12:09 Freq: Status: Active Protocol: Document 02/04/22 13:45 [facility] (Rec: 02/09/22 15:53 [facility] [id number]) Hip Strength Hip Manual Muscle Testing L Flexion (L2) 3+ Fair+ Abduction 3+ Fair+ Knee Strength Knee Manual Muscle Testing Left Flexion (S2) 4 Good Extension (L3) 4 Good Ankle/Foot Strength Ankle and Foot Manual Muscle Testing Left Dorsiflexion (L4) 0 Zero Plantarflexion (S1) 1 Trace Inversion 1 Trace Eversion (S1) 1 Trace PT-OP-Q Treatments Start: 02/04/22 12:09 Freq: Status: Active Protocol: Document 04/07/22 12:11 SP (Rec: 04/07/22 13:13 SP [id number]) Gym Equipment Cable Column (Body Solid) Hip Abduction Resistance 20# Reps/Time 4x10 reps Shuttle Recovery single leg squats Details B cued knee with toes ( supported L foot alignment) Resistance 37# Shuttle Recovery Platform Stable Reps/Time 2x10 Bilateral Squats Details ball bwtn knees Resistance 75# Shuttle Recovery Platform Stable Reps/Time 2x10 Therapeutic Exercises Supine Exercises LUE FF, HABD Supine Exercise Name added to HEP Side left Resistance waterbottle Reps/Minutes x5 Comments each Standing Exercises stepping over hurdles Standing Exercise Name forward Equipment Used 1 rail, 6 hurdles Reps/Minutes 15 ft x3 laps Comments good foot clearance ( encouraged LUE support on rail 1 direction- stable Therapeutic Activity Therapeutic Activity supine<> sit Name sit<>L SL<> supine Reps/Minutes x1 Comments Min A and encouraged with cuing for L UE WB ontable assist trunk righting. Gait Training Gait Activity ambulation with quad cane Device Used SBQC- readjusted base ( straight edge facing pt) Level of Assistance CGA- close SBA Surface firm carpet/ tile Distance/Duration 185 ft Treatment Focus 3>2pt gait, increase stride and foot clearance, stability Comments worked on receiprocal BLE patterning 3>2pt gait, tires after 1/2 distance then 3pt gait. CUed LLE full extension into heel strike for increased stride good placement of quad cane. CG- close SBA with no loss of balance. 1 sway but self recovery. PT-OP-T Assessment and Plan Start: 02/04/22 12:09 Freq: Status: Active Protocol: Document 04/07/22 12:11 SP (Rec: 04/07/22 13:13 SP [id number]) Physical Therapy Assessment Goals 4 Impairment pt lacks home exercise program for progressing her exercises Judo Instructor Goal (LTG) Barb is independent with a HEP for LE strengthening, gait and balance. 02/18/22: verbal review hHPT HEP: stand: hip ext, minisquat , supine: LTR, heel slides, bridge, added hs curl and hip abd clam TB. 02/23/22: added R UE D1 ext w/ LUE anchor, B shld ER assist supine<> sit. 03/04/22: reviewed stame 02/23/22 : also band walk, clamshell, STS added today, resisted HS curl. 04/07/22: added supine LUE FF OH and HABD tolerant range no UT recruitment w/ waterbottle wt. LTG Duration 8 weeks (04/07/22: progressing) 3 Impairment decreased balance and stamina to be able to partner marketing manager her kitchen to cook. Short Term Goal (STG) pt is able to balance with feet together x 30 seconds without hand hold 03/04/22: GOAL MET: able stand NBOS and narrow stagger stance no UE support 60s. STG Duration GOAL MET Shelter Goal (LTG) pt is able to balance with feet together x 2 minutes without hand hold good progress LTG Duration 8 weeks 2 Impairment pt is limited with her mobility on stairs and is currently side stepping up and down her stair case outside to her home Judo Instructor Goal (LTG) Barb is able to ambulate up and down 9 stairs with one hand hold on the left railing GOOD PROGRESS LTG Duration 8 weeks 1 Impairment Impaired gait s/p CVA with limited walking duration and stride length, pt is not able to engage in community ambulation at this time due to weakness and fatigue Shelter Goal (LTG) Barb is able to ambulate greater than 500 feet without stopping for rest breaks with improved stride length. excellent progress, pt would like to progress from the walker to her cane and we will start working on that next visit LTG Duration 8 weeks Assessment Summary Assessment Pt improved with receiprocal stepping using QC, occasional cues for longer stride with LLE for normalizing receiprocal patterning as initially started tx, then tires. Physical Therapy Plan Frequency and Duration Frequency of Treatment 2x/Week Duration of Treatment 12 Plan of Care Start Date 03/25/22 Plan of Care End Date 06/24/22 Therapeutic Interventions Therapeutic Interventions Balance Training,Gait Training ,Home Exercise Program, Neuromuscular Re-education, Patient/Caregiver Education, Self-Care/Home Management, Therapeutic Activities, Therapeutic Exercises Next Visit Focus/Plan Next Note Type Treatment Note Next Visit Plan Feedback to goals next tx. Pt 10/16 appts, allowed 20. Pt to change appts to 1x/wk for next 9 appts to give longer opportunity work with PT and carryover HEP at home. Waiting to see OT. POC: Continue with gait training with quad cane, balance and strength training
--- NOTE | 2022-04-14 13:00 | PT.OTN ---
Current Diagnoses Unspecified sequelae of cerebral infarction (04/14/22) Pain in right shoulder (04/14/22) Pain in left shoulder (04/14/22) Physical Therapy Treatment Note PT-OP-A Visit Information Start: 02/04/22 12:09 Freq: Status: Active Protocol: Document 04/14/22 12:18 SP (Rec: 04/14/22 12:57 SP [id number]) Out-Patient Physical Therapy Visit Information Visit Information Visit Type Treatment Note Visit Note 11/16 Visit Start Time 12:18 Visit Stop Time 13:00 Total Visit Minutes 42 Visit Number 12 Number of WOOD CABINETMAKER Visits 2 Evaluation Information Evaluation Date 02/04/22 PT-OP-B Current Condition Start: 02/04/22 12:09 Freq: Status: Active Protocol: Document 02/04/22 13:52 [facility] (Rec: 02/04/22 14:13 [facility] [id number]) Current Condition History of Current Condition Onset Date 08/11/21 History of Current Condition 08/11/21 CVA, on the 10 of August she woke up in the middle of the night and realized she couldn't sit up to get out of bed. She noticed a change in her voice when she asked her to help her up. 911 was called and she was brought to the ER she was here 6 days and then was transferedd to [facility] in [facility] to the rehab from August 15- August 31 . At that time she went home and had in home care OT, PT, and speech. It was the left side that had the stroke so now she is sleeping on her right side which has gotten sore. She started getting pain in her neck and shoulder on the right. She is weak on her left side upper and lower body because of the stroke. She is right handed She reports sweilling in her left hand, she has gloves she wears and she keeps it elevated, she doesn't have lay out former and is unable to make a fist any more, she would like to be able to cook again. She would like to increase her walking ability. She reports no falls. wearing left ankle FO Treatment Goals Patient/Caregiver Goals pt would like to be able to cook in her kitchen and be able to tolerate community ambulation Prior Functional Status Baseline Function- ADL's Independent Baseline Function- Mobility Independent Current Functional Impairments (Reported) Functional Limitations- ADL's unable to over a tight or new jar, severe difficulty doing ADL's and carrying a shopping bag or brief case. Severe difficulty using a knife to cut food. Functional Limitations- Mobility/Gait pt is ambulating with a FWW with limited distance and has not been able to do community ambulation PT-OP-C Subjective Start: 02/04/22 12:09 Freq: Status: Active Protocol: Document 04/14/22 12:18 SP (Rec: 04/14/22 12:57 SP [id number]) OP-PT Subjective Patient Comments Patient Comments Pt reported hasn't used the QC alot lately at home, feeling unsteady and pain in L hip. She has been having dreams about walking normally and her mom and sister that seeming proud of her. PT-OP-D Balance Start: 02/09/22 17:07 Freq: Status: Active Protocol: Document 02/04/22 13:45 [facility] (Rec: 02/09/22 17:08 [facility] [id number]) Balance Tests Single Limb Standing Single Limb- Right 30 sec Single Limb- Left unable Tandem Tandem Standing it is difficult for Barb to stranding machine operator helper tandem stance PT-OP-F Manual Assessment Start: 02/04/22 12:09 Freq: Status: Active Protocol: Document 02/04/22 13:45 [facility] (Rec: 02/09/22 15:53 [facility] [id number]) Manual Assessments Soft Tissue Assessment Soft Tissue Mobility Assessment Right upper trapezius tightness PT-OP-G Mobility & Gait Start: 02/04/22 12:09 Freq: Status: Active Protocol: Document 02/04/22 13:45 [facility] (Rec: 02/09/22 15:53 [facility] [id number]) OP Mobility Evaluation Bed Mobility Supine to and from Sit min A for help with the L LE Transfers Sit to Stand SBA Bed to Chair Transfers SBA Floor Transfers not attempted OP Gait Assessment Gait Gait Assistance Required: Contact Guard Assist Distance (Feet) 250 Factors Limiting Gait Function Factors Limiting Gait Function Decreased Strength Stair Climbing Evaluation Evaluation Level of Assist On Stairs Contact Guard Assistance Devices Stair Climbing Assistive Devices Left Railing,Right Railing Technique/Endurance Stair Climbing Direction Ascend and Descend Stair Climbing Technique Step to Step Number of Steps Climbed 3 Stair Climbing Set # Repetitions (reps) 2 PT-OP-M Strength Start: 02/04/22 12:09 Freq: Status: Active Protocol: Document 02/04/22 13:45 [facility] (Rec: 02/09/22 15:53 [facility] [id number]) Hip Strength Hip Manual Muscle Testing L Flexion (L2) 3+ Fair+ Abduction 3+ Fair+ Knee Strength Knee Manual Muscle Testing Left Flexion (S2) 4 Good Extension (L3) 4 Good Ankle/Foot Strength Ankle and Foot Manual Muscle Testing Left Dorsiflexion (L4) 0 Zero Plantarflexion (S1) 1 Trace Inversion 1 Trace Eversion (S1) 1 Trace PT-OP-Q Treatments Start: 02/04/22 12:09 Freq: Status: Active Protocol: Document 04/14/22 12:18 SP (Rec: 04/14/22 12:57 SP [id number]) Gym Equipment Shuttle Recovery single leg squats Details B cued knee with toes ( supported L foot alignment) Resistance 37# Shuttle Recovery Platform Stable Reps/Time x15 Bilateral Squats Details cued see insoles Resistance 75# Shuttle Recovery Platform Stable Reps/Time 2x15 Therapeutic Exercises Supine Exercises maría elena stretch Supine Exercise Name L anterior hip off table supported Side left Resistance AAROM Reps/Minutes 30 x2 Comments cued TA awareness for no LB recruitment- good response Sidelying Exercises clamshell & reverse clamshell Sidelying Exercise Name add for HEP Side left Reps/Minutes 5 reps each Comments cued lift away from other LE, stable trunk not rolling Gait Training Gait Activity ambulation with quad cane Device Used SBQC- readjusted base ( straight edge facing pt) Level of Assistance CGA- close SBA Surface firm carpet/ tile Distance/Duration 112 ft, 49 ft, 60 ft Treatment Focus 3>2pt gait, increase stride and foot clearance, stability Comments worked on receiprocal BLE patterning 3>2pt gait. CUed LLE full extension into heel strike LLE for increased stride and RLE passing LLE for increase L hip extension with good placement of quad cane. CG- close SBA with no loss of balance. Manual Therapy Treatment Soft Tissue Mobilization L quad, TFL Mobilization Type Myofascial Release,Strumming Intensity/Depth Moderate Body Position Hooklying Comments manual Self-Care/Home Management Treatment Education Patient Education Body Mechanics,Joint Protection,Pain Management, Posture Other Education Ed on sidelying w/ use pillows between BLE on R side to allow decrease tension on L hip and LE, states feels alot beter. PT-OP-T Assessment and Plan Start: 02/04/22 12:09 Freq: Status: Active Protocol: Document 04/14/22 12:18 SP (Rec: 04/14/22 12:57 SP [id number]) Physical Therapy Assessment Goals 4 Impairment pt lacks home exercise program for progressing her exercises Visiting Teacher Goal (LTG) Barb is independent with a HEP for LE strengthening, gait and balance. 02/18/22: verbal review hHPT HEP: stand: hip ext, minisquat , supine: LTR, heel slides, bridge, added hs curl and hip abd clam TB. 02/23/22: added R UE D1 ext w/ LUE anchor, B shld ER assist supine<> sit. 03/04/22: reviewed stame 02/23/22 : also band walk, clamshell, STS added today, resisted HS curl. 04/07/22: added supine LUE FF OH and HABD tolerant range no UT recruitment w/ waterbottle wt. LTG Duration 8 weeks (04/07/22: progressing) 3 Impairment decreased balance and stamina to be able to stranding machine operator helper her kitchen to cook. Short Term Goal (STG) pt is able to balance with feet together x 30 seconds without hand hold 03/04/22: GOAL MET: able stand NBOS and narrow stagger stance no UE support 60s. STG Duration GOAL MET Halfway Goal (LTG) pt is able to balance with feet together x 2 minutes without hand hold good progress LTG Duration 8 weeks 2 Impairment pt is limited with her mobility on stairs and is currently side stepping up and down her stair case outside to her home Visiting Teacher Goal (LTG) Barb is able to ambulate up and down 9 stairs with one hand hold on the left railing GOOD PROGRESS LTG Duration 8 weeks 1 Impairment Impaired gait s/p CVA with limited walking duration and stride length, pt is not able to engage in community ambulation at this time due to weakness and fatigue Halfway Goal (LTG) Barb is able to ambulate greater than 500 feet without stopping for rest breaks with improved stride length. excellent progress, pt would like to progress from the walker to her cane and we will start working on that next visit LTG Duration 8 weeks Assessment Summary Assessment Pt reported improved L hip pain post manual, stretching, ed for sleeping use pillows between B LEs, She demonstrated increase knee extension into heel strike and longer stride receiprocal gait not fully passing each other and quicker transition QC advancement to almost 2pt gait end tx. Pt reports no pain L hip end tx. Physical Therapy Plan Frequency and Duration Frequency of Treatment 2x/Week Duration of Treatment 12 Plan of Care Start Date 03/25/22 Plan of Care End Date 06/24/22 Therapeutic Interventions Therapeutic Interventions Balance Training,Gait Training ,Home Exercise Program, Neuromuscular Re-education, Patient/Caregiver Education, Self-Care/Home Management, Therapeutic Activities, Therapeutic Exercises Next Visit Focus/Plan Next Note Type Treatment Note Next Visit Plan Next tx, ask if pt wants to change appts to 1x/wk for next 7 appts to give longer opportunity work with PT and carryover HEP at home. Waiting to see OT. POC: Continue with gait training with quad cane, balance and strength training
--- NOTE | 2022-04-27 15:56 | PT.OTN ---
Current Diagnoses Unspecified sequelae of cerebral infarction (04/27/22) Pain in right shoulder (04/27/22) Pain in left shoulder (04/27/22) Physical Therapy Treatment Note PT-OP-A Visit Information Start: 02/04/22 12:09 Freq: Status: Active Protocol: Document 04/27/22 10:31 [facility] (Rec: 04/27/22 11:15 [facility] [id number]) Out-Patient Physical Therapy Visit Information Visit Information Visit Type Treatment Note Visit Note Visit Start Time 10:30 Visit Stop Time 11:15 Total Visit Minutes 45 Visit Number 13 Number of PRODUCTION CONTROL SPECIALIST Visits 3 PT-OP-B Current Condition Start: 02/04/22 12:09 Freq: Status: Active Protocol: Document 02/04/22 13:52 [facility] (Rec: 02/04/22 14:13 [facility] [id number]) Current Condition History of Current Condition Onset Date 08/11/21 History of Current Condition 08/11/21 CVA, on the 10 of August she woke up in the middle of the night and realized she couldn't sit up to get out of bed. She noticed a change in her voice when she asked her to help her up. 911 was called and she was brought to the ER she was here 6 days and then was transferedd to [facility] in [facility] to the rehab from August 15- August 31 . At that time she went home and had in home care OT, PT, and speech. It was the left side that had the stroke so now she is sleeping on her right side which has gotten sore. She started getting pain in her neck and shoulder on the right. She is weak on her left side upper and lower body because of the stroke. She is right handed She reports sweilling in her left hand, she has gloves she wears and she keeps it elevated, she doesn't have resource agent and is unable to make a fist any more, she would like to be able to cook again. She would like to increase her walking ability. She reports no falls. wearing left ankle FO Treatment Goals Patient/Caregiver Goals pt would like to be able to cook in her kitchen and be able to tolerate community ambulation Prior Functional Status Baseline Function- ADL's Independent Baseline Function- Mobility Independent Current Functional Impairments (Reported) Functional Limitations- ADL's unable to over a tight or new jar, severe difficulty doing ADL's and carrying a shopping bag or brief case. Severe difficulty using a knife to cut food. Functional Limitations- Mobility/Gait pt is ambulating with a FWW with limited distance and has not been able to do community ambulation PT-OP-C Subjective Start: 02/04/22 12:09 Freq: Status: Active Protocol: Document 04/27/22 10:31 [facility] (Rec: 04/27/22 11:15 [facility] [id number]) OP-PT Subjective Patient Comments Patient Comments pt reports she was able to make her dinner for his birthday. She just needed help getting the food out of the oven. She was also able to steam clean the bathroom while sitting in her chair Patient Reported Progress Improving PT-OP-D Balance Start: 02/09/22 17:07 Freq: Status: Active Protocol: Document 02/04/22 13:45 [facility] (Rec: 02/09/22 17:08 [facility] [id number]) Balance Tests Single Limb Standing Single Limb- Right 30 sec Single Limb- Left unable Tandem Tandem Standing it is difficult for Barb to gelatin powder mixer tandem stance PT-OP-F Manual Assessment Start: 02/04/22 12:09 Freq: Status: Active Protocol: Document 02/04/22 13:45 [facility] (Rec: 02/09/22 15:53 [facility] [id number]) Manual Assessments Soft Tissue Assessment Soft Tissue Mobility Assessment Right upper trapezius tightness PT-OP-G Mobility & Gait Start: 02/04/22 12:09 Freq: Status: Active Protocol: Document 02/04/22 13:45 [facility] (Rec: 02/09/22 15:53 [facility] [id number]) OP Mobility Evaluation Bed Mobility Supine to and from Sit min A for help with the L LE Transfers Sit to Stand SBA Bed to Chair Transfers SBA Floor Transfers not attempted OP Gait Assessment Gait Gait Assistance Required: Contact Guard Assist Distance (Feet) 250 Factors Limiting Gait Function Factors Limiting Gait Function Decreased Strength Stair Climbing Evaluation Evaluation Level of Assist On Stairs Contact Guard Assistance Devices Stair Climbing Assistive Devices Left Railing,Right Railing Technique/Endurance Stair Climbing Direction Ascend and Descend Stair Climbing Technique Step to Step Number of Steps Climbed 3 Stair Climbing Set # Repetitions (reps) 2 PT-OP-M Strength Start: 02/04/22 12:09 Freq: Status: Active Protocol: Document 02/04/22 13:45 [facility] (Rec: 02/09/22 15:53 [facility] [id number]) Hip Strength Hip Manual Muscle Testing L Flexion (L2) 3+ Fair+ Abduction 3+ Fair+ Knee Strength Knee Manual Muscle Testing Left Flexion (S2) 4 Good Extension (L3) 4 Good Ankle/Foot Strength Ankle and Foot Manual Muscle Testing Left Dorsiflexion (L4) 0 Zero Plantarflexion (S1) 1 Trace Inversion 1 Trace Eversion (S1) 1 Trace PT-OP-Q Treatments Start: 02/04/22 12:09 Freq: Status: Active Protocol: Document 04/27/22 10:31 [facility] (Rec: 04/27/22 11:15 [facility] [id number]) Cardio Equipment Recumbent Elliptical (vivit) Duration (Minutes) 6 Resistance 4 Therapeutic Exercises Standing Exercises sit-stands Reps/Minutes x 10 reps standing on foam pad balance Reps/Minutes x 3 min standing single leg balance Reps/Minutes x3 each leg Comments pt at 5 sec hold on left leg with hand support side steps onto 4 box Reps/Minutes x 10 steps stepping over hurdles Standing Exercise Name forward Equipment Used 1 rail, 6 hurdles Reps/Minutes 15 ft x3 laps Comments good foot clearance ( encouraged LUE support on rail 1 direction- stable step ups at 4 step Reps/Minutes x 10 Comments with left leg leading alternating toe taps on the 4 steps Reps/Minutes x 20 reps alternating sidesteps with theraband Equipment Used yellow theraband at ankles Reps/Minutes x 4 times the length of the bar PT-OP-T Assessment and Plan Start: 02/04/22 12:09 Freq: Status: Active Protocol: Document 04/27/22 10:31 [facility] (Rec: 04/27/22 15:53 [facility] [id number]) Physical Therapy Assessment Assessment Summary Assessment pt was very happy today that she was able to cook a dinner for her . She is showing good progress with balance and strength overall Physical Therapy Plan Frequency and Duration Frequency of Treatment 2x/Week Duration of Treatment 12 Plan of Care Start Date 03/25/22 Plan of Care End Date 06/24/22 Therapeutic Interventions Therapeutic Interventions Balance Training,Gait Training ,Home Exercise Program, Neuromuscular Re-education, Patient/Caregiver Education, Self-Care/Home Management, Therapeutic Activities, Therapeutic Exercises Next Visit Focus/Plan Next Note Type Treatment Note Next Visit Plan continue to progress balance and ambulation with SPC, strengthening for LE
--- NOTE | 2022-04-29 18:32 | PT.OTN ---
Current Diagnoses Unspecified sequelae of cerebral infarction (04/29/22) Pain in right shoulder (04/29/22) Pain in left shoulder (04/29/22) Physical Therapy Treatment Note PT-OP-A Visit Information Start: 02/04/22 12:09 Freq: Status: Active Protocol: Document 04/29/22 13:00 [facility] (Rec: 04/29/22 13:48 [facility] [id number]) Out-Patient Physical Therapy Visit Information Visit Information Visit Type Treatment Note Visit Note Visit Start Time 13:00 Visit Stop Time 13:45 Total Visit Minutes 45 Visit Number 14 Number of FURNITURE UPHOLSTERER APPRENTICE Visits 0 PT-OP-B Current Condition Start: 02/04/22 12:09 Freq: Status: Active Protocol: Document 02/04/22 13:52 [facility] (Rec: 02/04/22 14:13 [facility] [id number]) Current Condition History of Current Condition Onset Date 08/11/21 History of Current Condition 08/11/21 CVA, on the 10 of August she woke up in the middle of the night and realized she couldn't sit up to get out of bed. She noticed a change in her voice when she asked her to help her up. 911 was called and she was brought to the ER she was here 6 days and then was transferedd to [facility] in [facility] to the rehab from August 15- August 31 . At that time she went home and had in home care OT, PT, and speech. It was the left side that had the stroke so now she is sleeping on her right side which has gotten sore. She started getting pain in her neck and shoulder on the right. She is weak on her left side upper and lower body because of the stroke. She is right handed She reports sweilling in her left hand, she has gloves she wears and she keeps it elevated, she doesn't have personnel generalist manager and is unable to make a fist any more, she would like to be able to cook again. She would like to increase her walking ability. She reports no falls. wearing left ankle FO Treatment Goals Patient/Caregiver Goals pt would like to be able to cook in her kitchen and be able to tolerate community ambulation Prior Functional Status Baseline Function- ADL's Independent Baseline Function- Mobility Independent Current Functional Impairments (Reported) Functional Limitations- ADL's unable to over a tight or new jar, severe difficulty doing ADL's and carrying a shopping bag or brief case. Severe difficulty using a knife to cut food. Functional Limitations- Mobility/Gait pt is ambulating with a FWW with limited distance and has not been able to do community ambulation PT-OP-C Subjective Start: 02/04/22 12:09 Freq: Status: Active Protocol: Document 04/29/22 13:00 [facility] (Rec: 04/29/22 13:48 [facility] [id number]) OP-PT Subjective Patient Comments Patient Comments pt reports she is doing well, she is going for her booster shot today after PT She has been using her cane a little more at home. She used her cane to walk into the house for the first time. She has 10-15 steps to get into her house and she used the rail for that then used to cane to get into the house. PT-OP-D Balance Start: 02/09/22 17:07 Freq: Status: Active Protocol: Document 02/04/22 13:45 [facility] (Rec: 02/09/22 17:08 [facility] [id number]) Balance Tests Single Limb Standing Single Limb- Right 30 sec Single Limb- Left unable Tandem Tandem Standing it is difficult for Barb to mobile paramedical examiner tandem stance PT-OP-F Manual Assessment Start: 02/04/22 12:09 Freq: Status: Active Protocol: Document 02/04/22 13:45 [facility] (Rec: 02/09/22 15:53 [facility] [id number]) Manual Assessments Soft Tissue Assessment Soft Tissue Mobility Assessment Right upper trapezius tightness PT-OP-G Mobility & Gait Start: 02/04/22 12:09 Freq: Status: Active Protocol: Document 02/04/22 13:45 [facility] (Rec: 02/09/22 15:53 [facility] [id number]) OP Mobility Evaluation Bed Mobility Supine to and from Sit min A for help with the L LE Transfers Sit to Stand SBA Bed to Chair Transfers SBA Floor Transfers not attempted OP Gait Assessment Gait Gait Assistance Required: Contact Guard Assist Distance (Feet) 250 Factors Limiting Gait Function Factors Limiting Gait Function Decreased Strength Stair Climbing Evaluation Evaluation Level of Assist On Stairs Contact Guard Assistance Devices Stair Climbing Assistive Devices Left Railing,Right Railing Technique/Endurance Stair Climbing Direction Ascend and Descend Stair Climbing Technique Step to Step Number of Steps Climbed 3 Stair Climbing Set # Repetitions (reps) 2 PT-OP-M Strength Start: 02/04/22 12:09 Freq: Status: Active Protocol: Document 02/04/22 13:45 [facility] (Rec: 02/09/22 15:53 [facility] [id number]) Hip Strength Hip Manual Muscle Testing L Flexion (L2) 3+ Fair+ Abduction 3+ Fair+ Knee Strength Knee Manual Muscle Testing Left Flexion (S2) 4 Good Extension (L3) 4 Good Ankle/Foot Strength Ankle and Foot Manual Muscle Testing Left Dorsiflexion (L4) 0 Zero Plantarflexion (S1) 1 Trace Inversion 1 Trace Eversion (S1) 1 Trace PT-OP-Q Treatments Start: 02/04/22 12:09 Freq: Status: Active Protocol: Document 04/29/22 13:00 [facility] (Rec: 04/29/22 13:48 [facility] [id number]) Cardio Equipment Recumbent Elliptical (BiodDucksboard) Duration (Minutes) 6 Resistance 4 Other one rest break for water Gym Equipment Cable Column (Body Solid) Leg Extension Resistance 20# Reps/Time 3 x 10 reps Hip Abduction Resistance 20# Reps/Time 4x10 reps Shuttle Recovery single leg squats Details B cued knee with toes ( supported L foot alignment) Resistance 37# Shuttle Recovery Platform Stable Reps/Time 2 x15 Bilateral Squats Resistance 75# Reps/Time 2 x 15 PT-OP-T Assessment and Plan Start: 02/04/22 12:09 Freq: Status: Active Protocol: Document 04/29/22 13:00 [facility] (Rec: 04/29/22 18:32 [facility] [id number]) Physical Therapy Assessment Assessment Summary Assessment Heidy continues to make steady progess with strength and gait . Today with ambulation she was able to perform step through gait pattern. She still fatigues with her gait distance but her balance is improving allowing single leg stance for longer and improving her gait. Physical Therapy Plan Frequency and Duration Frequency of Treatment 2x/Week Duration of Treatment 12 Plan of Care Start Date 03/25/22 Plan of Care End Date 06/24/22 Therapeutic Interventions Therapeutic Interventions Balance Training,Gait Training ,Home Exercise Program, Neuromuscular Re-education, Patient/Caregiver Education, Self-Care/Home Management, Therapeutic Activities, Therapeutic Exercises Next Visit Focus/Plan Next Note Type Treatment Note Next Visit Plan continue to progress balance and ambulation with SPC, strengening for LE
--- NOTE | 2022-05-04 14:05 | PT.OTN ---
Current Diagnoses Unspecified sequelae of cerebral infarction (05/04/22) Pain in right shoulder (05/04/22) Pain in left shoulder (05/04/22) Physical Therapy Treatment Note PT-OP-A Visit Information Start: 02/04/22 12:09 Freq: Status: Active Protocol: Document 05/04/22 12:59 [facility]AK (Rec: 05/04/22 13:48 SAK [id number]) Out-Patient Physical Therapy Visit Information Visit Information Visit Type Treatment Note Visit Note Visit Start Time 13:00 Visit Stop Time 13:45 Total Visit Minutes 45 Visit Number 15 Evaluation Information Evaluation Date 02/04/22 PT-OP-B Current Condition Start: 02/04/22 12:09 Freq: Status: Active Protocol: Document 02/04/22 13:52 [facility] (Rec: 02/04/22 14:13 [facility] [id number]) Current Condition History of Current Condition Onset Date 08/11/21 History of Current Condition 08/11/21 CVA, on the 10 of August she woke up in the middle of the night and realized she couldn't sit up to get out of bed. She noticed a change in her voice when she asked her to help her up. 911 was called and she was brought to the ER she was here 6 days and then was transferedd to [facility] in [facility] to the rehab from August 15- August 31 . At that time she went home and had in home care OT, PT, and speech. It was the left side that had the stroke so now she is sleeping on her right side which has gotten sore. She started getting pain in her neck and shoulder on the right. She is weak on her left side upper and lower body because of the stroke. 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 She would like to increase her walking ability. She reports no falls. wearing left ankle FO Treatment Goals Patient/Caregiver Goals pt would like to be able to cook in her kitchen and be able to tolerate community ambulation Prior Functional Status Baseline Function- ADL's Independent Baseline Function- Mobility Independent Current Functional Impairments (Reported) Functional Limitations- ADL's unable to over a tight or new jar, severe difficulty doing ADL's and carrying a shopping bag or brief case. Severe difficulty using a knife to cut food. Functional Limitations- Mobility/Gait pt is ambulating with a FWW with limited distance and has not been able to do community ambulation PT-OP-C Subjective Start: 02/04/22 12:09 Freq: Status: Active Protocol: Document 05/04/22 12:59 SAK (Rec: 05/04/22 13:48 SAK [id number]) OP-PT Subjective Patient Comments Patient Comments Hasn't gotten booster yet, may try today. States she varies use of cane and walker depending on how she is feeling. Did sit to stands off sofa this last time without difficulty, in and out of bed getting easier. Patient states she would like to get a new dog but is concerned she is not stable enough on her feet, scared it would knock her over. PT-OP-D Balance Start: 02/09/22 17:07 Freq: Status: Active Protocol: Document 02/04/22 13:45 [facility] (Rec: 02/09/22 17:08 [facility] [id number]) Balance Tests Single Limb Standing Single Limb- Right 30 sec Single Limb- Left unable Tandem Tandem Standing it is difficult for Barb to business executive tandem stance PT-OP-F Manual Assessment Start: 02/04/22 12:09 Freq: Status: Active Protocol: Document 02/04/22 13:45 [facility] (Rec: 02/09/22 15:53 [facility] [id number]) Manual Assessments Soft Tissue Assessment Soft Tissue Mobility Assessment Right upper trapezius tightness PT-OP-G Mobility & Gait Start: 02/04/22 12:09 Freq: Status: Active Protocol: Document 02/04/22 13:45 [facility] (Rec: 02/09/22 15:53 [facility] [id number]) OP Mobility Evaluation Bed Mobility Supine to and from Sit min A for help with the L LE Transfers Sit to Stand SBA Bed to Chair Transfers SBA Floor Transfers not attempted OP Gait Assessment Gait Gait Assistance Required: Contact Guard Assist Distance (Feet) 250 Factors Limiting Gait Function Factors Limiting Gait Function Decreased Strength Stair Climbing Evaluation Evaluation Level of Assist On Stairs Contact Guard Assistance Devices Stair Climbing Assistive Devices Left Railing,Right Railing Technique/Endurance Stair Climbing Direction Ascend and Descend Stair Climbing Technique Step to Step Number of Steps Climbed 3 Stair Climbing Set # Repetitions (reps) 2 PT-OP-M Strength Start: 02/04/22 12:09 Freq: Status: Active Protocol: Document 02/04/22 13:45 [facility] (Rec: 02/09/22 15:53 [facility] [id number]) Hip Strength Hip Manual Muscle Testing L Flexion (L2) 3+ Fair+ Abduction 3+ Fair+ Knee Strength Knee Manual Muscle Testing Left Flexion (S2) 4 Good Extension (L3) 4 Good Ankle/Foot Strength Ankle and Foot Manual Muscle Testing Left Dorsiflexion (L4) 0 Zero Plantarflexion (S1) 1 Trace Inversion 1 Trace Eversion (S1) 1 Trace PT-OP-Q Treatments Start: 02/04/22 12:09 Freq: Status: Active Protocol: Document 05/04/22 12:59 SAK (Rec: 05/04/22 13:48 SAK [id number]) Cardio Equipment Recumbent Elliptical ([employer]) Duration (Minutes) 8 Resistance 4 Seat Position 8 Other no AFO, no break until after 8 min Therapeutic Exercises Standing Exercises standing on foam pad balance Standing Exercise Name EO, head turns, EC Reps/Minutes x 4 min side steps onto 4 box Reps/Minutes x 10 steps stepping over hurdles Standing Exercise Name forward, sideways Equipment Used 1 rail, 6 hurdles Reps/Minutes 15 ft x3 laps Comments good foot clearance ( encouraged LUE support on rail 1 direction- stable alternating toe taps on the 4 steps Reps/Minutes x 20 reps alternating sidesteps with theraband Equipment Used yellow theraband at ankles Reps/Minutes x 4 times the length of the bar Gait Training Gait Activity ambulation with quad cane Device Used SBQC- Level of Assistance CGA- close SBA Surface firm carpet/ tile Distance/Duration 50 ft, 20 ft, 40 ft Treatment Focus 2pt gait, increase stride and foot clearance, stability Comments worked on receiprocal BLE patterning 3>2pt gait. CUed LLE full extension into heel strike LLE for increased stride and RLE passing LLE for increase L hip extension with good placement of quad cane. CG- close SBA with no loss of balance. PT-OP-T Assessment and Plan Start: 02/04/22 12:09 Freq: Status: Active Protocol: Document 05/04/22 12:59 [facility]AK (Rec: 06/07/22 13:48 [facility] [id number]) Physical Therapy Assessment Assessment Summary Assessment Patient needs frequent rest breaks during PT, cues for functional use of left UE vs right for support with balance tasks. Improved left LE alignment and ankle motion on Biodex without AFO. Patient compliant to HEP. Physical Therapy Plan Frequency and Duration Frequency of Treatment 2x/Week Duration of Treatment 12 Plan of Care Start Date 03/25/22 Plan of Care End Date 06/24/22 Therapeutic Interventions Therapeutic Interventions Balance Training,Gait Training ,Home Exercise Program, Neuromuscular Re-education, Patient/Caregiver Education, Self-Care/Home Management, Therapeutic Activities, Therapeutic Exercises Next Visit Focus/Plan Next Note Type Treatment Note Next Visit Plan Continue PT for gait, strengthening, neuro re-ed/ balance. Consider therapy dog as adjunct to treatment.
--- NOTE | 2022-05-06 18:11 | PT.OTN ---
Current Diagnoses Unspecified sequelae of cerebral infarction (05/06/22) Pain in right shoulder (05/06/22) Pain in left shoulder (05/06/22) Physical Therapy Treatment Note PT-OP-A Visit Information Start: 02/04/22 12:09 Freq: Status: Active Protocol: Document 05/06/22 13:06 [facility] (Rec: 05/06/22 13:47 [facility] [id number]) Out-Patient Physical Therapy Visit Information Visit Information Visit Type Treatment Note Visit Note Visit Start Time 13:00 Visit Stop Time 13:45 Total Visit Minutes 45 Visit Number 16 PT-OP-B Current Condition Start: 02/04/22 12:09 Freq: Status: Active Protocol: Document 02/04/22 13:52 [facility] (Rec: 02/04/22 14:13 [facility] [id number]) Current Condition History of Current Condition Onset Date 08/11/21 History of Current Condition 08/11/21 CVA, on the 10 of August she woke up in the middle of the night and realized she couldn't sit up to get out of bed. She noticed a change in her voice when she asked her to help her up. 911 was called and she was brought to the ER she was here 6 days and then was transferedd to [facility] in [facility] to the rehab from August 15- August 31 . At that time she went home and had in home care OT, PT, and speech. It was the left side that had the stroke so now she is sleeping on her right side which has gotten sore. She started getting pain in her neck and shoulder on the right. She is weak on her left side upper and lower body because of the stroke. 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 She would like to increase her walking ability. She reports no falls. wearing left ankle FO Treatment Goals Patient/Caregiver Goals pt would like to be able to cook in her kitchen and be able to tolerate community ambulation Prior Functional Status Baseline Function- ADL's Independent Baseline Function- Mobility Independent Current Functional Impairments (Reported) Functional Limitations- ADL's unable to over a tight or new jar, severe difficulty doing ADL's and carrying a shopping bag or brief case. Severe difficulty using a knife to cut food. Functional Limitations- Mobility/Gait pt is ambulating with a FWW with limited distance and has not been able to do community ambulation PT-OP-C Subjective Start: 02/04/22 12:09 Freq: Status: Active Protocol: Document 05/06/22 13:06 [facility] (Rec: 05/06/22 13:47 [facility] [id number]) OP-PT Subjective Patient Comments Patient Comments Heidy reports she doesn't like getting in and out of the car in the rain. She has had a upset stomach the past few days so she doesn't feel it as much today but feels a little more fatigued today PT-OP-D Balance Start: 02/09/22 17:07 Freq: Status: Active Protocol: Document 02/04/22 13:45 [facility] (Rec: 02/09/22 17:08 [facility] [id number]) Balance Tests Single Limb Standing Single Limb- Right 30 sec Single Limb- Left unable Tandem Tandem Standing it is difficult for Barb to gas engine repairer tandem stance PT-OP-F Manual Assessment Start: 02/04/22 12:09 Freq: Status: Active Protocol: Document 02/04/22 13:45 [facility] (Rec: 02/09/22 15:53 [facility] [id number]) Manual Assessments Soft Tissue Assessment Soft Tissue Mobility Assessment Right upper trapezius tightness PT-OP-G Mobility & Gait Start: 02/04/22 12:09 Freq: Status: Active Protocol: Document 02/04/22 13:45 [facility] (Rec: 02/09/22 15:53 [facility] [id number]) OP Mobility Evaluation Bed Mobility Supine to and from Sit min A for help with the L LE Transfers Sit to Stand SBA Bed to Chair Transfers SBA Floor Transfers not attempted OP Gait Assessment Gait Gait Assistance Required: Contact Guard Assist Distance (Feet) 250 Factors Limiting Gait Function Factors Limiting Gait Function Decreased Strength Stair Climbing Evaluation Evaluation Level of Assist On Stairs Contact Guard Assistance Devices Stair Climbing Assistive Devices Left Railing,Right Railing Technique/Endurance Stair Climbing Direction Ascend and Descend Stair Climbing Technique Step to Step Number of Steps Climbed 3 Stair Climbing Set # Repetitions (reps) 2 PT-OP-M Strength Start: 02/04/22 12:09 Freq: Status: Active Protocol: Document 02/04/22 13:45 [facility] (Rec: 02/09/22 15:53 [facility] [id number]) Hip Strength Hip Manual Muscle Testing L Flexion (L2) 3+ Fair+ Abduction 3+ Fair+ Knee Strength Knee Manual Muscle Testing Left Flexion (S2) 4 Good Extension (L3) 4 Good Ankle/Foot Strength Ankle and Foot Manual Muscle Testing Left Dorsiflexion (L4) 0 Zero Plantarflexion (S1) 1 Trace Inversion 1 Trace Eversion (S1) 1 Trace PT-OP-Q Treatments Start: 02/04/22 12:09 Freq: Status: Active Protocol: Document 05/06/22 13:06 [facility] (Rec: 05/06/22 13:47 [facility] [id number]) Cardio Equipment Recumbent Elliptical (BiodOesia) Duration (Minutes) 6 Resistance 4 Other took 3 rest breaks today Gym Equipment Shuttle Recovery single leg squats Details B cued knee with toes ( supported L foot alignment) Resistance 37# Shuttle Recovery Platform Stable Reps/Time 2 x15 Bilateral Squats Resistance 75# Reps/Time 2 x 15 Shuttle Balance 1 Reps/Duration blue Comments standing feet apart, feet togerther, tandem stance PT-OP-T Assessment and Plan Start: 02/04/22 12:09 Freq: Status: Active Protocol: Document 05/06/22 13:06 [facility] (Rec: 05/06/22 13:47 [facility] [id number]) Physical Therapy Assessment Assessment Summary Assessment Began shuttle balance for Heidy and this was challenging for her. She also didn't feel her self today and was more fatigued. She was able to carry her water bottle with her left hand today and I had her practice walking with it in her left hand. Physical Therapy Plan Frequency and Duration Frequency of Treatment 2x/Week Duration of Treatment 12 Plan of Care Start Date 03/25/22 Plan of Care End Date 06/24/22 Therapeutic Interventions Therapeutic Interventions Balance Training,Gait Training ,Home Exercise Program, Neuromuscular Re-education, Patient/Caregiver Education, Self-Care/Home Management, Therapeutic Activities, Therapeutic Exercises Next Visit Focus/Plan Next Note Type Treatment Note Next Visit Plan continue PT for gait, balance, functional strengthening
--- NOTE | 2022-05-18 13:37 | PT.OTN ---
Current Diagnoses Unspecified sequelae of cerebral infarction (05/18/22) Pain in right shoulder (05/18/22) Pain in left shoulder (05/18/22) Physical Therapy Treatment Note PT-OP-A Visit Information Start: 02/04/22 12:09 Freq: Status: Active Protocol: Document 05/18/22 12:51 SP (Rec: 05/18/22 13:47 SP [id number]) Out-Patient Physical Therapy Visit Information Visit Information Visit Type Treatment Note Visit Note Visit Start Time 12:52 Visit Stop Time 13:37 Total Visit Minutes 45 Visit Number 17 Number of RN X RAY Visits 1 Evaluation Information Evaluation Date 02/04/22 PT-OP-B Current Condition Start: 02/04/22 12:09 Freq: Status: Active Protocol: Document 02/04/22 13:52 [facility] (Rec: 02/04/22 14:13 [facility] [id number]) Current Condition History of Current Condition Onset Date 08/11/21 History of Current Condition 08/11/21 CVA, on the 10 of August she woke up in the middle of the night and realized she couldn't sit up to get out of bed. She noticed a change in her voice when she asked her to help her up. 911 was called and she was brought to the ER she was here 6 days and then was transferedd to [facility] in [facility] to the rehab from August 15- August 31 . At that time she went home and had in home care OT, PT, and speech. It was the left side that had the stroke so now she is sleeping on her right side which has gotten sore. She started getting pain in her neck and shoulder on the right. She is weak on her left side upper and lower body because of the stroke. 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 She would like to increase her walking ability. She reports no falls. wearing left ankle FO Treatment Goals Patient/Caregiver Goals pt would like to be able to cook in her kitchen and be able to tolerate community ambulation Prior Functional Status Baseline Function- ADL's Independent Baseline Function- Mobility Independent Current Functional Impairments (Reported) Functional Limitations- ADL's unable to over a tight or new jar, severe difficulty doing ADL's and carrying a shopping bag or brief case. Severe difficulty using a knife to cut food. Functional Limitations- Mobility/Gait pt is ambulating with a FWW with limited distance and has not been able to do community ambulation PT-OP-C Subjective Start: 02/04/22 12:09 Freq: Status: Active Protocol: Document 05/18/22 12:51 SP (Rec: 05/18/22 13:47 SP [id number]) OP-PT Subjective Patient Comments Patient Comments Pt reported been having issues with L hip, has been trying to do more standing at counter and trying to perform HEP. Pt stated was ableto walk from car to mid restaurant and sit in [place] using FWW instead of w/c so seeing improvement in endurance. PT-OP-D Balance Start: 02/09/22 17:07 Freq: Status: Active Protocol: Document 02/04/22 13:45 [facility] (Rec: 02/09/22 17:08 [facility] [id number]) Balance Tests Single Limb Standing Single Limb- Right 30 sec Single Limb- Left unable Tandem Tandem Standing it is difficult for Barb to reporting lead tandem stance PT-OP-F Manual Assessment Start: 02/04/22 12:09 Freq: Status: Active Protocol: Document 02/04/22 13:45 [facility] (Rec: 02/09/22 15:53 [facility] [id number]) Manual Assessments Soft Tissue Assessment Soft Tissue Mobility Assessment Right upper trapezius tightness PT-OP-G Mobility & Gait Start: 02/04/22 12:09 Freq: Status: Active Protocol: Document 02/04/22 13:45 [facility] (Rec: 02/09/22 15:53 [facility] [id number]) OP Mobility Evaluation Bed Mobility Supine to and from Sit min A for help with the L LE Transfers Sit to Stand SBA Bed to Chair Transfers SBA Floor Transfers not attempted OP Gait Assessment Gait Gait Assistance Required: Contact Guard Assist Distance (Feet) 250 Factors Limiting Gait Function Factors Limiting Gait Function Decreased Strength Stair Climbing Evaluation Evaluation Level of Assist On Stairs Contact Guard Assistance Devices Stair Climbing Assistive Devices Left Railing,Right Railing Technique/Endurance Stair Climbing Direction Ascend and Descend Stair Climbing Technique Step to Step Number of Steps Climbed 3 Stair Climbing Set # Repetitions (reps) 2 PT-OP-M Strength Start: 02/04/22 12:09 Freq: Status: Active Protocol: Document 02/04/22 13:45 [facility] (Rec: 02/09/22 15:53 [facility] [id number]) Hip Strength Hip Manual Muscle Testing L Flexion (L2) 3+ Fair+ Abduction 3+ Fair+ Knee Strength Knee Manual Muscle Testing Left Flexion (S2) 4 Good Extension (L3) 4 Good Ankle/Foot Strength Ankle and Foot Manual Muscle Testing Left Dorsiflexion (L4) 0 Zero Plantarflexion (S1) 1 Trace Inversion 1 Trace Eversion (S1) 1 Trace PT-OP-Q Treatments Start: 02/04/22 12:09 Freq: Status: Active Protocol: Document 05/18/22 12:51 SP (Rec: 05/18/22 13:47 SP [id number]) Cardio Equipment Recumbent Elliptical (Koemei) Duration (Minutes) 5 Resistance 4 Seat Position 5- 372 ft Other took 1 rest breaks before R knee hurting Therapeutic Exercises Standing Exercises side steps onto 4 box Standing Exercise Name ascend/descend (assimulate curb stepping) Equipment Used 4 and 6 step, rail then use QC RUE and occasional CUSTOMER COUNTER REPRESENTATIVE on L Reps/Minutes 4 sets each height surface CGA 1 HR, CG- Min A QC and prn CUSTOMER COUNTER REPRESENTATIVE on L Comments hand held assist PRN descend using QC stepping over hurdles Standing Exercise Name forward only today 05/18 Resistance SBA Equipment Used 1 rail open hand lead each UE sets/ QC 3rd set, 6 hurdles Reps/Minutes 15 ft x3 laps Comments good foot clearance ( encouraged LUE support on rail 1 direction- stable Gait Training Gait Activity ambulation with quad cane Device Used SBQC- Level of Assistance close SBA Surface firm carpet/ tile Distance/Duration 73 ft, 71 ft, 27 ft Treatment Focus 2pt gait, increase stride and foot clearance, stability Comments worked on receiprocal BLE patterning 3>2pt gait. CUed LLE full extension into heel strike LLE for increased stride and RLE passing LLE for increase L hip extension with good placement of quad cane. close SBA with no loss of balance, trunk wt shift deviation x2 self recovery. stair training Description stair training Device Used R HR Level of Assistance CGA Distance/Duration up and down 3 sets of stairs ( 4 steps) Treatment Focus receiprocal patterning, stability Comments B HR 1set, RHR 2sets, receiprocal patterning, needed step to receiprocal lat 2 steps. PT-OP-T Assessment and Plan Start: 02/04/22 12:09 Freq: Status: Active Protocol: Document 05/18/22 12:51 SP (Rec: 05/18/22 13:47 SP [id number]) Physical Therapy Assessment Goals 4 Impairment pt lacks home exercise program for progressing her exercises [facility] Goal (LTG) Barb is independent with a HEP for LE strengthening, gait and balance. 02/18/22: verbal review hHPT HEP: stand: hip ext, minisquat , supine: LTR, heel slides, bridge, added hs curl and hip abd clam TB. 02/23/22: added R UE D1 ext w/ LUE anchor, B shld ER assist supine<> sit. 03/04/22: reviewed stame 02/23/22 : also band walk, clamshell, STS added today, resisted HS curl. 04/07/22: added supine LUE FF OH and HABD tolerant range no UT recruitment w/ waterbottle wt. LTG Duration 8 weeks (04/07/22: progressing) 3 Impairment decreased balance and stamina to be able to reporting lead her kitchen to cook. Short Term Goal (STG) pt is able to balance with feet together x 30 seconds without hand hold 03/04/22: GOAL MET: able stand NBOS and narrow stagger stance no UE support 60s. STG Duration GOAL MET [facility] Goal (LTG) pt is able to balance with feet together x 2 minutes without hand hold good progress 05/18/22: LTG Duration 8 weeks 2 Impairment pt is limited with her mobility on stairs and is currently side stepping up and down her stair case outside to her home Mine Utility Operator Goal (LTG) Barb is able to ambulate up and down 9 stairs with one hand hold on the left railing 05/18/22: able to ascend/ descend 6 (4inch) steps R HR receiprocal pattern. She reports hers at home are more 8 and L HR so finds safety side stepping. LTG Duration 8 weeks GOOD PROGRESS 1 Impairment Impaired gait s/p CVA with limited walking duration and stride length, pt is not able to engage in community ambulation at this time due to weakness and fatigue Mine Utility Operator Goal (LTG) Barb is able to ambulate greater than 500 feet without stopping for rest breaks with improved stride length. excellent progress, pt would like to progress from the walker to her cane and we will start working on that next visit LTG Duration 8 weeks Assessment Summary Assessment Pt improved foot clearance and LLE knee extension heel strike stride awareness post receiprocal steps on stairs, alba and step ups/ curb assimulation with use of R UE QC unsteady suppport and PRN LUE CUSTOMER COUNTER REPRESENTATIVE descend as needed contact QC for safety in stability. Will continue to progress gait endurance to allow community ambulation QC. She has noticed ableto walk further from car to indoor restaurant last week instead of use of w/c. Physical Therapy Plan Frequency and Duration Frequency of Treatment 2x/Week Duration of Treatment 12 Plan of Care Start Date 03/25/22 Plan of Care End Date 06/24/22 Therapeutic Interventions Therapeutic Interventions Balance Training,Gait Training ,Home Exercise Program, Neuromuscular Re-education, Patient/Caregiver Education, Self-Care/Home Management, Therapeutic Activities, Therapeutic Exercises Next Visit Focus/Plan Next Note Type Treatment Note Next Visit Plan continue PT for progress gait endurance w/ increase stride/ clearance w/ QC, balance, functional strengthening
--- NOTE | 2022-05-20 17:45 | PT.OTN ---
Current Diagnoses Unspecified sequelae of cerebral infarction (05/20/22) Pain in right shoulder (05/20/22) Pain in left shoulder (05/20/22) Physical Therapy Treatment Note PT-OP-A Visit Information Start: 02/04/22 12:09 Freq: Status: Active Protocol: Document 05/20/22 13:13 [facility] (Rec: 05/20/22 13:49 [facility] [id number]) Out-Patient Physical Therapy Visit Information Visit Information Visit Type Treatment Note Visit Note Visit Start Time 13:00 Visit Stop Time 13:45 Total Visit Minutes 45 Visit Number 18 PT-OP-B Current Condition Start: 02/04/22 12:09 Freq: Status: Active Protocol: Document 02/04/22 13:52 [facility] (Rec: 02/04/22 14:13 [facility] [id number]) Current Condition History of Current Condition Onset Date 08/11/21 History of Current Condition 08/11/21 CVA, on the 10 of August she woke up in the middle of the night and realized she couldn't sit up to get out of bed. She noticed a change in her voice when she asked her to help her up. 911 was called and she was brought to the ER she was here 6 days and then [facility] to the rehab from August 15- August 31 . At that time she went home and had in home care OT, PT, and speech. It was the left side that had the stroke so now she is sleeping on her right side which has gotten sore. She started getting pain in her neck and shoulder on the right. She is weak on her left side upper and lower body because of the stroke. She is right handed She reports sweilling in her left hand, she has gloves she wears and she keeps it elevated, she doesn't have access services librarian and is unable to make a fist any more, she would like to be able to cook again. She would like to increase her walking ability. She reports no falls. wearing left ankle FO Treatment Goals Patient/Caregiver Goals pt would like to be able to cook in her kitchen and be able to tolerate community ambulation Prior Functional Status Baseline Function- ADL's Independent Baseline Function- Mobility Independent Current Functional Impairments (Reported) Functional Limitations- ADL's unable to over a tight or new jar, severe difficulty doing ADL's and carrying a shopping bag or brief case. Severe difficulty using a knife to cut food. Functional Limitations- Mobility/Gait pt is ambulating with a FWW with limited distance and has not been able to do community ambulation PT-OP-C Subjective Start: 02/04/22 12:09 Freq: Status: Active Protocol: Document 05/20/22 13:13 [facility] (Rec: 05/20/22 13:49 [facility] [id number]) OP-PT Subjective Patient Comments Patient Comments Heidy reports she is feeling down today as she is realizing what all she is isn't able to do and this makes her sad. She notes she worries about if something were to happen to her she doesn't know how she would take care of herself PT-OP-D Balance Start: 02/09/22 17:07 Freq: Status: Active Protocol: Document 02/04/22 13:45 [facility] (Rec: 02/09/22 17:08 [facility] [id number]) Balance Tests Single Limb Standing Single Limb- Right 30 sec Single Limb- Left unable Tandem Tandem Standing it is difficult for Barb to tutoring clinician tandem stance PT-OP-F Manual Assessment Start: 02/04/22 12:09 Freq: Status: Active Protocol: Document 02/04/22 13:45 [facility] (Rec: 02/09/22 15:53 [facility] [id number]) Manual Assessments Soft Tissue Assessment Soft Tissue Mobility Assessment Right upper trapezius tightness PT-OP-G Mobility & Gait Start: 02/04/22 12:09 Freq: Status: Active Protocol: Document 02/04/22 13:45 [facility] (Rec: 02/09/22 15:53 [facility] [id number]) OP Mobility Evaluation Bed Mobility Supine to and from Sit min A for help with the L LE Transfers Sit to Stand SBA Bed to Chair Transfers SBA Floor Transfers not attempted OP Gait Assessment Gait Gait Assistance Required: Contact Guard Assist Distance (Feet) 250 Factors Limiting Gait Function Factors Limiting Gait Function Decreased Strength Stair Climbing Evaluation Evaluation Level of Assist On Stairs Contact Guard Assistance Devices Stair Climbing Assistive Devices Left Railing,Right Railing Technique/Endurance Stair Climbing Direction Ascend and Descend Stair Climbing Technique Step to Step Number of Steps Climbed 3 Stair Climbing Set # Repetitions (reps) 2 PT-OP-M Strength Start: 02/04/22 12:09 Freq: Status: Active Protocol: Document 02/04/22 13:45 [facility] (Rec: 02/09/22 15:53 [facility] [id number]) Hip Strength Hip Manual Muscle Testing L Flexion (L2) 3+ Fair+ Abduction 3+ Fair+ Knee Strength Knee Manual Muscle Testing Left Flexion (S2) 4 Good Extension (L3) 4 Good Ankle/Foot Strength Ankle and Foot Manual Muscle Testing Left Dorsiflexion (L4) 0 Zero Plantarflexion (S1) 1 Trace Inversion 1 Trace Eversion (S1) 1 Trace PT-OP-Q Treatments Start: 02/04/22 12:09 Freq: Status: Active Protocol: Document 05/20/22 13:13 [facility] (Rec: 05/20/22 13:49 [facility] [id number]) Cardio Equipment Recumbent Elliptical (Biodex) Duration (Minutes) 8 Resistance 4 Seat Position 5 Gym Equipment Shuttle Balance 2 Details red clips Comments DF/PF 1 Reps/Duration blue Comments standing feet apart, feet togerther, tandem stance Therapeutic Exercises Standing Exercises step ups at 4 step Reps/Minutes x 10 Comments with left leg leading PT-OP-T Assessment and Plan Start: 02/04/22 12:09 Freq: Status: Active Protocol: Document 05/20/22 17:41 [facility] (Rec: 05/20/22 17:45 [facility] [id number]) Physical Therapy Assessment Assessment Summary Assessment Heidy was feeling some sadness today and wasn't her usual self. She reported feeling really scared of stepping over the hurdles last visit and is nervous about what she would do if she needed to step over a curb. We did work on balance and stepping up and over a 4 step. She was pretty fearful today of falling with this. I talked to her about using her FWW for community ambuation as she has more support verses her quad cane. She does note she was able to walk into a restaurant using her quad can and sit in a [place] for the first time last week. I will recheck number of visits allowed again with Ese as pt is under the impression she has 24 not 20 Physical Therapy Plan Frequency and Duration Frequency of Treatment 2x/Week Duration of Treatment 12 Plan of Care Start Date 03/25/22 Plan of Care End Date 06/24/22 Therapeutic Interventions Therapeutic Interventions Balance Training,Gait Training ,Home Exercise Program, Neuromuscular Re-education, Patient/Caregiver Education, Self-Care/Home Management, Therapeutic Activities, Therapeutic Exercises Next Visit Focus/Plan Next Note Type Treatment Note Next Visit Plan continue PT for progress gait endurance w/ increase stride/ clearance w/ QC, balance, functional strengthening
--- NOTE | 2022-05-25 13:00 | PT.OTN ---
Current Diagnoses Unspecified sequelae of cerebral infarction (05/25/22) Pain in right shoulder (05/25/22) Pain in left shoulder (05/25/22) Physical Therapy Treatment Note PT-OP-A Visit Information Start: 02/04/22 12:09 Freq: Status: Active Protocol: Document 05/25/22 12:12 [facility] (Rec: 05/25/22 13:03 [facility] [id number]) Out-Patient Physical Therapy Visit Information Visit Information Visit Type Treatment Note Visit Start Time 12:12 Visit Stop Time 13:00 Total Visit Minutes 48 Visit Number 19 Number of GAS SCRUBBER OPERATOR Visits 1 Evaluation Information Evaluation Date 02/04/22 PT-OP-B Current Condition Start: 02/04/22 12:09 Freq: Status: Active Protocol: Document 02/04/22 13:52 [facility] (Rec: 02/04/22 14:13 [facility] [id number]) Current Condition History of Current Condition Onset Date 08/11/21 History of Current Condition 08/11/21 CVA, on the 10 of August she woke up in the middle of the night and realized she couldn't sit up to get out of bed. She noticed a change in her voice when she asked her to help her up. 911 was called and she was brought to the ER she was here 6 days and then was transferedd to [facility] in [facility] to the rehab from August 15- August 31 . At that time she went home and had in home care OT, PT, and speech. It was the left side that had the stroke so now she is sleeping on her right side which has gotten sore. She started getting pain in her neck and shoulder on the right. She is weak on her left side upper and lower body because of the stroke. She is right handed She reports sweilling in her left hand, she has gloves she wears and she keeps it elevated, she doesn't have sales strategy manager and is unable to make a fist any more, she would like to be able to cook again. She would like to increase her walking ability. She reports no falls. wearing left ankle FO Treatment Goals Patient/Caregiver Goals pt would like to be able to cook in her kitchen and be able to tolerate community ambulation Prior Functional Status Baseline Function- ADL's Independent Baseline Function- Mobility Independent Current Functional Impairments (Reported) Functional Limitations- ADL's unable to over a tight or new jar, severe difficulty doing ADL's and carrying a shopping bag or brief case. Severe difficulty using a knife to cut food. Functional Limitations- Mobility/Gait pt is ambulating with a FWW with limited distance and has not been able to do community ambulation PT-OP-C Subjective Start: 02/04/22 12:09 Freq: Status: Active Protocol: Document 05/25/22 12:12 [facility] (Rec: 05/25/22 13:03 [facility] [id number]) OP-PT Subjective Patient Comments Patient Comments Pt was pretty nervous about step ups, doesn't feel confident will take the long way around instead managing curb. PT-OP-D Balance Start: 02/09/22 17:07 Freq: Status: Active Protocol: Document 02/04/22 13:45 [facility] (Rec: 02/09/22 17:08 [facility] [id number]) Balance Tests Single Limb Standing Single Limb- Right 30 sec Single Limb- Left unable Tandem Tandem Standing it is difficult for Barb to district administrative assistant tandem stance PT-OP-F Manual Assessment Start: 02/04/22 12:09 Freq: Status: Active Protocol: Document 02/04/22 13:45 [facility] (Rec: 02/09/22 15:53 [facility] [id number]) Manual Assessments Soft Tissue Assessment Soft Tissue Mobility Assessment Right upper trapezius tightness PT-OP-G Mobility & Gait Start: 02/04/22 12:09 Freq: Status: Active Protocol: Document 02/04/22 13:45 [facility] (Rec: 02/09/22 15:53 [facility] [id number]) OP Mobility Evaluation Bed Mobility Supine to and from Sit min A for help with the L LE Transfers Sit to Stand SBA Bed to Chair Transfers SBA Floor Transfers not attempted OP Gait Assessment Gait Gait Assistance Required: Contact Guard Assist Distance (Feet) 250 Factors Limiting Gait Function Factors Limiting Gait Function Decreased Strength Stair Climbing Evaluation Evaluation Level of Assist On Stairs Contact Guard Assistance Devices Stair Climbing Assistive Devices Left Railing,Right Railing Technique/Endurance Stair Climbing Direction Ascend and Descend Stair Climbing Technique Step to Step Number of Steps Climbed 3 Stair Climbing Set # Repetitions (reps) 2 PT-OP-M Strength Start: 02/04/22 12:09 Freq: Status: Active Protocol: Document 02/04/22 13:45 [facility] (Rec: 02/09/22 15:53 [facility] [id number]) Hip Strength Hip Manual Muscle Testing L Flexion (L2) 3+ Fair+ Abduction 3+ Fair+ Knee Strength Knee Manual Muscle Testing Left Flexion (S2) 4 Good Extension (L3) 4 Good Ankle/Foot Strength Ankle and Foot Manual Muscle Testing Left Dorsiflexion (L4) 0 Zero Plantarflexion (S1) 1 Trace Inversion 1 Trace Eversion (S1) 1 Trace PT-OP-Q Treatments Start: 02/04/22 12:09 Freq: Status: Active Protocol: Document 05/25/22 12:12 [facility] (Rec: 05/25/22 13:03 [facility] [id number]) Gym Equipment Shuttle Recovery single leg squats Details B cued knee with toes ( supported L foot alignment) Resistance 50# BLE alternating Shuttle Recovery Platform Stable Reps/Time 2 x10 Bilateral Squats Resistance 75# Reps/Time x20 Shuttle Balance 1 Reps/Duration blue Comments standing feet apart #4s, feet together, stagger stance EO, HTs, unable head turn RLE forward CG- 5%A EC WBOS 4 sec Therapeutic Exercises Supine Exercises piriformis stretch Supine Exercise Name R>L Side bilateral Resistance AAROM Reps/Minutes 30 each LE Comments 1 LE over opp knee hooklying. Standing Exercises sit-stands Reps/Minutes x2 reps Comments cued hip hinge, equal LE WB side steps onto 4 box Standing Exercise Name ascend/descend (assimulate curb stepping) Resistance CG-15%A Equipment Used 3 shuttle recovery red step, QC Reps/Minutes 1 reps lead RLE, 3 reps lead LLE Comments quad cane on R with contact stabiltiy, LOB x1 when supported trunk not QC Gait Training Gait Activity ambulation with quad cane Device Used SBQC- Level of Assistance close SBA Surface firm carpet/ tile Distance/Duration 187 ft, 23 ft, 8 ft Treatment Focus 2pt gait, increase stride and foot clearance, stability Comments worked on receiprocal BLE patterning 3>2pt gait. CUed LLE full extension into heel strike LLE for increased stride and RLE passing LLE for increase L hip extension with good placement of quad cane. LOB deviation x1 to R but self recovery. Manual Therapy Treatment Soft Tissue Mobilization R hip Body Location R Piriformis, Glut med Mobilization Type Myofascial Release,Rolling, Sustained Pressure Intensity/Depth Moderate Body Position Sidelying Comments manual, discomfort during distance gait. PT-OP-T Assessment and Plan Start: 02/04/22 12:09 Freq: Status: Active Protocol: Document 05/25/22 12:12 [facility] (Rec: 05/25/22 13:03 [facility] [id number]) Physical Therapy Assessment Assessment Summary Assessment Pt improved able complete head turns and EC 4 sec before hip abd LE swaying LOB CG-5%A. Cues needed for increase step length LLE during gait, attempted metronome 6-75bpm, challenging maintain, LOB deviation x1 self recovery. Decreased R hip tightness post manual and stretching. Physical Therapy Plan Frequency and Duration Frequency of Treatment 2x/Week Duration of Treatment 12 Plan of Care Start Date 03/25/22 Plan of Care End Date 06/24/22 Therapeutic Interventions Therapeutic Interventions Balance Training,Gait Training ,Home Exercise Program, Neuromuscular Re-education, Patient/Caregiver Education, Self-Care/Home Management, Therapeutic Activities, Therapeutic Exercises Next Visit Focus/Plan Next Note Type Treatment Note Next Visit Plan continue PT for progress gait endurance w/ increase stride/ clearance w/ QC, balance, functional strengthening
--- NOTE | 2022-05-27 15:47 | PT.OTN ---
Current Diagnoses Unspecified sequelae of cerebral infarction (05/27/22) Pain in right shoulder (05/27/22) Pain in left shoulder (05/27/22) Physical Therapy Treatment Note PT-OP-A Visit Information Start: 02/04/22 12:09 Freq: Status: Active Protocol: Document 05/27/22 13:09 [facility] (Rec: 05/27/22 13:50 [facility] [id number]) Out-Patient Physical Therapy Visit Information Visit Information Visit Type Treatment Note Visit Note Visit Start Time 13:00 Visit Stop Time 13:45 Total Visit Minutes 45 Visit Number 20 Number of STONECUTTER HAND Visits 0 PT-OP-B Current Condition Start: 02/04/22 12:09 Freq: Status: Active Protocol: Document 02/04/22 13:52 [facility] (Rec: 02/04/22 14:13 [facility] [id number]) Current Condition History of Current Condition Onset Date 08/11/21 History of Current Condition 08/11/21 CVA, on the 10 of August she woke up in the middle of the night and realized she couldn't sit up to get out of bed. She noticed a change in her voice when she asked her to help her up. 911 was called and she was brought to the ER she was here 6 days and then was transferedd to [facility] in [facility] to the rehab from August 15- August 31 . At that time she went home and had in home care OT, PT, and speech. It was the left side that had the stroke so now she is sleeping on her right side which has gotten sore. She started getting pain in her neck and shoulder on the right. She is weak on her left side upper and lower body because of the stroke. She is right handed She reports sweilling in her left hand, she has gloves she wears and she keeps it elevated, she doesn't have vice president industrial relations and is unable to make a fist any more, she would like to be able to cook again. She would like to increase her walking ability. She reports no falls. wearing left ankle FO Treatment Goals Patient/Caregiver Goals pt would like to be able to cook in her kitchen and be able to tolerate community ambulation Prior Functional Status Baseline Function- ADL's Independent Baseline Function- Mobility Independent Current Functional Impairments (Reported) Functional Limitations- ADL's unable to over a tight or new jar, severe difficulty doing ADL's and carrying a shopping bag or brief case. Severe difficulty using a knife to cut food. Functional Limitations- Mobility/Gait pt is ambulating with a FWW with limited distance and has not been able to do community ambulation PT-OP-C Subjective Start: 02/04/22 12:09 Freq: Status: Active Protocol: Document 05/27/22 13:09 [facility] (Rec: 05/27/22 13:50 [facility] [id number]) OP-PT Subjective Patient Comments Patient Comments Pt reports she is doing pretty good today PT-OP-D Balance Start: 02/09/22 17:07 Freq: Status: Active Protocol: Document 02/04/22 13:45 [facility] (Rec: 02/09/22 17:08 [facility] [id number]) Balance Tests Single Limb Standing Single Limb- Right 30 sec Single Limb- Left unable Tandem Tandem Standing it is difficult for Barb to access coordinator tandem stance PT-OP-F Manual Assessment Start: 02/04/22 12:09 Freq: Status: Active Protocol: Document 02/04/22 13:45 [facility] (Rec: 02/09/22 15:53 [facility] [id number]) Manual Assessments Soft Tissue Assessment Soft Tissue Mobility Assessment Right upper trapezius tightness PT-OP-G Mobility & Gait Start: 02/04/22 12:09 Freq: Status: Active Protocol: Document 02/04/22 13:45 [facility] (Rec: 02/09/22 15:53 [facility] [id number]) OP Mobility Evaluation Bed Mobility Supine to and from Sit min A for help with the L LE Transfers Sit to Stand SBA Bed to Chair Transfers SBA Floor Transfers not attempted OP Gait Assessment Gait Gait Assistance Required: Contact Guard Assist Distance (Feet) 250 Factors Limiting Gait Function Factors Limiting Gait Function Decreased Strength Stair Climbing Evaluation Evaluation Level of Assist On Stairs Contact Guard Assistance Devices Stair Climbing Assistive Devices Left Railing,Right Railing Technique/Endurance Stair Climbing Direction Ascend and Descend Stair Climbing Technique Step to Step Number of Steps Climbed 3 Stair Climbing Set # Repetitions (reps) 2 PT-OP-M Strength Start: 02/04/22 12:09 Freq: Status: Active Protocol: Document 02/04/22 13:45 [facility] (Rec: 02/09/22 15:53 [facility] [id number]) Hip Strength Hip Manual Muscle Testing L Flexion (L2) 3+ Fair+ Abduction 3+ Fair+ Knee Strength Knee Manual Muscle Testing Left Flexion (S2) 4 Good Extension (L3) 4 Good Ankle/Foot Strength Ankle and Foot Manual Muscle Testing Left Dorsiflexion (L4) 0 Zero Plantarflexion (S1) 1 Trace Inversion 1 Trace Eversion (S1) 1 Trace PT-OP-Q Treatments Start: 02/04/22 12:09 Freq: Status: Active Protocol: Document 05/27/22 13:09 [facility] (Rec: 05/27/22 13:50 [facility] [id number]) Cardio Equipment Recumbent Bicycle Duration (Minutes) 6 Resistance 1 Seat Position 1 Gym Equipment Shuttle Recovery single leg squats Details B cued knee with toes ( supported L foot alignment) Resistance 50# BLE alternating Shuttle Recovery Platform Stable Reps/Time 2 x10 Bilateral Squats Resistance 75# Reps/Time x20 Shuttle Balance 2 Details red clips Comments DF/PF feet apart balance EO/EC x 5 seconds and 3 reps Gait Training Gait Activity ambulation with quad cane Device Used SBQC- Level of Assistance close SBA for inside ambulation and CGA for outdoor on gravel Surface out side on gravel path, indoor in clinic Comments pt able to ambulate on gravel path, up and down the hill and around picnic table PT-OP-T Assessment and Plan Start: 02/04/22 12:09 Freq: Status: Active Protocol: Document 05/27/22 13:09 [facility] (Rec: 05/27/22 13:50 [facility] [id number]) Physical Therapy Assessment Assessment Summary Assessment Heidy was able to ambulate outside today on our gravel pathway for the first time. She did well with CGA Her endurance is improving and she was able to ride 6 minutes on stationary bike without a rest break. I would like to see how she does on our outdoor stairs and 2 steps next visit Physical Therapy Plan Frequency and Duration Frequency of Treatment 2x/Week Duration of Treatment 12 Plan of Care Start Date 03/25/22 Plan of Care End Date 06/24/22 Therapeutic Interventions Therapeutic Interventions Balance Training,Gait Training ,Home Exercise Program, Neuromuscular Re-education, Patient/Caregiver Education, Self-Care/Home Management, Therapeutic Activities, Therapeutic Exercises Next Visit Focus/Plan Next Note Type Treatment Note Next Visit Plan continue PT for progress gait endurance w/ increase stride/ clearance w/ QC, balance, functional strengthening, ambulation outside on gravel path and attempt outdoor stairs
--- NOTE | 2022-06-01 14:08 | PT.OTN ---
Current Diagnoses Unspecified sequelae of cerebral infarction (06/01/22) Pain in right shoulder (06/01/22) Pain in left shoulder (06/01/22) Physical Therapy Treatment Note PT-OP-A Visit Information Start: 02/04/22 12:09 Freq: Status: Active Protocol: Document 06/01/22 13:11 [facility] (Rec: 06/01/22 14:08 [facility] [id number]) Out-Patient Physical Therapy Visit Information Visit Information Visit Type Treatment Note Visit Start Time 13:00 Visit Stop Time 13:45 Total Visit Minutes 45 Visit Number 21 Number of TOOL MAINTENANCE WORKER Visits 0 PT-OP-B Current Condition Start: 02/04/22 12:09 Freq: Status: Active Protocol: Document 02/04/22 13:52 [facility] (Rec: 02/04/22 14:13 [facility] [id number]) Current Condition History of Current Condition Onset Date 08/11/21 History of Current Condition 08/11/21 CVA, on the 10 of August she woke up in the middle of the night and realized she couldn't sit up to get out of bed. She noticed a change in her voice when she asked her to help her up. 911 was called and she was brought to the ER she was here 6 days and then was transferedd to [facility] in [facility] to the rehab from August 15- August 31 . At that time she went home and had in home care OT, PT, and speech. It was the left side that had the stroke so now she is sleeping on her right side which has gotten sore. She started getting pain in her neck and shoulder on the right. She is weak on her left side upper and lower body because of the stroke. She is right handed She reports sweilling in her left hand, she has gloves she wears and she keeps it elevated, she doesn't have blower blast furnace and is unable to make a fist any more, she would like to be able to cook again. She would like to increase her walking ability. She reports no falls. wearing left ankle FO Treatment Goals Patient/Caregiver Goals pt would like to be able to cook in her kitchen and be able to tolerate community ambulation Prior Functional Status Baseline Function- ADL's Independent Baseline Function- Mobility Independent Current Functional Impairments (Reported) Functional Limitations- ADL's unable to over a tight or new jar, severe difficulty doing ADL's and carrying a shopping bag or brief case. Severe difficulty using a knife to cut food. Functional Limitations- Mobility/Gait pt is ambulating with a FWW with limited distance and has not been able to do community ambulation PT-OP-C Subjective Start: 02/04/22 12:09 Freq: Status: Active Protocol: Document 06/01/22 13:11 [facility] (Rec: 06/01/22 14:08 [facility] [id number]) OP-PT Subjective Patient Comments Patient Comments Heidy reports she and her are going to visit the [facility] to start trying to ride the stationary bike there. PT-OP-D Balance Start: 02/09/22 17:07 Freq: Status: Active Protocol: Document 02/04/22 13:45 [facility] (Rec: 02/09/22 17:08 [facility] [id number]) Balance Tests Single Limb Standing Single Limb- Right 30 sec Single Limb- Left unable Tandem Tandem Standing it is difficult for Barb to systems support engineer tandem stance PT-OP-F Manual Assessment Start: 02/04/22 12:09 Freq: Status: Active Protocol: Document 02/04/22 13:45 [facility] (Rec: 02/09/22 15:53 [facility] [id number]) Manual Assessments Soft Tissue Assessment Soft Tissue Mobility Assessment Right upper trapezius tightness PT-OP-G Mobility & Gait Start: 02/04/22 12:09 Freq: Status: Active Protocol: Document 02/04/22 13:45 [facility] (Rec: 02/09/22 15:53 [facility] [id number]) OP Mobility Evaluation Bed Mobility Supine to and from Sit min A for help with the L LE Transfers Sit to Stand SBA Bed to Chair Transfers SBA Floor Transfers not attempted OP Gait Assessment Gait Gait Assistance Required: Contact Guard Assist Distance (Feet) 250 Factors Limiting Gait Function Factors Limiting Gait Function Decreased Strength Stair Climbing Evaluation Evaluation Level of Assist On Stairs Contact Guard Assistance Devices Stair Climbing Assistive Devices Left Railing,Right Railing Technique/Endurance Stair Climbing Direction Ascend and Descend Stair Climbing Technique Step to Step Number of Steps Climbed 3 Stair Climbing Set # Repetitions (reps) 2 PT-OP-M Strength Start: 02/04/22 12:09 Freq: Status: Active Protocol: Document 02/04/22 13:45 [facility] (Rec: 02/09/22 15:53 [facility] [id number]) Hip Strength Hip Manual Muscle Testing L Flexion (L2) 3+ Fair+ Abduction 3+ Fair+ Knee Strength Knee Manual Muscle Testing Left Flexion (S2) 4 Good Extension (L3) 4 Good Ankle/Foot Strength Ankle and Foot Manual Muscle Testing Left Dorsiflexion (L4) 0 Zero Plantarflexion (S1) 1 Trace Inversion 1 Trace Eversion (S1) 1 Trace PT-OP-Q Treatments Start: 02/04/22 12:09 Freq: Status: Active Protocol: Document 06/01/22 13:11 [facility] (Rec: 06/01/22 14:08 [facility] [id number]) Cardio Equipment Recumbent Elliptical (Biodex) Duration (Minutes) 8 Resistance 4 Seat Position 5 Other no breaks today Gym Equipment Shuttle Balance 1 Reps/Duration blue Comments standing feet apart #4s, feet together, stagger stance EO, HTs, unable head turn RLE forward CG- 5%A EC WBOS 4 sec Therapeutic Exercises Standing Exercises standing tandem stance Reps/Minutes hold 30 sec x 4 sit-stands Reps/Minutes x 10 reps Comments no cuing needed today, no use of hands Gait Training Gait Activity ambulation with quad cane Device Used SBQC- Level of Assistance close SBA for inside ambulation and CGA for outdoor on gravel Surface out side on gravel path, indoor in clinic Comments pt able to ambulate on gravel path, up and down the hill and around picnic table. pt also walked in the parallel bars today without handhold down the length of the bars PT-OP-T Assessment and Plan Start: 02/04/22 12:09 Freq: Status: Active Protocol: Document 06/01/22 13:11 [facility] (Rec: 06/01/22 14:08 [facility] [id number]) Physical Therapy Assessment Assessment Summary Assessment Heidy is doing better overall with strength and balance. We worked again on ambulation out on the gravel path and she was able to complete the walk up the hill and around picnic table with improved confidence today. She also ambulated in parallel bars without use of hands. Heidy has next week 2 visits and we will continue to work on high level balance Physical Therapy Plan Frequency and Duration Frequency of Treatment 2x/Week Duration of Treatment 12 Plan of Care Start Date 03/25/22 Plan of Care End Date 06/24/22 Therapeutic Interventions Therapeutic Interventions Balance Training,Gait Training ,Home Exercise Program, Neuromuscular Re-education, Patient/Caregiver Education, Self-Care/Home Management, Therapeutic Activities, Therapeutic Exercises Next Visit Focus/Plan Next Note Type Treatment Note Next Visit Plan continue PT for progress gait endurance w/ increase stride/ clearance w/ QC, balance, functional strengthening, ambulation outside on gravel path and attempt outdoor stairs
--- NOTE | 2022-06-08 13:28 | PT.OTN ---
Current Diagnoses Unspecified sequelae of cerebral infarction (06/08/22) Pain in right shoulder (06/08/22) Pain in left shoulder (06/08/22) Physical Therapy Treatment Note PT-OP-A Visit Information Start: 02/04/22 12:09 Freq: Status: Active Protocol: Document 06/08/22 12:46 [facility] (Rec: 06/08/22 13:44 [facility] [id number]) Out-Patient Physical Therapy Visit Information Visit Information Visit Type Treatment Note Visit Note 1 more tx before runs out of PT benefits for this year. Visit Start Time 12:46 Visit Stop Time 13:28 Total Visit Minutes 42 Visit Number 22 Number of EXTRA HAND Visits 1 Evaluation Information Evaluation Date 02/04/22 PT-OP-B Current Condition Start: 02/04/22 12:09 Freq: Status: Active Protocol: Document 02/04/22 13:52 [facility] (Rec: 02/04/22 14:13 [facility] [id number]) Current Condition History of Current Condition Onset Date 08/11/21 History of Current Condition 08/11/21 CVA, on the 10 of August she woke up in the middle of the night and realized she couldn't sit up to get out of bed. She noticed a change in her voice when she asked her to help her up. 911 was called and she was brought to the ER she was here 6 days and then was transferedd to [facility] in [facility] to the rehab from August 15- August 31 . At that time she went home and had in home care OT, PT, and speech. It was the left side that had the stroke so now she is sleeping on her right side which has gotten sore. She started getting pain in her neck and shoulder on the right. She is weak on her left side upper and lower body because of the stroke. She is right handed She reports sweilling in her left hand, she has gloves she wears and she keeps it elevated, she doesn't have casino floor walker and is unable to make a fist any more, she would like to be able to cook again. She would like to increase her walking ability. She reports no falls. wearing left ankle FO Treatment Goals Patient/Caregiver Goals pt would like to be able to cook in her kitchen and be able to tolerate community ambulation Prior Functional Status Baseline Function- ADL's Independent Baseline Function- Mobility Independent Current Functional Impairments (Reported) Functional Limitations- ADL's unable to over a tight or new jar, severe difficulty doing ADL's and carrying a shopping bag or brief case. Severe difficulty using a knife to cut food. Functional Limitations- Mobility/Gait pt is ambulating with a FWW with limited distance and has not been able to do community ambulation PT-OP-C Subjective Start: 02/04/22 12:09 Freq: Status: Active Protocol: Document 06/08/22 12:46 [facility] (Rec: 06/08/22 13:44 [facility] [id number]) OP-PT Subjective Patient Comments Patient Comments Pt reports able to walk about 6 ft in bathroom without UE support with side stepping around a corner, also little short distances in kitchen, happy with balance progression . She states hasn't gone out walking into restaurants again since last stated weeks ago. 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 tandem stance PT-OP-F Manual Assessment Start: 02/04/22 12:09 Freq: Status: Active Protocol: Document 02/04/22 13:45 [facility] (Rec: 02/09/22 15:53 [facility] [id number]) Manual Assessments Soft Tissue Assessment Soft Tissue Mobility Assessment Right upper trapezius tightness PT-OP-G Mobility & Gait Start: 02/04/22 12:09 Freq: Status: Active Protocol: Document 02/04/22 13:45 [facility] (Rec: 02/09/22 15:53 [facility] [id number]) OP Mobility Evaluation Bed Mobility Supine to and from Sit min A for help with the L LE Transfers Sit to Stand SBA Bed to Chair Transfers SBA Floor Transfers not attempted OP Gait Assessment Gait Gait Assistance Required: Contact Guard Assist Distance (Feet) 250 Factors Limiting Gait Function Factors Limiting Gait Function Decreased Strength Stair Climbing Evaluation Evaluation Level of Assist On Stairs Contact Guard Assistance Devices Stair Climbing Assistive Devices Left Railing,Right Railing Technique/Endurance Stair Climbing Direction Ascend and Descend Stair Climbing Technique Step to Step Number of Steps Climbed 3 Stair Climbing Set # Repetitions (reps) 2 PT-OP-M Strength Start: 02/04/22 12:09 Freq: Status: Active Protocol: Document 02/04/22 13:45 [facility] (Rec: 02/09/22 15:53 [facility] [id number]) Hip Strength Hip Manual Muscle Testing L Flexion (L2) 3+ Fair+ Abduction 3+ Fair+ Knee Strength Knee Manual Muscle Testing Left Flexion (S2) 4 Good Extension (L3) 4 Good Ankle/Foot Strength Ankle and Foot Manual Muscle Testing Left Dorsiflexion (L4) 0 Zero Plantarflexion (S1) 1 Trace Inversion 1 Trace Eversion (S1) 1 Trace PT-OP-Q Treatments Start: 02/04/22 12:09 Freq: Status: Active Protocol: Document 06/08/22 12:46 [facility] (Rec: 06/08/22 13:44 [facility] [id number]) Therapeutic Exercises Sitting Exercises small pin on pegs Side left Reps/Minutes 9 Comments focused on finger dextarity, pincer grasp 1-3 MCP finger clip onto basket Sitting Exercise Name red, green Side left Reps/Minutes x9 Comments focused casino floor walker strength finger bolt screws Sitting Exercise Name twisting nuts on/off bolts on board Side left Resistance various sizes Reps/Minutes 5min Comments good progress, 1-5 MCP Gait Training Gait Activity ambulation with quad cane Device Used SBQC- Level of Assistance close SBA for inside ambulation and CGA for outdoor on gravel Distance/Duration 100ft, 230ft Comments gait to back gym 100 ft before required seated rest, then outdoor uneven surface gait up /down incline hill gravel surface around picnic table, contact wall on right for safety stability descending. Further gait sidewalk SBA and uneven grass 7 ft using QC CGA -5%A noted causious soft heel toe stepping. She was ableto walk20 ft without UE support on front sidewalk carrying QC in RUE, CGA to bench for rest. PT-OP-T Assessment and Plan Start: 02/04/22 12:09 Freq: Status: Active Protocol: Document 06/08/22 12:46 [facility] (Rec: 06/08/22 13:44 [facility] [id number]) Physical Therapy Assessment Goals 4 Impairment pt lacks home exercise program for progressing her exercises Vacuum Metalizing Supervisor Goal (LTG) Barb is independent with a HEP for LE strengthening, gait and balance. 02/18/22: verbal review hHPT HEP: stand: hip ext, minisquat , supine: LTR, heel slides, bridge, added hs curl and hip abd clam TB. 02/23/22: added R UE D1 ext w/ LUE anchor, B shld ER assist supine<> sit. 03/04/22: reviewed stame 02/23/22 : also band walk, clamshell, STS added today, resisted HS curl. 04/07/22: added supine LUE FF OH and HABD tolerant range no UT recruitment w/ waterbottle wt. LTG Duration 8 weeks (04/07/22: progressing) 3 Impairment decreased balance and stamina to be able to damaged freight inspector her kitchen to cook. Short Term Goal (STG) pt is able to balance with feet together x 30 seconds without hand hold 03/04/22: GOAL MET: able stand NBOS and narrow stagger stance no UE support 60s. STG Duration GOAL MET Vacuum Metalizing Supervisor Goal (LTG) pt is able to balance with feet together x 2 minutes without hand hold good progress 05/18/22: LTG Duration 8 weeks 2 Impairment pt is limited with her mobility on stairs and is currently side stepping up and down her stair case outside to her home Vacuum Metalizing Supervisor Goal (LTG) Barb is able to ambulate up and down 9 stairs with one hand hold on the left railing 05/18/22: able to ascend/ descend 6 (4inch) steps R HR receiprocal pattern. She reports hers at home are more 8 and L HR so finds safety side stepping. LTG Duration 8 weeks GOOD PROGRESS 1 Impairment Impaired gait s/p CVA with limited walking duration and stride length, pt is not able to engage in community ambulation at this time due to weakness and fatigue Senior Care Goal (LTG) Barb is able to ambulate greater than 500 feet without stopping for rest breaks with improved stride length. excellent progress, pt would like to progress from the walker to her cane and we will start working on that next visit LTG Duration 8 weeks Assessment Summary Assessment Pt ableto increase distance outdoor gait over uneven surfaces 230 ft w/ QC CGA-5%A over gravel, grass. Introduced pincer grasping activities can incorporate at home to progress casino floor walker and finger ROM until can get into see OT again. Improved stride with straight away distances L passes R but R stagger positioning. Physical Therapy Plan Frequency and Duration Frequency of Treatment 2x/Week Duration of Treatment 12 Plan of Care Start Date 03/25/22 Plan of Care End Date 06/24/22 Therapeutic Interventions Therapeutic Interventions Balance Training,Gait Training ,Home Exercise Program, Neuromuscular Re-education, Patient/Caregiver Education, Self-Care/Home Management, Therapeutic Activities, Therapeutic Exercises Next Visit Focus/Plan Next Note Type Treatment Note Next Visit Plan Continue PT for progress gait endurance w/ increase stride/ clearance w/ QC, balance, functional strengthening, ambulation outside on gravel path and attempt outdoor stairs
--- NOTE | 2022-06-10 18:48 | PT.OTN ---
Current Diagnoses Unspecified sequelae of cerebral infarction (06/10/22) Pain in right shoulder (06/10/22) Pain in left shoulder (06/10/22) Physical Therapy Treatment Note PT-OP-A Visit Information Start: 02/04/22 12:09 Freq: Status: Active Protocol: Document 06/10/22 13:06 [facility] (Rec: 06/10/22 13:46 [facility] [id number]) Out-Patient Physical Therapy Visit Information Visit Information Visit Type Treatment Note Visit Start Time 13:00 Visit Stop Time 13:45 Total Visit Minutes 45 Visit Number 23 PT-OP-B Current Condition Start: 02/04/22 12:09 Freq: Status: Active Protocol: Document 02/04/22 13:52 [facility] (Rec: 02/04/22 14:13 [facility] [id number]) Current Condition History of Current Condition Onset Date 08/11/21 History of Current Condition 08/11/21 CVA, on the 10 of August she woke up in the middle of the night and realized she couldn't sit up to get out of bed. She noticed a change in her voice when she asked her to help her up. 911 was called and she was brought to the ER she was here 6 days and then was transferedd to [facility] in [facility] to the rehab from August 15- August 31 . At that time she went home and had in home care OT, PT, and speech. It was the left side that had the stroke so now she is sleeping on her right side which has gotten sore. She started getting pain in her neck and shoulder on the right. She is weak on her left side upper and lower body because of the stroke. She is right handed She reports sweilling in her left hand, she has gloves she wears and she keeps it elevated, she doesn't have fine arts packer and is unable to make a fist any more, she would like to be able to cook again. She would like to increase her walking ability. She reports no falls. wearing left ankle FO Treatment Goals Patient/Caregiver Goals pt would like to be able to cook in her kitchen and be able to tolerate community ambulation Prior Functional Status Baseline Function- ADL's Independent Baseline Function- Mobility Independent Current Functional Impairments (Reported) Functional Limitations- ADL's unable to over a tight or new jar, severe difficulty doing ADL's and carrying a shopping bag or brief case. Severe difficulty using a knife to cut food. Functional Limitations- Mobility/Gait pt is ambulating with a FWW with limited distance and has not been able to do community ambulation PT-OP-C Subjective Start: 02/04/22 12:09 Freq: Status: Active Protocol: Document 06/10/22 13:06 [facility] (Rec: 06/10/22 13:46 [facility] [id number]) OP-PT Subjective Patient Comments Patient Comments pt reports she did qualify for disability so she plans to go to [place] so she can start using the stationary bike at the gym Patient Reported Progress Improving PT-OP-D Balance Start: 02/09/22 17:07 Freq: Status: Active Protocol: Document 02/04/22 13:45 [facility] (Rec: 02/09/22 17:08 [facility] [id number]) Balance Tests Single Limb Standing Single Limb- Right 30 sec Single Limb- Left unable Tandem Tandem Standing it is difficult for Barb to qualification engineer tandem stance PT-OP-F Manual Assessment Start: 02/04/22 12:09 Freq: Status: Active Protocol: Document 02/04/22 13:45 [facility] (Rec: 02/09/22 15:53 [facility] [id number]) Manual Assessments Soft Tissue Assessment Soft Tissue Mobility Assessment Right upper trapezius tightness PT-OP-G Mobility & Gait Start: 02/04/22 12:09 Freq: Status: Active Protocol: Document 02/04/22 13:45 [facility] (Rec: 02/09/22 15:53 [facility] [id number]) OP Mobility Evaluation Bed Mobility Supine to and from Sit min A for help with the L LE Transfers Sit to Stand SBA Bed to Chair Transfers SBA Floor Transfers not attempted OP Gait Assessment Gait Gait Assistance Required: Contact Guard Assist Distance (Feet) 250 Factors Limiting Gait Function Factors Limiting Gait Function Decreased Strength Stair Climbing Evaluation Evaluation Level of Assist On Stairs Contact Guard Assistance Devices Stair Climbing Assistive Devices Left Railing,Right Railing Technique/Endurance Stair Climbing Direction Ascend and Descend Stair Climbing Technique Step to Step Number of Steps Climbed 3 Stair Climbing Set # Repetitions (reps) 2 PT-OP-M Strength Start: 02/04/22 12:09 Freq: Status: Active Protocol: Document 02/04/22 13:45 [facility] (Rec: 02/09/22 15:53 [facility] [id number]) Hip Strength Hip Manual Muscle Testing L Flexion (L2) 3+ Fair+ Abduction 3+ Fair+ Knee Strength Knee Manual Muscle Testing Left Flexion (S2) 4 Good Extension (L3) 4 Good Ankle/Foot Strength Ankle and Foot Manual Muscle Testing Left Dorsiflexion (L4) 0 Zero Plantarflexion (S1) 1 Trace Inversion 1 Trace Eversion (S1) 1 Trace PT-OP-Q Treatments Start: 02/04/22 12:09 Freq: Status: Active Protocol: Document 06/10/22 13:06 [facility] (Rec: 06/10/22 13:46 [facility] [id number]) Cardio Equipment Recumbent Elliptical (Biodex) Duration (Minutes) 8 Resistance 4 Seat Position 5 Other no breaks today Gait Training Gait Activity ambulation with quad cane Device Used SBQC- Level of Assistance close SBA for inside ambulation and CGA for outdoor on gravel Distance/Duration 100ft, 250 ft Comments gait to back gym 100 ft before required seated rest, then outdoor uneven surface gait up /down incline hill gravel surface around picnic table, contact wall on right for safety stability descending. Further gait sidewalk SBA and uneven grass 7 ft using QC CGA -5%A noted causious soft heel toe stepping. She was ableto walk 30 ft without UE support on front sidewalk carrying QC in RUE, CGA to bench for rest . PT-OP-T Assessment and Plan Start: 02/04/22 12:09 Freq: Status: Active Protocol: Document 06/10/22 13:06 [facility] (Rec: 06/10/22 13:46 [facility] [id number]) Physical Therapy Assessment Goals 4 Impairment pt lacks home exercise program for progressing her exercises Half-Way Goal (LTG) Barb is independent with a HEP for LE strengthening, gait and balance. 02/18/22: verbal review hHPT HEP: stand: hip ext, minisquat , supine: LTR, heel slides, bridge, added hs curl and hip abd clam TB. 02/23/22: added R UE D1 ext w/ LUE anchor, B shld ER assist supine<> sit. 03/04/22: reviewed stame 02/23/22 : also band walk, clamshell, STS added today, resisted HS curl. 04/07/22: added supine LUE FF OH and HABD tolerant range no UT recruitment w/ waterbottle wt. LTG Duration 8 weeks (04/07/22: progressing) 3 Impairment decreased balance and stamina to be able to qualification engineer her kitchen to cook. Short Term Goal (STG) pt is able to balance with feet together x 30 seconds without hand hold 03/04/22: GOAL MET: able stand NBOS and narrow stagger stance no UE support 60s. STG Duration GOAL MET Half-Way Goal (LTG) pt is able to balance with feet together x 2 minutes without hand hold good progress 05/18/22: LTG Duration 8 weeks 2 Impairment pt is limited with her mobility on stairs and is currently side stepping up and down her stair case outside to her home Half-Way Goal (LTG) Barb is able to ambulate up and down 9 stairs with one hand hold on the left railing 05/18/22: able to ascend/ descend 6 (4inch) steps R HR receiprocal pattern. She reports hers at home are more 8 and L HR so finds safety side stepping. LTG Duration 8 weeks GOOD PROGRESS 1 Impairment Impaired gait s/p CVA with limited walking duration and stride length, pt is not able to engage in community ambulation at this time due to weakness and fatigue Half-Way Goal (LTG) Barb is able to ambulate greater than 500 feet without stopping for rest breaks with improved stride length. excellent progress, pt would like to progress from the walker to her cane and we will start working on that next visit LTG Duration 8 weeks Assessment Summary Assessment overall Heidy has increased her gait with quad cane in both distance and her ability to walk on uneven surfaces. She is still requiring assist with ADL's such as cooking and will benefit from occupational therapy once her insurance allows more visits next November. She has reached the end of her allowed visits at this time and will discharged to a [facility] Physical Therapy Plan Discharge Physical Therapy Discharge Reasons No Longer Attending PT Discharge Comments pt has reached the end of her allowed PT visits
== END 2023-01-11 14:53 ==
LOC: PHYS 13:00
PROVIDERS: Family Provider Internal Medicine; PCP Internal Medicine; Referring Provider Internal Medicine; Visit Provider Internal Medicine
DX: I69.30 Unspecified sequelae of cerebral infarction (principal); M25.511 Pain in right shoulder; M25.512 Pain in left shoulder
CPT/HCPCS: 97110; 97112; 97116; 97140; 97161

== ENCOUNTER → 2022-07-08 15:43 | Outpatient (CLI) | payer OTHER, MEDICAID, SELFPAY ==
[2021-08-11 04:59] VITALS: BMI 32.1
[2022-07-08 18:19] LABS: Add Manual Diff / Slide Review NO; Basophils Absolute Auto 100 /uL (0-100); Basophils Percent Auto 1.1 % (0-2); Eosinophils Absolute Auto 200 /uL (0-450); Eosinophils Percent Auto 1.9 % (2-4); Hematocrit 42.1 % (36-46); Hemoglobin 14.2 g/dL (12.0-16.0); Lymphocytes Absolute Auto 5400 /uL (1100-4500); Lymphocytes Percent Auto 46.8 % (25-40); Mean Corpuscular HGB Conc 33.7 % (30-36); Mean Corpuscular Hemoglobin 31.3 PG (26-34); Monocytes Absolute Auto 900 /uL (0-900); Monocytes Percent Auto 7.4 % (3-14); Neutrophils Absolute Auto 5000 /uL (1500-7000); Neutrophils Percent Auto 42.8 % (50-75); Platelet Count 365 X10^3/uL (150-400); Red Blood Cell Count 4.53 X10^6/uL (4.0-5.2); Red Cell Distribution Width 13.6 % (11.6-14.8); White Blood Cell Count 11.6 X10^3/uL (4.5-11.0)
[2022-07-08 19:45] LABS: BUN Creatinine Ratio 29.7 (6-22); Blood Urea Nitrogen 22 mg/dL (7-17); Calcium 9.4 mg/dL (8.4-10.2); Carbon Dioxide 26 mmol/L (22-32); Chloride 106 mmol/L (98-107); Creatine Kinase 88 U/L (30-135); Estimated Glomerular Filt Rate > 60 mL/min (>60); Glucose 86 mg/dL (80-110); HEMOLYSIS 19 (0-50); Potassium 4.4 mmol/L (3.4-5.1); Sodium 141 mmol/L (137-145)
== END ==
PROVIDERS: Family Provider Internal Medicine; PCP Internal Medicine; Referring Provider Internal Medicine; Visit Provider Internal Medicine
DX: E78.2 Mixed hyperlipidemia (principal); I10 Essential (primary) hypertension; M62.838 Other muscle spasm
CPT/HCPCS: 36415; 80048; 82550; 83735; 85025

== ENCOUNTER → 2022-09-22 14:40 | Outpatient (CLI) | payer OTHER, MEDICAID, SELFPAY ==
[2021-08-11 04:59] VITALS: BMI 32.1
[2022-09-22 16:06] LABS: Alanine Aminotransferase 23 IU/L (<35); Albumin 4.5 g/dL (3.5-5.0); Albumin Globulin Ratio 1.4 (1.0-2.8); Alkaline Phosphatase 50 U/L (38-126); Aspartate Aminotransferase 22 IU/L (14-36); BUN Creatinine Ratio 21.1 (6-22); Bilirubin Total 0.8 mg/dL (0.2-1.3); Blood Urea Nitrogen 15 mg/dL (7-17); Calcium 9.6 mg/dL (8.4-10.2); Carbon Dioxide 27 mmol/L (22-32); Chloride 103 mmol/L (98-107); Estimated Glomerular Filt Rate > 60 mL/min (>60); Globulin 3.2 g/dL (1.7-4.1); Glucose 78 mg/dL (80-110); HEMOLYSIS < 15 (0-50); Potassium 4.1 mmol/L (3.4-5.1); Sodium 142 mmol/L (137-145); Total Protein 7.7 g/dL (6.3-8.2)
[2022-09-22 16:08] LABS: Hemoglobin A1C% w Est Avg Glu 7.1 % (4.0-6.0)
== END ==
PROVIDERS: Family Provider Internal Medicine; PCP Internal Medicine; Referring Provider Internal Medicine; Visit Provider Internal Medicine
DX: E11.65 Type 2 diabetes mellitus with hyperglycemia (principal); I10 Essential (primary) hypertension
CPT/HCPCS: 36415; 80053; 83036

== ENCOUNTER → 2022-11-24 10:12 | Outpatient (CLI) | payer OTHER, MEDICAID, SELFPAY ==
[2021-08-11 04:59] VITALS: BMI 32.1
[2022-11-25 12:54] LABS: COVID19 -Nasal RAPID Negative (Negative)
--- NOTE | 2022-11-30 09:43 | DI.NM.S_ITS ---
DATE OF SERVICE: PROCEDURE: Pharmacological perfusion study. INDICATION: Shortness of breath with underlying diabetes mellitus, hypertension, hyperlipidemia. RADIOPHARMACEUTICAL: 23.4 millicurie technetium-99m Myoview IV was injected at stress and 26.6 millicurie technetium-99m Myoview IV was injected at rest. CARDIAC STRESS: The patient underwent IV Lexiscan perfusion study under the supervision of an attending staff using standard protocol. Baseline rhythm was sinus. During stress, no convincing ischemic changes seen. No significant arrhythmias. The patient had very mild shortness of breath. Baseline blood pressure 160/80. RAW DATA: There is adequate myocardial uptake. GATED STUDY: Resting LV ejection fraction 74 and stress LV ejection fraction 86 percent. Resting end-diastolic volume 87 mL. TID ratio 0.91, which is within normal limits. Lung/heart ratio 0.36, which is within normal limits. MYOCARDIAL PERFUSION SCAN: Stress supine and resting supine images were compared to each other. The patient does not have any prone images. Stress supine and resting supine images revealed normal myocardial perfusion. CONCLUSION: This is a normal myocardial perfusion study. Preserved left ventricular function. No ischemic electrocardiographic changes. No anginal symptoms. Overall, low-risk myocardial perfusion scan. RanjithBarb - KAROLINA/margaret/deuce doc#: [id number]/job#: [id number] dd: 11/25/2022 17:12:00 dt: 11/25/2022 19:06:00 DICTATING /COPIES TO: Susie Vidal MD COPIES MNE: JENS;
== END ==
PROVIDERS: Family Provider Internal Medicine; PCP Internal Medicine; Referring Provider Internal Medicine; Visit Provider Internal Medicine
DX: R06.09 Other forms of dyspnea (principal); R06.02 Shortness of breath; E11.9 Type 2 diabetes mellitus without complications; I10 Essential (primary) hypertension; E78.5 Hyperlipidemia, unspecified; Z20.822 Contact with and (suspected) exposure to COVID-19
CPT/HCPCS: 78452; 87635; 93017; A9502; J2785

== ENCOUNTER → 2023-01-04 13:15 | Outpatient (CLI) | payer OTHER, MEDICAID, SELFPAY ==
[2021-08-11 04:59] VITALS: BMI 32.1
[2023-01-04 14:52] LABS: Hemoglobin A1C% w Est Avg Glu 6.7 % (4.0-6.0)
[2023-01-04 15:00] LABS: Alanine Aminotransferase 16 IU/L (<35); Albumin 4.4 g/dL (3.5-5.0); Albumin Globulin Ratio 1.4 (1.0-2.8); Alkaline Phosphatase 48 U/L (38-126); Aspartate Aminotransferase 17 IU/L (14-36); BUN Creatinine Ratio 22.9 (6-22); Bilirubin Total 0.8 mg/dL (0.2-1.3); Blood Urea Nitrogen 16 mg/dL (7-17); Calcium 9.3 mg/dL (8.4-10.2); Carbon Dioxide 28 mmol/L (22-32); Chloride 102 mmol/L (98-107); Estimated Glomerular Filt Rate > 60 mL/min (>60); Globulin 3.2 g/dL (1.7-4.1); Glucose 150 mg/dL (80-110); HEMOLYSIS < 15 (0-50); Potassium 4.3 mmol/L (3.4-5.1); Sodium 140 mmol/L (137-145); Total Protein 7.6 g/dL (6.3-8.2)
== END ==
PROVIDERS: Family Provider Internal Medicine; PCP Internal Medicine; Referring Provider Internal Medicine; Visit Provider Internal Medicine
DX: E11.49 Type 2 diabetes mellitus with other diabetic neurological complication (principal); E78.2 Mixed hyperlipidemia; I10 Essential (primary) hypertension
CPT/HCPCS: 36415; 80053; 83036

== ENCOUNTER 2023-05-06 13:15 | Outpatient (RCR) | payer OTHER, MEDICAID, SELFPAY ==
[2021-08-11 04:59] VITALS: BMI 32.1
--- NOTE | 2023-04-15 14:17 | OT.OP.EVAL ---
Visit Care Team Role Provider Type Arvind Pires MD Attending Provider Physician Family Provider Primary Care Provider Referring Provider Specialty: Internal Medicine Address: [address] [place] [address], [address], [address] Email: [email or web address] Occupational Therapy Initial Evaluation OT Outpatient Adult Evaluation Start: 04/15/23 14:12 Freq: Status: Active Protocol: Document 04/15/23 14:12 [facility] (Rec: 04/15/23 14:16 [facility] [id number]) General Information - Adult Visit Number 1 Plan of Care Dates 04/15/23 - 05/27/23 Insurance Information Max 24 PT/OT combo visits PCY Visit Start Time 12:15 Visit Stop Time 13:15 Total Visit Minutes 60 Treatment Setting Outpatient Care Note Type Initial Evaluation Referring Physician Arvind Pires MD Reason for Referral CVA Goals Treatment HEP initiation. Casino Floorperson Goals 1. Heidy will be modified independent with L UE home exercise program utilizing provided written and visual instructions from therapist. 2. Heidy will be able to identify 2 to 3 additional functional activities that she can complete and/or actively incorporate the left hand (e.g ., outside of assist w/ hair spray, holding onto FWW, and LB clothing management). Assessment/Plan Treatment Assessment Heidy is a 62 year-old right hand dominant female referred to outpatient OT by PCP secondary to residual symptoms from stroke that occurred in 2020. She indicated on intake form that she was hospitalized 08/11/23 to 08/15/21 for stroke and was d/c to rehab facility in [place] from 08/15/21 to 08/31/21. She currently resides with partner. 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 She is taking Baclofen 3 x a day at 10 mg to address spasms. Heidy is being seen in the outpatient clinic by PT. Patient goals = Address L UE stiffness/ROM/positioning of the L 2nd digit. Evaluation Findings = Heidy reported medically retiring from [facility] in 2020 post- stroke. Receives phys assist from partner with distal LB dressing, including management of L AFO, socks and shoes. Report of being able to complete all other dressing tasks on own. Although partner does provide intermittent phys assist for management of pants post- toileting. (+) reliance on R hand for most tasks; although does incorporate the L UE w/ use of mobility AE and w/ use of hair spray. Placement of dycem on FWW to assist w/ maintenance of L handed grasp. She was independent w/ w/c <- > EOM transfers w/ use of FWW; independent w/ EOM <-> supine transfer to the R. She denied use of splint/orthotic on the L UE. Mild swelling of the distal L UE; history of edema wrappings. Able to oppose L thumb to 2nd --> 4th digit pad w/ increased time. Tendency into flexion of the L 2nd digit; tendency of positioning into 20 degrees flexion at the R 2nd PIPJ; able to passively extend to -5 degrees extension. Tendency into hyperextension at 3rd and 4th PIPJs and flexion at 3rd and 4th DIPJs. She reports primarily side sleeping on her R. She indicated 2-3 out of 10 on the Pain Assessment Grid relative to the posterior neck, bilateral shoulders, dorsal left elbow and radial surface of L forearm. Demonstrated functional AROM of R UE at shoulder, elbow, wrist/hand level. AROM testing completed in sitting; 0-45 degrees active L sh extension; 0-90 degrees active L sh flexion; 0-70 degrees active L sh abduction; full active IR; 0-30 degrees active L sh ER at side; 30-120 degrees active L elbow flex/ext; 0-70 degrees active L forearm supination; full active L forearm pronation; 0-15 degrees active L wrist RD; 0- 30 degrees active L wrist UD; 0-40 degrees active L wrist flex; 0-58 degrees active L wrist ext. Dynamometer II strength testing = 16.0# of force; L lateral pinch strength testing = 7.0# of force. Tightness of anterior L shoulder. Decreased coordination of the L UE; noted in sitting and in supine w/ trunk/core stabilized. Heidy would likely benefit from outpatient to address L UE ROM , L UE weakness, L UE coordination, development of HEP, and to support functional incorporation of the L hand with active participation in meaningful activities. Home Exercise Program 04/15/23 = Supine cane flexion; supine cane hor sh abd; clasping of boths behind head/ ER; active extension w/ use of cloth (and/or with hand positioned on top of left leg) . Length of treatment (weeks) 6 Plan of Care Start Date 04/15/23 Plan of Care End Date 05/27/23 Comment Will need to monitor frequency /# of visits d/t insurance limitations Comment 1 x wk vs 1 x every other wk; vs 1 additional follow-up appt Therapeutic Contents Active Range of Motion, Adaptive Equipment Education, Client Education,Functional Activities,Home Exercise Program,Joint Protection, Manual Therapy,Education, Neurodevelopment Treatment, Neuromuscular Re-Education, Self-Care,Stretching/ Flexibility Activities, Therapeutic Activities, Therapeutic Exercises, Modalities Modalities As Needed,As Prescribed Additional Types of Modalities Heat/Ice/Paraffin/Ultrasound/E -stim
--- NOTE | 2023-05-06 14:23 | OT.OP.DC ---
Visit Care Team Role Provider Type Arvind Pires MD Attending Provider Physician Family Provider Primary Care Provider Referring Provider Address: [address] [place] [address], [address], [place], [address] Email: [email or web address] [email or web address] Outpatient Adult Evaluation Start: 04/15/23 14:12 Freq: Status: Active Protocol: Document 04/15/23 14:12 AMS (Rec: 04/15/23 14:16 AMS [id number]) General Information - Adult Visit Information Visit Number 1 Plan of Care Dates 04/15/23 - 05/27/23 Insurance Information Max 24 PT/OT combo visits PCY Session Time Visit Start Time 12:15 Visit Stop Time 13:15 Total Visit Minutes 60 Setting Treatment Setting Outpatient Care Visit Type Note Type Initial Evaluation Referral Referring Physician Arvind Pires MD Reason for Referral CVA Goals Treatment Treatment HEP initiation. Custodial Goals Custodial Goals 1. Heidy will be modified independent with L UE home exercise program utilizing provided written and visual instructions from therapist. 2. Heidy will be able to identify 2 to 3 additional functional activities that she can complete and/or actively incorporate the left hand (e.g ., outside of assist w/ hair spray, holding onto FWW, and LB clothing management). Assessment/Plan Assessment Treatment Assessment Heidy is a 62 year-old right hand dominant female referred to outpatient OT by PCP secondary to residual symptoms from stroke that occurred in 2020. She indicated on intake form that she was hospitalized 08/11/23 to 08/15/21 for stroke and was d/c to rehab facility in [place] from 08/15/21 to 08/31/21. She currently resides with partner. 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 She is taking Baclofen 3 x a day at 10 mg to address spasms. Heidy is being seen in the outpatient clinic by PT. Patient goals = Address L UE stiffness/ROM/positioning of the L 2nd digit. Evaluation Findings = Heidy reported medically retiring from [facility] in 2020 post- stroke. Receives phys assist from partner with distal LB dressing, including management of L AFO, socks and shoes. Report of being able to complete all other dressing tasks on own. Although partner does provide intermittent phys assist for management of pants post- toileting. (+) reliance on R hand for most tasks; although does incorporate the L UE w/ use of mobility AE and w/ use of hair spray. Placement of dycem on FWW to assist w/ maintenance of L handed grasp. She was independent w/ w/c <- > EOM transfers w/ use of FWW; independent w/ EOM <-> supine transfer to the R. She denied use of splint/orthotic on the L UE. Mild swelling of the distal L UE; history of edema wrappings. Able to oppose L thumb to 2nd --> 4th digit pad w/ increased time. Tendency into flexion of the L 2nd digit; tendency of positioning into 20 degrees flexion at the R 2nd PIPJ; able to passively extend to -5 degrees extension. Tendency into hyperextension at 3rd and 4th PIPJs and flexion at 3rd and 4th DIPJs. She reports primarily side sleeping on her R. She indicated 2-3 out of 10 on the Pain Assessment Grid relative to the posterior neck, bilateral shoulders, dorsal left elbow and radial surface of L forearm. Demonstrated functional AROM of R UE at shoulder, elbow, wrist/hand level. AROM testing completed in sitting; 0-45 degrees active L sh extension; 0-90 degrees active L sh flexion; 0-70 degrees active L sh abduction; full active IR; 0-30 degrees active L sh ER at side; 30-120 degrees active L elbow flex/ext; 0-70 degrees active L forearm supination; full active L forearm pronation; 0-15 degrees active L wrist RD; 0- 30 degrees active L wrist UD; 0-40 degrees active L wrist flex; 0-58 degrees active L wrist ext. Dynamometer II strength testing = 16.0# of force; L lateral pinch strength testing = 7.0# of force. Tightness of anterior L shoulder. Decreased coordination of the L UE; noted in sitting and in supine w/ trunk/core stabilized. Heidy would likely benefit from outpatient to address L UE ROM , L UE weakness, L UE coordination, development of HEP, and to support functional incorporation of the L hand with active participation in meaningful activities. Home Exercise Program 04/15/23 = Supine cane flexion; supine cane hor sh abd; clasping of boths behind head/ ER; active extension w/ use of cloth (and/or with hand positioned on top of left leg) . Plan Length of treatment (weeks) 6 Plan of Care Start Date 04/15/23 Plan of Care End Date 05/27/23 Comment Will need to monitor frequency /# of visits d/t insurance limitations Comment 1 x wk vs 1 x every other wk; vs 1 additional follow-up appt Therapeutic Contents Active Range of Motion, Adaptive Equipment Education, Client Education,Functional Activities,Home Exercise Program,Joint Protection, Manual Therapy,Education, Neurodevelopment Treatment, Neuromuscular Re-Education, Self-Care,Stretching/ Flexibility Activities, Therapeutic Activities, Therapeutic Exercises, Modalities Modalities As Needed,As Prescribed Additional Types of Modalities Heat/Ice/Paraffin/Ultrasound/E -stim Functional Wrist/Hand Scan Hand Side Sensory Assessment Sensory Profile2 OT Outpatient Treatment Note - Adult Start: 04/15/23 14:12 Freq: Status: Active Protocol: Document 05/06/23 14:07 [facility] (Rec: 05/06/23 14:23 [facility] [id number]) OT Outpatient Adult Treatment Note Session Time Visit Start Time 13:15 Visit Stop Time 14:00 Total Visit Minutes 45 Visit Information Plan of Care Dates 04/15/23 - 05/27/23 Setting Treatment Setting Outpatient Care Visit Type Note Type Treatment Note General Information General Information Heidy is a 62 year-old right hand dominant female referred to outpatient OT by PCP secondary to residual symptoms from stroke that occurred in 2020. She indicated on intake form that she was hospitalized 08/11/23 to 08/15/21 for stroke and was d/c to rehab facility in [place] from 08/15/21 to 08/31/21. She currently resides with partner. 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 She is taking Baclofen 3 x a day at 10 mg to address spasms. Heidy is being seen in the outpatient clinic by PT. - Subjective Identification Type Name Identification Reconciled With Medical Record Observations Heidy verbalized that she would like to focus on PT w/ remaining visits. Patient Expectation/Goals Address L UE stiffness/ROM/ positioning of the L 2nd digit . Patient/Caregiver Compliance with Home Good Exercise Program - Objective Objective Measurements Please refer to below for progress towards meeting established OT goals. Custodial Goals ALL GOALS MET 05/06/23 Heidy will be modified independent with L UE home exercise program utilizing provided written and visual instructions from therapist. Heidy will be able to identify 2 to 3 additional functional activities that she can complete and/or actively incorporate the left hand (e.g ., outside of assist w/ hair spray, holding onto FWW, and LB clothing management). - Exercises 4 Descriptor Tone management/Weight bearing . 3 Descriptor Seated UE exercises. 2 Descriptor Supine UE exercises. 1 Descriptor PROM by therapist L UE. - Assessment Assessment of Improvement Heidy was accompanied by partner to treatment session. Upgraded supine --> EOM seated UE exercises; also instructed in UE weight bearing exercise given difficulties maintaining positioning of L hand on wall at sh height and achieving full elbow extension w/ wall and TT/weight bearing w/ active elbow flex/ext/TT push-ups. Denial of wearing a splint at this time; recommended consideration of night hand splint given waking up with hand in tight fist. Hyperextension at PIPs primarily of 3rd and 4th digits w/ no observable flexion at DIPJs (typical of swan neck deformities); slight flex contracture of 2nd PIPJ. Denial of painful snapping; snapping primarily observable of the L 3rd digit w/ PIP flexion. Discussed potential for oval-8 rings to discourage hyperextension; however, based on edema/swelling custom -made finger splints are likely necessary to avoid risk of skin breakdown based on [id number] fit of oval-8 rings. Recommended returning to PCP if fingers become painful w/ snapping into flexion. Heidy verbalized desire to focus on PT given insurance limitations. Recommend d/c from outpatient OT at this time. Home Exercise Program 05/06/23 = Seated UE exercises; sh flex/figure 8's in both directions (and w/ sh abd); backwards arm circles to encourage sh abd/movement of the UE to the left side of the body/elbow extension; weight bearing w/ use of surface ( weight shift left <-> right) w / focus on elbow extension. - Plan Therapy Recommendations Discharge from Occupational Therapy
== END 2023-05-11 15:46 | disposition home or self-care (01) ==
LOC: OT 13:15
PROVIDERS: Absent Provider Internal Medicine; Family Provider Internal Medicine; PCP Internal Medicine; Referring Provider Internal Medicine; Visit Provider Internal Medicine
DX: I63.9 Cerebral infarction, unspecified (principal); R53.1 Weakness; R27.8 Other lack of coordination
CPT/HCPCS: 97110; 97165; 97530

== ENCOUNTER → 2023-05-10 13:55 | Outpatient (CLI) | payer OTHER, MEDICAID, SELFPAY ==
[2021-08-11 04:59] VITALS: BMI 32.1
--- NOTE | 2023-05-10 13:56 | DI.MG.S_ITS ---
BILATERAL DIGITAL SCREENING MAMMOGRAM 3D/2D WITH CAD: 05/10/2023 CLINICAL: Baseline exam. Routine screening. No prior exams were available for comparison. Both breasts are almost entirely fatty (category a/<25% glandular tissue). Current study was also evaluated with a Computer Aided Detection (CAD) system. There is a round focal asymmetry with a circumscribed margin and punctate calcifications in the right breast at 6 o'clock middle depth. No other significant masses, calcifications, or other findings are seen in either breast. IMPRESSION: INCOMPLETE: NEEDS ADDITIONAL IMAGING EVALUATION The round focal asymmetry in the right breast is indeterminate. Additional views with possible ultrasound are recommended. Based on the Tyrer Cuzick model (a risk assessment model) the patient's lifetime risk is 3.6% and her 10 year risk is 1.5%. According to the ACR, ACS, and NCCN guidelines, an annual breast MRI exam along with mammogram is recommended if the patient's lifetime risk is 20% or greater. This exam was interpreted at Station ID: [id number]. NOTE: For mammograms, a report in lay terms will be sent to the patient. Approximately 15% of breast malignancies will not be visualized mammographically. In the management of a palpable breast mass, a negative mammogram must not discourage biopsy of a clinically suspicious lesion. Electronically Signed By: Kanwal keller/byron:05/10/2023 16:48:36 letter sent: Additional Imaging Needed ACR BI-RADS Category 0: Incomplete [id number]
== END ==
PROVIDERS: Family Provider Internal Medicine; PCP Internal Medicine; Referring Provider Internal Medicine; Visit Provider Internal Medicine
DX: Z12.31 Encounter for screening mammogram for malignant neoplasm of breast (principal)
CPT/HCPCS: 77063; 77067

== ENCOUNTER 2023-05-24 14:45 | Outpatient (RCR) | payer OTHER, MEDICAID, SELFPAY ==
[2021-08-11 04:59] VITALS: BMI 32.1
--- NOTE | 2023-03-09 16:46 | PT.OIE ---
Current Diagnoses Unspecified sequelae of cerebral infarction (03/09/23) Past Medical History (This Medical Record has been edited. Action required.) Acne Chicken pox Depression Essential hypertension Fractures (~1981) Healthy adult Mixed hyperlipidemia Obesity (BMI 30.0-34.9) Personal history of stroke with current residual effects (~07/2021) Polio Type 2 diabetes mellitus Vision disorder Past Surgical History (This Medical Record has been edited. Action required.) Anesthesia History of (~1998) History of cholecystectomy (~1988) History of tonsillectomy Visit Care Team Role Provider Type Arvind Pires MD Attending Provider Physician Family Provider Primary Care Provider Referring Provider Specialty: Internal Medicine Address: [address] [place] [address], [address], [place], [facility] Email: [email or web address] Physical Therapy Initial Evaluation PT-OP-A Visit Information Start: 03/09/23 15:24 Freq: Status: Active Protocol: Document 03/09/23 15:28 TH (Rec: 03/09/23 16:46 TH [id number]) Out-Patient Physical Therapy Visit Information Visit Information Visit Type Initial Evaluation Visit Note Pt reports having CVA 2020 resulting in left sided weakness. Since then the left LE has been spastic requiring medication to help decrease tone. She has started medications and notices left LE has been less rigid. She also has weakness of left UE and will be working on getting a OT. She had been seen here previously though her insurance visits came to end and her therapy had to stop. She would like to continue with progression to try to regain strength/balance. Pt uses walker and has left AFO. Prior level since CVA IND with FWW in home, IND with bed mobility, transfers, sidesteps up 3 steps with rail with CG( gait belt). Visit Start Time 15:15 Visit Stop Time 16:00 Total Visit Minutes 45 Visit Number 1 Number of VIDEO TAPE DUPLICATOR Visits 0 PT-OP-D Balance Start: 03/09/23 15:24 Freq: Status: Active Protocol: Document 03/09/23 15:28 TH (Rec: 03/09/23 16:46 TH [id number]) Wilson Balance Assessment Evaluation Sitting to Standing Ability Independent w/Hands Unsupported Stance Unable w/out Assistance Sitting Unsupported, Feet on Floor Safely- 2 minutes Standing to Sitting Ability Assist, Control w/Hands Transfer Ability Safely, Hand Use Unsupported Stance- Eyes Closed Falls Without Assistance Unsupported Stance- Eyes Open Assist to attain,<15 secs Reaching Forward Standing Supported, Looses Balance Pick- Up Object From Floor Requires Assistance Look Behind Shoulder - Standing Assist to Prevent Fall Turning 360 Degrees Requires Assistance Unsupported Stance, Alternating Feet on Assist to Prevent Fall Stair Unsupported Tandem Stance Assist to Step-15 seconds Unilateral Leg Stance Unable,assist to not fall Total Score Wilson Total Score (out of 56 points) 14 Wilson Impairment Rating 60 to 79% Impaired (Score 12- 22) PT-OP-M Strength Start: 03/09/23 15:24 Freq: Status: Active Protocol: Document 03/09/23 15:28 TH (Rec: 03/09/23 16:46 TH [id number]) Shoulder Strength Shoulder Manual Muscle Testing Left Flexion 3+ Fair+ Abduction (C5) 3+ Fair+ Hip Strength Hip Manual Muscle Testing Left Flexion (L2) 4- Good- Extension (S1) 3+ Fair+ Knee Strength Knee Manual Muscle Testing Left Flexion (S2) 4- Good- Extension (L3) 4+ Good+ Ankle/Foot Strength Ankle and Foot Manual Muscle Testing Left Dorsiflexion (L4) 3 Fair Plantarflexion (S1) 3+ Fair+ PT-OP-Q Treatments Start: 03/09/23 15:24 Freq: Status: Active Protocol: Document 03/09/23 15:28 TH (Rec: 03/09/23 16:46 TH [id number]) Self-Care/Home Management Treatment Education Patient Education Home Exercise Program Other Education Access Code: [email or web address] URL: [email or web address] Date: 03/09/2023 Prepared by: Spring Chowdary Exercises - Seated March - 1 x daily - 7 x weekly - 3 sets - 10 reps - Seated Knee Extension with Resistance - 1 x daily - 7 x weekly - 3 sets - 10 reps - Beginner Bridge - 1 x daily - 7 x weekly - 3 sets - 10 reps PT-OP-T Assessment and Plan Start: 03/09/23 15:24 Freq: Status: Active Protocol: Document 03/09/23 15:28 TH (Rec: 03/09/23 16:46 TH [id number]) Physical Therapy Assessment Rehab Potential Rehabilitation Potential Good Evaluation Complexity Number of Personal Factors/Comorbidities 1-2 Number of Body Systems Impaired 3 Clinical Presentation at Evaluation Stable Goals 4 Impairment Difficult to get in out of bed on her own Short Term Goal (STG) Pt will be able to perform scooting , sup<>sit with CG. STG Duration 04/20/23 Animal Park Code Enforcement Officer Goal (LTG) Pt will be able to perform scooting , sup<>sit IND with bed rail versus no AD. LTG Duration 05/02/23 3 Impairment Pt unable to ambulate beyond 3 -4 feet without fatigue/ unsteady gait. Short Term Goal (STG) Pt. will be able to ambulate with FWW versus SPC 50 feet with CG/SBA. STG Duration 04/20/23 Animal Park Code Enforcement Officer Goal (LTG) Pt will ba able to ambulate with SPC 100 + feet on even / uneven terrain SBA. LTG Duration 05/02/23 2 Impairment Pt has difficulty going up / down steps without CG. Short Term Goal (STG) Pt will be able to side step/ step to 3 steps up/down with SBA. STG Duration 04/20/23 Skilled Nursing Goal (LTG) Pt will be able to side step/ step to 3 steps up/down with Sup. LTG Duration 05/02/23 1 Impairment Wilson score Short Term Goal (STG) Pt's score will improve by 15 pts STG Duration 04/20/23 Animal [place] Code Enforcement Officer Goal (LTG) Pt's score will improve by 25 pts LTG Duration 05/02/23 Assessment Summary Assessment Pt presents witrh residual left sided weakness / spasticity post CVA 2020 as well as general deconditioning sincxe the end of therapy last year. Pt will benefit from further PT to improve strength and balnce for improved functional mobility. Physical Therapy Plan Frequency and Duration Frequency of Treatment 2x/Week Duration of treatment (weeks) 12 Plan of Care Start Date 03/09/23 Plan of Care End Date 06/01/23 Therapeutic Interventions Therapeutic Interventions Balance Training,Coordination Training,Gait Training,Home Exercise Program,Joint Mobilizations,Manual Therapy, Neuromuscular Re-education, Orthotic/Prosthetic Management ,Patient/Caregiver Education, Self-Care/Home Management, Sensory Integration,Soft Tissue Mobilization,Taping, Therapeutic Activities, Therapeutic Exercises Modalities Biofeedback,Cold Pack/Ice Massage,Hot Packs Next Visit Focus/Plan Next Visit Plan LE strengthening ex. balance ex.
--- NOTE | 2023-03-09 16:47 | PT.OPPOC ---
Physical, Occupational & Speech Therapy At [facility] Current Diagnoses Unspecified sequelae of cerebral infarction (03/09/23) Visit Care Team Role Provider Type Arvind Pires MD Attending Provider Physician Family Provider Primary Care Provider Referring Provider Specialty: Internal Medicine Address: [address] [place] [address], [address], [address] Email: [email or web address] Plan Of Care PT-OP-T Assessment and Plan Start: 03/09/23 15:24 Freq: Status: Active Protocol: Document 03/09/23 15:28 TH (Rec: 03/09/23 16:46 TH [id number]) Physical Therapy Assessment Rehab Potential Rehabilitation Potential Good Evaluation Complexity Number of Personal Factors/Comorbidities 1-2 Number of Body Systems Impaired 3 Clinical Presentation at Evaluation Stable Goals 4 Impairment Difficult to get in out of bed on her own Short Term Goal (STG) Pt will be able to perform scooting , sup<>sit with CG. STG Duration 04/20/23 Jar Capper Goal (LTG) Pt will be able to perform scooting , sup<>sit IND with bed rail versus no AD. LTG Duration 05/02/23 3 Impairment Pt unable to ambulate beyond 3 -4 feet without fatigue/ unsteady gait. Short Term Goal (STG) Pt. will be able to ambulate with FWW versus SPC 50 feet with CG/SBA. STG Duration 04/20/23 Jar Capper Goal (LTG) Pt will ba able to ambulate with SPC 100 + feet on even / uneven terrain SBA. LTG Duration 05/02/23 2 Impairment Pt has difficulty going up / down steps without CG. Short Term Goal (STG) Pt will be able to side step/ step to 3 steps up/down with SBA. STG Duration 04/20/23 Skilled Nursing Goal (LTG) Pt will be able to side step/ step to 3 steps up/down with Sup. LTG Duration 05/02/23 1 Impairment Wilson score Short Term Goal (STG) Pt's score will improve by 15 pts STG Duration 04/20/23 Jar Capper Goal (LTG) Pt's score will improve by 25 pts LTG Duration 05/02/23 Assessment Summary Assessment Pt presents witrh residual left sided weakness / spasticity post CVA 2020 as well as general deconditioning sincxe the end of therapy last year. Pt will benefit from further PT to improve strength and balnce for improved functional mobility. Physical Therapy Plan Frequency and Duration Frequency of Treatment 2x/Week Duration of treatment (weeks) 12 Plan of Care Start Date 03/09/23 Plan of Care End Date 06/01/23 Therapeutic Interventions Therapeutic Interventions Balance Training,Coordination Training,Gait Training,Home Exercise Program,Joint Mobilizations,Manual Therapy, Neuromuscular Re-education, Orthotic/Prosthetic Management ,Patient/Caregiver Education, Self-Care/Home Management, Sensory Integration,Soft Tissue Mobilization,Taping, Therapeutic Activities, Therapeutic Exercises Modalities Biofeedback,Cold Pack/Ice Massage,Hot Packs Next Visit Focus/Plan Next Visit Plan LE strengthening ex. balance ex. Plan of Care Plan of Care Start Date 03/09/23 Plan of Care End Date 06/01/23 Electronically Signed by: Spring Chowdary, PT 03/09/23 9431 If you are in agreement with this Plan of Care, please return a signed and dated copy. I have reviewed this Plan of Care and certify that the skilled therapy services above are required to meet the patient?s needs. Physician Signature Date Printed Name and Credentials Clinical Instructor Signature Printed Name and Credentials
--- NOTE | 2023-03-23 15:32 | PT.OTN ---
Current Diagnoses Unspecified sequelae of cerebral infarction (03/23/23) Physical Therapy Treatment Note PT-OP-A Visit Information Start: 03/09/23 15:24 Freq: Status: Active Protocol: Document 03/23/23 13:44 SW (Rec: 03/23/23 15:20 [id number]) Out-Patient Physical Therapy Visit Information Visit Information Visit Type Treatment Note Visit Start Time 13:45 Visit Stop Time 14:30 Total Visit Minutes 45 Visit Number 2 Number of FILM PROCESSING SUPERVISOR Visits 1 PT-OP-C Subjective Start: 03/09/23 15:24 Freq: Status: Active Protocol: Document 03/23/23 13:44 SW (Rec: 03/23/23 15:20 [id number]) OP-PT Subjective Patient Comments Patient Comments Pt reports she has not been as active the last year and feels like she has regressed. is a help and supportive, but she doesnt want to push him because he is all she has here. She states she is fearful of falling but has not fallen since her cerebral infarction. PT-OP-D Balance Start: 03/09/23 15:24 Freq: Status: Active Protocol: Document 03/09/23 15:28 TH (Rec: 03/09/23 16:46 TH [id number]) Wilson Balance Assessment Evaluation Sitting to Standing Ability Independent w/Hands Unsupported Stance Unable w/out Assistance Sitting Unsupported, Feet on Floor Safely- 2 minutes Standing to Sitting Ability Assist, Control w/Hands Transfer Ability Safely, Hand Use Unsupported Stance- Eyes Closed Falls Without Assistance Unsupported Stance- Eyes Open Assist to attain,<15 secs Reaching Forward Standing Supported, Looses Balance Pick- Up Object From Floor Requires Assistance Look Behind Shoulder - Standing Assist to Prevent Fall Turning 360 Degrees Requires Assistance Unsupported Stance, Alternating Feet on Assist to Prevent Fall Stair Unsupported Tandem Stance Assist to Step-15 seconds Unilateral Leg Stance Unable,assist to not fall Total Score Wilson Total Score (out of 56 points) 14 Wilson Impairment Rating 60 to 79% Impaired (Score 12- 22) PT-OP-M Strength Start: 03/09/23 15:24 Freq: Status: Active Protocol: Document 03/09/23 15:28 TH (Rec: 03/09/23 16:46 TH [id number]) Shoulder Strength Shoulder Manual Muscle Testing Left Flexion 3+ Fair+ Abduction (C5) 3+ Fair+ Hip Strength Hip Manual Muscle Testing Left Flexion (L2) 4- Good- Extension (S1) 3+ Fair+ Knee Strength Knee Manual Muscle Testing Left Flexion (S2) 4- Good- Extension (L3) 4+ Good+ Ankle/Foot Strength Ankle and Foot Manual Muscle Testing Left Dorsiflexion (L4) 3 Fair Plantarflexion (S1) 3+ Fair+ PT-OP-Q Treatments Start: 03/09/23 15:24 Freq: Status: Active Protocol: Document 03/23/23 13:44 (Rec: 03/23/23 15:20 [id number]) Therapeutic Exercises Sitting Exercises PF/DF Sitting Exercise Name PF/DF Side left Resistance Isometric Equipment Used Therapist assist Reps/Minutes x10 Glute Set Side bilateral Reps/Minutes 2x10 Comments VC to breathe and decrease tension in back/upper body TKE Sitting Exercise Name TKE Side left Resistance Level 1 TB Reps/Minutes 2x10 Seated Marches Side bilateral Reps/Minutes x10 Hip abd/add Sitting Exercise Name Seated hip abd/add Side left Equipment Used abd- level 2 TB add- yellow ball Reps/Minutes x10 Neuro Re-Education Treatment Balance Activities Tandem Details semi tandem, full tandem (EO/ EC, head turns) Surface smooth Equipment FWW Comments RLE behind d/t decreased strength in LLE Weight Shifts Details Bilateral weight shift Surface smooth Equipment FWW Reps/Duration x 10 each Comments VC to decrease lateral lean, improved with repetition WBOS/NBOS Details Standing balance, EO/EC, head turns Surface smooth Equipment FWW Comments EO/EC, head turns BUE support as needed Marches Surface Smooth Equipment FWW Reps/Duration x10 Comments VC for slow, control and posture PT-OP-T Assessment and Plan Start: 03/09/23 15:24 Freq: Status: Active Protocol: Document 03/23/23 13:44 (Rec: 03/23/23 15:20 [id number]) Physical Therapy Assessment Goals 4 Impairment Difficult to get in out of bed on her own Short Term Goal (STG) Pt will be able to perform scooting , sup<>sit with CG. STG Duration 04/20/23 Detention Goal (LTG) Pt will be able to perform scooting , sup<>sit IND with bed rail versus no AD. LTG Duration 05/02/23 3 Impairment Pt unable to ambulate beyond 3 -4 feet without fatigue/ unsteady gait. Short Term Goal (STG) Pt. will be able to ambulate with FWW versus SPC 50 feet with CG/SBA. STG Duration 04/20/23 Detention Goal (LTG) Pt will ba able to ambulate with SPC 100 + feet on even / uneven terrain SBA. LTG Duration 05/02/23 2 Impairment Pt has difficulty going up / down steps without CG. Short Term Goal (STG) Pt will be able to side step/ step to 3 steps up/down with SBA. STG Duration 04/20/23 Fire Investigation Manager Goal (LTG) Pt will be able to side step/ step to 3 steps up/down with Sup. LTG Duration 05/02/23 1 Impairment Wilson score Short Term Goal (STG) Pt's score will improve by 15 pts STG Duration 04/20/23 Fire Investigation Manager Goal (LTG) Pt's score will improve by 25 pts LTG Duration 05/02/23 Assessment Summary Assessment Pt attended today with 's assistance to and from session. Fatigued walking with FWW from waiting room to mat table, recommend bringing her wheelchair back to gym d/t decreased endurance. Started balance progression and LE strengthening. Pt did well with lower level balance, challenged with dynamic NBOS balance. Quick to fatigue, multiple seated rest breaks throughout session. Patient is fearful of falling d/t regression since her last round of PT a year ago. Pt is highly motivated to get back to where she left off when she attended PT ~ a year ago. Physical Therapy Plan Frequency and Duration Frequency of Treatment 2x/Week Duration of treatment (weeks) 12 Plan of Care Start Date 03/09/23 Plan of Care End Date 06/01/23 Therapeutic Interventions Therapeutic Interventions Balance Training,Coordination Training,Gait Training,Home Exercise Program,Joint Mobilizations,Manual Therapy, Neuromuscular Re-education, Orthotic/Prosthetic Management ,Patient/Caregiver Education, Self-Care/Home Management, Sensory Integration,Soft Tissue Mobilization,Taping, Therapeutic Activities, Therapeutic Exercises Modalities Biofeedback,Cold Pack/Ice Massage,Hot Packs Next Visit Focus/Plan Next Visit Plan LE strengthening ex. balance ex.
--- NOTE | 2023-03-25 15:15 | PT.OTN ---
Addendum entered and electronically signed by Jahaira Philip, SWITCHBOARD OPERATOR HELPER 03/25/23 15:38: 3 visits approved. Original Note: Current Diagnoses Unspecified sequelae of cerebral infarction (03/25/23) Physical Therapy Treatment Note PT-OP-A Visit Information Start: 03/09/23 15:24 Freq: Status: Active Protocol: Document 03/25/23 14:28 SP (Rec: 03/25/23 15:37 SP [id number]) Out-Patient Physical Therapy Visit Information Visit Information Visit Type Treatment Note Visit Start Time 14:28 Visit Stop Time 15:15 Total Visit Minutes 47 Visit Number 3 Number of SWITCHBOARD OPERATOR HELPER Visits 2 PT-OP-C Subjective Start: 03/09/23 15:24 Freq: Status: Active Protocol: Document 03/25/23 14:28 SP (Rec: 03/25/23 15:37 SP [id number]) OP-PT Subjective Patient Comments Patient Comments Pt reports her LLE feels really heavy when tries to lift onto next step to get into house, knows not as strong as was before. PT-OP-D Balance Start: 03/09/23 15:24 Freq: Status: Active Protocol: Document 03/09/23 15:28 TH (Rec: 03/09/23 16:46 TH [id number]) Wilson Balance Assessment Evaluation Sitting to Standing Ability Independent w/Hands Unsupported Stance Unable w/out Assistance Sitting Unsupported, Feet on Floor Safely- 2 minutes Standing to Sitting Ability Assist, Control w/Hands Transfer Ability Safely, Hand Use Unsupported Stance- Eyes Closed Falls Without Assistance Unsupported Stance- Eyes Open Assist to attain,<15 secs Reaching Forward Standing Supported, Looses Balance Pick- Up Object From Floor Requires Assistance Look Behind Shoulder - Standing Assist to Prevent Fall Turning 360 Degrees Requires Assistance Unsupported Stance, Alternating Feet on Assist to Prevent Fall Stair Unsupported Tandem Stance Assist to Step-15 seconds Unilateral Leg Stance Unable,assist to not fall Total Score Wilson Total Score (out of 56 points) 14 Wilson Impairment Rating 60 to 79% Impaired (Score 12- 22) PT-OP-M Strength Start: 03/09/23 15:24 Freq: Status: Active Protocol: Document 03/09/23 15:28 TH (Rec: 03/09/23 16:46 TH [id number]) Shoulder Strength Shoulder Manual Muscle Testing Left Flexion 3+ Fair+ Abduction (C5) 3+ Fair+ Hip Strength Hip Manual Muscle Testing Left Flexion (L2) 4- Good- Extension (S1) 3+ Fair+ Knee Strength Knee Manual Muscle Testing Left Flexion (S2) 4- Good- Extension (L3) 4+ Good+ Ankle/Foot Strength Ankle and Foot Manual Muscle Testing Left Dorsiflexion (L4) 3 Fair Plantarflexion (S1) 3+ Fair+ PT-OP-Q Treatments Start: 03/09/23 15:24 Freq: Status: Active Protocol: Document 03/25/23 14:28 SP (Rec: 03/25/23 15:37 SP [id number]) Cardio Equipment Recumbent Elliptical ([email or web address]) Duration (Minutes) 3 Resistance 3>2 tires quickly 2 brief stop rests, 774 steps Seat Position 6 Other RUe, BLE- cued slower pacing 35 RPMs try mostly LEs Therapeutic Exercises Sitting Exercises stretching Sitting Exercise Name LS flexion, rotation- post stairs due to LB discomfort Side bilateral Reps/Minutes 3 SH x3 reps each Comments eliminated back pain LAQ Sitting Exercise Name added to HEP Side left Reps/Minutes 5 SH x10 Comments good self corrections posture, tires last 2 reps PF/DF Sitting Exercise Name PF/DF/EV Side left Resistance TB #1 Reps/Minutes x15 Comments therapist support no hip abd during EV. TKE Sitting Exercise Name TKE Side left Resistance Level 1 TB Reps/Minutes 2x10 Seated Marches Side bilateral Reps/Minutes x10 Hip abd/add Sitting Exercise Name Seated hip abd/add Side left Equipment Used abd- level 2 TB, add- yellow ball Reps/Minutes x15 Comments able put on self Standing Exercises step ups Standing Exercise Name initiated in P Side bilateral Resistance (therapist anterior L knee support unsteady) Reps/Minutes 5 reps each LE lead ascend and descend lead Comments weak LLE ascend increase UE support BUE on HRs Gait Training Gait Activity FWW Description decreased LLE foot clearance and RLE stride Device Used FWW Level of Assistance SBA Surface carpet, tile Distance/Duration 80 ft x2 Treatment Focus receiprocal stepping, LLE foot clearance Comments improved LLE clearance and receiprocal stepping 40% time with cues longer distance post marching, step ups and ankle ther ex. Neuro Re-Education Treatment Balance Activities Marches Surface Smooth Equipment FWW Reps/Duration x10 Comments VC for slow elevated knees in front. PT-OP-T Assessment and Plan Start: 03/09/23 15:24 Freq: Status: Active Protocol: Document 03/25/23 14:28 SP (Rec: 03/25/23 15:37 SP [id number]) Physical Therapy Assessment Goals 4 Impairment Difficult to get in out of bed on her own Short Term Goal (STG) Pt will be able to perform scooting , sup<>sit with CG. STG Duration 04/20/23 Fpc Goal (LTG) Pt will be able to perform scooting , sup<>sit IND with bed rail versus no AD. LTG Duration 05/02/23 3 Impairment Pt unable to ambulate beyond 3 -4 feet without fatigue/ unsteady gait. Short Term Goal (STG) Pt. will be able to ambulate with FWW versus SPC 50 feet with CG/SBA. STG Duration 04/20/23 Fpc Goal (LTG) Pt will ba able to ambulate with SPC 100 + feet on even / uneven terrain SBA. LTG Duration 05/02/23 2 Impairment Pt has difficulty going up / down steps without CG. Short Term Goal (STG) Pt will be able to side step/ step to 3 steps up/down with SBA. STG Duration 04/20/23 Deli Cook Goal (LTG) Pt will be able to side step/ step to 3 steps up/down with Sup. LTG Duration 05/02/23 1 Impairment Wilson score Short Term Goal (STG) Pt's score will improve by 15 pts STG Duration 04/20/23 Deli Cook Goal (LTG) Pt's score will improve by 25 pts LTG Duration 05/02/23 Assessment Summary Assessment Pt improved L ankle added ther ex against resistance for home Tb. Improved foot clearance and receiprocal stepping by end of tx by 40% post ther ex and ambulate further distance w/ FWW. Physical Therapy Plan Frequency and Duration Frequency of Treatment 2x/Week Duration of treatment (weeks) 12 Plan of Care Start Date 03/09/23 Plan of Care End Date 06/01/23 Therapeutic Interventions Therapeutic Interventions Balance Training,Coordination Training,Gait Training,Home Exercise Program,Joint Mobilizations,Manual Therapy, Neuromuscular Re-education, Orthotic/Prosthetic Management ,Patient/Caregiver Education, Self-Care/Home Management, Sensory Integration,Soft Tissue Mobilization,Taping, Therapeutic Activities, Therapeutic Exercises Modalities Biofeedback,Cold Pack/Ice Massage,Hot Packs Next Visit Focus/Plan Next Note Type Treatment Note Next Visit Plan Continue receiprocal gait trng . Next tx add bed mob toward goals POC: LE strengthening ex. balance ex.
--- NOTE | 2023-03-28 15:27 | PT.OTN ---
Current Diagnoses Unspecified sequelae of cerebral infarction (03/28/23) Physical Therapy Treatment Note PT-OP-A Visit Information Start: 03/09/23 15:24 Freq: Status: Active Protocol: Document 03/28/23 14:45 DCW (Rec: 03/28/23 15:27 DCW [id number]) Out-Patient Physical Therapy Visit Information Visit Information Visit Type Treatment Note Visit Start Time 14:45 Visit Stop Time 15:30 Total Visit Minutes 45 Visit Number 4 Number of BUNDLE COLLECTOR Visits 0 PT-OP-C Subjective Start: 03/09/23 15:24 Freq: Status: Active Protocol: Document 03/28/23 14:45 DCW (Rec: 03/28/23 15:27 DCW [id number]) OP-PT Subjective Patient Comments Patient Comments I just feel like I fell back a lot with the year off from therapy. PT-OP-D Balance Start: 03/09/23 15:24 Freq: Status: Active Protocol: Document 03/09/23 15:28 TH (Rec: 03/09/23 16:46 TH [id number]) Wilson Balance Assessment Evaluation Sitting to Standing Ability Independent w/Hands Unsupported Stance Unable w/out Assistance Sitting Unsupported, Feet on Floor Safely- 2 minutes Standing to Sitting Ability Assist, Control w/Hands Transfer Ability Safely, Hand Use Unsupported Stance- Eyes Closed Falls Without Assistance Unsupported Stance- Eyes Open Assist to attain,<15 secs Reaching Forward Standing Supported, Looses Balance Pick- Up Object From Floor Requires Assistance Look Behind Shoulder - Standing Assist to Prevent Fall Turning 360 Degrees Requires Assistance Unsupported Stance, Alternating Feet on Assist to Prevent Fall Stair Unsupported Tandem Stance Assist to Step-15 seconds Unilateral Leg Stance Unable,assist to not fall Total Score Wilson Total Score (out of 56 points) 14 Wilson Impairment Rating 60 to 79% Impaired (Score 12- 22) PT-OP-M Strength Start: 03/09/23 15:24 Freq: Status: Active Protocol: Document 03/09/23 15:28 TH (Rec: 03/09/23 16:46 TH [id number]) Shoulder Strength Shoulder Manual Muscle Testing Left Flexion 3+ Fair+ Abduction (C5) 3+ Fair+ Hip Strength Hip Manual Muscle Testing Left Flexion (L2) 4- Good- Extension (S1) 3+ Fair+ Knee Strength Knee Manual Muscle Testing Left Flexion (S2) 4- Good- Extension (L3) 4+ Good+ Ankle/Foot Strength Ankle and Foot Manual Muscle Testing Left Dorsiflexion (L4) 3 Fair Plantarflexion (S1) 3+ Fair+ PT-OP-Q Treatments Start: 03/09/23 15:24 Freq: Status: Active Protocol: Document 03/28/23 14:45 DCW (Rec: 03/28/23 15:27 DCW [id number]) Cardio Equipment Recumbent Elliptical ([employer]) Duration (Minutes) 5 Resistance 2 Seat Position 7 Other BLE, No breaks Therapeutic Exercises Sitting Exercises LAQ Side bilateral Resistance 4# Reps/Minutes 5 SH x10 Comments good self corrections posture, tires last 2 reps TKE Sitting Exercise Name TKE Side bilateral Resistance Level 2 TB Reps/Minutes 2x10 Hip abd/add Sitting Exercise Name Seated hip abd Side bilateral Equipment Used Level 2 TB Reps/Minutes x15 Gait Training Gait Activity FWW Description decreased LLE foot clearance and RLE stride Device Used FWW Level of Assistance SBA Surface carpet, tile Distance/Duration 80 ft x2 Treatment Focus receiprocal stepping, LLE foot clearance Comments improved LLE clearance and receiprocal stepping 40% time with cues longer distance post marching, step ups and ankle ther ex. Neuro Re-Education Treatment Balance Activities Tandem Details Tandem (Occasional UE support) Equipment // bars Weight Shifts Details Bilateral weight shift Surface Tilt board Equipment // bars Reps/Duration x 10 each WBOS/NBOS Details NBOS: EO/EC, head turns Equipment // bars Marches Details 4# ankle weight marching Equipment // bars Reps/Duration x10 Comments VC for slow elevated knees in front. PT-OP-T Assessment and Plan Start: 03/09/23 15:24 Freq: Status: Active Protocol: Document 03/28/23 14:45 DCW (Rec: 03/28/23 15:27 DCW [id number]) Physical Therapy Assessment Goals 4 Impairment Difficult to get in out of bed on her own Short Term Goal (STG) Pt will be able to perform scooting , sup<>sit with CG. STG Duration 04/20/23 Package Reinspector Goal (LTG) Pt will be able to perform scooting , sup<>sit IND with bed rail versus no AD. LTG Duration 05/02/23 3 Impairment Pt unable to ambulate beyond 3 -4 feet without fatigue/ unsteady gait. Short Term Goal (STG) Pt. will be able to ambulate with FWW versus SPC 50 feet with CG/SBA. STG Duration 04/20/23 Longterm Goal (LTG) Pt will ba able to ambulate with SPC 100 + feet on even / uneven terrain SBA. LTG Duration 05/02/23 2 Impairment Pt has difficulty going up / down steps without CG. Short Term Goal (STG) Pt will be able to side step/ step to 3 steps up/down with SBA. STG Duration 04/20/23 Package Reinspector Goal (LTG) Pt will be able to side step/ step to 3 steps up/down with Sup. LTG Duration 05/02/23 1 Impairment Wilson score Short Term Goal (STG) Pt's score will improve by 15 pts STG Duration 04/20/23 Package Reinspector Goal (LTG) Pt's score will improve by 25 pts LTG Duration 05/02/23 Assessment Summary Assessment Pt's main goal is to return to cooking. Significant improvement with tolerance to recumbent stepping, going from 3' requiring 2 rest breaks to a full 5', no rest breaks. Plan to work on floor transfers and return to using SPC. Physical Therapy Plan Frequency and Duration Frequency of Treatment 2x/Week Duration of treatment (weeks) 12 Plan of Care Start Date 03/09/23 Plan of Care End Date 06/01/23 Therapeutic Interventions Therapeutic Interventions Balance Training,Coordination Training,Gait Training,Home Exercise Program,Joint Mobilizations,Manual Therapy, Neuromuscular Re-education, Orthotic/Prosthetic Management ,Patient/Caregiver Education, Self-Care/Home Management, Sensory Integration,Soft Tissue Mobilization,Taping, Therapeutic Activities, Therapeutic Exercises Modalities Biofeedback,Cold Pack/Ice Massage,Hot Packs Next Visit Focus/Plan Next Note Type Treatment Note Next Visit Plan Continue receiprocal gait trng . Next tx add bed mob toward goals POC: LE strengthening ex. balance ex.
--- NOTE | 2023-03-31 15:27 | PT.OTN ---
Current Diagnoses Unspecified sequelae of cerebral infarction (03/31/23) Physical Therapy Treatment Note PT-OP-A Visit Information Start: 03/09/23 15:24 Freq: Status: Active Protocol: Document 03/31/23 13:46 SW (Rec: 03/31/23 15:26 [id number]) Out-Patient Physical Therapy Visit Information Visit Information Visit Type Treatment Note Visit Start Time 13:46 Visit Stop Time 14:32 Total Visit Minutes 46 Visit Number 5 Number of GRAB DRIVER Visits 1 PT-OP-C Subjective Start: 03/09/23 15:24 Freq: Status: Active Protocol: Document 03/31/23 13:46 SW (Rec: 03/31/23 15:26 [id number]) OP-PT Subjective Patient Comments Patient Comments Pt reports she is happy she increased her time on biodex last session without a rest break. PT-OP-D Balance Start: 03/09/23 15:24 Freq: Status: Active Protocol: Document 03/09/23 15:28 TH (Rec: 03/09/23 16:46 TH [id number]) Wilson Balance Assessment Evaluation Sitting to Standing Ability Independent w/Hands Unsupported Stance Unable w/out Assistance Sitting Unsupported, Feet on Floor Safely- 2 minutes Standing to Sitting Ability Assist, Control w/Hands Transfer Ability Safely, Hand Use Unsupported Stance- Eyes Closed Falls Without Assistance Unsupported Stance- Eyes Open Assist to attain,<15 secs Reaching Forward Standing Supported, Looses Balance Pick- Up Object From Floor Requires Assistance Look Behind Shoulder - Standing Assist to Prevent Fall Turning 360 Degrees Requires Assistance Unsupported Stance, Alternating Feet on Assist to Prevent Fall Stair Unsupported Tandem Stance Assist to Step-15 seconds Unilateral Leg Stance Unable,assist to not fall Total Score Wilson Total Score (out of 56 points) 14 Wilson Impairment Rating 60 to 79% Impaired (Score 12- 22) PT-OP-M Strength Start: 03/09/23 15:24 Freq: Status: Active Protocol: Document 03/09/23 15:28 TH (Rec: 03/09/23 16:46 TH [id number]) Shoulder Strength Shoulder Manual Muscle Testing Left Flexion 3+ Fair+ Abduction (C5) 3+ Fair+ Hip Strength Hip Manual Muscle Testing Left Flexion (L2) 4- Good- Extension (S1) 3+ Fair+ Knee Strength Knee Manual Muscle Testing Left Flexion (S2) 4- Good- Extension (L3) 4+ Good+ Ankle/Foot Strength Ankle and Foot Manual Muscle Testing Left Dorsiflexion (L4) 3 Fair Plantarflexion (S1) 3+ Fair+ PT-OP-Q Treatments Start: 03/09/23 15:24 Freq: Status: Active Protocol: Document 03/31/23 13:46 (Rec: 03/31/23 15:26 [id number]) Cardio Equipment Recumbent Elliptical (Biodex) Duration (Minutes) 5 Resistance 2 Seat Position 7 Other BLE, No breaks Therapeutic Exercises Supine Exercises Bridge Reps/Minutes x5 Comments Min lift, verbal/tactile cues for core stabilization Sitting Exercises HS stretch Sitting Exercise Name HS stretch Side right Reps/Minutes 2 x15 Comments d/t mm tightening post bridges stretching Sitting Exercise Name LS flexion, rotation- post balance due to LB discomfort Side bilateral Reps/Minutes 3 SH x3 reps each Comments eliminated back pain LAQ Side bilateral Resistance 4# Reps/Minutes 5 SH x10 Comments good self corrections posture, tires last 2 reps TKE Sitting Exercise Name TKE Side bilateral Resistance Level 2 TB Reps/Minutes 2x10 Seated Marches Side bilateral Reps/Minutes x10 Hip abd/add Sitting Exercise Name Seated hip abd Side bilateral Equipment Used Level 2 TB>level 3 TB Reps/Minutes 2x10 Neuro Re-Education Treatment Balance Activities Blue Foam Details WBOS/NBOS Equipment // bars Comments Min CURB HOP prn Weight Shifts Details Bilateral weight shift Surface Tilt board Equipment // bars Reps/Duration x 10 each WBOS/NBOS Details NBOS: EO/EC, head turns Equipment // bars Self-Care/Home Management Treatment Education Patient Education Posture,Safety Other Education Educated pt on posture, and how increased hip flexion puts stress on LB to maintain upright against gravity. Discussed pt use of her 4WW vs her FWW, mobility vs stability, energy expendenture , and safety. PT-OP-T Assessment and Plan Start: 03/09/23 15:24 Freq: Status: Active Protocol: Document 03/31/23 13:46 (Rec: 03/31/23 15:26 [id number]) Physical Therapy Assessment Goals 4 Impairment Difficult to get in out of bed on her own Short Term Goal (STG) Pt will be able to perform scooting , sup<>sit with CG. STG Duration 5/24/23 Stewardess Supervisor Goal (LTG) Pt will be able to perform scooting , sup<>sit IND with bed rail versus no AD. LTG Duration 05/02/23 3 Impairment Pt unable to ambulate beyond 3 -4 feet without fatigue/ unsteady gait. Short Term Goal (STG) Pt. will be able to ambulate with FWW versus SPC 50 feet with CG/SBA. STG Duration 04/20/23 Stewardess Supervisor Goal (LTG) Pt will ba able to ambulate with SPC 100 + feet on even / uneven terrain SBA. LTG Duration 05/02/23 2 Impairment Pt has difficulty going up / down steps without CG. Short Term Goal (STG) Pt will be able to side step/ step to 3 steps up/down with SBA. STG Duration 04/20/23 Longterm Goal (LTG) Pt will be able to side step/ step to 3 steps up/down with Sup. LTG Duration 05/02/23 1 Impairment Wilson score Short Term Goal (STG) Pt's score will improve by 15 pts STG Duration 04/20/23 Longterm Goal (LTG) Pt's score will improve by 25 pts LTG Duration 05/02/23 Assessment Summary Assessment Pt required mod vc'ing throughout session for posture , pn in thoracic lumbar region with standing exercises, relief post stretching. Pt demonstrated increased activity tolerance today, requiring fewer seated rest breaks throughout session. Plan to work on floor transfers and return to using SPC. Physical Therapy Plan Frequency and Duration Frequency of Treatment 2x/Week Duration of treatment (weeks) 12 Plan of Care Start Date 03/09/23 Plan of Care End Date 06/01/23 Therapeutic Interventions Therapeutic Interventions Balance Training,Coordination Training,Gait Training,Home Exercise Program,Joint Mobilizations,Manual Therapy, Neuromuscular Re-education, Orthotic/Prosthetic Management ,Patient/Caregiver Education, Self-Care/Home Management, Sensory Integration,Soft Tissue Mobilization,Taping, Therapeutic Activities, Therapeutic Exercises Modalities Biofeedback,Cold Pack/Ice Massage,Hot Packs Next Visit Focus/Plan Next Note Type Treatment Note Next Visit Plan Continue receiprocal gait trng . Next tx add bed mob toward goals POC: LE strengthening ex. balance ex.
--- NOTE | 2023-04-06 17:02 | PT.OTN ---
Current Diagnoses Unspecified sequelae of cerebral infarction (04/06/23) Physical Therapy Treatment Note PT-OP-A Visit Information Start: 03/09/23 15:24 Freq: Status: Active Protocol: Document 04/06/23 13:51 SW (Rec: 04/06/23 14:45 SW [id number]) Out-Patient Physical Therapy Visit Information Visit Information Visit Type Treatment Note Visit Start Time 13:46 Visit Stop Time 14:29 Total Visit Minutes 43 Visit Number 6 Number of EXPLOSIVE OPERATOR FUSE Visits 2 PT-OP-C Subjective Start: 03/09/23 15:24 Freq: Status: Active Protocol: Document 04/06/23 13:51 SW (Rec: 04/06/23 14:45 SW [id number]) OP-PT Subjective Patient Comments Patient Comments Pt reports she has been getting cramping in her R hamstring and L adductor mm, relief with theraworks mm massage. PT-OP-D Balance Start: 03/09/23 15:24 Freq: Status: Active Protocol: Document 03/09/23 15:28 TH (Rec: 03/09/23 16:46 TH [id number]) Wilson Balance Assessment Evaluation Sitting to Standing Ability Independent w/Hands Unsupported Stance Unable w/out Assistance Sitting Unsupported, Feet on Floor Safely- 2 minutes Standing to Sitting Ability Assist, Control w/Hands Transfer Ability Safely, Hand Use Unsupported Stance- Eyes Closed Falls Without Assistance Unsupported Stance- Eyes Open Assist to attain,<15 secs Reaching Forward Standing Supported, Looses Balance Pick- Up Object From Floor Requires Assistance Look Behind Shoulder - Standing Assist to Prevent Fall Turning 360 Degrees Requires Assistance Unsupported Stance, Alternating Feet on Assist to Prevent Fall Stair Unsupported Tandem Stance Assist to Step-15 seconds Unilateral Leg Stance Unable,assist to not fall Total Score Wilson Total Score (out of 56 points) 14 Wilson Impairment Rating 60 to 79% Impaired (Score 12- 22) PT-OP-M Strength Start: 03/09/23 15:24 Freq: Status: Active Protocol: Document 03/09/23 15:28 TH (Rec: 03/09/23 16:46 TH [id number]) Shoulder Strength Shoulder Manual Muscle Testing Left Flexion 3+ Fair+ Abduction (C5) 3+ Fair+ Hip Strength Hip Manual Muscle Testing Left Flexion (L2) 4- Good- Extension (S1) 3+ Fair+ Knee Strength Knee Manual Muscle Testing Left Flexion (S2) 4- Good- Extension (L3) 4+ Good+ Ankle/Foot Strength Ankle and Foot Manual Muscle Testing Left Dorsiflexion (L4) 3 Fair Plantarflexion (S1) 3+ Fair+ PT-OP-Q Treatments Start: 03/09/23 15:24 Freq: Status: Active Protocol: Document 04/06/23 13:51 SW (Rec: 04/06/23 14:45 SW [id number]) Cardio Equipment Recumbent Elliptical (Biodex) Duration (Minutes) 5 Resistance 3 Seat Position 7 Other BLE, no break, good response Gym Equipment Shuttle Recovery Bilateral Squats Resistance 62# (2 old bands) Shuttle Recovery Platform Stable Reps/Time 2 x 10 Therapeutic Exercises Standing Exercises Sit to Stands Standing Exercise Name Sit to stand Resistance AROM Reps/Minutes x5 Comments vc for scooting to EOB Therapeutic Activity Therapeutic Activity Bed Mobility Name Scooting, Sup<>sit Comments Repeated VC'ing for scooting to EOB prior to standing for greater mechanical advantage, improved with repetition. Broderick >CGA with sup>sit Gait Training Gait Activity SPC Device Used quad cane Level of Assistance SBA Surface carpet Distance/Duration 6 ft x 2 Treatment Focus gait training w/ quad cane Comments Step to Pattern, vc for posture, gazing ahead for safety FWW Description decreased LLE foot clearance and RLE stride Device Used FWW Level of Assistance SBA Surface carpet Distance/Duration 30 ft x 2 Treatment Focus receiprocal stepping, LLE foot clearance Comments improved LLE clearance and receiprocal stepping, improved with verbal cues/ repetition, significant improvement with carryover of posture during ambulation PT-OP-T Assessment and Plan Start: 03/09/23 15:24 Freq: Status: Active Protocol: Document 04/06/23 13:51 SW (Rec: 04/06/23 14:45 SW [id number]) Physical Therapy Assessment Goals 4 Impairment Difficult to get in out of bed on her own Short Term Goal (STG) Pt will be able to perform scooting , sup<>sit with CG. STG Duration 04/20/23 Work Order Clerk Goal (LTG) Pt will be able to perform scooting , sup<>sit IND with bed rail versus no AD. LTG Duration 05/02/23 3 Impairment Pt unable to ambulate beyond 3 -4 feet without fatigue/ unsteady gait. Short Term Goal (STG) Pt. will be able to ambulate with FWW versus SPC 50 feet with CG/SBA. STG Duration 04/20/23 Work Order Clerk Goal (LTG) Pt will ba able to ambulate with SPC 100 + feet on even / uneven terrain SBA. LTG Duration 05/02/23 2 Impairment Pt has difficulty going up / down steps without CG. Short Term Goal (STG) Pt will be able to side step/ step to 3 steps up/down with SBA. STG Duration 04/20/23 Care Home Goal (LTG) Pt will be able to side step/ step to 3 steps up/down with Sup. LTG Duration 05/02/23 1 Impairment Wilson score Short Term Goal (STG) Pt's score will improve by 15 pts STG Duration 04/20/23 Care Home Goal (LTG) Pt's score will improve by 25 pts LTG Duration 05/02/23 Assessment Summary Assessment Pt required modurate cueing for scooting to EOB/seat today . Minimal vc required today for posture during ambulation, improvement from last session previously requiring moderate cues. Today's session focused on bed mobility/ gait training to progress toward goals. Physical Therapy Plan Frequency and Duration Frequency of Treatment 2x/Week Duration of treatment (weeks) 12 Plan of Care Start Date 03/09/23 Plan of Care End Date 06/01/23 Therapeutic Interventions Therapeutic Interventions Balance Training,Coordination Training,Gait Training,Home Exercise Program,Joint Mobilizations,Manual Therapy, Neuromuscular Re-education, Orthotic/Prosthetic Management ,Patient/Caregiver Education, Self-Care/Home Management, Sensory Integration,Soft Tissue Mobilization,Taping, Therapeutic Activities, Therapeutic Exercises Modalities Biofeedback,Cold Pack/Ice Massage,Hot Packs Next Visit Focus/Plan Next Note Type Treatment Note Next Visit Plan Continue receiprocal gait trng . Next tx revisit bed mob toward goals POC: LE strengthening ex. balance ex.
--- NOTE | 2023-04-11 14:48 | PT.OTN ---
Current Diagnoses Unspecified sequelae of cerebral infarction (04/11/23) Physical Therapy Treatment Note PT-OP-A Visit Information Start: 03/09/23 15:24 Freq: Status: Active Protocol: Document 04/11/23 14:00 DCW (Rec: 04/11/23 14:47 DCW [id number]) Out-Patient Physical Therapy Visit Information Visit Information Visit Type Treatment Note Visit Start Time 14:00 Visit Stop Time 14:45 Total Visit Minutes 45 Visit Number 7 Number of ROTARY DRUM TANNER Visits 0 PT-OP-C Subjective Start: 03/09/23 15:24 Freq: Status: Active Protocol: Document 04/11/23 14:00 DCW (Rec: 04/11/23 14:47 DCW [id number]) OP-PT Subjective Patient Comments Patient Comments Pt notes her cramping has been much improved since her last visit. PT-OP-D Balance Start: 03/09/23 15:24 Freq: Status: Active Protocol: Document 03/09/23 15:28 TH (Rec: 03/09/23 16:46 TH [id number]) Wilson Balance Assessment Evaluation Sitting to Standing Ability Independent w/Hands Unsupported Stance Unable w/out Assistance Sitting Unsupported, Feet on Floor Safely- 2 minutes Standing to Sitting Ability Assist, Control w/Hands Transfer Ability Safely, Hand Use Unsupported Stance- Eyes Closed Falls Without Assistance Unsupported Stance- Eyes Open Assist to attain,<15 secs Reaching Forward Standing Supported, Looses Balance Pick- Up Object From Floor Requires Assistance Look Behind Shoulder - Standing Assist to Prevent Fall Turning 360 Degrees Requires Assistance Unsupported Stance, Alternating Feet on Assist to Prevent Fall Stair Unsupported Tandem Stance Assist to Step-15 seconds Unilateral Leg Stance Unable,assist to not fall Total Score Wilson Total Score (out of 56 points) 14 Wilson Impairment Rating 60 to 79% Impaired (Score 12- 22) PT-OP-M Strength Start: 03/09/23 15:24 Freq: Status: Active Protocol: Document 03/09/23 15:28 TH (Rec: 03/09/23 16:46 TH [id number]) Shoulder Strength Shoulder Manual Muscle Testing Left Flexion 3+ Fair+ Abduction (C5) 3+ Fair+ Hip Strength Hip Manual Muscle Testing Left Flexion (L2) 4- Good- Extension (S1) 3+ Fair+ Knee Strength Knee Manual Muscle Testing Left Flexion (S2) 4- Good- Extension (L3) 4+ Good+ Ankle/Foot Strength Ankle and Foot Manual Muscle Testing Left Dorsiflexion (L4) 3 Fair Plantarflexion (S1) 3+ Fair+ PT-OP-Q Treatments Start: 03/09/23 15:24 Freq: Status: Active Protocol: Document 04/11/23 14:00 DCW (Rec: 04/11/23 14:47 DCW [id number]) Cardio Equipment Recumbent Stepper (Sci-Fit) Duration (Minutes) 5 Resistance 2 Seat Position 8 Other B LE, no breaks, ~55 rpm Gym Equipment Shuttle Recovery Bilateral Squats Resistance 62# (2 old bands) Shuttle Recovery Platform Stable Reps/Time x20 Therapeutic Exercises Standing Exercises Hamstring Curls Standing Exercise Name HS Curls Side bilateral Resistance 5# Hip Extension Standing Exercise Name Hip Extension Side bilateral Resistance Yellow Hip Abduction Standing Exercise Name Hip Abduction Side bilateral Resistance Yellow Neuro Re-Education Treatment Balance Activities Blue Foam Details WBOS/NBOS Equipment // bars Tandem Details Tandem (Occasional UE support) Equipment // bars Weight Shifts Details B Lateral weight shift Surface Tilt board Equipment // bars Reps/Duration x 10 each Details Toe-taps Equipment 6 step, 5# AW PT-OP-T Assessment and Plan Start: 03/09/23 15:24 Freq: Status: Active Protocol: Document 04/11/23 14:00 DCW (Rec: 04/11/23 14:47 [facility] [id number]) Physical Therapy Assessment Goals 4 Impairment Difficult to get in out of bed on her own Short Term Goal (STG) Pt will be able to perform scooting , sup<>sit with CG. STG Duration 04/20/23 Prison Goal (LTG) Pt will be able to perform scooting , sup<>sit IND with bed rail versus no AD. LTG Duration 05/02/23 3 Impairment Pt unable to ambulate beyond 3 -4 feet without fatigue/ unsteady gait. Short Term Goal (STG) Pt. will be able to ambulate with FWW versus SPC 50 feet with CG/SBA. STG Duration 04/20/23 Metalizer Field Operation Goal (LTG) Pt will ba able to ambulate with SPC 100 + feet on even / uneven terrain SBA. LTG Duration 05/02/23 2 Impairment Pt has difficulty going up / down steps without CG. Short Term Goal (STG) Pt will be able to side step/ step to 3 steps up/down with SBA. STG Duration 04/20/23 Prison Goal (LTG) Pt will be able to side step/ step to 3 steps up/down with Sup. LTG Duration 05/02/23 1 Impairment Wilson score Short Term Goal (STG) Pt's score will improve by 15 pts STG Duration 04/20/23 Prison Goal (LTG) Pt's score will improve by 25 pts LTG Duration 05/02/23 Assessment Summary Assessment Pt put in very good effort during today's session, although clearly quite fatigued by the end, required increasingly frequent rest breaks. Noticeable increase in difficulty performing activities with left LE vs right. Physical Therapy Plan Frequency and Duration Frequency of Treatment 2x/Week Duration of treatment (weeks) 12 Plan of Care Start Date 03/09/23 Plan of Care End Date 06/01/23 Therapeutic Interventions Therapeutic Interventions Balance Training,Coordination Training,Gait Training,Home Exercise Program,Joint Mobilizations,Manual Therapy, Neuromuscular Re-education, Orthotic/Prosthetic Management ,Patient/Caregiver Education, Self-Care/Home Management, Sensory Integration,Soft Tissue Mobilization,Taping, Therapeutic Activities, Therapeutic Exercises Modalities Biofeedback,Cold Pack/Ice Massage,Hot Packs Next Visit Focus/Plan Next Note Type Treatment Note Next Visit Plan Continue receiprocal gait trng . Next tx revisit bed mob toward goals POC: LE strengthening ex. balance ex.
--- NOTE | 2023-04-13 15:03 | PT.OTN ---
Current Diagnoses Unspecified sequelae of cerebral infarction (04/13/23) Physical Therapy Treatment Note PT-OP-A Visit Information Start: 03/09/23 15:24 Freq: Status: Active Protocol: Document 04/13/23 13:43 SW (Rec: 04/13/23 15:03 [id number]) Out-Patient Physical Therapy Visit Information Visit Information Visit Type Treatment Note Visit Start Time 13:45 Visit Stop Time 14:30 Total Visit Minutes 45 Visit Number 8 Number of TRACTOR ENGINE ASSEMBLER Visits 1 PT-OP-C Subjective Start: 03/09/23 15:24 Freq: Status: Active Protocol: Document 04/13/23 13:43 SW (Rec: 04/13/23 15:03 SW [id number]) OP-PT Subjective Patient Comments Patient Comments Pt reports she was really sore after last session, thinks it may have been too much. She has had a busy week and she feels that has contributed to increased fatigue and mm cramping. PT-OP-D Balance Start: 03/09/23 15:24 Freq: Status: Active Protocol: Document 03/09/23 15:28 TH (Rec: 03/09/23 16:46 TH [id number]) Wilson Balance Assessment Evaluation Sitting to Standing Ability Independent w/Hands Unsupported Stance Unable w/out Assistance Sitting Unsupported, Feet on Floor Safely- 2 minutes Standing to Sitting Ability Assist, Control w/Hands Transfer Ability Safely, Hand Use Unsupported Stance- Eyes Closed Falls Without Assistance Unsupported Stance- Eyes Open Assist to attain,<15 secs Reaching Forward Standing Supported, Looses Balance Pick- Up Object From Floor Requires Assistance Look Behind Shoulder - Standing Assist to Prevent Fall Turning 360 Degrees Requires Assistance Unsupported Stance, Alternating Feet on Assist to Prevent Fall Stair Unsupported Tandem Stance Assist to Step-15 seconds Unilateral Leg Stance Unable,assist to not fall Total Score Wilson Total Score (out of 56 points) 14 Wilson Impairment Rating 60 to 79% Impaired (Score 12- 22) PT-OP-M Strength Start: 03/09/23 15:24 Freq: Status: Active Protocol: Document 03/09/23 15:28 TH (Rec: 03/09/23 16:46 TH [id number]) Shoulder Strength Shoulder Manual Muscle Testing Left Flexion 3+ Fair+ Abduction (C5) 3+ Fair+ Hip Strength Hip Manual Muscle Testing Left Flexion (L2) 4- Good- Extension (S1) 3+ Fair+ Knee Strength Knee Manual Muscle Testing Left Flexion (S2) 4- Good- Extension (L3) 4+ Good+ Ankle/Foot Strength Ankle and Foot Manual Muscle Testing Left Dorsiflexion (L4) 3 Fair Plantarflexion (S1) 3+ Fair+ PT-OP-Q Treatments Start: 03/09/23 15:24 Freq: Status: Active Protocol: Document 04/13/23 13:43 SW (Rec: 04/13/23 15:03 SW [id number]) Cardio Equipment Recumbent Elliptical (Biodex) Duration (Minutes) 5 Resistance 3 Seat Position 7 Other BLE, no break, good response Gym Equipment Shuttle Recovery single leg squats Resistance 37# (old band) Shuttle Recovery Platform Stable Bilateral Squats Resistance 62# (2 new bands) Shuttle Recovery Platform Stable Reps/Time x20 Therapeutic Exercises Standing Exercises Sit to Stands Standing Exercise Name Sit to stand Resistance AROM Reps/Minutes x5 Comments vc for scooting to EOB step ups Standing Exercise Name CGA Side bilateral Reps/Minutes 2 reps each LE lead ascend and descend lead Comments weak LLE ascend increase UE support BUE on HRs Gait Training Gait Activity SPC Device Used quad cane Level of Assistance SBA Surface carpet Distance/Duration 6 ft x 2 Treatment Focus gait training w/ quad cane Comments Step to Pattern, vc for posture, gazing ahead for safety, coordination of quad cane w/LLE FWW Description decreased LLE foot clearance and RLE stride Device Used FWW Level of Assistance SBA Surface carpet Distance/Duration 120 ft x 1 Treatment Focus receiprocal stepping, LLE foot clearance Comments improved LLE clearance and receiprocal stepping, improved with verbal cues/ repetition, significant improvement with carryover of posture during ambulation Neuro Re-Education Treatment Balance Activities BOSU Surface Unstable Equipment BUE hand support Reps/Duration 2 x 20 Marches Details Toe-taps Equipment 6 step, Self-Care/Home Management Treatment Education Patient Education Body Mechanics,Home Exercise Program,Posture Other Education Educated patient on posture and body mechanics with exercises to decrease the stress on the LB, as well as strengthening exercise carryover into posture. PT-OP-T Assessment and Plan Start: 03/09/23 15:24 Freq: Status: Active Protocol: Document 04/13/23 13:43 SW (Rec: 04/13/23 15:03 [id number]) Physical Therapy Assessment Goals 4 Impairment Difficult to get in out of bed on her own Short Term Goal (STG) Pt will be able to perform scooting , sup<>sit with CG. STG Duration 04/20/23 Usp Goal (LTG) Pt will be able to perform scooting , sup<>sit IND with bed rail versus no AD. LTG Duration 05/02/23 3 Impairment Pt unable to ambulate beyond 3 -4 feet without fatigue/ unsteady gait. Short Term Goal (STG) Pt. will be able to ambulate with FWW versus SPC 50 feet with CG/SBA. STG Duration 04/20/23 Usp Goal (LTG) Pt will ba able to ambulate with SPC 100 + feet on even / uneven terrain SBA. LTG Duration 05/02/23 2 Impairment Pt has difficulty going up / down steps without CG. Short Term Goal (STG) Pt will be able to side step/ step to 3 steps up/down with SBA. STG Duration 04/20/23 Usp Goal (LTG) Pt will be able to side step/ step to 3 steps up/down with Sup. LTG Duration 05/02/23 1 Impairment Wilson score Short Term Goal (STG) Pt's score will improve by 15 pts STG Duration 04/20/23 Usp Goal (LTG) Pt's score will improve by 25 pts LTG Duration 05/02/23 Assessment Summary Assessment Pt reported that she felt sore after last session for a few days. She reports generally fatigued this date. Focused on gait training this session d/ t discomfort and decreased activity tolerance this date, good feedback. Verbal cues for gait mechanics, quick to correct with good carryover from last session. Fatigue this date was a limiting factor requiring frequent rest breaks. Continued strengthening to tolerance today, progressed resistance with shuttle recovery, tolerated well, with appropriate amount of mm fatigue and no cramping. Physical Therapy Plan Frequency and Duration Frequency of Treatment 2x/Week Duration of treatment (weeks) 12 Plan of Care Start Date 03/09/23 Plan of Care End Date 06/01/23 Therapeutic Interventions Therapeutic Interventions Balance Training,Coordination Training,Gait Training,Home Exercise Program,Joint Mobilizations,Manual Therapy, Neuromuscular Re-education, Orthotic/Prosthetic Management ,Patient/Caregiver Education, Self-Care/Home Management, Sensory Integration,Soft Tissue Mobilization,Taping, Therapeutic Activities, Therapeutic Exercises Modalities Biofeedback,Cold Pack/Ice Massage,Hot Packs Next Visit Focus/Plan Next Note Type Treatment Note Next Visit Plan Continue reciprocal gait trng. Next tx revisit bed mob toward goals POC: LE strengthening ex. balance ex.
--- NOTE | 2023-04-18 14:49 | PT.OTN ---
Current Diagnoses Unspecified sequelae of cerebral infarction (04/18/23) Physical Therapy Treatment Note PT-OP-A Visit Information Start: 03/09/23 15:24 Freq: Status: Active Protocol: Document 04/18/23 14:00 DCW (Rec: 04/18/23 14:49 DCW [id number]) Out-Patient Physical Therapy Visit Information Visit Information Visit Type Treatment Note Visit Start Time 14:00 Visit Stop Time 14:45 Total Visit Minutes 45 Visit Number 9 Number of PIER RUNNER Visits 0 PT-OP-C Subjective Start: 03/09/23 15:24 Freq: Status: Active Protocol: Document 04/18/23 14:00 DCW (Rec: 04/18/23 14:49 DCW [id number]) OP-PT Subjective Patient Comments Patient Comments Pt wants to work some on floor transfers in order to help getting up if she were to suffer a fall. PT-OP-D Balance Start: 03/09/23 15:24 Freq: Status: Active Protocol: Document 03/09/23 15:28 TH (Rec: 03/09/23 16:46 TH [id number]) Wilson Balance Assessment Evaluation Sitting to Standing Ability Independent w/Hands Unsupported Stance Unable w/out Assistance Sitting Unsupported, Feet on Floor Safely- 2 minutes Standing to Sitting Ability Assist, Control w/Hands Transfer Ability Safely, Hand Use Unsupported Stance- Eyes Closed Falls Without Assistance Unsupported Stance- Eyes Open Assist to attain,<15 secs Reaching Forward Standing Supported, Looses Balance Pick- Up Object From Floor Requires Assistance Look Behind Shoulder - Standing Assist to Prevent Fall Turning 360 Degrees Requires Assistance Unsupported Stance, Alternating Feet on Assist to Prevent Fall Stair Unsupported Tandem Stance Assist to Step-15 seconds Unilateral Leg Stance Unable,assist to not fall Total Score Wilson Total Score (out of 56 points) 14 Wilson Impairment Rating 60 to 79% Impaired (Score 12- 22) PT-OP-M Strength Start: 03/09/23 15:24 Freq: Status: Active Protocol: Document 03/09/23 15:28 TH (Rec: 03/09/23 16:46 TH [id number]) Shoulder Strength Shoulder Manual Muscle Testing Left Flexion 3+ Fair+ Abduction (C5) 3+ Fair+ Hip Strength Hip Manual Muscle Testing Left Flexion (L2) 4- Good- Extension (S1) 3+ Fair+ Knee Strength Knee Manual Muscle Testing Left Flexion (S2) 4- Good- Extension (L3) 4+ Good+ Ankle/Foot Strength Ankle and Foot Manual Muscle Testing Left Dorsiflexion (L4) 3 Fair Plantarflexion (S1) 3+ Fair+ PT-OP-Q Treatments Start: 03/09/23 15:24 Freq: Status: Active Protocol: Document 04/18/23 14:00 DCW (Rec: 04/18/23 14:49 DCW [id number]) Cardio Equipment Recumbent Elliptical (Biodex) Duration (Minutes) 5 Resistance 5 Seat Position 7 Other BLE, no break, good response Gym Equipment Shuttle Recovery single leg squats Resistance 37# (new band) Shuttle Recovery Platform Stable Reps/Time x20 Bilateral Squats Resistance 62# (2 new bands) Shuttle Recovery Platform Stable Reps/Time x20 Therapeutic Exercises Standing Exercises Hamstring Curls Standing Exercise Name HS Curls Side bilateral Resistance 5# Sit to Stands Standing Exercise Name Sit to stand Resistance AROM Reps/Minutes x5 Comments vc for scooting to EOB Therapeutic Activity Therapeutic Activity Floor Transfers Comments Beginning to work on floor transfers on large table. Supine->log roll to prone->up into quadruped. PT-OP-T Assessment and Plan Start: 03/09/23 15:24 Freq: Status: Active Protocol: Document 04/18/23 14:00 DCW (Rec: 04/18/23 14:49 [facility] [id number]) Physical Therapy Assessment Goals 4 Impairment Difficult to get in out of bed on her own Short Term Goal (STG) Pt will be able to perform scooting , sup<>sit with CG. STG Duration Met Residential Goal (LTG) Pt will be able to perform scooting , sup<>sit IND with bed rail versus no AD. LTG Duration 05/02/23 3 Impairment Pt unable to ambulate beyond 3 -4 feet without fatigue/ unsteady gait. Short Term Goal (STG) Pt. will be able to ambulate with FWW versus SPC 50 feet with CG/SBA. STG Duration Met Looseleaf Binder Coverer Goal (LTG) Pt will ba able to ambulate with SPC 100 + feet on even / uneven terrain SBA. LTG Duration 05/02/23 2 Impairment Pt has difficulty going up / down steps without CG. Short Term Goal (STG) Pt will be able to side step/ step to 3 steps up/down with SBA. STG Duration 04/20/23 Residential Goal (LTG) Pt will be able to side step/ step to 3 steps up/down with Sup. LTG Duration 05/02/23 1 Impairment Wilson score Short Term Goal (STG) Pt's score will improve by 15 pts STG Duration 04/20/23 Looseleaf Binder Coverer Goal (LTG) Pt's score will improve by 25 pts LTG Duration 05/02/23 Progress Towards Goals Progress Towards Goals Slow Progress due to Activity Tolerance,Slow Progress due to Medical Issues Assessment Summary Assessment Pt very, very fatigued by start of floor transfer atempt , required extended rest break afterward. Was able to get herself into semi-quadruped, onto her knees and forearms, but by that point too tired to push up onto hands. Pt admitted she did better than expected, which motivated her to want to try again at a later date. Showing some progress with both bed mobility and gait tolerance. Physical Therapy Plan Frequency and Duration Frequency of Treatment 2x/Week Duration of treatment (weeks) 12 Plan of Care Start Date 03/09/23 Plan of Care End Date 06/01/23 Therapeutic Interventions Therapeutic Interventions Balance Training,Coordination Training,Gait Training,Home Exercise Program,Joint Mobilizations,Manual Therapy, Neuromuscular Re-education, Orthotic/Prosthetic Management ,Patient/Caregiver Education, Self-Care/Home Management, Sensory Integration,Soft Tissue Mobilization,Taping, Therapeutic Activities, Therapeutic Exercises Modalities Biofeedback,Cold Pack/Ice Massage,Hot Packs Next Visit Focus/Plan Next Note Type Treatment Note Next Visit Plan Continue reciprocal gait trng. Next tx revisit bed mob toward goals, floor transfers POC: LE strengthening ex. balance ex.
--- NOTE | 2023-04-18 14:51 | PT.OPPN ---
Current Diagnoses Unspecified sequelae of cerebral infarction (04/18/23) Physical Therapy Progress Note PT-OP-A Visit Information Start: 03/09/23 15:24 Freq: Status: Active Protocol: Document 04/18/23 14:00 DCW (Rec: 04/18/23 14:49 DCW [id number]) Out-Patient Physical Therapy Visit Information Visit Information Visit Type Treatment Note Visit Start Time 14:00 Visit Stop Time 14:45 Total Visit Minutes 45 Visit Number 9 Number of SPOOLING SUPERVISOR Visits 0 PT-OP-C Subjective Start: 03/09/23 15:24 Freq: Status: Active Protocol: Document 04/18/23 14:00 DCW (Rec: 04/18/23 14:49 DCW [id number]) OP-PT Subjective Patient Comments Patient Comments Pt wants to work some on floor transfers in order to help getting up if she were to suffer a fall. PT-OP-D Balance Start: 03/09/23 15:24 Freq: Status: Active Protocol: Document 03/09/23 15:28 TH (Rec: 03/09/23 16:46 TH [id number]) Wilson Balance Assessment Evaluation Sitting to Standing Ability Independent w/Hands Unsupported Stance Unable w/out Assistance Sitting Unsupported, Feet on Floor Safely- 2 minutes Standing to Sitting Ability Assist, Control w/Hands Transfer Ability Safely, Hand Use Unsupported Stance- Eyes Closed Falls Without Assistance Unsupported Stance- Eyes Open Assist to attain,<15 secs Reaching Forward Standing Supported, Looses Balance Pick- Up Object From Floor Requires Assistance Look Behind Shoulder - Standing Assist to Prevent Fall Turning 360 Degrees Requires Assistance Unsupported Stance, Alternating Feet on Assist to Prevent Fall Stair Unsupported Tandem Stance Assist to Step-15 seconds Unilateral Leg Stance Unable,assist to not fall Total Score Wilson Total Score (out of 56 points) 14 Wilson Impairment Rating 60 to 79% Impaired (Score 12- 22) PT-OP-M Strength Start: 03/09/23 15:24 Freq: Status: Active Protocol: Document 03/09/23 15:28 TH (Rec: 03/09/23 16:46 TH [id number]) Shoulder Strength Shoulder Manual Muscle Testing Left Flexion 3+ Fair+ Abduction (C5) 3+ Fair+ Hip Strength Hip Manual Muscle Testing Left Flexion (L2) 4- Good- Extension (S1) 3+ Fair+ Knee Strength Knee Manual Muscle Testing Left Flexion (S2) 4- Good- Extension (L3) 4+ Good+ Ankle/Foot Strength Ankle and Foot Manual Muscle Testing Left Dorsiflexion (L4) 3 Fair Plantarflexion (S1) 3+ Fair+ PT-OP-T Assessment and Plan Start: 03/09/23 15:24 Freq: Status: Active Protocol: Document 04/18/23 14:00 DCW (Rec: 04/18/23 14:49 DCW [id number]) Physical Therapy Assessment Goals 4 Impairment Difficult to get in out of bed on her own Short Term Goal (STG) Pt will be able to perform scooting , sup<>sit with CG. STG Duration Met Clinical Research Nurse Goal (LTG) Pt will be able to perform scooting , sup<>sit IND with bed rail versus no AD. LTG Duration 05/02/23 3 Impairment Pt unable to ambulate beyond 3 -4 feet without fatigue/ unsteady gait. Short Term Goal (STG) Pt. will be able to ambulate with FWW versus SPC 50 feet with CG/SBA. STG Duration Met Retirement Goal (LTG) Pt will ba able to ambulate with SPC 100 + feet on even / uneven terrain SBA. LTG Duration 05/02/23 2 Impairment Pt has difficulty going up / down steps without CG. Short Term Goal (STG) Pt will be able to side step/ step to 3 steps up/down with SBA. STG Duration 04/20/23 Clinical Research Nurse Goal (LTG) Pt will be able to side step/ step to 3 steps up/down with Sup. LTG Duration 05/02/23 1 Impairment Wilson score Short Term Goal (STG) Pt's score will improve by 15 pts STG Duration 04/20/23 Clinical Research Nurse Goal (LTG) Pt's score will improve by 25 pts LTG Duration 05/02/23 Progress Towards Goals Progress Towards Goals Slow Progress due to Activity Tolerance,Slow Progress due to Medical Issues Assessment Summary Assessment Pt very, very fatigued by start of floor transfer atempt , required extended rest break afterward. Was able to get herself into semi-quadruped, onto her knees and forearms, but by that point too tired to push up onto hands. Pt admitted she did better than expected, which motivated her to want to try again at a later date. Showing some progress with both bed mobility and gait tolerance. Physical Therapy Plan Frequency and Duration Frequency of Treatment 2x/Week Duration of treatment (weeks) 12 Plan of Care Start Date 03/09/23 Plan of Care End Date 06/01/23 Therapeutic Interventions Therapeutic Interventions Balance Training,Coordination Training,Gait Training,Home Exercise Program,Joint Mobilizations,Manual Therapy, Neuromuscular Re-education, Orthotic/Prosthetic Management ,Patient/Caregiver Education, Self-Care/Home Management, Sensory Integration,Soft Tissue Mobilization,Taping, Therapeutic Activities, Therapeutic Exercises Modalities Biofeedback,Cold Pack/Ice Massage,Hot Packs Next Visit Focus/Plan Next Note Type Treatment Note Next Visit Plan Continue reciprocal gait trng. Next tx revisit bed mob toward goals, floor transfers POC: LE strengthening ex. balance ex.
--- NOTE | 2023-04-21 15:52 | PT.OTN ---
Current Diagnoses Unspecified sequelae of cerebral infarction (04/21/23) Physical Therapy Treatment Note PT-OP-A Visit Information Start: 03/09/23 15:24 Freq: Status: Active Protocol: Document 04/21/23 14:53 SW (Rec: 04/21/23 15:52 [id number]) Out-Patient Physical Therapy Visit Information Visit Information Visit Type Treatment Note Visit Start Time 14:46 Visit Stop Time 15:30 Total Visit Minutes 44 Visit Number 10 Number of CLIENT HR MANAGER Visits 1 PT-OP-C Subjective Start: 03/09/23 15:24 Freq: Status: Active Protocol: Document 04/21/23 14:53 SW (Rec: 04/21/23 15:52 [id number]) OP-PT Subjective Patient Comments Patient Comments Pt tolerated last session well , muscle fatigue after, but quick to recover. PT-OP-D Balance Start: 03/09/23 15:24 Freq: Status: Active Protocol: Document 03/09/23 15:28 TH (Rec: 03/09/23 16:46 TH [id number]) Wilson Balance Assessment Evaluation Sitting to Standing Ability Independent w/Hands Unsupported Stance Unable w/out Assistance Sitting Unsupported, Feet on Floor Safely- 2 minutes Standing to Sitting Ability Assist, Control w/Hands Transfer Ability Safely, Hand Use Unsupported Stance- Eyes Closed Falls Without Assistance Unsupported Stance- Eyes Open Assist to attain,<15 secs Reaching Forward Standing Supported, Looses Balance Pick- Up Object From Floor Requires Assistance Look Behind Shoulder - Standing Assist to Prevent Fall Turning 360 Degrees Requires Assistance Unsupported Stance, Alternating Feet on Assist to Prevent Fall Stair Unsupported Tandem Stance Assist to Step-15 seconds Unilateral Leg Stance Unable,assist to not fall Total Score Wilson Total Score (out of 56 points) 14 Wilson Impairment Rating 60 to 79% Impaired (Score 12- 22) PT-OP-M Strength Start: 03/09/23 15:24 Freq: Status: Active Protocol: Document 03/09/23 15:28 TH (Rec: 03/09/23 16:46 TH [id number]) Shoulder Strength Shoulder Manual Muscle Testing Left Flexion 3+ Fair+ Abduction (C5) 3+ Fair+ Hip Strength Hip Manual Muscle Testing Left Flexion (L2) 4- Good- Extension (S1) 3+ Fair+ Knee Strength Knee Manual Muscle Testing Left Flexion (S2) 4- Good- Extension (L3) 4+ Good+ Ankle/Foot Strength Ankle and Foot Manual Muscle Testing Left Dorsiflexion (L4) 3 Fair Plantarflexion (S1) 3+ Fair+ PT-OP-Q Treatments Start: 03/09/23 15:24 Freq: Status: Active Protocol: Document 04/21/23 14:53 (Rec: 04/21/23 15:52 [id number]) Cardio Equipment Recumbent Elliptical (Biodex) Duration (Minutes) 5 Resistance 5 Seat Position 7 Other BLE, no break, good response Gym Equipment Shuttle Recovery single leg squats Resistance 50 (2 old) Shuttle Recovery Platform Stable Reps/Time x20 Bilateral Squats Resistance 75# (3 old bands) Shuttle Recovery Platform Stable Reps/Time x20 Therapeutic Exercises Standing Exercises Hip Extension Standing Exercise Name Hip Extension Side bilateral Resistance 5# Equipment Used // bars Reps/Minutes 10 ea Hip Abduction Standing Exercise Name Hip Abduction Side bilateral Resistance 5# Equipment Used // bars Reps/Minutes 10 ea Gait Training Gait Activity SPC Device Used quad cane Level of Assistance SBA Surface carpet Distance/Duration 6 ft x 1 Treatment Focus gait training w/ quad cane Comments Step to Pattern, vc for posture, gazing ahead for safety, coordination of quad cane w/LLE PT-OP-T Assessment and Plan Start: 03/09/23 15:24 Freq: Status: Active Protocol: Document 04/21/23 14:53 (Rec: 04/21/23 15:52 [id number]) Physical Therapy Assessment Goals 4 Impairment Difficult to get in out of bed on her own Short Term Goal (STG) Pt will be able to perform scooting , sup<>sit with CG. STG Duration Met Nursing Home Goal (LTG) Pt will be able to perform scooting , sup<>sit IND with bed rail versus no AD. LTG Duration 05/02/23 3 Impairment Pt unable to ambulate beyond 3 -4 feet without fatigue/ unsteady gait. Short Term Goal (STG) Pt. will be able to ambulate with FWW versus SPC 50 feet with CG/SBA. STG Duration Met Nursing Home Goal (LTG) Pt will ba able to ambulate with SPC 100 + feet on even / uneven terrain SBA. LTG Duration 05/02/23 2 Impairment Pt has difficulty going up / down steps without CG. Short Term Goal (STG) Pt will be able to side step/ step to 3 steps up/down with SBA. STG Duration 04/20/23 Sink Cutter Goal (LTG) Pt will be able to side step/ step to 3 steps up/down with Sup. LTG Duration 05/02/23 1 Impairment Wilson score Short Term Goal (STG) Pt's score will improve by 15 pts STG Duration 04/20/23 Sink Cutter Goal (LTG) Pt's score will improve by 25 pts LTG Duration 05/02/23 Assessment Summary Assessment Focused on LE strengthening exercises this session for carryover into balance, gait, and stair goals. Progressed weight on shuttle recovery with both BLE and single LE. Pt still requires rest breaks throughout session d/t fatigue and LB pain, but demonstrates improved endurance with the ability to talk and ambulate w /FWW into gym with greater ease. Physical Therapy Plan Frequency and Duration Frequency of Treatment 2x/Week Duration of treatment (weeks) 12 Plan of Care Start Date 03/09/23 Plan of Care End Date 06/01/23 Therapeutic Interventions Therapeutic Interventions Balance Training,Coordination Training,Gait Training,Home Exercise Program,Joint Mobilizations,Manual Therapy, Neuromuscular Re-education, Orthotic/Prosthetic Management ,Patient/Caregiver Education, Self-Care/Home Management, Sensory Integration,Soft Tissue Mobilization,Taping, Therapeutic Activities, Therapeutic Exercises Modalities Biofeedback,Cold Pack/Ice Massage,Hot Packs Next Visit Focus/Plan Next Note Type Treatment Note Next Visit Plan Continue reciprocal gait trng. Next tx revisit bed mob toward goals, floor transfers POC: LE strengthening ex. balance ex.
--- NOTE | 2023-04-26 13:10 | PT.OTN ---
Current Diagnoses Unspecified sequelae of cerebral infarction (04/26/23) Physical Therapy Treatment Note PT-OP-A Visit Information Start: 03/09/23 15:24 Freq: Status: Active Protocol: Document 04/26/23 12:16 NBM (Rec: 04/26/23 13:09 NB [id number]) Out-Patient Physical Therapy Visit Information Visit Information Visit Type Treatment Note Visit Start Time 12:18 Visit Stop Time 13:03 Total Visit Minutes 45 Visit Number 11 Number of SKEIN WINDING OPERATOR Visits 2 PT-OP-C Subjective Start: 03/09/23 15:24 Freq: Status: Active Protocol: Document 04/26/23 12:16 NBM (Rec: 04/26/23 13:09 NBM [id number]) OP-PT Subjective Patient Comments Patient Comments Pt reports no new changes or concerns. She is doing her ex' s at home. She was very tired after practicing floor transfer at PT. Today is spouse's birthday so she does not want to overdo it. PT-OP-D Balance Start: 03/09/23 15:24 Freq: Status: Active Protocol: Document 03/09/23 15:28 TH (Rec: 03/09/23 16:46 TH [id number]) Wilson Balance Assessment Evaluation Sitting to Standing Ability Independent w/Hands Unsupported Stance Unable w/out Assistance Sitting Unsupported, Feet on Floor Safely- 2 minutes Standing to Sitting Ability Assist, Control w/Hands Transfer Ability Safely, Hand Use Unsupported Stance- Eyes Closed Falls Without Assistance Unsupported Stance- Eyes Open Assist to attain,<15 secs Reaching Forward Standing Supported, Looses Balance Pick- Up Object From Floor Requires Assistance Look Behind Shoulder - Standing Assist to Prevent Fall Turning 360 Degrees Requires Assistance Unsupported Stance, Alternating Feet on Assist to Prevent Fall Stair Unsupported Tandem Stance Assist to Step-15 seconds Unilateral Leg Stance Unable,assist to not fall Total Score Wilson Total Score (out of 56 points) 14 Wilson Impairment Rating 60 to 79% Impaired (Score 12- 22) PT-OP-M Strength Start: 03/09/23 15:24 Freq: Status: Active Protocol: Document 03/09/23 15:28 TH (Rec: 03/09/23 16:46 TH [id number]) Shoulder Strength Shoulder Manual Muscle Testing Left Flexion 3+ Fair+ Abduction (C5) 3+ Fair+ Hip Strength Hip Manual Muscle Testing Left Flexion (L2) 4- Good- Extension (S1) 3+ Fair+ Knee Strength Knee Manual Muscle Testing Left Flexion (S2) 4- Good- Extension (L3) 4+ Good+ Ankle/Foot Strength Ankle and Foot Manual Muscle Testing Left Dorsiflexion (L4) 3 Fair Plantarflexion (S1) 3+ Fair+ PT-OP-Q Treatments Start: 03/09/23 15:24 Freq: Status: Active Protocol: Document 04/26/23 12:16 NBM (Rec: 04/26/23 13:09 [facility] [id number]) Cardio Equipment Recumbent Elliptical (Biodex) Duration (Minutes) 5 Resistance 5>4 Seat Position 9 Other BLE, no break, vc for LE alignment Gym Equipment Shuttle Recovery single leg squats Details 3 breaks to reset LLE alignment Resistance 50 (2 old) Shuttle Recovery Platform Stable Reps/Time x20 Bilateral Squats Resistance 75# (3 old bands) Shuttle Recovery Platform Stable Reps/Time x20 Therapeutic Exercises Supine Exercises Hip adduction Supine Exercise Name ball squeeze Side bilateral Equipment Used yellow ball; on shuttle recovery Reps/Minutes 10 x3SH (~2 breath cycles) Comments cues for no breathholding Sitting Exercises HS stretch Sitting Exercise Name HS stretch Side bilateral Equipment Used on shuttle recovery Reps/Minutes 2 x30 Standing Exercises Hamstring Curls Standing Exercise Name HS Curls Side bilateral Resistance 5# Reps/Minutes x5 ea Hip Extension Standing Exercise Name Hip Extension Side bilateral Resistance 5# Equipment Used handrail Reps/Minutes 10 ea Hip Abduction Standing Exercise Name Hip Abduction Side bilateral Resistance 5# Equipment Used handrail Reps/Minutes 10 ea Gait Training Gait Activity FWW Description decreased LLE foot clearance and RLE stride Device Used FWW Level of Assistance SBA Surface carpet Distance/Duration 40 ft x 2 Treatment Focus receiprocal stepping, LLE foot clearance Comments vc for LLE clearance and step length, increase LLE stance time, improved self-awareness of upright posture. PT-OP-T Assessment and Plan Start: 03/09/23 15:24 Freq: Status: Active Protocol: Document 04/26/23 12:16 NBM (Rec: 04/26/23 13:09 [facility] [id number]) Physical Therapy Assessment Goals 4 Impairment Difficult to get in out of bed on her own Short Term Goal (STG) Pt will be able to perform scooting , sup<>sit with CG. STG Duration Met Oyster Unloader Goal (LTG) Pt will be able to perform scooting , sup<>sit IND with bed rail versus no AD. LTG Duration 05/02/23 3 Impairment Pt unable to ambulate beyond 3 -4 feet without fatigue/ unsteady gait. Short Term Goal (STG) Pt. will be able to ambulate with FWW versus SPC 50 feet with CG/SBA. STG Duration Met Oyster Unloader Goal (LTG) Pt will ba able to ambulate with SPC 100 + feet on even / uneven terrain SBA. LTG Duration 05/02/23 2 Impairment Pt has difficulty going up / down steps without CG. Short Term Goal (STG) Pt will be able to side step/ step to 3 steps up/down with SBA. STG Duration 04/20/23 Oyster Unloader Goal (LTG) Pt will be able to side step/ step to 3 steps up/down with Sup. LTG Duration 05/02/23 1 Impairment Wilson score Short Term Goal (STG) Pt's score will improve by 15 pts STG Duration 04/20/23 Oyster Unloader Goal (LTG) Pt's score will improve by 25 pts LTG Duration 05/02/23 Assessment Summary Assessment Pt declines floor recovery training today and is cautious to push activity tolerance due to plans for spouse's birthday. Treatment focus on LE strengthening and alignment and gait training w/ FWW. Pt requires cues for form with resisted hip ex's to avoid lumbar hyperextension and increased low back pain. She requires occasional cues for LE alignment L>R, and cues for no breathholding with supine hip adduction. She requires cues with gait with FWW for LLE clearance and step length and increased LLE stance time, but improved self-awareness of upright posture. Frequent rest breaks throughout treatment session. Physical Therapy Plan Frequency and Duration Frequency of Treatment 2x/Week Duration of treatment (weeks) 12 Plan of Care Start Date 03/09/23 Plan of Care End Date 06/01/23 Therapeutic Interventions Therapeutic Interventions Balance Training,Coordination Training,Gait Training,Home Exercise Program,Joint Mobilizations,Manual Therapy, Neuromuscular Re-education, Orthotic/Prosthetic Management ,Patient/Caregiver Education, Self-Care/Home Management, Sensory Integration,Soft Tissue Mobilization,Taping, Therapeutic Activities, Therapeutic Exercises Modalities Biofeedback,Cold Pack/Ice Massage,Hot Packs Next Visit Focus/Plan Next Note Type Treatment Note Next Visit Plan Continue reciprocal gait trng. Next tx revisit bed mob toward goals, floor transfers POC: LE strengthening ex. balance ex.
--- NOTE | 2023-04-28 15:29 | PT.OTN ---
Current Diagnoses Unspecified sequelae of cerebral infarction (04/28/23) Physical Therapy Treatment Note PT-OP-A Visit Information Start: 03/09/23 15:24 Freq: Status: Active Protocol: Document 04/28/23 14:45 DCW (Rec: 04/28/23 15:28 DCW [id number]) Out-Patient Physical Therapy Visit Information Visit Information Visit Type Treatment Note Visit Start Time 14:45 Visit Stop Time 15:30 Total Visit Minutes 45 Visit Number 12 Number of MONITORING TECH Visits 0 PT-OP-C Subjective Start: 03/09/23 15:24 Freq: Status: Active Protocol: Document 04/28/23 14:45 DCW (Rec: 04/28/23 15:28 DCW [id number]) OP-PT Subjective Patient Comments Patient Comments Pt feeling good, notes she is pretty alert today, got a good night's sleep. PT-OP-D Balance Start: 03/09/23 15:24 Freq: Status: Active Protocol: Document 03/09/23 15:28 TH (Rec: 03/09/23 16:46 TH [id number]) Wilson Balance Assessment Evaluation Sitting to Standing Ability Independent w/Hands Unsupported Stance Unable w/out Assistance Sitting Unsupported, Feet on Floor Safely- 2 minutes Standing to Sitting Ability Assist, Control w/Hands Transfer Ability Safely, Hand Use Unsupported Stance- Eyes Closed Falls Without Assistance Unsupported Stance- Eyes Open Assist to attain,<15 secs Reaching Forward Standing Supported, Looses Balance Pick- Up Object From Floor Requires Assistance Look Behind Shoulder - Standing Assist to Prevent Fall Turning 360 Degrees Requires Assistance Unsupported Stance, Alternating Feet on Assist to Prevent Fall Stair Unsupported Tandem Stance Assist to Step-15 seconds Unilateral Leg Stance Unable,assist to not fall Total Score Wilson Total Score (out of 56 points) 14 Wilson Impairment Rating 60 to 79% Impaired (Score 12- 22) PT-OP-M Strength Start: 03/09/23 15:24 Freq: Status: Active Protocol: Document 03/09/23 15:28 TH (Rec: 03/09/23 16:46 TH [id number]) Shoulder Strength Shoulder Manual Muscle Testing Left Flexion 3+ Fair+ Abduction (C5) 3+ Fair+ Hip Strength Hip Manual Muscle Testing Left Flexion (L2) 4- Good- Extension (S1) 3+ Fair+ Knee Strength Knee Manual Muscle Testing Left Flexion (S2) 4- Good- Extension (L3) 4+ Good+ Ankle/Foot Strength Ankle and Foot Manual Muscle Testing Left Dorsiflexion (L4) 3 Fair Plantarflexion (S1) 3+ Fair+ PT-OP-Q Treatments Start: 03/09/23 15:24 Freq: Status: Active Protocol: Document 04/28/23 14:45 DCW (Rec: 04/28/23 15:28 DCW [id number]) Cardio Equipment Recumbent Elliptical (Biodex) Duration (Minutes) 5 Resistance 5 Seat Position 7 Other BLE, no break Gym Equipment Shuttle Recovery single leg squats Resistance 50 (2 old) Shuttle Recovery Platform Stable Reps/Time x20 Bilateral Squats Resistance 75# (3 old bands) Shuttle Recovery Platform Stable Reps/Time x20 Therapeutic Exercises Standing Exercises Hamstring Curls Standing Exercise Name HS Curls Side bilateral Resistance 5# Reps/Minutes x5 ea Hip Extension Standing Exercise Name Hip Extension Side bilateral Resistance 5# Equipment Used handrail Reps/Minutes 10 ea Hip Abduction Standing Exercise Name Hip Abduction Side bilateral Resistance 5# Equipment Used handrail Reps/Minutes 10 ea Neuro Re-Education Treatment Balance Activities BOSU Surface Unstable Equipment BUE hand support Reps/Duration 2 x 20 Blue Foam Details NBOS Surface Blue foam Equipment // bars Tandem Details Tandem (Occasional UE support) Equipment // bars Weight Shifts Details B Lateral weight shift Surface Tilt board Equipment // bars Reps/Duration x 10 each Details Toe-taps Equipment 6 step, 5# AW PT-OP-T Assessment and Plan Start: 03/09/23 15:24 Freq: Status: Active Protocol: Document 04/28/23 14:45 DCW (Rec: 04/28/23 15:28 DCW [id number]) Physical Therapy Assessment Goals 4 Impairment Difficult to get in out of bed on her own Short Term Goal (STG) Pt will be able to perform scooting , sup<>sit with CG. STG Duration Met Drying Frame Operator Goal (LTG) Pt will be able to perform scooting , sup<>sit IND with bed rail versus no AD. LTG Duration 05/02/23 3 Impairment Pt unable to ambulate beyond 3 -4 feet without fatigue/ unsteady gait. Short Term Goal (STG) Pt. will be able to ambulate with FWW versus SPC 50 feet with CG/SBA. STG Duration Met Alf Goal (LTG) Pt will ba able to ambulate with SPC 100 + feet on even / uneven terrain SBA. LTG Duration 05/02/23 2 Impairment Pt has difficulty going up / down steps without CG. Short Term Goal (STG) Pt will be able to side step/ step to 3 steps up/down with SBA. STG Duration 04/20/23 Drying Frame Operator Goal (LTG) Pt will be able to side step/ step to 3 steps up/down with Sup. LTG Duration 05/02/23 1 Impairment Wilson score Short Term Goal (STG) Pt's score will improve by 15 pts STG Duration 04/20/23 Alf Goal (LTG) Pt's score will improve by 25 pts LTG Duration 05/02/23 Assessment Summary Assessment Pt very fatigued by end od session today, requested that her bring her w/c back to pick her up. During session, pt did very well, required fewer rest breaks than usual. Physical Therapy Plan Frequency and Duration Frequency of Treatment 2x/Week Duration of treatment (weeks) 12 Plan of Care Start Date 03/09/23 Plan of Care End Date 06/01/23 Therapeutic Interventions Therapeutic Interventions Balance Training,Coordination Training,Gait Training,Home Exercise Program,Joint Mobilizations,Manual Therapy, Neuromuscular Re-education, Orthotic/Prosthetic Management ,Patient/Caregiver Education, Self-Care/Home Management, Sensory Integration,Soft Tissue Mobilization,Taping, Therapeutic Activities, Therapeutic Exercises Modalities Biofeedback,Cold Pack/Ice Massage,Hot Packs Next Visit Focus/Plan Next Note Type Treatment Note Next Visit Plan Continue reciprocal gait trng. Next tx revisit bed mob toward goals, floor transfers POC: LE strengthening ex. balance ex.
--- NOTE | 2023-05-02 15:28 | PT.OTN ---
Current Diagnoses Unspecified sequelae of cerebral infarction (05/02/23) Physical Therapy Treatment Note PT-OP-A Visit Information Start: 03/09/23 15:24 Freq: Status: Active Protocol: Document 05/02/23 14:45 DCW (Rec: 05/02/23 15:28 DCW [id number]) Out-Patient Physical Therapy Visit Information Visit Information Visit Type Treatment Note Visit Start Time 14:45 Visit Stop Time 15:30 Total Visit Minutes 45 Visit Number 13 Number of SERVICE SUPPORT REPRESENTATIVE Visits 0 PT-OP-C Subjective Start: 03/09/23 15:24 Freq: Status: Active Protocol: Document 05/02/23 14:45 DCW (Rec: 05/02/23 15:28 DCW [id number]) OP-PT Subjective Patient Comments Patient Comments I've been kind of sore in my neck and arms and lower back. PT-OP-D Balance Start: 03/09/23 15:24 Freq: Status: Active Protocol: Document 03/09/23 15:28 TH (Rec: 03/09/23 16:46 TH [id number]) Wilson Balance Assessment Evaluation Sitting to Standing Ability Independent w/Hands Unsupported Stance Unable w/out Assistance Sitting Unsupported, Feet on Floor Safely- 2 minutes Standing to Sitting Ability Assist, Control w/Hands Transfer Ability Safely, Hand Use Unsupported Stance- Eyes Closed Falls Without Assistance Unsupported Stance- Eyes Open Assist to attain,<15 secs Reaching Forward Standing Supported, Looses Balance Pick- Up Object From Floor Requires Assistance Look Behind Shoulder - Standing Assist to Prevent Fall Turning 360 Degrees Requires Assistance Unsupported Stance, Alternating Feet on Assist to Prevent Fall Stair Unsupported Tandem Stance Assist to Step-15 seconds Unilateral Leg Stance Unable,assist to not fall Total Score Wilson Total Score (out of 56 points) 14 Wilson Impairment Rating 60 to 79% Impaired (Score 12- 22) PT-OP-M Strength Start: 03/09/23 15:24 Freq: Status: Active Protocol: Document 03/09/23 15:28 TH (Rec: 03/09/23 16:46 TH [id number]) Shoulder Strength Shoulder Manual Muscle Testing Left Flexion 3+ Fair+ Abduction (C5) 3+ Fair+ Hip Strength Hip Manual Muscle Testing Left Flexion (L2) 4- Good- Extension (S1) 3+ Fair+ Knee Strength Knee Manual Muscle Testing Left Flexion (S2) 4- Good- Extension (L3) 4+ Good+ Ankle/Foot Strength Ankle and Foot Manual Muscle Testing Left Dorsiflexion (L4) 3 Fair Plantarflexion (S1) 3+ Fair+ PT-OP-Q Treatments Start: 03/09/23 15:24 Freq: Status: Active Protocol: Document 05/02/23 14:45 DCW (Rec: 05/02/23 15:28 DCW [id number]) Cardio Equipment Recumbent Elliptical (Biodex) Duration (Minutes) 5 Resistance 5->4 Seat Position 7 Other BLE, no break Gym Equipment Shuttle Recovery single leg squats Resistance 50 (2 old) Shuttle Recovery Platform Stable Reps/Time x20 Bilateral Squats Resistance 75# (1 new band) Shuttle Recovery Platform Stable Reps/Time x20 Therapeutic Exercises Standing Exercises Hamstring Curls Standing Exercise Name HS Curls Side bilateral Resistance 5# Reps/Minutes x5 ea Hip Abduction Standing Exercise Name Hip Abduction Side bilateral Resistance 5# Equipment Used handrail Reps/Minutes 10 ea Neuro Re-Education Treatment Balance Activities Hurdles Details Hurdles Equipment // bars Comments Fwd, Lateral Tandem Details Tandem (Occasional UE support) Equipment // bars Marches Details Toe-taps Equipment 6 step, 5# AW PT-OP-T Assessment and Plan Start: 03/09/23 15:24 Freq: Status: Active Protocol: Document 05/02/23 14:45 DCW (Rec: 05/02/23 15:28 DCW [id number]) Physical Therapy Assessment Goals 4 Impairment Difficult to get in out of bed on her own Short Term Goal (STG) Pt will be able to perform scooting , sup<>sit with CG. STG Duration Met Mobility Architect Goal (LTG) Pt will be able to perform scooting , sup<>sit IND with bed rail versus no AD. LTG Duration 05/02/23 3 Impairment Pt unable to ambulate beyond 3 -4 feet without fatigue/ unsteady gait. Short Term Goal (STG) Pt. will be able to ambulate with FWW versus SPC 50 feet with CG/SBA. STG Duration Met Mobility Architect Goal (LTG) Pt will ba able to ambulate with SPC 100 + feet on even / uneven terrain SBA. LTG Duration 05/02/23 2 Impairment Pt has difficulty going up / down steps without CG. Short Term Goal (STG) Pt will be able to side step/ step to 3 steps up/down with SBA. STG Duration 04/20/23 Mobility Architect Goal (LTG) Pt will be able to side step/ step to 3 steps up/down with Sup. LTG Duration 05/02/23 1 Impairment Wilson score Short Term Goal (STG) Pt's score will improve by 15 pts STG Duration 04/20/23 Mobility Architect Goal (LTG) Pt's score will improve by 25 pts LTG Duration 05/02/23 Assessment Summary Assessment Pt showed improved activity tolerance, fewer rest breaks, although was still quite fatigued. Did well with addition of hurdles. Physical Therapy Plan Frequency and Duration Frequency of Treatment 2x/Week Duration of treatment (weeks) 12 Plan of Care Start Date 03/09/23 Plan of Care End Date 06/01/23 Therapeutic Interventions Therapeutic Interventions Balance Training,Coordination Training,Gait Training,Home Exercise Program,Joint Mobilizations,Manual Therapy, Neuromuscular Re-education, Orthotic/Prosthetic Management ,Patient/Caregiver Education, Self-Care/Home Management, Sensory Integration,Soft Tissue Mobilization,Taping, Therapeutic Activities, Therapeutic Exercises Modalities Biofeedback,Cold Pack/Ice Massage,Hot Packs Next Visit Focus/Plan Next Note Type Treatment Note Next Visit Plan Continue reciprocal gait trng. Next tx revisit bed mob toward goals, floor transfers POC: LE strengthening ex. balance ex.
--- NOTE | 2023-05-05 16:57 | PT.OTN ---
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 Pt has been getting a burning sensation on bottom of heal at night when laying down, that extends her big toe, goes away when she sits up. PT-OP-D Balance Start: 03/09/23 15:24 Freq: Status: Active Protocol: Document 03/09/23 15:28 TH (Rec: 03/09/23 16:46 TH [id number]) Wilson Balance Assessment Evaluation Sitting to Standing Ability Independent w/Hands Unsupported Stance Unable w/out Assistance Sitting Unsupported, Feet on Floor Safely- 2 minutes Standing to Sitting Ability Assist, Control w/Hands Transfer Ability Safely, Hand Use Unsupported Stance- Eyes Closed Falls Without Assistance Unsupported Stance- Eyes Open Assist to attain,<15 secs Reaching Forward Standing Supported, Looses Balance Pick- Up Object From Floor Requires Assistance Look Behind Shoulder - Standing Assist to Prevent Fall Turning 360 Degrees Requires Assistance Unsupported Stance, Alternating Feet on Assist to Prevent Fall Stair Unsupported Tandem Stance Assist to Step-15 seconds Unilateral Leg Stance Unable,assist to not fall Total Score Wilson Total Score (out of 56 points) 14 Wilson Impairment Rating 60 to 79% Impaired (Score 12- 22) PT-OP-M Strength Start: 03/09/23 15:24 Freq: Status: Active Protocol: Document 03/09/23 15:28 TH (Rec: 03/09/23 16:46 TH [id number]) Shoulder Strength Shoulder Manual Muscle Testing Left Flexion 3+ Fair+ Abduction (C5) 3+ Fair+ Hip Strength Hip Manual Muscle Testing Left Flexion (L2) 4- Good- Extension (S1) 3+ Fair+ Knee Strength Knee Manual Muscle Testing Left Flexion (S2) 4- Good- Extension (L3) 4+ Good+ Ankle/Foot Strength Ankle and Foot Manual Muscle Testing Left Dorsiflexion (L4) 3 Fair Plantarflexion (S1) 3+ Fair+ PT-OP-Q Treatments Start: 03/09/23 15:24 Freq: Status: Active Protocol: Document 05/05/23 14:51 (Rec: 05/05/23 16:56 [id number]) Cardio Equipment Recumbent Elliptical (Biodex) Duration (Minutes) 5 Resistance 5 Seat Position 7 Other BLE, no break Gym Equipment Shuttle Recovery single leg squats Details 3 breaks to reset LLE alignment Resistance 50 (1 new) Shuttle Recovery Platform Stable Reps/Time x20 Bilateral Squats Resistance 75# (2 new band) Shuttle Recovery Platform Stable Reps/Time x20 Therapeutic Exercises Standing Exercises Hamstring Curls Standing Exercise Name HS Curls Side bilateral Resistance 5# Reps/Minutes x5 ea Hip Extension Standing Exercise Name Hip Extension Side bilateral Resistance 5# Equipment Used handrail Reps/Minutes 10 ea Hip Abduction Standing Exercise Name Hip Abduction Side bilateral Resistance 5# Equipment Used handrail Reps/Minutes 10 ea step ups Standing Exercise Name CGA Side bilateral Equipment Used 6 step (uses a step to get into car) Reps/Minutes LE lead ascend and descend lead Comments weak LLE ascend increase UE support BUE on HRs Neuro Re-Education Treatment Balance Activities Hurdles Details Hurdles Equipment // bars Comments Fwd, Lateral Tandem Details Tandem (Occasional UE support) Equipment // bars PT-OP-T Assessment and Plan Start: 03/09/23 15:24 Freq: Status: Active Protocol: Document 05/05/23 14:51 SW (Rec: 05/05/23 16:56 [id number]) Physical Therapy Assessment Goals 4 Impairment Difficult to get in out of bed on her own Short Term Goal (STG) Pt will be able to perform scooting , sup<>sit with CG. STG Duration Met Intermediate Goal (LTG) Pt will be able to perform scooting , sup<>sit IND with bed rail versus no AD. LTG Duration 05/02/23 3 Impairment Pt unable to ambulate beyond 3 -4 feet without fatigue/ unsteady gait. Short Term Goal (STG) Pt. will be able to ambulate with FWW versus SPC 50 feet with CG/SBA. STG Duration Met Forge Press Operator Goal (LTG) Pt will ba able to ambulate with SPC 100 + feet on even / uneven terrain SBA. LTG Duration 05/02/23 2 Impairment Pt has difficulty going up / down steps without CG. Short Term Goal (STG) Pt will be able to side step/ step to 3 steps up/down with SBA. STG Duration 04/20/23 Intermediate Goal (LTG) Pt will be able to side step/ step to 3 steps up/down with Sup. LTG Duration 05/02/23 1 Impairment Wilson score Short Term Goal (STG) Pt's score will improve by 15 pts STG Duration 04/20/23 Forge Press Operator Goal (LTG) Pt's score will improve by 25 pts LTG Duration 05/02/23 Assessment Summary Assessment Pt fatigued at start of session today, still sore from previous session. Required multiple seated rest breaks. Pt reported she has not been as consistant as she could with her HEP, but tries to do what she can. Recommend reviewing what she is doing for HEP next session. Physical Therapy Plan Frequency and Duration Frequency of Treatment 2x/Week Duration of treatment (weeks) 12 Plan of Care Start Date 03/09/23 Plan of Care End Date 06/01/23 Therapeutic Interventions Therapeutic Interventions Balance Training,Coordination Training,Gait Training,Home Exercise Program,Joint Mobilizations,Manual Therapy, Neuromuscular Re-education, Orthotic/Prosthetic Management ,Patient/Caregiver Education, Self-Care/Home Management, Sensory Integration,Soft Tissue Mobilization,Taping, Therapeutic Activities, Therapeutic Exercises Modalities Biofeedback,Cold Pack/Ice Massage,Hot Packs Next Visit Focus/Plan Next Note Type Treatment Note Next Visit Plan Continue reciprocal gait trng. Next tx revisit bed mob toward goals, floor transfers POC: LE strengthening ex. balance ex.
--- NOTE | 2023-05-13 15:51 | PT.OTN ---
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 Pt has been getting a burning sensation on bottom of heal at night when laying down, that extends her big toe, goes away when she sits up. PT-OP-D Balance Start: 03/09/23 15:24 Freq: Status: Active Protocol: Document 03/09/23 15:28 TH (Rec: 03/09/23 16:46 TH [id number]) Wilson Balance Assessment Evaluation Sitting to Standing Ability Independent w/Hands Unsupported Stance Unable w/out Assistance Sitting Unsupported, Feet on Floor Safely- 2 minutes Standing to Sitting Ability Assist, Control w/Hands Transfer Ability Safely, Hand Use Unsupported Stance- Eyes Closed Falls Without Assistance Unsupported Stance- Eyes Open Assist to attain,<15 secs Reaching Forward Standing Supported, Looses Balance Pick- Up Object From Floor Requires Assistance Look Behind Shoulder - Standing Assist to Prevent Fall Turning 360 Degrees Requires Assistance Unsupported Stance, Alternating Feet on Assist to Prevent Fall Stair Unsupported Tandem Stance Assist to Step-15 seconds Unilateral Leg Stance Unable,assist to not fall Total Score Wilson Total Score (out of 56 points) 14 Wilson Impairment Rating 60 to 79% Impaired (Score 12- 22) PT-OP-M Strength Start: 03/09/23 15:24 Freq: Status: Active Protocol: Document 03/09/23 15:28 TH (Rec: 03/09/23 16:46 TH [id number]) Shoulder Strength Shoulder Manual Muscle Testing Left Flexion 3+ Fair+ Abduction (C5) 3+ Fair+ Hip Strength Hip Manual Muscle Testing Left Flexion (L2) 4- Good- Extension (S1) 3+ Fair+ Knee Strength Knee Manual Muscle Testing Left Flexion (S2) 4- Good- Extension (L3) 4+ Good+ Ankle/Foot Strength Ankle and Foot Manual Muscle Testing Left Dorsiflexion (L4) 3 Fair Plantarflexion (S1) 3+ Fair+ PT-OP-Q Treatments Start: 03/09/23 15:24 Freq: Status: Active Protocol: Document 05/13/23 14:15 NBM (Rec: 05/13/23 15:45 NBM [id number]) Cardio Equipment Recumbent Elliptical (Biodex) Duration (Minutes) 5 Resistance 5 Seat Position 7 Other BLE, no break Gym Equipment Shuttle Recovery single leg squats Resistance 50# (2 new) Shuttle Recovery Platform Stable Reps/Time x20 R, x17 L d/t pt c/o discomfort Bilateral Squats Resistance 75# (2 new band) Shuttle Recovery Platform Stable Reps/Time 62#x20, 75# x10 Therapeutic Exercises Standing Exercises Hamstring Curls Standing Exercise Name HS Curls Side bilateral Resistance 5# Reps/Minutes x8 ea Hip Extension Standing Exercise Name Hip Extension Side bilateral Resistance 5# Equipment Used handrail Reps/Minutes 8 ea Comments cues for RLE straight Hip Abduction Standing Exercise Name Hip Abduction Side bilateral Resistance 5# Equipment Used handrail Reps/Minutes 10 ea Comments cues for upright posture, toes fwd L>R Therapeutic Activity Therapeutic Activity Floor Transfers Comments Pt declines to continue floor recovery goal due to fatigue from last attempt. Gait Training Gait Activity FWW Description decreased LLE foot clearance and RLE stride Device Used FWW Level of Assistance SBA Surface carpet Distance/Duration 40 ft x 2 Treatment Focus reciprocal stepping, LLE foot clearance Comments vc for LLE clearance and step length, increase LLE stance time. improved self-awareness of upright posture and RLE stride length. Neuro Re-Education Treatment Balance Activities Hurdles Comments Pt declines end of session due to fatigue. Tandem Details Tandem (Occasional UE support) Equipment // bars Comments 5# ankle weights donned trials, RLE back ~30s, LLE has greater challenge. Marches Details Toe-taps Equipment 6 step, 5# AW, handrail Reps/Duration x15 ea PT-OP-T Assessment and Plan Start: 03/09/23 15:24 Freq: Status: Active Protocol: Document 05/13/23 14:15 [facility] (Rec: 05/13/23 15:45 [facility] [id number]) Physical Therapy Assessment Goals 4 Impairment Difficult to get in out of bed on her own Short Term Goal (STG) Pt will be able to perform scooting , sup<>sit with CG. STG Duration Met Cake Former Goal (LTG) Pt will be able to perform scooting , sup<>sit IND with bed rail versus no AD. LTG Duration 05/02/23 3 Impairment Pt unable to ambulate beyond 3 -4 feet without fatigue/ unsteady gait. Short Term Goal (STG) Pt. will be able to ambulate with FWW versus SPC 50 feet with CG/SBA. STG Duration Met Fdc Goal (LTG) Pt will ba able to ambulate with SPC 100 + feet on even / uneven terrain SBA. LTG Duration 05/02/23 2 Impairment Pt has difficulty going up / down steps without CG. Short Term Goal (STG) Pt will be able to side step/ step to 3 steps up/down with SBA. STG Duration 04/20/23 Cake Former Goal (LTG) Pt will be able to side step/ step to 3 steps up/down with Sup. LTG Duration 05/02/23 1 Impairment Wilson score Short Term Goal (STG) Pt's score will improve by 15 pts STG Duration 04/20/23 Fdc Goal (LTG) Pt's score will improve by 25 pts LTG Duration 05/02/23 Assessment Summary Assessment Heidy requires cues for gluteal engagement with standing hip exercises for upright posture. She declines hurdles end of session due to fatigue. Pt declines to continue floor recovery goal due to fatigue from last attempt. She ambulates with improved posture, FWW proximation and stride length w/ minimal cues. She demonstrates improved gluteal activation with ambulation end of session. Physical Therapy Plan Frequency and Duration Frequency of Treatment 2x/Week Duration of treatment (weeks) 12 Plan of Care Start Date 03/09/23 Plan of Care End Date 06/01/23 Therapeutic Interventions Therapeutic Interventions Balance Training,Coordination Training,Gait Training,Home Exercise Program,Joint Mobilizations,Manual Therapy, Neuromuscular Re-education, Orthotic/Prosthetic Management ,Patient/Caregiver Education, Self-Care/Home Management, Sensory Integration,Soft Tissue Mobilization,Taping, Therapeutic Activities, Therapeutic Exercises Modalities Biofeedback,Cold Pack/Ice Massage,Hot Packs Next Visit Focus/Plan Next Note Type Treatment Note Next Visit Plan Continue reciprocal gait trng. Next tx revisit bed mob toward goals, floor transfers POC: LE strengthening ex. balance ex.
--- NOTE | 2023-05-19 16:02 | PT.OTN ---
Current Diagnoses Unspecified sequelae of cerebral infarction (05/19/23) Physical Therapy Treatment Note PT-OP-A Visit Information Start: 03/09/23 15:24 Freq: Status: Active Protocol: Document 05/19/23 15:17 SP (Rec: 05/19/23 16:21 SP [id number]) Out-Patient Physical Therapy Visit Information Visit Information Visit Type Treatment Note Visit Start Time 15:17 Visit Stop Time 16:02 Total Visit Minutes 44 Visit Number 16 Number of AUTOMOTIVE METALSMITH Visits 3 PT-OP-C Subjective Start: 03/09/23 15:24 Freq: Status: Active Protocol: Document 05/19/23 15:17 SP (Rec: 05/19/23 16:21 SP [id number]) OP-PT Subjective Patient Comments Patient Comments Pt reports is no where near where was last yr end rehab. She's not seeing signficant improvement in mobility since started PT and wonder if should continue but knows if doesn't will decline like did since last rehab bout. SHe remembers neurologist last seen in Nov stated might be where is going to be. She sees Lexis in Jun. She states knows only allowed 24 visits. SHe feels good work out in PT and doesn't feel over fatigued after tx can do ADLs. She does find sleeping 10-12 hrs a day though. PT-OP-D Balance Start: 03/09/23 15:24 Freq: Status: Active Protocol: Document 03/09/23 15:28 TH (Rec: 03/09/23 16:46 TH [id number]) Wilson Balance Assessment Evaluation Sitting to Standing Ability Independent w/Hands Unsupported Stance Unable w/out Assistance Sitting Unsupported, Feet on Floor Safely- 2 minutes Standing to Sitting Ability Assist, Control w/Hands Transfer Ability Safely, Hand Use Unsupported Stance- Eyes Closed Falls Without Assistance Unsupported Stance- Eyes Open Assist to attain,<15 secs Reaching Forward Standing Supported, Looses Balance Pick- Up Object From Floor Requires Assistance Look Behind Shoulder - Standing Assist to Prevent Fall Turning 360 Degrees Requires Assistance Unsupported Stance, Alternating Feet on Assist to Prevent Fall Stair Unsupported Tandem Stance Assist to Step-15 seconds Unilateral Leg Stance Unable,assist to not fall Total Score Wilson Total Score (out of 56 points) 14 Wilson Impairment Rating 60 to 79% Impaired (Score 12- 22) PT-OP-M Strength Start: 03/09/23 15:24 Freq: Status: Active Protocol: Document 03/09/23 15:28 TH (Rec: 03/09/23 16:46 TH [id number]) Shoulder Strength Shoulder Manual Muscle Testing Left Flexion 3+ Fair+ Abduction (C5) 3+ Fair+ Hip Strength Hip Manual Muscle Testing Left Flexion (L2) 4- Good- Extension (S1) 3+ Fair+ Knee Strength Knee Manual Muscle Testing Left Flexion (S2) 4- Good- Extension (L3) 4+ Good+ Ankle/Foot Strength Ankle and Foot Manual Muscle Testing Left Dorsiflexion (L4) 3 Fair Plantarflexion (S1) 3+ Fair+ PT-OP-Q Treatments Start: 03/09/23 15:24 Freq: Status: Active Protocol: Document 05/19/23 15:17 SP (Rec: 05/19/23 16:21 SP [id number]) Cardio Equipment Recumbent Elliptical ([employer]) Duration (Minutes) 12 Resistance 5 Seat Position 7 Other BLE, no break and some conversation abillity Therapeutic Exercises Standing Exercises heel raises Side bilateral Resistance 5# leg wt Equipment Used 1HR Reps/Minutes x10 Comments good form, stability Hip Abduction Standing Exercise Name Hip Abduction Side bilateral Resistance 5# Equipment Used 1 handrail Reps/Minutes 10 ea Comments good form Gait Training Gait Activity SPC Device Used quad cane Level of Assistance SBA Surface carpet Distance/Duration 14ft end tx before back pain need sit Treatment Focus gait training w/ quad cane Comments Step 2pt>3pt gait due to back pain and report feels unsteady fear fall. Vc for posture, gazing ahead for safety, coordination of quad cane w/ LLE FWW Description decreased LLE foot clearance and RLE stride Device Used FWW Level of Assistance SBA Surface carpet Distance/Duration 75, 23 ft Treatment Focus reciprocal stepping, LLE foot clearance Comments vc for LLE increase clearance and step length. improved self -awareness of upright posture and LLE stride length. Self-Care/Home Management Treatment Education Patient Education Body Mechanics Other Education Time spent don LLE AFO, min A as needed for strap and velcro on shoe assist, can complete most self, encouraged to continue and use of tongs& vice president business development for independence, helps L ankle tremulus during advancement support for safety . AUTOMOTIVE METALSMITH discussed classes senior center/ [employer] / [employer]/ [employer]. PT-OP-T Assessment and Plan Start: 03/09/23 15:24 Freq: Status: Active Protocol: Document 05/19/23 15:17 SP (Rec: 05/19/23 16:21 SP [id number]) Physical Therapy Assessment Goals 4 Impairment Difficult to get in out of bed on her own Short Term Goal (STG) Pt will be able to perform scooting , sup<>sit with CG. STG Duration Met Supply Chain Specialist Goal (LTG) Pt will be able to perform scooting , sup<>sit IND with bed rail versus no AD. 05/19/23: GOAL MET: pt reports, able to sit up/lay down with support of night stand by self , sleeps on R side. LTG Duration 05/02/23 GOAL MET 05/19/23 3 Impairment Pt unable to ambulate beyond 3 -4 feet without fatigue/ unsteady gait. Short Term Goal (STG) Pt. will be able to ambulate with FWW versus SPC 50 feet with CG/SBA. STG Duration Met Prison Goal (LTG) Pt will ba able to ambulate with SPC 100 + feet on even / uneven terrain SBA. 05/19/23: she states uses FWW at home, feel more confident to use, pt only tolerated walk w/ QC 14 ft (end tx) before back pain and reports feel unsteady like might fall, prefers use FWW safety. LTG Duration 05/02/23 update feedback 05/19/23 2 Impairment Pt has difficulty going up / down steps without CG. Short Term Goal (STG) Pt will be able to side step/ step to 3 steps up/down with SBA. STG Duration 04/20/23 Supply Chain Specialist Goal (LTG) Pt will be able to side step/ step to 3 steps up/down with Sup. LTG Duration 05/02/23 1 Impairment Wilson score Short Term Goal (STG) Pt's score will improve by 15 pts STG Duration 04/20/23 Supply Chain Specialist Goal (LTG) Pt's score will improve by 25 pts LTG Duration 05/02/23 Assessment Summary Assessment Pt was able to carry on light conversation most of 12 min on bike (AFO doffed), able to don L AFO with occasional assist strap reposition AFO behind calf/shoe velcro but with time able to complete most, encouraged to continue as much an self. She good effort with resistance ther ex standing only 1 UE support needed. Limited distance gait with QC with back pain and fear not supportive enough, feels more confident use FWW. Pt increased step length endurance gait w/ FWW vs QC, cues for postural and looking ahead. Physical Therapy Plan Frequency and Duration Frequency of Treatment 2x/Week Duration of treatment (weeks) 12 Plan of Care Start Date 03/09/23 Plan of Care End Date 06/01/23 Therapeutic Interventions Therapeutic Interventions Balance Training,Coordination Training,Gait Training,Home Exercise Program,Joint Mobilizations,Manual Therapy, Neuromuscular Re-education, Orthotic/Prosthetic Management ,Patient/Caregiver Education, Self-Care/Home Management, Sensory Integration,Soft Tissue Mobilization,Taping, Therapeutic Activities, Therapeutic Exercises Modalities Biofeedback,Cold Pack/Ice Massage,Hot Packs Next Visit Focus/Plan Next Note Type Progress Note Next Visit Plan Update POC next tx w PT, pre 2 AUTOMOTIVE METALSMITH tx, (expires 06/01) discuss progression continue in PT/ own and if class attendance welcoming, started conversation. POC: LE strengthening ex. balance ex, reciprocal gait trng.
--- NOTE | 2023-05-24 15:31 | PT.OTN ---
Current Diagnoses Unspecified sequelae of cerebral infarction (05/24/23) Physical Therapy Treatment Note PT-OP-A Visit Information Start: 03/09/23 15:24 Freq: Status: Active Protocol: Document 05/24/23 14:45 DCW (Rec: 05/24/23 15:30 DCW [id number]) Out-Patient Physical Therapy Visit Information Visit Information Visit Type Discharge Summary Visit Start Time 14:45 Visit Stop Time 15:15 Total Visit Minutes 30 Visit Number 17 Number of ROUTE SALESMAN AND DRIVER Visits 0 PT-OP-C Subjective Start: 03/09/23 15:24 Freq: Status: Active Protocol: Document 05/24/23 14:45 DCW (Rec: 05/24/23 15:30 DCW [id number]) OP-PT Subjective Patient Comments Patient Comments Pt reports since she only has three remaining visits approved, she would prefer to cancel her last three, as she does not expect an additional three visits to make much difference in the long run. PT-OP-D Balance Start: 03/09/23 15:24 Freq: Status: Active Protocol: Document 05/24/23 14:45 DCW (Rec: 05/24/23 15:21 DCW [id number]) Balance Tests Wilson Balance Test Wilson Balance Test Score 30/56 Wilson Impairment Rating 40 to 59% Impaired (Score 23- 33) Wilson Balance Assessment Evaluation Sitting to Standing Ability Independent w/out Hands Unsupported Stance Supervision- 2 minutes Sitting Unsupported, Feet on Floor Safely- 2 minutes Standing to Sitting Ability Safely, Minimal Hand Use Transfer Ability Safely, Hand Use Unsupported Stance- Eyes Closed Supervision, 10 seconds Unsupported Stance- Eyes Open Supervision to maintain Reaching Forward Standing Safely, 2 inches Pick- Up Object From Floor Requires Assistance Look Behind Shoulder - Standing Supervision w/Turning Turning 360 Degrees Supervision/Verbal Cues Unsupported Stance, Alternating Feet on Assist to Prevent Fall Stair Unsupported Tandem Stance Assist to Step-15 seconds Unilateral Leg Stance Lifts Leg/Unable to Hold Total Score Wilson Total Score (out of 56 points) 30 Wilson Impairment Rating 40 to 59% Impaired (Score 23- 33) PT-OP-E Functional Tests Start: 05/24/23 14:46 Freq: Status: Active Protocol: Document 05/24/23 14:45 DCW (Rec: 05/24/23 15:21 DCW [id number]) Functional Tests Timed Up and Go (TUG) Score 1:10.31 Comments No AD TUG Impairment Rating 100% Impaired (Score 20) PT-OP-M Strength Start: 03/09/23 15:24 Freq: Status: Active Protocol: Document 05/24/23 14:45 DCW (Rec: 05/24/23 15:21 DCW [id number]) Hip Strength Hip Manual Muscle Testing Left Flexion (L2) 4 Good Extension (S1) 4- Good- Knee Strength Knee Manual Muscle Testing Left Flexion (S2) 4- Good- Extension (L3) 4+ Good+ PT-OP-Q Treatments Start: 03/09/23 15:24 Freq: Status: Active Protocol: Document 05/19/23 15:17 SP (Rec: 05/19/23 16:21 SP [id number]) Cardio Equipment Recumbent Elliptical ([employer]) Duration (Minutes) 12 Resistance 5 Seat Position 7 Other BLE, no break and some conversation abillity Therapeutic Exercises Standing Exercises heel raises Side bilateral Resistance 5# leg wt Equipment Used 1HR Reps/Minutes x10 Comments good form, stability Hip Abduction Standing Exercise Name Hip Abduction Side bilateral Resistance 5# Equipment Used 1 handrail Reps/Minutes 10 ea Comments good form Gait Training Gait Activity SPC Device Used quad cane Level of Assistance SBA Surface carpet Distance/Duration 14ft end tx before back pain need sit Treatment Focus gait training w/ quad cane Comments Step 2pt>3pt gait due to back pain and report feels unsteady fear fall. Vc for posture, gazing ahead for safety, coordination of quad cane w/ LLE FWW Description decreased LLE foot clearance and RLE stride Device Used FWW Level of Assistance SBA Surface carpet Distance/Duration 75, 23 ft Treatment Focus reciprocal stepping, LLE foot clearance Comments vc for LLE increase clearance and step length. improved self -awareness of upright posture and LLE stride length. Self-Care/Home Management Treatment Education Patient Education Body Mechanics Other Education Time spent don LLE AFO, min A as needed for strap and velcro on shoe assist, can complete most self, encouraged to continue and use of tongs& sail repair person for independence, helps L ankle tremulus during advancement support for safety . ROUTE SALESMAN AND DRIVER discussed classes senior center/ [employer] / [employer]/ [employer]. PT-OP-T Assessment and Plan Start: 03/09/23 15:24 Freq: Status: Active Protocol: Document 05/24/23 14:45 DCW (Rec: 05/24/23 15:30 DCW [id number]) Physical Therapy Assessment Goals 4 Impairment Difficult to get in out of bed on her own Short Term Goal (STG) Pt will be able to perform scooting , sup<>sit with CG. STG Duration Met Half-Way Goal (LTG) Pt will be able to perform scooting , sup<>sit IND with bed rail versus no AD. 05/19/23: GOAL MET: pt reports, able to sit up/lay down with support of night stand by self , sleeps on R side. LTG Duration Met 3 Impairment Pt unable to ambulate beyond 3 -4 feet without fatigue/ unsteady gait. Short Term Goal (STG) Pt. will be able to ambulate with FWW versus SPC 50 feet with CG/SBA. STG Duration Met Blow Mold Technician Goal (LTG) Pt will ba able to ambulate with SPC 100 + feet on even / uneven terrain SBA. 05/19/23: she states uses FWW at home, feel more confident to use, pt only tolerated walk w/ QC 14 ft (end tx) before back pain and reports feel unsteady like might fall, prefers use FWW safety. LTG Duration 05/24/23 2 Impairment Pt has difficulty going up / down steps without CG. Short Term Goal (STG) Pt will be able to side step/ step to 3 steps up/down with SBA. STG Duration 04/20/23 Blow Mold Technician Goal (LTG) Pt will be able to side step/ step to 3 steps up/down with Sup. LTG Duration 05/02/23 1 Impairment Wilson score Short Term Goal (STG) Pt's score will improve by 15 pts STG Duration Met () Blow Mold Technician Goal (LTG) Pt's score will improve by 25 pts LTG Duration 05/02/23 Assessment Summary Assessment Pt scores a on Wilson Balance today, completed a TUG without an AD in 1:10.13. Pt has largely plateaued, therapist is in agreement with pt that she is unlikely to benefit from an additional three visits, appropriate to discharge at this time. Physical Therapy Plan Frequency and Duration Frequency of Treatment 2x/Week Duration of treatment (weeks) 12 Plan of Care Start Date 03/09/23 Plan of Care End Date 06/01/23 Therapeutic Interventions Therapeutic Interventions Balance Training,Coordination Training,Gait Training,Home Exercise Program,Joint Mobilizations,Manual Therapy, Neuromuscular Re-education, Orthotic/Prosthetic Management ,Patient/Caregiver Education, Self-Care/Home Management, Sensory Integration,Soft Tissue Mobilization,Taping, Therapeutic Activities, Therapeutic Exercises Modalities Biofeedback,Cold Pack/Ice Massage,Hot Packs Discharge Physical Therapy Discharge Reasons Plateau in Progress Next Visit Focus/Plan Next Note Type Discharge Summary
== END 2023-05-25 14:20 | disposition home or self-care (01) ==
LOC: PHYS 14:45
PROVIDERS: Family Provider Internal Medicine; PCP Internal Medicine; Referring Provider Internal Medicine; Visit Provider Internal Medicine
DX: I69.30 Unspecified sequelae of cerebral infarction (principal)
CPT/HCPCS: 97110; 97112; 97116; 97162; 97530

== ENCOUNTER → 2023-05-26 13:06 | Outpatient (CLI) | payer OTHER, MEDICAID, SELFPAY ==
[2021-08-11 04:59] VITALS: BMI 32.1
--- NOTE | 2023-05-26 | DI.MG.S_ITS ---
UNILATERAL RIGHT DIGITAL DIAGNOSTIC MAMMOGRAM 3D/2D WITH ADDITIONAL VIEWS: 05/26/2023 CLINICAL: Additional evaluation requested from prior study. Comparison is made to exam dated: 05/10/2023 mammogram - [facility]. The right breast is almost entirely fatty (category a/<25% glandular tissue). There is a 0.3 cm round focal asymmetry with a circumscribed margin in the right breast at 6 o'clock middle depth. No other significant masses or calcifications are seen in the breast. IMPRESSION: INCOMPLETE: NEEDS ADDITIONAL IMAGING EVALUATION The 0.3 cm round focal asymmetry in the right breast resembles a cyst and is indeterminate. A targeted ultrasound is recommended and will immediately follow. Based on the Tyrer Cuzick model (a risk assessment model) the patient's lifetime risk is 3.6% and her 10 year risk is 1.5%. According to the ACR, ACS, and NCCN guidelines, an annual breast MRI exam along with mammogram is recommended if the patient's lifetime risk is 20% or greater. This exam was interpreted at Station ID: [id number]. NOTE: For mammograms, a report in lay terms will be sent to the patient. Approximately 15% of breast malignancies will not be visualized mammographically. In the management of a palpable breast mass, a negative mammogram must not discourage biopsy of a clinically suspicious lesion. Electronically Signed By: Ronn Elmore M.D. slc/:05/26/2023 14:02:02 ACR BI-RADS Category 0: Incomplete [id number]
--- NOTE | 2023-05-26 13:07 | DI.US.S_ITS ---
LIMITED ULTRASOUND OF RIGHT BREAST: 05/26/2023 CLINICAL: Patient returns today to evaluate a focal asymmetry in the right breast. Comparison is made to exams dated: 05/26/2023 mammogram and 05/10/2023 mammogram - [facility]. Color flow and real-time ultrasound of the right breast 6 o'clock and 9 o'clock regions were performed. Dejesus scale images of the real-time examination were reviewed. There is a benign 0.8 cm x 0.7 cm x 0.4 cm oval cyst in the right breast at 6 o'clock middle depth. This oval cyst displays internal echoes. This correlates with mammography findings. Color flow imaging demonstrates that there is no vascularity present. There also is a benign 0.6 cm x 0.4 cm x 0.4 cm oval cyst in the right breast at 9 o'clock middle depth. This oval cyst displays internal echoes. This correlates with mammography findings. Color flow imaging demonstrates that there is no vascularity present. IMPRESSION: BENIGN There is no sonographic evidence of malignancy. The 0.8 cm cyst in the right breast at 6 o'clock middle depth is benign. The 0.6 cm oval cyst in the right breast at 9 o'clock middle depth is benign. A 1 year screening mammogram is recommended. Exam findings were conveyed to the patient. This exam was interpreted at Station ID: [id number]. Electronically Signed By: Ronn Elmore M.D. [facility] [place]/:05/26/2023 14:14:58 letter sent: Normal Exam Ultrasound BI-RADS: 2 Benign
== END ==
PROVIDERS: Family Provider Internal Medicine; PCP Internal Medicine; Referring Provider Internal Medicine; Visit Provider Internal Medicine
DX: R92.8 Other abnormal and inconclusive findings on diagnostic imaging of breast (principal); N60.01 Solitary cyst of right breast
CPT/HCPCS: 76642; 77065; G0279

== ENCOUNTER → 2023-07-01 09:40 | Outpatient (CLI) | payer OTHER, MEDICAID, SELFPAY ==
[2021-08-11 04:59] VITALS: BMI 32.1
[2023-07-01 10:09] LABS: Alanine Aminotransferase 17 IU/L (<35); Albumin 4.1 g/dL (3.5-5.0); Albumin Globulin Ratio 1.5 (1.0-2.8); Alkaline Phosphatase 50 U/L (38-126); Aspartate Aminotransferase 18 IU/L (14-36); BUN Creatinine Ratio 19.7 (6-22); Bilirubin Total 0.7 mg/dL (0.2-1.3); Blood Urea Nitrogen 15 mg/dL (7-17); Calcium 9.1 mg/dL (8.4-10.2); Carbon Dioxide 31 mmol/L (22-32); Chloride 104 mmol/L (98-107); Cholesterol 102 mg/dL (140-199); Estimated Glomerular Filt Rate > 60 mL/min (>60); Globulin 2.8 g/dL (1.7-4.1); Glucose 173 mg/dL (80-110); HDL Cholesterol 36 mg/dL (40-60); HEMOLYSIS < 15 (0-50); LDL Cholesterol Calculated 28 mg/dL (<100); Potassium 4.6 mmol/L (3.4-5.1); Sodium 139 mmol/L (137-145); Total Protein 6.9 g/dL (6.3-8.2); Triglycerides 190 mg/dL (35-150)
[2023-07-02 05:18] LABS: x Labcorp Estim. Avg Glu (eAG) 174 mg/dL (.); x Labcorp Hemoglobin A1c 7.7 % (4.8-5.6)
== END ==
PROVIDERS: Family Provider Internal Medicine; PCP Internal Medicine; Referring Provider Internal Medicine; Visit Provider Internal Medicine
DX: E11.9 Type 2 diabetes mellitus without complications (principal); E78.2 Mixed hyperlipidemia; I10 Essential (primary) hypertension
CPT/HCPCS: 36415; 80053; 80061; 83036

== ENCOUNTER → 2023-10-04 13:53 | Outpatient (CLI) | payer OTHER, MEDICAID, SELFPAY ==
[2021-08-11 04:59] VITALS: BMI 32.1
[2023-10-04 15:20] LABS: BUN Creatinine Ratio 18.3 (6-22); Blood Urea Nitrogen 13 mg/dL (7-17); Calcium 9.5 mg/dL (8.4-10.2); Carbon Dioxide 29 mmol/L (22-32); Chloride 103 mmol/L (98-107); Estimated Glomerular Filt Rate > 60 mL/min (>60); Glucose 152 mg/dL (80-110); HEMOLYSIS < 15 (0-50); Potassium 4.4 mmol/L (3.4-5.1); Sodium 139 mmol/L (137-145)
[2023-10-04 16:06] LABS: Creatinine Urine Random 55.6 mg/dL
[2023-10-04 16:10] LABS: Microalbumi Creatinin Ratio Ur 66.5 ug/mg CR (<30); Microalbumin Urine Random 3.7 mg/dL (0-1.6)
[2023-10-04 21:00] LABS: Hemoglobin A1C% w Est Avg Glu 7.8 % (4.0-6.0)
== END ==
PROVIDERS: Family Provider Internal Medicine; PCP Internal Medicine; Referring Provider Internal Medicine; Visit Provider Internal Medicine
DX: E11.9 Type 2 diabetes mellitus without complications (principal)
CPT/HCPCS: 80048; 82043; 82570; 83036

== ENCOUNTER → 2023-11-30 13:12 | Outpatient (CLI) | payer OTHER, MEDICAID, SELFPAY ==
[2021-08-11 04:59] VITALS: BMI 32.1
== END ==
PROVIDERS: Family Provider Internal Medicine; PCP Internal Medicine; Visit Provider Nurse Practitioner Family
DX: R30.0 Dysuria (principal)
CPT/HCPCS: 81002; 87077; 87086; 87186; 87210

== ENCOUNTER → 2023-12-13 14:25 | Outpatient (CLI) | payer OTHER, MEDICAID, SELFPAY ==
[2021-08-11 04:59] VITALS: BMI 32.1
[2023-12-13 15:40] LABS: Hemoglobin A1C% w Est Avg Glu 7.7 % (4.0-6.0)
[2023-12-13 16:35] LABS: Alanine Aminotransferase 18 IU/L (<35); Albumin 4.6 g/dL (3.5-5.0); Albumin Globulin Ratio 1.4 (1.0-2.8); Alkaline Phosphatase 42 U/L (38-126); Aspartate Aminotransferase 25 IU/L (14-36); BUN Creatinine Ratio 15.3 (6-22); Blood Urea Nitrogen 11 mg/dL (7-17); Calcium 9.8 mg/dL (8.4-10.2); Carbon Dioxide 28 mmol/L (22-32); Chloride 100 mmol/L (98-107); Estimated Glomerular Filt Rate > 60 mL/min (>60); Globulin 3.3 g/dL (1.7-4.1); Glucose 194 mg/dL (80-110); HEMOLYSIS 16 (0-50); Potassium 4.5 mmol/L (3.4-5.1); Sodium 137 mmol/L (137-145); Total Protein 7.9 g/dL (6.3-8.2)
== END ==
PROVIDERS: Family Provider Internal Medicine; PCP Internal Medicine; Referring Provider Internal Medicine; Visit Provider Internal Medicine
DX: E11.9 Type 2 diabetes mellitus without complications (principal)
CPT/HCPCS: 36415; 80053; 83036

== ENCOUNTER → 2024-04-16 11:34 | Outpatient (CLI) | payer MEDICARE, MEDICAID, SELFPAY ==
[2021-08-11 04:59] VITALS: BMI 32.1
[2024-04-16 13:11] LABS: BUN Creatinine Ratio 17.5 (6-22); Blood Urea Nitrogen 14 mg/dL (7-17); Calcium 9.3 mg/dL (8.4-10.2); Carbon Dioxide 29 mmol/L (22-32); Chloride 102 mmol/L (98-107); Estimated Glomerular Filt Rate > 60 mL/min (>60); Glucose 228 mg/dL (80-110); HEMOLYSIS < 15 (0-50); Potassium 4.5 mmol/L (3.4-5.1); Sodium 138 mmol/L (137-145)
[2024-04-16 13:22] LABS: Hemoglobin A1C% w Est Avg Glu 8.7 % (4.0-6.0)
== END ==
PROVIDERS: Family Provider Internal Medicine; PCP Internal Medicine; Referring Provider Internal Medicine; Visit Provider Internal Medicine
DX: E11.9 Type 2 diabetes mellitus without complications (principal); I10 Essential (primary) hypertension; E78.2 Mixed hyperlipidemia
CPT/HCPCS: 36415; 80048; 83036

== ENCOUNTER → 2024-05-21 08:08 | Outpatient (CLI) | payer MEDICARE, MEDICAID, SELFPAY ==
[2021-08-11 04:59] VITALS: BMI 32.1
--- NOTE | 2024-05-21 08:09 | DI.RAD.S_ITS ---
PROCEDURE: FL BARIUM SWALLOW W SPEECH INDICATIONS: Dysphagia COMPARISON: None. TECHNIQUE: Examination was conducted in conjunction with speech pathology per standard protocol. In the lateral projection, filming was performed of the patient swallowing. AP projection filming may also be performed with patient swallowing. COMPARISON: FINDINGS: Function: The oral preparatory phase appears normal, with proper containment. The subsequent oral propulsive phase, pharyngeal phase, and esophageal phase of swallowing also appear normal with all proffered substances. Mild laryngotracheal penetration without aspiration. No pathologic vallecular pooling. Morphology: No cricopharyngeal bar is identified. No cervical esophageal webs. No Zenker's diverticulum. No strictures. IMPRESSION: Mild penetration without aspiration with thin liquids only. Dictated by: Zulema Sabillon M.D. on 05/21/2024 at 15:57 Approved by: Zulema Sabillon M.D. on 05/21/2024 at 15:58
--- NOTE | 2024-05-21 14:45 | ST.SWALLOW ---
Visit Care Team Role Provider Type Arvind Pires MD Attending Provider Physician Family Provider Primary Care Provider Referring Provider Specialty: Internal Medicine [address]: [address] [place] [address], [address], [address] Email: [email or web address] Modified Barium Swallow Study LAB TESTER Modified Barium Swallow Study Start: 05/21/24 10:36 Freq: Status: Active Protocol: Document 05/21/24 13:57 LNK (Rec: 05/21/24 14:43 LNK [id number]) Modified Barium Swallow Study Total Time Visit Start Time 09:00 Visit Stop Time 09:30 Total Visit Minutes [address] Pires Reason for Referral dysphagia Setting Setting Outpatient Care Patient Information Identification Type Name,Date of Patient History Pt was seen for a Modified Barium Swallow Study at the referral of Dr. Pires. According to the pt she suffered a CVA in July 2021. 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 Pt's medical history includes GERD Pt described she swallow difficulty as choking when something goes down the wrong way, her throat closes and she experiences an airway spasm. She also remarked that when she was in SNF rehab, the LAB TESTER there suggested she continue with outpt therapy. Pt has not been to ST since discharge from SNF. Subjective Observations Pt was seated in the fluoroscopy chair with directions and procedures described for her. She indicated she understood and agreed to proceed. Patient Positioning Position View Lat-A/P Imaging Lateral View Textures Administered Trials Presented Thin Liquid via Spoon (IDDSI 0 ),Thin Liquid via Cup (IDDSI 0 ),Extremely Thick Liquid via Spoon (IDDSI 4),Regular (IDDSI 7) Barium Tablet Yes The IDDSI Framework Protocol: IDDSI.1 Oral Impairment Source: The Modified Barium Swallow Impairment Profile (MBSImP??) Lip Closure No labial escape Tongue Control During Bolus Hold Cohesive bolus between tongue to palatal seal Bolus Preparation/Mastication Timely & efficient chewing & mashing Bolus Transport/Lingual Motion Brisk tongue motion Oral Residue Trace residue lining oral structures Initiation of Pharyngeal Swallow Bolus head at posterior angle of ramus (first hyoid excursion) Additional Oral Impairment Observations OME and DKS were observed to be WNL. Mastication observed with rotary chew pattern. Good bolus formation, control and AP transition. Pt has U/L dentures , observed to be in place. Pharyngeal Impairment Source: The Modified Barium Swallow Impairment Profile (MBSImP??) Soft Palate Elevation No bolus between soft palate & pharyngeal wall Laryngeal Elevation Comp.sup.move.thyroid cart.w/ comp.approx.arytenoids to epiglot petiole Anterior Hyoid Excursion Complete anterior movement Epiglottic Movement Complete inversion Laryngeal Vestibular Closure Complete; no air/contrast in laryngeal vestibule Pharyngeal Stripping Wave Present - complete Pharyngoesophageal Segment Opening Complete distention & complete duration; no obstruction of flow Tongue Base Retraction No contrast between tongue base & posterior pharyngeal wall Pharyngeal Residue Trace residue within/on pharyngeal structures Location Valleculae Additional Pharyngeal Impairment Mild reduction in tongue base Observations retraction strength Contrast penetration into the laryngeal vestibule (PAS2) No tracheal aspiration Diffused contrast residue in pharynx - primarily in valeculla A/P View Textures Administered Trials Presented Thin Liquid via Cup (IDDSI 0) The IDDSI Framework Protocol: IDDSI.1 A/P View Observations Pharyngeal Contraction Complete Esophageal Clearance Upright Position Complete clearance; esophageal coating Vocal Fold Function Good Esophageal Function WFL Additional A-P Observations Thin barium and barium tablet cleared esophagus in a timely manner. Clinical Impressions Dysphagia Type WNL Findings Pt presented with oral, pharyngeal and esophageal swallow phases WFL. However, pt does present with potential risk of aspiration given her hoarse voice and left side paresis. She describes her voice getting weaker the longer she speaks Recommend referral to ENT to rule out unilateral vocal fold paresis and weak glottal adduction. Pt described her voice as giving out the longer she speaks, suggesting vocal fold weakness. Weakened glottal adduction put pt as risk for penetration and or aspiration. Also recommend ST services to increase overall strength and endurance of pt's vocal system . This will aid in airway protection. Rehabilitation Potential Good Patient Appropriate for Therapy Yes Recommendations Diet Comments No change in diet recommended at this time Aspiration Precautions Recommended Precautions Small Bites/Sips Additional Precautions reduce distractions during meals; don't speak with food in mouth Treatment Plan Therapy Recommendations Outpatient Speech Therapy,Base of Tongue Exercises Recommended Referrals ENT Consult Therapy Strategy Recommendations Sitting Upright (90 deg),Small Bites and Sips
== END ==
PROVIDERS: Family Provider Internal Medicine; PCP Internal Medicine; Referring Provider Internal Medicine; Visit Provider Internal Medicine
DX: R13.10 Dysphagia, unspecified (principal)
CPT/HCPCS: 74230; 92611

== ENCOUNTER → 2024-06-26 12:18 | Outpatient (CLI) | payer MEDICARE, MEDICAID, SELFPAY ==
[2021-08-11 04:59] VITALS: BMI 32.1
[2024-06-26 13:35] LABS: BUN Creatinine Ratio 14.5 (6-22); Blood Urea Nitrogen 12 mg/dL (7-17); Calcium 9.4 mg/dL (8.4-10.2); Carbon Dioxide 26 mmol/L (22-32); Chloride 105 mmol/L (98-107); Estimated Glomerular Filt Rate > 60 mL/min (>60); Glucose 141 mg/dL (80-110); HEMOLYSIS < 15 (0-50); Potassium 4.6 mmol/L (3.4-5.1); Sodium 140 mmol/L (137-145)
[2024-06-26 13:47] LABS: Hemoglobin A1C% w Est Avg Glu 7.3 % (4.0-6.0)
== END ==
PROVIDERS: Family Provider Internal Medicine; PCP Internal Medicine; Referring Provider Internal Medicine; Visit Provider Internal Medicine
DX: E11.9 Type 2 diabetes mellitus without complications (principal); I10 Essential (primary) hypertension
CPT/HCPCS: 80048; 83036

== ENCOUNTER 2024-08-20 16:00 | Outpatient (RCR) | payer MEDICARE, MEDICAID, SELFPAY ==
[2021-08-11 04:59] VITALS: BMI 32.1
--- NOTE | 2024-07-12 09:18 | ST.OPIE ---
Visit Care Team Role Provider Type Arvind Pires MD Attending Provider Physician Family Provider Primary Care Provider Referring Provider Specialty: Internal Medicine Address: [address] [place] [address], [address], [place], [address] Email: [email or web address] Speech-Language Pathology Initial Evaluation [employer] Clinical Swallow Evaluation Start: 07/11/24 14:03 Freq: Status: Active Protocol: Document 07/11/24 14:03 JOSH (Rec: 07/11/24 14:04 JOSH [id number]) Clinical Swallow Evaluation Session Time Visit Start Time 13:45 Visit Stop Time 14:30 Total Visit Minutes 45 Visit Information Visit Number Initial Eval Plan of Care Dates 07/11/24-10/11/24 Insurance Information [facility] Referral Referring Provider Dr. Arvind Pires Reason for Referral Dysphagia Setting Assessment Location Outpatient Care Visit Type Note Type Initial evaluation Next Note Type Next Note Type Treatment Note Patient Information Identification Type Name History Pt is a 63 year old female seen this date for dysphagia evaluation. Pt brought in by her who did not accompany Pt to evaluation. Pt in wheelchair. 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 Pt reports reduced swallow difficulties. She states hx of feeling food stuck in throat resulting in choking and throat closing up, which would occur about once a week. She states this would happen with any foods. Pt reports she has focused on eating slowly, not talking gwhile eating and taking her time. Pt with hx of diabetes and HTN. She lives with her life partner. Pt had a MBS completed on 05/21/24 with the following impressions/ recommendations: Findings Pt presented with oral, pharyngeal and esophageal swallow phases WFL. However, pt does present with potential risk of aspiration given her hoarse voice and left side paresis. She describes her voice getting weaker the longer she speaks Recommend referral to ENT to rule out unilateral vocal fold paresis and weak glottal adduction. Pt described her voice as giving out the longer she speaks, suggesting vocal fold weakness. Weakened glottal adduction put pt as risk for penetration and or aspiration. Also recommend ST services to increase overall strength and endurance of pt's vocal system . This will aid in airway protection. Rehabilitation Potential Good Patient Appropriate for Therapy Yes Recommendations Diet Comments No change in diet recommended at this time Aspiration Precautions Recommended Precautions Small Bites/Sips Additional Precautions reduce distractions during meals; don't speak with food in mouth Treatment Plan Therapy Recommendations Outpatient Speech Therapy,Base of Tongue Exercises Recommended Referrals ENT Consult Therapy Strategy Recommendations Sitting Upright (90 deg),Small Bites and Sips Pt reports she has not heard anything in regards to an ENT referral. Pt with hoarse vocal quality, however adequate volume. ST recommended ENT rerferral prior to voice evaluation. Pt verbalized understanding. Reported by Patient/Caregiver Pain/Discomfort No Other Symptoms Difficulty swallowing solids Current Diet Regular (IDDSI 7) Baseline Feeding Method Independent in self-feeding The IDDSI Framework Protocol: IDDSI.1 Objective Assessment Mental Status Alert,Responsive,Cooperative Comment Oral motor exam revealed full dentures, slight left facial droop/weakness. Pt with generalized left sided weakness and reduced ROM with associated dysarthria causing slight slurrerd speech. Food and Liquid Trials Position During Assessment Upright (90 degrees) Liquids Trialed Thin (IDDSI 0) Solid Trials Soft & Bite-sized (IDDSI 6), Regular (IDDSI 7) Administration Type Self-feeding Oral Impairment Within functional limits Oral Phase Comments Pt consumed quiana cracker and diced peaches with about 4 oz of thin water via cup. For solids, Pt demonstrated adequate bite size and rate, prolonged mastication however adequate bolus formation and control, extended ap transport , minimal oral stasis. For thin liquids, Pt exhibited adequate sip size and rate, good oral acceptance and containment, timely ap transport. Pharyngeal Impairment Within functional limits Pharyngeal Phase Comments Pt reported 1x occurrence of feeling quiana cracker stuck in throat, however cleared with liquid wash. Pt with functional swallow with all other PO trials and reported no occurrences of food stuck. Pt with no overt s/s of aspiration such as coughing/ choking. Fatigue/Endurance Endurance WNL The IDDSI Framework Protocol: IDDSI.1 Findings Swallowing Function Within functional limits Prognosis Good Based on Cognitive status,Family support Impact on Safety and Functioning Risk for aspiration Recommendations Instrumental Assessment No Swallowing Treatment Yes Frequency 1x/week Duration 3 months Recommended Solids Regular (IDDSI 7) Recommended Liquids Thin (IDDSI 0) Other Recommendations Pt with WFL swallow function, however increase in aspiration risk d/t potential left sideed vocal cord paresis. Pt presents with mild dysarthria. ST is warranted in order to educate Pt on oral motor exercises to assist with swallow function. 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 Safety Precautions/Swallowing Remain upright (90 degrees) Recommendations during all oral intake,Upright position at least 30 minutes after meals,Small bites and sips when eating,Slow rate; swallow between bites, Alternate liquids and solids Medication Recommendations As Tolerated Discharge Recommendations Home Education Patient/Caregiver Education Described results of evaluation,Patient expressed understanding of evaluation, Patient requires further education/training,Family/ caregivers require further education/training Goals Short-term Goals STG 1: Pt will tolerate prescribed diet with <5% overt s/s of aspiration/dysphagia with use of compensatory swallowing strategies and minimal cues. STG 2: Pt will complete hyolaryngeal strengthening exercises for improved pharyngeal phase of swallow with minimal cueing with 90% accuracy. STG 3: Pt will complete oral motor exercises of increasing complexity and duration for improved oral musculature and swallow function 90% accuracy given minimal cues. Long-term Goals LTG 1: Patient will consume safest and most efficient least restrictive diet with no clinical s/s of aspiration or dysphagia 100% of the time in order to meet primary nutrition/hydration needs.
--- NOTE | 2024-07-12 09:18 | ST.OPPOC ---
Physical, Occupational & Speech Therapy At [facility] Visit Care Team Role Provider Type Arvind Pires MD Attending Provider Physician Family Provider Primary Care Provider Referring Provider Address: [address] [place] [address], [address], [place], [address] Speech Pathology Plan of Care Plan of Care Dates 07/11/24-10/11/[address] Arvind Pires Patient History Pt is a 63 year old female seen this date for dysphagia evaluation. Pt brought in by her who did not accompany Pt to evaluation. Pt in wheelchair. 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 Pt reports reduced swallow difficulties. She states hx of feeling food stuck in throat resulting in choking and throat closing up, which would occur about once a week. She states this would happen with any foods. Pt reports she has focused on eating slowly, not talking gwhile eating and taking her time. Pt with hx of diabetes and HTN. She lives with her life partner. Pt had a MBS completed on 05/21/24 with the following impressions/recommendations: Findings Pt presented with oral, pharyngeal and esophageal swallow phases WFL. However, pt does present with potential risk of aspiration given her hoarse voice and left side paresis. She describes her voice getting weaker the longer she speaks Recommend referral to ENT to rule out unilateral vocal fold paresis and weak glottal adduction. Pt described her voice as giving out the longer she speaks, suggesting vocal fold weakness. Weakened glottal adduction put pt as risk for penetration and or aspiration. Also recommend ST services to increase overall strength and endurance of pt's vocal system . This will aid in airway protection. Rehabilitation Potential Good Patient Appropriate for Therapy Yes Recommendations Diet Comments No change in diet recommended at this time Aspiration Precautions Recommended Precautions Small Bites/Sips Additional Precautions reduce distractions during meals; don't speak with food in mouth Treatment Plan Therapy Recommendations Outpatient Speech Therapy,Base of Tongue Exercises Recommended Referrals ENT Consult Therapy Strategy Recommendations Sitting Upright (90 deg),Small Bites and Sips Pt reports she has not heard anything in regards to an ENT referral. Pt with hoarse vocal quality, however adequate volume. ST recommended ENT rerferral prior to voice evaluation. Pt verbalized understanding. MBS Comments Pt presented with oral, pharyngeal and esophageal swallow phases WFL. However, pt does present with potential risk of aspiration given her hoarse voice and left side paresis. She describes her voice getting weaker the longer she speaks Recommend referral to ENT to rule out unilateral vocal fold paresis and weak glottal adduction. Pt described her voice as giving out the longer she speaks, suggesting vocal fold weakness. Weakenedd glottal adduction put pt as risk for penetration and or aspiration. Also recommed ST services to increase overall strength and endurance of pt's vocal system. This will aid in airway protection. Additional Precautions reduce distractions during meals; don't speak with food in mouth Recommended Referrals ENT Consult Short-term Goals STG 1: Pt will tolerate prescribed diet with <5% overt s/s of aspiration/dysphagia with use of compensatory swallowing strategies and minimal cues. STG 2: Pt will complete hyolaryngeal strengthening exercises for improved pharyngeal phase of swallow with minimal cueing with 90% accuracy. STG 3: Pt will complete oral motor exercises of increasing complexity and duration for improved oral musculature and swallow function 90% accuracy given minimal cues. Long-term Goals LTG 1: Patient will consume safest and most efficient least restrictive diet with no clinical s/s of aspiration or dysphagia 100% of the time in order to meet primary nutrition/ hydration needs. Comment: Electronically Signed by: KAYLA Srivastava 07/12/24 0918 If you are in agreement with this Plan of Care, please return a signed and dated copy. I have reviewed this Plan of Care and certify that the skilled therapy services above are required to meet the patient?s needs. Physician Signature Date Printed Name and Credentials Clinical Instructor Signature Printed Name and Credentials
--- NOTE | 2024-07-20 15:40 | ST.OPTN ---
Visit Care Team Role Provider Type Arvind Pires MD Attending Provider Physician Family Provider Primary Care Provider Referring Provider Address: [address] [place] [address], [address], [place], [address] CHINESE HERBALIST Treatment Note CHINESE HERBALIST Treatment Note Start: 07/20/24 15:27 Freq: Status: Active Protocol: Document 07/20/24 15:27 MA (Rec: 07/20/24 15:40 MA [id number]) Speech Pathology Treatment Note Session Time Visit Start Time 15:15 Visit Stop Time 15:45 Total Visit Minutes 30 Visit Information Visit Number 2 Plan of Care Dates 07/11/24-10/11/24 Setting Treatment Setting Outpatient Care General Information Patient History Pt is a 63 year old female seen this date for dysphagia evaluation. Pt brought in by her who did not accompany Pt to evaluation. Pt in wheelchair. 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 Pt reports reduced swallow difficulties. She states hx of feeling food stuck in throat resulting in choking and throat closing up, which would occur about once a week. She states this would happen with any foods. Pt reports she has focused on eating slowly, not talking gwhile eating and taking her time. Pt with hx of diabetes and HTN. She lives with her life partner. Pt had a MBS completed on 05/21/24 with the following impressions/ recommendations: Findings Pt presented with oral, pharyngeal and esophageal swallow phases WFL. However, pt does present with potential risk of aspiration given her hoarse voice and left side paresis. She describes her voice getting weaker the longer she speaks Recommend referral to ENT to rule out unilateral vocal fold paresis and weak glottal adduction. Pt described her voice as giving out the longer she speaks, suggesting vocal fold weakness. Weakened glottal adduction put pt as risk for penetration and or aspiration. Also recommend ST services to increase overall strength and endurance of pt's vocal system . This will aid in airway protection. Rehabilitation Potential Good Patient Appropriate for Therapy Yes Recommendations Diet Comments No change in diet recommended at this time Aspiration Precautions Recommended Precautions Small Bites/Sips Additional Precautions reduce distractions during meals; don't speak with food in mouth Treatment Plan Therapy Recommendations Outpatient Speech Therapy,Base of Tongue Exercises Recommended Referrals ENT Consult Therapy Strategy Recommendations Sitting Upright (90 deg),Small Bites and Sips Pt reports she has not heard anything in regards to an ENT referral. Pt with hoarse vocal quality, however adequate volume. ST recommended ENT rerferral prior to voice evaluation. Pt verbalized understanding. Subjective Observations/Patient Presentation Pt arrived on time with her who did not accompany her to therapy. Assessment Patient Response to Treatment Excellent Rehab Potential Excellent Impairments Identified Speech,Swallow Progress Towards Goals Excellent Progress Assessment of Improvement Pt reports she has been doing her oral motor exercises at home without difficulties. She states she has not been notified by the ENT to schedule an appointment. ST called Pt PCP in order to check to see if the ENT referral went through. PCP office reported that the referral was sent and for Pt to hear from ENT's office in regards to scheduling. ST recommended next session be cancelled and to be seen /3 to see if ENT has been scheduled. Pt verbalized understanding. Pt denies any recent choking episodes and just mild coughs here and there. 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 ST educated Pt on safe swallowing strategies and recommendation to continue oral motor exercises at home. Pt verbalized understanding. Reviewed with Patient Goals Patient/Caregiver Understanding Excellent
--- NOTE | 2024-07-31 17:50 | ST.OPTN ---
Visit Care Team Role Provider Type Arvind Pires MD Attending Provider Physician Family Provider Primary Care Provider Referring Provider Address: [address] [place] [address], [address], [place], [address] TELEVISION NEWS PRODUCER Treatment Note TELEVISION NEWS PRODUCER Treatment Note Start: 07/20/24 15:27 Freq: Status: Active Protocol: Document 07/31/24 17:35 SS (Rec: 07/31/24 17:50 SS [id number]) Speech Pathology Treatment Note Session Time Visit Start Time 15:15 Visit Stop Time 15:52 Total Visit Minutes 37 Visit Information Visit Number 3 Plan of Care Dates 07/11/24-10/11/24 Setting Treatment Setting Outpatient Care Visit Type Note Type Treatment Note Next Note Type Next Note Type Treatment Note General Information Patient History Pt is a 63 year old female seen this date for dysphagia evaluation. Pt brought in by her who did not accompany Pt to evaluation. Pt in wheelchair. 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 Pt reports reduced swallow difficulties. She states hx of feeling food stuck in throat resulting in choking and throat closing up, which would occur about once a week. She states this would happen with any foods. Pt reports she has focused on eating slowly, not talking gwhile eating and taking her time. Pt with hx of diabetes and HTN. She lives with her life partner. Pt had a MBS completed on 05/21/24 with the following results. Pt presented with oral, pharyngeal and esophageal swallow phases WFL. However, pt does present with potential risk of aspiration given her hoarse voice and left side paresis. She describes her voice getting weaker the longer she speaks Recommend referral to ENT to rule out unilateral vocal fold paresis and weak glottal adduction. Pt described her voice as giving out the longer she speaks, suggesting vocal fold weakness. Weakened glottal adduction put pt as risk for penetration and or aspiration. Also recommend ST services to increase overall strength and endurance of pt's vocal system . This will aid in airway protection. Subjective Observations/Patient Presentation Pt arrived on time with her who did not accompany her to therapy. Objective Short Term Goals STG 1: Pt will tolerate prescribed diet with <5% overt s/s of aspiration/dysphagia with use of compensatory swallowing strategies and minimal cues. STG 2: Pt will complete hyolaryngeal strengthening exercises for improved pharyngeal phase of swallow with minimal cueing with 90% accuracy. STG 3: Pt will complete oral motor exercises of increasing complexity and duration for improved oral musculature and swallow function 90% accuracy given minimal cues. Assembly Room Supervisor Goals LTG 1: Patient will consume safest and most efficient least restrictive diet with no clinical s/s of aspiration or dysphagia 100% of the time in order to meet primary nutrition/hydration needs. Treatment Activities Implemented rehabilitative exercises on this date to target improved swallowing safety and efficiency as well as education re: recommended strategies. 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 Recommended pt call PCP and ENT if not notified about appointment this week. Pt expressed understanding. Pt expressed she has been doing her oral motor exercises at home without difficulties. Instructed pt in diaphragmatic breathing with the goal of increasing respiratory control and coordination with phonation and swallowing. Given TELEVISION NEWS PRODUCER modeling, pt able to complete the exercise accurately. Educated pt re: recommended safe swallow precautions to reduce the risk of aspiration, including small bites/sips, slow rate, alternating liquids and solids, upright positioning during PO intake, limiting distractions, and avoiding talking while eating. Patient verbalized understanding and reported no overt difficulty with swallowing since last session with use of strategies. Instructed patient in the Effortful Swallow to improve tongue to palate contact, base of tongue retraction, hyolaryngeal elevation and excursion, pharyngeal constriction, and opening of the upper esophageal sphincter for improved swallowing safety and efficiency. Provided education re: form and goal of the exercise for decreased pharyngeal residue. Bolus-driven effortful swallows completed with the following consistencies: 5 ml thin: 23/23 successful swallows; average of 1-2 swallows per bolus. No overt s /sx of aspiration noted 5 ml puree 16/16 successful swallows; average of 1-2 swallows per bolus. No overt s /sx of aspiration noted TELEVISION NEWS PRODUCER to continue education re: use of compensatory swallowing strategies if needed in following sessions. Reviewed HEP at the conclusion of the session, with patient verbalizing understanding. HEP Recommendation: Oral motor exercises, effortful swallow 30-50 reps with thin liquid and/or puree. Reviewed with Patient Goals Patient/Caregiver Understanding Excellent
--- NOTE | 2024-08-20 16:35 | ST.OPDS ---
Visit Care Team Role Provider Type Arvind Pires MD Attending Provider Physician Family Provider Primary Care Provider Referring Provider Address: [address] [place] [address], [address], [place], [address] SYSTEMS NAVIGATOR Treatment Note SYSTEMS NAVIGATOR Treatment Note Start: 07/20/24 15:27 Freq: Status: Active Protocol: Document 08/20/24 16:29 MA (Rec: 08/20/24 16:35 MA [id number]) Speech Pathology Treatment Note Session Time Visit Start Time 16:00 Visit Stop Time 16:30 Total Visit Minutes 30 Visit Information Visit Number 4 Plan of Care Dates 07/11/24-10/11/24 Setting Treatment Setting Outpatient Care Visit Type Note Type Treatment Note Next Note Type Next Note Type Treatment Note General Information Patient History Pt is a 63 year old female seen this date for dysphagia evaluation. Pt brought in by her who did not accompany Pt to evaluation. Pt in wheelchair. 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 Pt reports reduced swallow difficulties. She states hx of feeling food stuck in throat resulting in choking and throat closing up, which would occur about once a week. She states this would happen with any foods. Pt reports she has focused on eating slowly, not talking gwhile eating and taking her time. Pt with hx of diabetes and HTN. She lives with her life partner. Pt had a MBS completed on 05/21/24 with the following results. Pt presented with oral, pharyngeal and esophageal swallow phases WFL. However, pt does present with potential risk of aspiration given her hoarse voice and left side paresis. She describes her voice getting weaker the longer she speaks Recommend referral to ENT to rule out unilateral vocal fold paresis and weak glottal adduction. Pt described her voice as giving out the longer she speaks, suggesting vocal fold weakness. Weakened glottal adduction put pt as risk for penetration and or aspiration. Also recommend ST services to increase overall strength and endurance of pt's vocal system . This will aid in airway protection. Subjective Observations/Patient Presentation Pt arrived on time with her who did not accompany her to therapy. Objective Short Term Goals STG 1: Pt will tolerate prescribed diet with <5% overt s/s of aspiration/dysphagia with use of compensatory swallowing strategies and minimal cues. - MET STG 2: Pt will complete hyolaryngeal strengthening exercises for improved pharyngeal phase of swallow with minimal cueing with 90% accuracy. - MET STG 3: Pt will complete oral motor exercises of increasing complexity and duration for improved oral musculature and swallow function 90% accuracy given minimal cues. - MET [employer] Goals LTG 1: Patient will consume safest and most efficient least restrictive diet with no clinical s/s of aspiration or dysphagia 100% of the time in order to meet primary nutrition/hydration needs. Treatment Activities Implemented rehabilitative exercises on this date to target improved swallowing safety and efficiency as well as education re: recommended strategies. 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 Recommended pt call PCP and ENT if not notified about appointment this week. Pt expressed understanding. Pt expressed she has been doing her oral motor exercises at home without difficulties. She denies any recent swallow difficulties. Reviewed with Pt re: recommended safe swallow precautions to reduce the risk of aspiration, including small bites/sips, slow rate, alternating liquids and solids , upright positioning during PO intake, limiting distractions, and avoiding talking while eating. Patient verbalized understanding and reported no overt difficulty with swallowing since last session with use of strategies . Instructed patient in the Effortful Swallow to improve tongue to palate contact, base of tongue retraction, hyolaryngeal elevation and excursion, pharyngeal constriction, and opening of the upper esophageal sphincter for improved swallowing safety and efficiency. Bolus- driven effortful swallows completed with the following consistencies: 8 oz of thin water via cup and 2 quiana crackers. Pt demonstrated adequate bite size and rate, prolonged mastication however adequate bolus formation and control, extended ap transport , piecemeal deglutition, no overt s/s of aspiration. ST facilitated conversation with Pt in regards to recommendation to discharge from therapy d/t Pt independent with HEP and no reports of recent swallow difficulties and Pt utilizing safe swallowing strategies at home. ST recommended Pt f/u with PCP in regards to ENT referral and to return to therapy in needed. Pt verbalized understanding. ST recommends Pt continue oral motor exercises, safe swallowing strategies and swallow exercises at home. Reviewed with Patient Goals,Progress Being Made,Home Exercise Program Patient/Caregiver Understanding Excellent Plan Frequency of Treatment No Further Therapy
== END 2024-08-30 15:04 | disposition home or self-care (01) ==
LOC: SP 16:00
PROVIDERS: Family Provider Internal Medicine; PCP Internal Medicine; Referring Provider Internal Medicine; Visit Provider Internal Medicine
DX: R13.10 Dysphagia, unspecified (principal)
CPT/HCPCS: 92507; 92526; 92610

== ENCOUNTER → 2024-10-03 11:50 | Outpatient (CLI) | payer MEDICARE, MEDICAID, SELFPAY ==
[2021-08-11 04:59] VITALS: BMI 32.1
[2024-10-03 12:58] LABS: Hemoglobin A1C% w Est Avg Glu 6.7 % (4.0-6.0)
[2024-10-03 13:09] LABS: BUN Creatinine Ratio 15.3 (6-22); Blood Urea Nitrogen 13 mg/dL (7-17); Calcium 9.7 mg/dL (8.4-10.2); Carbon Dioxide 28 mmol/L (22-32); Chloride 104 mmol/L (98-107); Estimated Glomerular Filt Rate > 60 mL/min (>60); Glucose 99 mg/dL (80-110); HEMOLYSIS < 15 (0-50); Potassium 4.5 mmol/L (3.4-5.1); Sodium 140 mmol/L (137-145)
== END ==
PROVIDERS: Family Provider Internal Medicine; PCP Internal Medicine; Referring Provider Internal Medicine; Visit Provider Internal Medicine
DX: E11.49 Type 2 diabetes mellitus with other diabetic neurological complication (principal); I10 Essential (primary) hypertension; R13.10 Dysphagia, unspecified; Z79.85 Long-term (current) use of injectable non-insulin antidiabetic drugs
CPT/HCPCS: 36415; 80048; 83036

== ENCOUNTER → 2025-04-05 09:41 | Outpatient (CLI) | payer MEDICARE, MEDICAID, SELFPAY ==
[2021-08-11 04:59] VITALS: BMI 32.1
[2025-04-05 11:00] LABS: Hemoglobin A1C% w Est Avg Glu 6.6 % (4.0-6.0)
[2025-04-05 12:51] LABS: Alanine Aminotransferase 26 IU/L (<35); Albumin 4.6 g/dL (3.5-5.0); Albumin Globulin Ratio 1.8 (1.0-2.8); Alkaline Phosphatase 43 U/L (38-126); Aspartate Aminotransferase 24 IU/L (14-36); BUN Creatinine Ratio 15.6 (6-22); Blood Urea Nitrogen 14 mg/dL (7-17); Calcium 9.7 mg/dL (8.4-10.2); Carbon Dioxide 28 mmol/L (22-32); Chloride 102 mmol/L (98-107); Cholesterol 98 mg/dL (140-199); Estimated Glomerular Filt Rate > 60 mL/min (>60); Globulin 2.5 g/dL (1.7-4.1); Glucose 134 mg/dL (70-99); HDL Cholesterol 40 mg/dL (40-60); HEMOLYSIS < 15 (0-50); LDL Cholesterol Calculated 14 mg/dL (<100); Potassium 4.6 mmol/L (3.4-5.1); Sodium 140 mmol/L (137-145); Total Protein 7.1 g/dL (6.3-8.2); Triglycerides 221 mg/dL (35-150)
[2025-04-05 12:57] LABS: Microalbumin Urine Random 1.2 mg/dL (0-1.6)
[2025-04-05 13:00] LABS: Creatinine Urine Random 59.83 mg/dL
== END ==
PROVIDERS: Family Provider Internal Medicine; PCP Internal Medicine; Referring Provider Internal Medicine; Visit Provider Internal Medicine
DX: E11.9 Type 2 diabetes mellitus without complications (principal); I10 Essential (primary) hypertension; E78.2 Mixed hyperlipidemia
CPT/HCPCS: 36415; 80053; 80061; 82043; 82570; 83036

== ENCOUNTER → 2025-04-25 | Outpatient (CLI) | payer MEDICARE, MEDICAID, SELFPAY ==
[2021-08-11 04:59] VITALS: BMI 32.1
--- NOTE | 2025-04-25 14:55 | DI.MG.S_ITS ---
MM screening mammo BI: 04/25/2025. BI-RADS: 0 CLINICAL: 64-year old female for bilateral screening mammogram. Tyrer-Cuzick lifetime risk of 9.4%. Current reported family history of breast cancer: sister. PRIOR EXAMS: 05/26/2023, 05/10/2023. MAMMOGRAPHY TECHNIQUE: 2D and 3D (tomosynthesis) digital mammographic views obtained, with additional images as needed for full coverage. Current study was also evaluated with a Computer Aided Detection (CAD) system. DENSITY B. There are scattered areas of fibroglandular density. MAMMOGRAPHY FINDINGS Right: No suspicious mass, asymmetry, microcalcification, or other abnormality seen. Left: Upper Outer Quadrant, Anterior depth: Focal asymmetry needing additional imaging evaluation. IMPRESSION: Right * No evidence of malignancy. Left (Asymmetry): Upper Outer Quadrant, Anterior depth * Incomplete - focal asymmetry needing additional imaging evaluation. RECOMMENDATIONS Left: Upper Outer Quadrant, Anterior depth * Further evaluation with diagnostic mammography and diagnostic ultrasound. Ultrasound to be performed only if needed. OVERALL ASSESSMENT CATEGORY BI-RADS-0: Incomplete - Need Additional Imaging Evaluation. ELECTRONICALLY SIGNED: Dax Gordillo M.D. on 04/26/2025 at 12:03:39 PM PT Interpreting Station ID: [id number]
== END ==
PROVIDERS: Family Provider Internal Medicine; PCP Internal Medicine; Referring Provider Internal Medicine; Visit Provider Internal Medicine
DX: Z12.31 Encounter for screening mammogram for malignant neoplasm of breast (principal); Z80.3 Family history of malignant neoplasm of breast
CPT/HCPCS: 77063; 77067

== ENCOUNTER → 2025-05-28 13:13 | Outpatient (CLI) | payer MEDICARE, MEDICAID, SELFPAY ==
[2021-08-11 04:59] VITALS: BMI 32.1
--- NOTE | 2025-05-28 13:15 | DI.MG.S_ITS ---
US breast LT limited, MM diagnostic mammo unilat LT: 05/28/2025 BI-RADS: 3 CLINICAL: 64-year old female for left diagnostic mammogram and left diagnostic breast ultrasound that is a recall from screening on 04/25/2025. Tyrer-Cuzick lifetime risk of 9.4%. Current reported family history of breast cancer: sister. PRIOR EXAMS Mammogram(s): 04/25/2025. Three Other Exams on 05/26/2023, 05/10/2023. MAMMOGRAPHY TECHNIQUE: 2D and 3D (tomosynthesis) digital mammographic views obtained, with additional images as needed for full coverage. Current study was also evaluated with a Computer Aided Detection (CAD) system. ULTRASOUND TECHNIQUE Real-time gandhi scale and color doppler imaging of the area of clinical interest was performed with image documentation. Left targeted breast ultrasound of the area of clinical interest and the axilla was performed with image documentation. DENSITY Left: B. There are scattered areas of fibroglandular density. MAMMOGRAPHY FINDINGS Left (finding-1): Upper Outer Quadrant, Anterior depth: There is a circumscribed, oval, equal-density mass present. ULTRASOUND FINDINGS Left (finding-1): Upper Outer at 2:00, 8.0 cm from nipple, measuring 1.3 x 0.7 x 0.7 cm: Correlating with findings on mammogram there is a complicated cyst present containing fat-fluid level. IMPRESSION: Left (Complicated Cyst): Upper Outer at 2:00, 8.0 cm from nipple, measuring 1.3 x 0.7 x 0.7 cm * Probably Benign. RECOMMENDATIONS Left: Upper Outer at 2:00, 8.0 cm from nipple * Six month followup with diagnostic ultrasound. OVERALL ASSESSMENT CATEGORY BI-RADS-3: Probably Benign. ELECTRONICALLY SIGNED: Franklin Antoine M.D. on 05/28/2025 at 04:46:37 PM PT Interpreting Station ID: [id number]
== END ==
LOC: MAMMO 13:14
PROVIDERS: Family Provider Internal Medicine; PCP Internal Medicine; Referring Provider Internal Medicine; Visit Provider Internal Medicine
DX: R92.8 Other abnormal and inconclusive findings on diagnostic imaging of breast (principal); N60.02 Solitary cyst of left breast; R92.322 Mammographic fibroglandular density, left breast; Z80.3 Family history of malignant neoplasm of breast
CPT/HCPCS: 76642; 77065; G0279

== ENCOUNTER 2025-08-20 07:52 | Day surgery (SDC) | payer MEDICARE, MEDICAID, SELFPAY ==
[2021-08-11 04:59] VITALS: BMI 32.1
--- NOTE | 2025-08-20 | PATH_ITS ---
[facility] Accession Number: [id number] No. of containers..05 Tissue . 01 Material submitted: . PART A: body - 70CM POLYP PART B: colon - CECAL MASS PART C: colon - COLON, ASCENDING POLYP PART D: colon - COLON, SIGMOID POLYP PART E: rectum - RECTAL POLYP X3 . 01 Diagnosis: A. COLON POLYP AT 70 CM: Tubular adenoma. . B. SPECIMEN DESIGNATED CECAL MASS: Two small fragments of sessile serrated adenoma. See comment. . C. ASCENDING COLON POLYP: Tubular adenoma. . D. SIGMOID COLON POLYP: Tubular adenoma. . E. RECTAL POLYPS: Tubular adenoma. Hyperplastic polyps. [facility] 08/27/2025 1500 Local . 01 Comment: B. The clinical impression of a mass is noted. While no malignancy is seen, careful correlation with endoscopic appearance is recommended to rule out the possibility of an unsampled, more concerning lesion and to ensure that the lesion is entirely removed. . 01 Electronically signed: . Sapna Mason MD, Pathologist NPI- [id number] . 01 Gross description: . Received are five formalin-filled containers each labeled with the patient's name. . A. In a container labeled 1. 70 cm polyp, are multiple fragments of bartlett, soft tissue which range in size from less than 0.1 cm to 0.9 x 0.5 x 0.3 cm. All fragments are totally submitted in cassette A1. B. In container labeled cecal mass, are two fragments of bartlett, soft tissue both measuring less than 0.1 cm. The specimen is totally submitted in cassette B1. C. In a container labeled ascending colon polyp, is one fragment of bartlett, soft tissue and possible debris which measures 0.2 x 0.2 x 0.2 cm. The specimen is totally submitted in cassette C1. D. In a container labeled sigmoid colon 30 cm, is one fragment of bartlett, soft tissue which measures 0.7 x 0.4 x 0.3 cm. The specimen is totally submitted in cassette D1. E. In a container labeled rectal polyps, are three fragments of bartlett, soft tissue which range in size from 0.3 x 0.3 x 0.3 cm to 0.8 x 0.5 x 0.4 cm. All fragments are totally submitted in cassette E1. (DC:[id number]) /ALEXIS 08/23/2025 0252 Local . 01 Pathologist provided ICD-10: D12.7, D12.0, D12.2, D12.5, D12.8 . 01 CPT . 121217, 770883, 258430, 594579, [id number] Specimen Comment: A courtesy copy of this report has been sent to [facility] Pathology Performed at: [address] [address], [place], [place] [id number] MD Emir Oneill MD Phone: [phone]
--- NOTE | 2025-08-20 06:20 | PM.HP.IH.1 ---
History of Present Illness History of Present Illness Date Patient Seen: 08/20/25 Time Patient Seen: 06:21 Chief complaint: Screening Colonoscopy Narrative: Patient presents for first screening colonoscopy today. [facility] Medical History (Updated 08/20/25 @ 06:39 by Scott Chester MD) BMI 36.0-36.9,adult Type 2 diabetes mellitus Vision disorder Acne Depression Fractures (~1981) Polio Chicken pox Personal history of stroke with current residual effects (~07/2021) Mixed hyperlipidemia Essential hypertension Obesity (BMI 30.0-34.9) Healthy adult Surgical History (Updated 09/30/21 @ 22:09 by Nicci Rico) Anesthesia History of (~1998) History of cholecystectomy (~1988) History of tonsillectomy Family History (Updated 09/30/21 @ 22:16 by Nicci Rico) Mother Heart attack Diabetes mellitus Heart disease Mental health problem Father Heart disease Brother Brain tumor Sister Cancer Grandmother Lung cancer Grandfather Lung cancer Social History (System 09/01/21 @ 14:57 by Heydi Barnes) household members: significant other lives independently: Yes alcohol intake: current Meds Home Medications and Allergies Home Medications ?Medication ?Instructions ?Recorded ?Confirmed ?Type aspirin 81 mg tablet,delayed 81 mg PO DAILY #90 tabs 09/25/21 04/12/25 Rx release (Adult Low Dose Aspirin) melatonin 5 mg tablet 5 mg PO BEDTIME PRN 04/08/22 04/12/25 History ketoconazole 2 % topical cream 1 applic topical BID #60 grams 01/19/24 04/12/25 Rx acetaminophen 500 mg tablet 1,000 mg PO BEDTIME PRN 04/19/24 04/12/25 History (Tylenol Extra Strength) wheelchair #1 ea 04/19/24 04/12/25 Rx glipizide 10 mg tablet 10 mg PO BID #180 tabs 09/03/24 04/12/25 Rx metformin 500 mg tablet 500 mg PO BID #180 tabs 09/03/24 04/12/25 Rx rosuvastatin 20 mg tablet 20 mg PO DAILY #90 tabs 09/04/24 04/12/25 Rx metoprolol succinate 100 mg 100 mg PO DAILY #90 tabs 11/27/24 04/12/25 Rx tablet,extended release 24 hr losartan 100 mg tablet 100 mg PO DAILY #90 tabs 12/27/24 04/12/25 Rx citalopram 40 mg tablet 40 mg PO DAILY #90 tabs 02/11/25 04/12/25 Rx cyclobenzaprine 5 mg tablet 5 mg PO TID PRN muscle spasm #90 06/03/25 Rx tabs dulaglutide 1.5 mg/0.5 mL 1.5 mg (0.5 mL) SUBCUT QWEEK #2 mL 07/15/25 Rx subcutaneous pen injector (Trulicity) sodium,potassium,mag sulfates 17.5 See Rx Instructions PO .COMPLEX 07/15/25 Rx gram-3.13 gram-1.6 gram oral soln #354 mL (Suprep Bowel Prep Kit) baclofen 5 mg tablet 10 mg (2 x 5 mg) PO TID #180 tabs 07/25/25 Rx amlodipine 10 mg tablet 10 mg PO DAILY #90 tabs 08/12/25 Rx Allergies Allergy/AdvReac Type Severity Reaction Status Date / Time metformin AdvReac Intermediate diarrhea Verified 04/12/25 15:40 Exam Narrative Exam Narrative: Const General: comfortable Orientation: alert and oriented x3 Resp Effort & Inspection: normal respiratory effort and able to speak in complete sentences Cardio Rate: regular rate GI Palpation: soft (NT) Extrem General: no pedal edema and no calf tenderness Assessment & Plan Assessment and plan (1) Encounter for screening colonoscopy: Status: Acute Plan Plan screening colonoscopy. The risks, benefits and options regarding the procedure were explained to the patient in detail. Risk discussion included but not limited to: bleeding, perforation, missed lesion, unable to reach cecum. The patient was encouraged to ask questions and they were answered to their satisfaction. The patient understands and is agreeable to proceed. Time-Based Coding :: [TOTAL MINUTES] spent with patient and on the chart (including review of chart, obtaining history, exam, reviewing outside data, placing orders, documenting exam and treatment plan, and counseling patient) on [DATE]. 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
[2025-08-20 09:10] VITALS: BP 176/83; PULSE 91; RESP 24; TEMP 36.3; O2SAT 95
[2025-08-20] MEDS: LACTATED RINGERS 1,000 ML 42 ML IV (09:21)
[2025-08-20 11:01] VITALS: BP 146/72; PULSE 90; RESP 16; TEMP 36.2; O2SAT 90
--- NOTE | 2025-08-20 11:02 | PM.OP.COLON ---
Operative Date/Time/Diagnoses Date of procedure: 08/20/25 Time of procedure: 11:02 Pre-op diagnosis: Screening colonoscopy Post-op diagnosis: other (Polyps) Procedure & Clinicians Study performed: Colonoscopy with polypectomy Same procedure(s) as scheduled: Yes Indications: 64yo F, screening colonoscopy Surgeon: Scott Chester Anesthesia Type: MAC +/- Procedure Notes SCOAP/Timeout: Performed Procedure in detail: Colonoscopy Patient placed in left lateral recumbent position. Time out was performed. Procedural sedation was administered by anesthesia. Examination began with a thorough inspection of the perianal area. There was no evidence of fissures, fistulae, external hemorrhoids or cutaneous malignancy. The colonoscope was then placed into the rectum and the lumen was insufflated with carbon dioxide. The scope was carefully advanced forward. Ultimately the cecum was intubated and confirmed by identification of the ileocecal valve, the appendiceal orifice and the confluence of the taenia. The scope was then slowly withdrawn examining the colon thoroughly in all directions. In the rectum, retroflexion of the scope was performed for inspection of the distal rectum and anal canal. ?Significant colonoscopy findings: ?1. Quality of the preparation-good, [place] 2-3, improved with irrigation/suction ?2. Multiple 3-5mm sessile adenomatous, benign appearing polyps. All removed with cold snare and retrieved for pathology; one in ascending colon, one in sigmoid colon and 3 in rectum. Additional cecal sessile polyp biopsied with cold biopsy forceps. 3 Likely will need next screening colonoscopy in 5 years due to number of adenomatous polyps. Scope withdrawal time: 20 Findings: polyp(s) Specimen(s): other (polyps) Complications: none Impression: Colon polyps Path pending Post-procedure Recommendations: Colonoscopy in 5 years Plan for aftercare: PACU then home Follow up: as needed Disposition: PACU
[2025-08-20 11:07] VITALS: BP 169/85; PULSE 90; RESP 16; O2SAT 91
[2025-08-20 11:14] VITALS: BP 166/80; PULSE 86; RESP 15; O2SAT 92
== END 2025-08-20 11:40 | disposition home or self-care (01) ==
PROVIDERS: Family Provider Internal Medicine; PCP Internal Medicine; Referring Provider Surgery; Visit Provider Surgery
PROC: 0DJD8ZZ Inspection of Lower Intestinal Tract, Via Natural or Artificial Opening Endoscopic (ICD-10-PCS; CPT 45378; principal; 2025-08-20 09:30)
DX: Z12.11 Encounter for screening for malignant neoplasm of colon (principal); E11.9 Type 2 diabetes mellitus without complications; Z79.84 Long term (current) use of oral hypoglycemic drugs; Z79.85 Long-term (current) use of injectable non-insulin antidiabetic drugs; D12.6 Benign neoplasm of colon, unspecified; D12.0 Benign neoplasm of cecum; D12.5 Benign neoplasm of sigmoid colon; D12.8 Benign neoplasm of rectum
CPT/HCPCS: 45385; 45380; 82962; J2704

== ENCOUNTER → 2025-10-01 09:15 | Outpatient (CLI) | payer MEDICARE, MEDICAID, SELFPAY ==
[2021-08-11 04:59] VITALS: BMI 32.1
[2025-10-01 10:36] LABS: Hemoglobin A1C% w Est Avg Glu 7.6 % (4.0-6.0)
[2025-10-01 10:39] LABS: Alanine Aminotransferase 27 IU/L (<35); Albumin 4.5 g/dL (3.5-5.0); Albumin Globulin Ratio 1.6 (1.0-2.8); Alkaline Phosphatase 53 U/L (38-126); Blood Urea Nitrogen 10 mg/dL (7-17); Calcium 9.6 mg/dL (8.4-10.2); Carbon Dioxide 26 mmol/L (22-32); Chloride 103 mmol/L (98-107); Cholesterol 97 mg/dL (140-199); Estimated Glomerular Filt Rate > 60 mL/min (>60); Globulin 2.8 g/dL (1.7-4.1); Glucose 162 mg/dL (70-99); HDL Cholesterol 43 mg/dL (40-60); HEMOLYSIS < 15 (0-50); Potassium 4.6 mmol/L (3.4-5.1); Sodium 140 mmol/L (137-145); Total Protein 7.3 g/dL (6.3-8.2); Triglycerides 276 mg/dL (35-150)
== END ==
PROVIDERS: Family Provider Internal Medicine; PCP Internal Medicine; Referring Provider Internal Medicine; Visit Provider Internal Medicine
DX: E11.9 Type 2 diabetes mellitus without complications (principal); E78.2 Mixed hyperlipidemia; I10 Essential (primary) hypertension
CPT/HCPCS: 36415; 80053; 80061; 83036